=== PATIENT | male | born 1960 | race Caucasian/White ===

== ENCOUNTER → 2019-11-11 13:18 | Outpatient (BNVA) | payer MEDICARE, MEDICAID, SELFPAY | PROVIDERS: Family Provider Internal Medicine; PCP Internal Medicine; Visit Provider Specialist | DX: R29.90 Unspecified symptoms and signs involving the nervous system (principal); F31.10 Bipolar disorder, current episode manic without psychotic features, unspecified | CPT/HCPCS: 99213 ==

== ENCOUNTER → 2020-08-24 09:44 | Day surgery (SDC) | payer MEDICARE, MEDICAID, SELFPAY ==
[2020-08-24] MEDS: iron sucrose 500 MG in sodium chloride 0.9% 250 ML 68.8 MG IV (10:41)
[2020-08-24 11:06] VITALS: BP 124/71; PULSE 73; RESP 18; TEMP 37.1; O2SAT 97
== END ==
PROVIDERS: PCP Internal Medicine; Visit Provider Internal Medicine
DX: K90.9 Intestinal malabsorption, unspecified (principal)
CPT/HCPCS: 96365; 96366; J1756; J7050

== ENCOUNTER → 2020-08-30 07:59 | Day surgery (SDC) | payer MEDICARE, MEDICAID, SELFPAY ==
[2020-08-30 08:10] VITALS: BP 117/82; PULSE 72; RESP 18; TEMP 37.2; O2SAT 97; BMI 32.8
[2020-08-30] MEDS: iron sucrose 500 MG in sodium chloride 0.9% 250 ML 68.8 MG IV (08:30)
== END ==
PROVIDERS: PCP Internal Medicine; Visit Provider Internal Medicine
DX: K90.9 Intestinal malabsorption, unspecified (principal)
CPT/HCPCS: 96365; 96366; J1756; J7050

== ENCOUNTER → 2020-08-31 09:35 | Outpatient (BNVA) | payer MEDICARE, MEDICAID, SELFPAY | PROVIDERS: PCP Internal Medicine; Visit Provider Specialist | DX: F31.10 Bipolar disorder, current episode manic without psychotic features, unspecified (principal); K90.9 Intestinal malabsorption, unspecified | CPT/HCPCS: 99213 ==

== ENCOUNTER → 2021-02-28 10:51 | Outpatient (BNVA) | payer MEDICARE, MEDICAID, SELFPAY | PROVIDERS: PCP Internal Medicine; Visit Provider Specialist | DX: F31.10 Bipolar disorder, current episode manic without psychotic features, unspecified (principal) | CPT/HCPCS: 99213 ==

== ENCOUNTER → 2021-08-22 10:35 | Outpatient (BNVA) | payer MEDICARE, MEDICAID, SELFPAY | PROVIDERS: PCP Internal Medicine; Referring Provider Specialist; Visit Provider Specialist | DX: F31.10 Bipolar disorder, current episode manic without psychotic features, unspecified (principal) | CPT/HCPCS: 99213 ==

== ENCOUNTER → 2021-11-28 14:46 | Outpatient (BNVA) | payer MEDICARE, MEDICAID, SELFPAY | PROVIDERS: PCP Internal Medicine; Visit Provider Specialist | DX: F31.10 Bipolar disorder, current episode manic without psychotic features, unspecified (principal) | CPT/HCPCS: 99213 ==

== ENCOUNTER 2022-07-12 09:55 | Inpatient (IN) | payer MEDICARE, MEDICAID, SELFPAY ==
[2022-07-12] VITALS (35 sets, daily range): BP systolic 87–123; BP diastolic 60–83; PULSE 79–102; RESP 12–29; TEMP 36.4–36.8; O2SAT 87–96
--- NOTE | 2022-07-12 10:15 | XRR_ITS ---
PROCEDURE INFORMATION: Exam: XR Chest Exam date and time: 07/12/2022 10:46 AM Age: 62 years old Clinical indication: Shortness of breath TECHNIQUE: Imaging protocol: Radiologic exam of the chest. Views: 1 view. COMPARISON: CR XR chest 1V [id number] 11/01/2015 8:16 PM FINDINGS: Lungs: Lung volumes are decreased. Diffuse alveolar infiltrate involving majority of the right lung likely secondary to diffuse pneumonia. Pleural spaces: Unremarkable. No pleural effusion. No pneumothorax. Heart/Mediastinum: Heart size is enlarged but stable. Bones/joints: Unremarkable for age. XR/XR chest 1V portable [id number] IMPRESSION: Diffuse alveolar infiltrate right lung likely secondary to pneumonia.
--- NOTE | 2022-07-12 10:19 | ECG_ITS ---
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 Measurements Intervals [place] Rate: 84 P: 42 NC: 188 QRS: 39 QRSD: 96 T: 18 QT: 344 QTc: 407 Interpretive Statements SINUS RHYTHM Compared to ECG 11/01/2015 19:15:52 No significant changes Electronically Signed On 07-13-2022 7:57:03 MFT by Samreen Jones M.D. [id number]
--- NOTE | 2022-07-12 10:19 | ED_ITS ---
HPI - SOB/Dyspnea General: Chief Complaint: Shortness of Breath/Dyspnea Stated Complaint: Low 02, Low BP, shortness of Time Seen by Provider: 07/12/22 10:18 History of Present Illness: HPI Narrative: 62-year-old male from a intermediate with intellectual disability presents emergency room complaining of increasing shortness of breath and cough for the last day. He has some moderate chest pain from his coughing, no hemoptysis. Chest pain is reproducible palpation and deep breath and cough. Patient is hypoxic and requires 2 to 3 L by nasal cannula. No other members of the intermediate has been sick or recently diagnosed with COVID. Chest pain does not radiate and he has no history of coronary artery disease. MD elicited complaint: shortness of breath and cough Onset (ago): day(s) Timing: constant Severity: moderate Exacerbating factors: exertion and coughing Relieving factors: oxygen and rest Associated symptoms: Reports chest congestion, chest pain and cough; Deny no associated symptoms, abdominal pain, diaphoresis, dizziness, extremity p ain, fever(s), hemoptysis, lightheadedness, myalgias, nausea, orthopnea, palpitations, paresthesias, polydipsia, polyuria, rash, sense of impending doom, syncope, vomiting or other Treatment prior to arrival: none Review of Systems Const: Denies: fever(s) or diaphoresis Card: Reports: chest pain; Denies: palpitations, lightheadedness, syncope or orthopnea Resp: Reports: dyspnea, non-productive cough and chest congestion; Denies: hemoptysis GI: Denies: abdominal pain, nausea or vomiting Musc: Denies: extremity pain Neuro: Denies: dizziness Endo: Denies: polyuria or polydipsia PFSH ED PFSH: Medical History Bipolar disease, manic Negative colon, negative guaics. Dupuytren's contracture of left hand Iron deficiency anemia Tardive dyskinesia Surgical History History of carpal tunnel release History of cataract extraction History of colonoscopy Social History Smoking and tobacco status: never smoked Alcohol intake: never History of recent travel: No Physical Exam Const: GENERAL APPEARANCE: cooperative and comfortable ORIENTATION/CO NSCIOUSNESS: Yes awake HENMT: COMMON NORMALS: normocephalic, atraumatic and hearing grossly normal bilaterally HEAD & SCALP: normocephalic and atraumatic Resp: COMMON NORMALS: No use of accessory muscles AUSCULTATION: rhonchi and wheezes Cardio: COMMON NORMALS: regular rate, regular rhythm and No murmurs present (Cardio) RATE: regular rate RHYTHM: regular rhythm GI: COMMON NORMALS: Soft to palpation and No hepatosplenomegaly present AUSCULTATION: Yes normoactive bowel sounds PALPATION: Yes Soft to palpation, No Tenderness to palpation present (GI), No Guarding due to palpation present (GI) and Yes No hepatosplenomegaly present Extremity: COMMON NORMALS: normal to inspection, capillary refill normal, no clubbing, cyanosis or edema, no calf tenderness and no pedal edema Skin: COMMON NORMALS: no rashes or lesions noted GENERAL SKIN EXAM: no rashes or lesions noted Course Vital Signs: Vital signs: Vital Signs Temperature 98.3 F 07/14/22 15:44 Pulse Rate 85 07/14/22 15:44 Respiratory Rate 18 07/14/22 15:44 Blood Pressure 110/74 07/14/22 15:44 Pulse Oximetry 93 07/14/22 15:44 Oxygen Delivery Me thod 07/14/22 11:55 Oxygen Flow Rate 2 07/14/22 13:24 MDM - SOB/Dyspnea Medical Decision Making Right lower lobe pneumonia with elevated D-dimer PCR is pending discussed with hospitalist will admit is not having the oxygen requirement start oral antibi otics orders written. EKG reviewed no acute ST changes suspect this pain is musculoskeletal and pleuritic in nature not cardiovascular. Pending COVID may need CTA of chest. Medical Records I reviewed the patient's medical records. Lab Data I reviewed the patient's lab results. 07/12/22 10:25 07/12/22 10:25 Labs/Radiology: Radiology Impressions Chest X-Ray 07/12/22 10:15 IMPRESSION: Diffuse alveolar infiltrate right lung likely secondary to pneumonia. Chest CTA 07/12/22 14:00 IMPRESSION: 1. Some images degraded by respiratory artifact. Right-sided segmental and subsegmental pulmonary arteries not well evaluated. However no evidence of pulmonary embolus as visualized. 2. RIGHT hilar bronchovascular thickening with masslike lymphadenopathy measuring 2.3 x 2.4 cm suspicious for neoplasm. Mild narrowing of the proximal RIGHT bronchi. A few enlarged peribronchial and subcarinal lymph nodes. Recommend further evaluation with bronchoscopy. 3. Diffuse groundglass infiltrates throughout the RIGHT lung suspicious for postobstructive and/or aspiration pneumonia. LEFT lung is well aerated. 4. Esophageal hiatal hernia with partial intrathoracic stomach. 5. Diffuse dilatation of the thoracic esophagus with air-fluid levels. Recommend correlation with achalasia. Distention of the distal thoracic esophagus at the GE junction. Underlying obstructing esophageal mass not excl uded. This can be further evaluated with endoscopy. 6. Cardiomegaly. 7. A few low-attenuation lesions in the liver likely hepatic cysts but technically indeterminate on this study. Some of these were present in 2006. This can be followed up with contrast-enhanced CT. Notified Edward Polk MD at 07/12/2022 4:16 PM. Laboratory Results WBC 14.9 10^3/uL (4.0-10.0) H 07/12/22 10:25 RBC 5.05 10^6/uL (4.1-5.3) 07/12/22 10:25 Hgb 14.5 g/dL (11.7-16.6) 07/12/22 10:25 Hct 44.8 % (42.0-52.0) 07/12/22 10:25 MCV 88.7 fl (80-94) 07/12/22 10:25 MCH 28.7 pg (28.0-34.0) 07/12/22 10:25 MCHC 32.4 g/dL (30.0-36.0) 07/12/22 10:25 RDW 13.3 % (12.1-15.1) 07/12/22 10:25 Plt Count 213 10^3/cmm (130-400) 07/12/22 10:25 MPV 10.2 fL (7.4-10.4) 07/12/22 10:25 Neut % (Auto) 92.8 % 07/12/22 10:25 Lymph % (Auto) 2.5 % 07/12/22 10:25 [place] % (Auto) 4.1 % 07/12/22 10:25 Eos % (Auto) 0.0 % 07/12/22 10:25 Baso % (Auto) 0.2 % 07/12/22 10:25 Neut # (Auto) 13.85 10^3/uL (1.8-7.7) H 07/12/22 10:25 Lymph # (Auto) 0.4 10^3/uL (0.8-4.8) L 07/12/22 10:25 [place] # (Auto) 0.6 10^3/uL (0.2-0.9) 07/12/22 10:25 Eos # (Auto) 0.0 10^3/uL (0.0-0.8) 07/12/22 10:25 Baso # (Auto) 0.0 10^3/uL (0.0-0.1) 07/12/22 10:25 Nucleated RBC % (auto) 0 % 07/12/22 10:25 Nucleated RBCs # 0.0 /100WBC 07/12/22 10:25 D-Dimer 1.85 ug/mIFEU (0-0.59) H 07/12/22 10:25 Sodium 130 mmol/L (136-145) L 07/12/22 10:25 Potassium 4.6 mmol/L (3.5-5.1) 07/12/22 10:25 Chloride 96 mmol/L (98-107) L 07/12/22 10:25 Carbon Dioxide 23 mmol/L (22-29) 07/12/22 10:25 Anion Gap 15.6 (5-19) 07/12/22 10:25 BUN 19 mg/dL (8-23) 07/12/22 10:25 Creatinine 1.0 mg/dL (0.7-1.2) 07/12/22 10:25 GFR Calculation 75.2 mL/min (90-130) L 07/12/22 10:25 Glucose 113 mg/dL (65-115) 07/12/22 10:25 Calculated Osmolality 273 mOsm/kg (285-295) L 07/12/22 10:25 Calcium 9.1 mg/dL (8.5-10.5) 07/12/22 10:25 Total Bilirubin 0.6 mg/dL (0.15-1.2) 07/12/22 10:25 AST 17 U/L (0-40) 07/12/22 10:25 ALT 11 U/L (0-41) 07/12/22 10:25 Alkaline Phosphatase 86 U/L (40-130) 07/12/22 10:25 Troponin T Baseline 6 ng/L (0-15) 07/12/22 10:25 Troponin T 120 Minute 6.00 ng/L (0-15) 07/12/22 12:40 Delta Troponin T 0 ABS# (0-10) 07/12/22 12:40 NT-Pro-B Natriuret Pep 196 pg/mL (0-125) H 07/12/22 10:25 Total Protein 6.9 g/dL (6.6-8.7) 07/12/22 10:25 Albumin 3.9 g/dL (3.5-5.2) 07/12/22 10:25 Globulin 3.0 g/dL (1.3-4.6) 07/12/22 10:25 Coronavirus 229E (PCR) Not detected (NOT DETECT) 07/12/22 11:55 SARS-CoV-2 (PCR) Not detected (NOT DETECT) 07/12/22 11:55 Discharge Plan Discharge Patient Disposition: Admitted As Inpatient Admit Provider: Edward Polk Clinical Impression: Pneumonia, Acute hyponatremia, Elevated d-dimer Condition: Stable Coding Level of Care Code 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
[2022-07-12 10:40] LABS: Basophils % 0.2 %; Hematocrit 44.8 % (42.0-52.0); Hemoglobin 14.5 g/dL (11.7-16.6); Lymphocytes # 0.4 10^3/uL (0.8-4.8); Lymphocytes % 2.5 %; Mean Corpuscular HGB Conc 32.4 g/dL (30.0-36.0); Mean Corpuscular Hemoglobin 28.7 pg (28.0-34.0); Mean Corpuscular Volume 88.7 fl (80-94); Mean Platelet Volume 10.2 fL (7.4-10.4); Monocytes # 0.6 10^3/uL (0.2-0.9); Monocytes % 4.1 %; Neutrophils # 13.85 10^3/uL (1.8-7.7); Neutrophils % 92.8 %; Nucleated Red Blood Cells % 0 %; Platelet Count 213 10^3/cmm (130-400); Red Blood Count 5.05 10^6/uL (4.1-5.3); Red Cell Distribution Width 13.3 % (12.1-15.1); White Blood Count 14.9 10^3/uL (4.0-10.0)
[2022-07-12 11:04] LABS: Troponin(5th) Baseline 6 ng/L (0-15)
[2022-07-12 11:14] LABS: Alanine Aminotransferase 11 U/L (0-41); Albumin Level 3.9 g/dL (3.5-5.2); Alkaline Phosphatase 86 U/L (40-130); Anion Gap 15.6 (5-19); Aspartate Amino Transferase 17 U/L (0-40); Blood Urea Nitrogen 19 mg/dL (8-23); Calcium 9.1 mg/dL (8.5-10.5); Carbon Dioxide 23 mmol/L (22-29); Chloride 96 mmol/L (98-107); Glomerular Filtration Rate 75.2 mL/min (90-130); Glucose 113 mg/dL (65-115); NT Pro B Type Natriuretic Pept 196 pg/mL (0-125); Osmolality Calculated 273 mOsm/kg (285-295); Potassium 4.6 mmol/L (3.5-5.1); Sodium 130 mmol/L (136-145); Total Bilirubin 0.6 mg/dL (0.15-1.2); Total Protein 6.9 g/dL (6.6-8.7)
--- NOTE | 2022-07-12 11:39 | PC.PHAR ---
pt is from [facility]
[2022-07-12] MEDS: levofloxacin-dextrose 5 % 750 MG/150 ML PREMIX 100 MG IV (12:13)
[2022-07-12 12:24] LABS: D Dimer 1.85 ug/mIFEU (0-0.59)
--- NOTE | 2022-07-12 12:25 | P.HP_ITS ---
Providers/Chief Complaint Admitting Physician: Edward Polk MD Primary Care Provider: Dandre Oakes MD Chief Complaint: Low 02, Low BP, shortness of History of Present Illness Dalton Olivas is a 62 year old male with history of intellectual disability who presents from a [facility] complaining of shortness of breath for the past day. Caregiver from the [facility] is present at bedside. She states that the patient's symptoms began with a dry cough yesterday, which has progressed to obvious respiratory difficulty today. Patient does not require oxygen at home, as the patient states that his shortness of breath came on all of a sudden while he was sitting down. Exacerbating factors to his shortness of breath include physical exertion and frequent coughing. He also states that he is having some pleuritic chest pain from his repetitive coughing, but states that it is only reproduced from coughing and describes it as a general musculoskeletal tightness. He denies any radiation of this pain. He states he has never had the symptoms before, and has no history of cardiopulmonary disease. He also reports some mild, unrelated back pain that is worse when he lays in certain positions. Caregiver states that there have been no recent sick contacts in the [facility], however, there is no mandatory requirement for the COVID-vaccine and she states that she is unaware of everyone's vaccination status. Reportedly, the patient has received the COVID vaccination. Confirmed by the caregiver, the patient denies any fever, syncope, dizziness, lightheadedness, palpitations, peripheral edema, hemoptysis, N/V/D, or any other symptoms at this time. The patient is currently on 2 L with O2 sats 90 to 93%. In the emergency department the patient received a dose of Levaquin. Review of Systems Narrative: General: Denies fever, weakness, dehydration Skin: Denies cyanosis, rash, erythema Eyes: Denies color changes, visual changes HENT: Denies headache, ear pain, rhinorrhea Chest: Reports pleuritic chest pain from coughing. Denies trauma Cardiovascular: Denies palpitations, peripheral edema, syncope Respiratory: Reports dyspnea, dry cough GI: Denies abdominal pain, distention, N/V/D : Denies urinary changes Musculoskeletal: Reports back pain Neuro: Denies numbness, tingling, dizziness Medications/Allergies Home Medications Medication Instructions Recorded Confirmed Last Taken Type ibuprofen 800 mg tablet 800 mg PO Q6H PRN pain/fever 07/30/19 07/12/22 Unknown History ceramides 1,3,6-II (CeraVe topical See Rx Instructions .Route 11/20/21 07/12/22 Unknown Rx cream) .COMPLEX #453 grams carbamide peroxide 6.5 % ear drops See Rx Instructions .Route 12/19/21 07/12/22 Unknown Rx (Ear Wax Removal Drops) .COMPLEX #15 mL aluminum-mag hydroxide-simethicone 30 ml PO Q4H PRN upset stomach 07/12/22 07/12/22 Unknown History 200 mg-200 mg-20 mg/5 mL oral susp dextromethorphan-guaifenesin 10 10 ml PO Q4H PRN Cough 07/12/22 07/12/22 Unknown History mg-100 mg/5 mL oral syrup ferrous gluconate 324 mg (38 mg 324 mg PO DAILY@07/12/22 07/12/22 07/12/22 History iron) tablet fluticasone propionate 50 2 spray intranasal DAILY@07/12/22 07/12/22 07/12/22 History mcg/actuation nasal spray,suspension hydrocortisone 1 % topical cream 1 applic NE QID PRN Hemorrhoids 07/12/22 07/12/22 Unknown History (Proctocort) loratadine 10 mg tablet (Claritin) 10 mg PO DAILY@07/12/22 07/12/22 07/12/22 History neomycin-bacitracn Zn-polymyx 3.5 1 applic topical PRN 07/12/22 07/12/22 Unknown History mg-400 unit-5,000 unit/gram top oint (Triple Antibiotic) omeprazole 20 mg capsule,delayed 20 mg PO DAILY@07/12/22 07/12/22 07/12/22 History release oxcarbazepine 600 mg tablet 600 mg PO BID@07/12/22 07/12/22 07/12/22 History polyethylene glycol 3350 17 gram 17 g PO DAILY@07/12/22 07/12/22 07/11/22 History oral powder packet (Miralax) quetiapine 200 mg tablet 200 mg PO BID@07/12/22 07/12/22 07/12/22 History simethicone 80 mg chewable tablet 80 mg PO QID 07/12/22 07/12/22 07/12/22 07:00 History trazodone 150 mg tablet 150 mg PO BEDTIME@20 07/12/22 07/12/22 07/11/22 History venlafaxine 150 mg 150 mg PO DAILY@07/12/22 07/12/22 07/12/22 History capsule,extended release 24 hr venlafaxine 75 mg capsule,extended 75 mg PO DAILY@07/12/22 07/12/22 07/12/22 History release 24 hr (Effexor XR) Allergies Allergy/AdvReac Type Severity Reaction Status Date / Time No Known Allergies Allergy Verified 07/12/22 11:24 PFSH Acute PFSH: Medical History (Updated 07/12/22 @ 13:18 by Edward Polk MD) Bipolar disease, manic Negative colon, negative guaics. Dupuytren's contracture of left hand Iron deficiency anemia Tardive dyskinesia Surgical History History of carpal tunnel release History of cataract extraction History of colonoscopy Social History Smoking and tobacco status: never smoked Alcohol intake: never History of recent travel: No Other PFSH information: Supplemental PFSH Information: No family with patient to obtain family history. Vitals/I&O/Wt Last Vital Signs Temp 98.2 F 07/12/22 10:07 Pulse 102 H 07/12/22 10:07 Resp 18 07/12/22 10:07 BP 106/68 07/12/22 11:13 Pulse Ox 92 07/12/22 11:13 O2 Del Method 07/12/22 11:13 O2 Flow Rate 2 07/12/22 11:13 Weight last 48 hrs Weight 99.79 kg Physical Exam Narrative: Constitutional: Well-developed, well-nourished white male lying in ER bed appears in no acute distress, on 2 L of oxygen. Patient speaks tangen tially, likely his history of intellectual disability Skin: No obvious signs of rash, mottling, cyanosis, clubbing, or any other color changes Eyes: PERRLA. Full EOMs. No scleral icterus. No corneal injection. HENT: Head is atraumatic and normocephalic. Normal TMs. No obvious nasal drainage. Moist oral mucosa. No tonsillar exudate or significant erythema. Chest: Chest nontender to palpation. Cardiovascular: Slightly tachycardic. Normal rhythm. No rubs, murmur, or gallop. No JVD. 1+ pitting edema. Respiratory: Moderate wheezing in the right lung mcrae, worse in the bases. Patient coughs frequently on exam. Pleuritic chest pain is reproducible with deep breathing/coughing. Normal respiratory effort. No use of intercostal muscles. No Rales, rhonchi, or stridor. GI: No abdominal tenderness. Normal bowel sounds. No rigidity or guarding. : Deferred Musculoskeletal: No tenderness palpation of the extremities. No tenderness palpation of the paraspinal muscles. Neuro: Alert and oriented x3. Sensations intact bilaterally. Data 07/12/22 10:25 07/12/22 10:25 Other Labs: Dimer elevated at 1.85 Liver function test normal BNP 196 Albumin 3.9 Calcium 9.1 Chest x-ray demonstrates extensive right lung infiltrate. I reviewed this personally. Blood cultures were obtained EKG demonstrates sinus rhythm, normal axis, no acute changes. Micro: Microbiology 07/12/22 10:30 Blood Culture - Preliminary Blood SPECIMEN COLLECTED 07/12/22 10:25 Blood Culture - Preliminary Blood SPECIMEN COLLECTED A&P Assessment and plan (1) Pneumonia: Patient presents with what appears to be outpatient acquired pneumonia. Levaquin has been initiated in the emergency department. We will continue. Has associated elevated white blood cell count, and hypoxia Wean oxygen as tolerated Pulmonary toilet No history of aspiration was given by independent caregiver or patient. However we will still monitor for aspiration considering location of pneumonia on the right side. Sputum and blood cultures Await COVID PCR (2) Hyponatremia: Try to avoid any extra fluids BMP tomorrow (3) Elevated d-dimer: If COVID is not positive, consider CT chest to image right side more extensively secondary to large pneumonia and to rule out pulmonary embolism. Plan Bipolar disorder and developmental delay Full code currently Lovenox for DVT prophylaxis Attestations Medical Necessity Statement*: Will require greater than 2 midnight stay for evaluation and treatment of pneumonia considering severe pneumonia, abnormal vital signs with tachycardia, elevated white blood cell count, hypoxia requiring oxygen Coding Level of Care Code 42414 High MDM includes risk/complexity, reviewing test results, ordering lab/other test(s), speaking with independent historian (other than patient) and independently interpretating test(s) (not separately recorded) Diagnoses Pneumonia J18.9 Hyponatremia E87.1 Elevated d-dimer R79.89 Time Spent (min) 42
--- NOTE | 2022-07-12 13:46 | ECG_ITS ---
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 Measurements Intervals [place] Rate: 88 P: 49 [place]: 185 QRS: 33 QRSD: 93 T: 46 QT: 339 QTc: 412 Interpretive Statements SINUS RHYTHM NONSPECIFIC T-WAVE ABNORMALITY Compared to ECG 07/12/2022 10:38:35 T-wave abnormality now present Electronically Signed On 07-13-2022 8:13:28 KAIAWHINA by Samreen Jones M.D. [email or web address]/store/OM/[id number]
[2022-07-12 13:53] LABS: Adenovirus Not Detected (NOT DETECT); Chlamydia Pneumoniae Not Detected (NOT DETECT); Coronavirus 229E,HKU1,NL63,OC4 Not Detected (NOT DETECT); Human Metapneumovirus Not Detected (NOT DETECT); Human Rhinovirus/Enterovirus Not Detected (NOT DETECT); Influenza A Not Detected (NOT DETECT); Influenza A H1 Not Detected (NOT DETECT); Influenza A H1-2009 Not Detected (NOT DETECT); Influenza A H3 Not Detected (NOT DETECT); Influenza B Not Detected (NOT DETECT); Mycoplasma Pneumoniae Not Detected (NOT DETECT); Parainfluenza Virus Type 1 Not Detected (NOT DETECT); Parainfluenza Virus Type 2 Not Detected (NOT DETECT); Parainfluenza Virus Type 3 Not Detected (NOT DETECT); Parainfluenza Virus Type 4 Not Detected (NOT DETECT); Respiratory Syncytial Virus A Not Detected (NOT DETECT); Respiratory Syncytial Virus B Not Detected (NOT DETECT); SARS-COV-2 Not Detected (NOT DETECT)
--- NOTE | 2022-07-12 14:00 | CT_ITS ---
WS: [id number] CTA OF THE CHEST WITH PULMONARY EMBOLISM PROTOCOL TECHNIQUE: High-resolution contrast enhanced CTA of the chest with coronal and sagittal reformatted i mages with pulmonary embolism protocol. MIP images are also reviewed. CLINICAL INFORMATION: elevated dimer COMPARISON: None. DLP: 443.[address] scans at [facility] use at least one of these dose optimization techniques: automated e xposure control; mA and/or kV adjustment per patient size (includes targeted exams where dose is matc hed to clinical indication); or iterative reconstruction. FINDINGS: Proximal main pulmonary arteries are normal. Normal segmental and subsegmental pulmonary arteries. Di stal most pulmonary arteries not well visualized due to breathing artifact. No evidence of pulmonary embolus. Normal caliber thoracic aorta. Esophageal hiatal hernia with intrathoracic stomach and air-f luid level. Diffuse hazy ground glass infiltrates throughout the RIGHT lung. LEFT lung is better aera brandon without acute infiltrates. No significant pleural fluid. Air-fluid level level with distention of the entire thoracic esophagus. Recommend correlation with hi story of achalasia. Marked distention of the distal thoracic esophagus and GE junction. Recommend fur ther evaluation with EGD to exclude underlying mass. Bronchovascular thickening along the RIGHT hilum with RIGHT hilar masslike lymphadenopathy. RIGHT hil ar bronchovascular thickening. Mild narrowing of the RIGHT bronchus intermedius, RIGHT middle lobe an d lower lobe bronchus. RIGHT hilar mass/lymphadenopathy measures approximately 2.5 x 2.3 CM. Diffuse groundglass infiltrates RIGHT lung likely postobstructive versus aspiration Enlarged peribronchial and RIGHT hilar lymph nodes. Subcarinal lymphadenopathy. A few prominent AP wi ndow lymph nodes. Findings suspicious for neoplasm. Recommend bronchoscopy in further evaluation. Low-attenuation lesions in the LEFT hepatic lobe appear to have been present in 2007 likely hepatic c ysts. Adrenal glands are normal. Moderate thoracic kyphosis. Hypertrophic changes thoracic spine. Cardiomegaly. CT/CT angio chest PE protcl [id number] IMPRESSION: 1. Some images degraded by respiratory artifact. Right-sided segmental and sub segmental pulmonary arteries not well evaluated. However no evidence of pulmona ry embolus as visualized. 2. RIGHT hilar bronchovascular thickening with masslike lymphadenopathy measur ing 2.3 x 2.4 cm suspicious for neoplasm. Mild narrowing of the proximal RIGHT bronchi. A few enlarged peribronchial and subcarinal lymph nodes. Recommend fur ther evaluation with bronchoscopy. 3. Diffuse groundglass infiltrates throughout the RIGHT lung suspicious for po stobstructive and/or aspiration pneumonia. LEFT lung is well aerated. 4. Esophageal hiatal hernia with partial intrathoracic stomach. 5. Diffuse dilatation of the thoracic esophagus with air-fluid levels. Recomme nd correlation with achalasia. Distention of the distal thoracic esophagus at t he GE junction. Underlying obstructing esophageal mass not excluded. This can b e further evaluated with endoscopy. 6. Cardiomegaly. 7. A few low-attenuation lesions in the liver likely hepatic cysts but technic ally indeterminate on this study. Some of these were present in 2007. This can be followed up with contrast-enhanced CT. Notified Edward Polk MD at 07/12/2022 4:16 PM.
[2022-07-12 14:01] LABS: Troponin 5 2HR Delta 0 ABS# (0-10)
[2022-07-12] MEDS: enoxaparin 40 mg/0.4 mL Syringe SUBCUT (14:05)
[2022-07-12] MEDS: ipratropium-albuterol 3 mL Neb INHALATION ×2 (14:15→19:48)
[2022-07-12] MEDS: iohexol 350 mg/mL 500 mL Btl (per mL) IV (15:06)
--- NOTE | 2022-07-12 16:10 | ECG_ITS ---
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 Measurements Intervals [place] Rate: 90 P: 37 NV: 187 QRS: 18 QRSD: 93 T: 0 QT: 333 QTc: 408 Interpretive Statements SINUS RHYTHM Compared to ECG 07/12/2022 13:46:35 T-wave abnormality no longer present Electronically Signed On 07-13-2022 8:13:03 [employer]ESSIONAL [employer] by Samreen Jones M.D. [id number]
[2022-07-12 16:25] LABS: Add Urine Microscopic? YES; Bacteria Urine TRACE /hpf; Bilirubin Urine Neg (Negative); Blood Urine Neg (Negative); Glucose Urine UA Norm (Normal); Ketones Urine Negative (Negative); Leukocyte Esterase Urine Trace (Negative); Nitrate Urine Negative (Negative); Protein Urine Neg (Negative); Specific Gravity, Urine 1.005 (1.005-1.030); Squamous Epithelial Cell Urine 0-4 /hpf (0-5); Urine Appearance Clear (CLEAR); Urine Color Dark Yellow (Yellow); Urobilinogen Urine Neg (Negative); WBC Urine 0-4 /hpf (0-5); pH Urine 5 (5-7)
[2022-07-12 16:26] LABS: Add Urine Culture? No; Mucus Urine 2+ /hpf
[2022-07-12 17:10] LABS: Troponin 5 6HR Delta 0 ng/L (0-12)
[2022-07-12] MEDS: pantoprazole DR 40 mg Tablet PO (17:25)
[2022-07-12] MEDS: simethicone 80 mg Chew PO ×2 (17:25→20:05)
--- NOTE | 2022-07-12 17:43 | PC.NURSE ---
Patient arrived to ICU today. CT done earlier today see report. Patient currently on clear liquid diet.
[2022-07-12] MEDS: trazodone 150 mg Tablet PO (20:05)
[2022-07-12] MEDS: quetiapine 100 mg Tablet 200 MG PO (20:05)
[2022-07-12] MEDS: OXcarbazepine 300 mg Tablet 600 MG PO (20:05)
--- NOTE | 2022-07-12 22:38 | PC.NURSE ---
Report called to Marvin
--- NOTE | 2022-07-12 23:40 | PC.NURSE ---
Transferred to Med Surg room 254-1 via wheelchair.
[2022-07-13] VITALS (11 sets, daily range): BP systolic 104–134; BP diastolic 69–80; PULSE 72–99; RESP 17–21; TEMP 36.4–37.4; O2SAT 71–95
--- NOTE | 2022-07-13 00:14 | PC.NURSE ---
Patient transported via wheelchair from ICU to room 254-1 at 2345. PRAKASH Bean handed patient off to this nurse. Patient assisted to bed and oriented to room. Denies any needs at this time.
[2022-07-13] MEDS: ipratropium-albuterol 3 mL Neb INHALATION ×4 (02:29→19:41)
[2022-07-13 05:00] LABS: Basophils % 0.3 %; Eosinophils # 0.1 10^3/uL (0.0-0.8); Eosinophils % 0.5 %; Hematocrit 39.3 % (42.0-52.0); Hemoglobin 12.8 g/dL (11.7-16.6); Lymphocytes % 8.4 %; Mean Corpuscular HGB Conc 32.6 g/dL (30.0-36.0); Mean Corpuscular Hemoglobin 29.2 pg (28.0-34.0); Mean Corpuscular Volume 89.7 fl (80-94); Mean Platelet Volume 10.5 fL (7.4-10.4); Monocytes # 0.8 10^3/uL (0.2-0.9); Monocytes % 6.1 %; Neutrophils % 84.1 %; Nucleated Red Blood Cells % 0 %; Platelet Count 168 10^3/cmm (130-400); Red Blood Count 4.38 10^6/uL (4.1-5.3); Red Cell Distribution Width 13.9 % (12.1-15.1); White Blood Count 12.4 10^3/uL (4.0-10.0)
[2022-07-13 05:25] LABS: Alanine Aminotransferase 10 U/L (0-41); Albumin Level 3.6 g/dL (3.5-5.2); Alkaline Phosphatase 81 U/L (40-130); Anion Gap 15.3 (5-19); Aspartate Amino Transferase 13 U/L (0-40); Blood Urea Nitrogen 17 mg/dL (8-23); Calcium 8.9 mg/dL (8.5-10.5); Carbon Dioxide 23 mmol/L (22-29); Chloride 103 mmol/L (98-107); Globulin 2.2 g/dL (1.3-4.6); Glomerular Filtration Rate 113.5 mL/min (90-130); Glucose 105 mg/dL (65-115); Osmolality Calculated 286 mOsm/kg (285-295); Potassium 4.3 mmol/L (3.5-5.1); Sodium 137 mmol/L (136-145); Total Bilirubin 0.4 mg/dL (0.15-1.2); Total Protein 5.8 g/dL (6.6-8.7)
[2022-07-13] MEDS: OXcarbazepine 300 mg Tablet 600 MG PO ×2 (06:45→20:22)
[2022-07-13] MEDS: loratadine 10 mg Tablet PO (06:45)
--- NOTE | 2022-07-13 07:17 | P.PN_ITS ---
Subjective Subjective: Dalton was sleeping and breathing comfortably upon recheck this morning. On arousal, he states that he feels minimally better but is still short of breath. However, he does not report any apneic spells overnight that caused him to awake. He says that the pain in his chest with respirations has ul timately subsided, despite his lingering cough. He is currently on 2.5L of O2 and breathing comfortably. He states that he was having trouble with his nasal cannula last night and that it did not want to stay on. Patient was transferred from the ICU during overnight hours. He denies any new pain or symptoms at this time, and is questioning when he can go home. CTA reviewed and shows no signs of pulmomary embolism. Medications: Reviewed: Yes Vitals/I&O/Wt Last Vital Signs Temp 97.8 F 07/13/22 04:00 Pulse 72 07/13/22 04:00 Resp 17 07/13/22 04:00 BP 134/80 07/13/22 04:00 Pulse Ox 95 07/13/22 04:00 O2 Del Method 07/13/22 04:00 O2 Flow Rate 2.5 07/13/22 04:00 07/12/22 07/13/22 07/13/22 22:59 06:59 14:59 Intake Total 540 / 690 Output Total 650 / 650 Balance -110 / 40 Weight last 48 hrs Weight 99.79 kg Physical Exam Narrative: Constitutional: Well-developed, well-nourished white male sleeping on examination appears in no acute distress, on 2.5 L of oxygen. Converses normally on arousal. He is afebrile. Skin: No obvious signs of rash, mottling, cyanosis, clubbing, or any other color changes. Eyes: No scleral icterus or injection HENT: Head is atraumatic and normocephalic. Moist oral mucosa. No obvious nasal drainage. Ear exam deferred. Chest: Chest nontender to palpation. Cardiovascular: Regular rate and rhythm. No rubs, murmur, or gallop. No JVD. Trace edema. Respiratory: Moderate crackles in the right lung mcrae still present from yesterday but mildly improved. Patient continues to cough frequently on my examination. No longer complains of chest pain with deep respirations or coughing. Normal respiratory effort. No use of intercostal muscles. No rhonchi or stridor. GI: No abdominal tenderness. Normal bowel sounds. No rigidity or guarding. : Deferred Musculoskeletal: Normal capillary refill bilaterally. Neuro: Alert and oriented x3. Sensations intact bilaterally. Pulses symmetrical. Data 07/13/22 04:40 07/13/22 04:40 Micro: Microbiology 07/12/22 10:30 Blood Culture - Preliminary Blood SPECIMEN COLLECTED 07/12/22 10:25 Blood Culture - Preliminary Blood SPECIMEN COLLECTED Other data: I reviewed his CT chest findings, and personally looked at this as well for interpretation. Right-sided lymphadenopathy is noted. Hiatal hernia is noted. Esophagus was somewhat dilated. A&P Assessment and plan (1) Pneumonia: Patient presents with what appears to be outpatient acquired pneumonia. Levaquin has been initiated in the emergency department. Changed to Zosyn today for concern of possible aspiration. Doubt atypical pneumonia. Has associated elevated white blood cell count, and hypoxia. Oxygen requirement slightly higher than yesterday. Wean oxygen as tolerated Pulmonary toilet No history of aspiration was given by independent caregiver or patient. However we will still monitor for aspiration considering location of pneumonia on the right side. Speech therapy consultation has been ordered. Placed on clear liquids until their evaluation. Sputum and blood cultures pending COVID PCR was negative MRSA PCR pending Consideration of follow-up with pulmonary and 10 to [address] at that time to make sure lymphadenopathy and infiltrate are clearing. (2) Hyponatremia: Corrected. Recheck BMP tomorrow (3) Elevated d-dimer: No evidence of pulmonary embolism Plan Hiatal hernia. Placed on Protonix twice daily Bipolar disorder and developmental delay Full code currently Lovenox for DVT prophylaxis Attestations Medical Necessity Statement*: Needs continued hospitalization for IV antibiotics secondary to right-sided pneumonia Coding Level of Care Code Acute Code for Chg Fwd Diagnoses Pneumonia J18.9 Hyponatremia E87.1 Elevated d-dimer R79.89
[2022-07-13] MEDS: venlafaxine ER (24HR) 150 mg Capsule PO (08:38)
[2022-07-13] MEDS: simethicone 80 mg Chew PO ×4 (08:38→20:23)
[2022-07-13] MEDS: quetiapine 100 mg Tablet 200 MG PO ×2 (08:38→20:22)
[2022-07-13] MEDS: venlafaxine ER (24HR) 75 mg Capsule PO (08:38)
[2022-07-13] MEDS: piperacillin-tazobactam 3.375 GM in sodium chloride 0.9% (plus) 50 ML IV ×2 (08:39→17:58)
[2022-07-13] MEDS: pantoprazole DR 40 mg Tablet PO ×2 (08:39→17:59)
--- NOTE | 2022-07-13 11:15 | PC.CHAP ---
Pastoral Care Encounter/Spiritual Assessment Type of Contact [] Declined fibrous wallboard inspector visit [] Patient/Family/Request visit [] Outpatient visit [] Follow-up visit [] Physician referral [] Code/Alert [x] Routine visit [] Staff referral [] Actively dying [] Patient sleeping [] Family support [] [] Out of room [] Palliative care [] [x] Receiving care in room [] Pre-surgical visit [] Trauma [] Long length of stay [] ICU visit [] Other: Relational/Emotional Strength [] Patient feels connected with others/family/visitors/staff [] Distress [] Loneliness/isolation [] Abandonment Spirituality of Patient [] Person of Iris [] Attends Buddhism of their Iris [] Believes in Prayer [] Reads Bible or Rastafari materials [] There are Spiritual issues to be addressed Furnace Attendant Interventions [x] Prayer [] Active listening [] Non-anxious presence [] Spiritual/emotional support [] Crisis/trauma care [] Spiritual counseling [] Bereavement support [] Provided bereavement packet [] Provided Bible/devotional materials [] Provided toy/stuffed animal, coloring book to patient or family member [] Provided Communion [] Anointing/Lucan [] Salvation [] Completed spiritual assessment [] Other: Impact on Illness or Injury [] Angry [] Fearful [] Anxious [] Often cries [] Exhaustion [] Unable to work [] Unable to attend hindu [] Unable to walk/stand [] Unable to read [] Unable to drive [] Unable to eat/drink [] Unable to sleep [] Unable to be with family [] Patient intubated [] Other: Summary Time spent with patient
[2022-07-13] MEDS: enoxaparin 40 mg/0.4 mL Syringe SUBCUT (13:26)
--- NOTE | 2022-07-13 16:54 | PC.NURSE ---
Patient insisted on taking a shower and is not done when his Zosyn is due.
[2022-07-13] MEDS: trazodone 150 mg Tablet PO (20:22)
[2022-07-14] VITALS (10 sets, daily range): BP systolic 110–131; BP diastolic 74–85; PULSE 79–92; RESP 15–20; TEMP 36.5–36.8; O2SAT 86–94
[2022-07-14] MEDS: piperacillin-tazobactam 3.375 GM in sodium chloride 0.9% (plus) 50 ML IV ×2 (00:39→08:41)
[2022-07-14] MEDS: ipratropium-albuterol 3 mL Neb INHALATION ×2 (01:58→08:54)
[2022-07-14 05:33] LABS: Basophils % 0.5 %; Eosinophils # 0.2 10^3/uL (0.0-0.8); Eosinophils % 2.9 %; Hematocrit 38.9 % (42.0-52.0); Hemoglobin 12.6 g/dL (11.7-16.6); Lymphocytes # 1.4 10^3/uL (0.8-4.8); Lymphocytes % 18.7 %; Mean Corpuscular HGB Conc 32.4 g/dL (30.0-36.0); Mean Corpuscular Hemoglobin 29.6 pg (28.0-34.0); Mean Corpuscular Volume 91.3 fl (80-94); Mean Platelet Volume 10.5 fL (7.4-10.4); Monocytes # 0.6 10^3/uL (0.2-0.9); Monocytes % 8.5 %; Neutrophils # 5.17 10^3/uL (1.8-7.7); Nucleated Red Blood Cells % 0 %; Platelet Count 176 10^3/cmm (130-400); Red Blood Count 4.26 10^6/uL (4.1-5.3); Red Cell Distribution Width 14.3 % (12.1-15.1); White Blood Count 7.5 10^3/uL (4.0-10.0)
[2022-07-14 05:51] LABS: Blood Urea Nitrogen 15 mg/dL (8-23); Calcium 8.8 mg/dL (8.5-10.5); Carbon Dioxide 23 mmol/L (22-29); Chloride 102 mmol/L (98-107); Glomerular Filtration Rate 97.3 mL/min (90-130); Glucose 105 mg/dL (65-115); Osmolality Calculated 283 mOsm/kg (285-295); Sodium 136 mmol/L (136-145)
[2022-07-14] MEDS: OXcarbazepine 300 mg Tablet 600 MG PO (06:03)
[2022-07-14] MEDS: loratadine 10 mg Tablet PO (06:03)
[2022-07-14] MEDS: venlafaxine ER (24HR) 150 mg Capsule PO (08:40)
[2022-07-14] MEDS: simethicone 80 mg Chew PO ×2 (08:40→14:24)
[2022-07-14] MEDS: venlafaxine ER (24HR) 75 mg Capsule PO (08:40)
[2022-07-14] MEDS: pantoprazole DR 40 mg Tablet PO (08:41)
[2022-07-14] MEDS: quetiapine 100 mg Tablet 200 MG PO (08:41)
--- NOTE | 2022-07-14 12:21 | PM.DCS ---
Discharge Providers Date of Admission: 07/12/22 13:39 Date of Discharge: July 14, 2022 Attending Provider at Admission: Edward Polk MD Attending Provider at Discharge: Jasen Verduzco MD Primary Care Provider: Dandre Oakes MD Diagnoses at Discharge Discharge Diagnosis (1) Pneumonia: Status: Acute (2) Hyponatremia: Status: Acute (3) Elevated d-dimer: Status: Acute Reason for Visit Reason for Visit: Low 02, Low BP, shortness of breath Hospital Course Hospital Course Dalton Olivas is a 62 year old male with history of intellectual disability who presents from a residential complaining of shortness of breath for the past day.? Caregiver from the residential is present at bedside.? She states that the patient's symptoms began with a dry cough yesterday, which has progressed to obvious respiratory difficulty today.? Patient does not require oxygen at home, as the patient states that his shortness of breath came on all of a sudden while he was sitting down.? Exacerbating factors to his shortness of breath include physical exertion and frequent coughing.? He also states that he is having some pleuritic chest pain from his repetitive coughing, but states that it is only reproduced from coughing and describes it as a general musculoskeletal tightness.? He denies any radiation of this pain.? He states he has never had the symptoms before, and has no history of cardiopulmonary disease.? He also reports some mild, unrelated back pain that is worse when he lays in certain positions.? Caregiver states that there have been no recent sick contacts in the residential, however, there is no mandatory requirement for the COVID-vaccine and she states that she is unaware of everyone's vaccination status.? Reportedly, the patient has received the COVID vaccination.? Confirmed by the caregiver, the patient denies any fever, syncope, dizziness, lightheadedness, palpitations, peripheral edema, hemoptysis, N/V/D, or any other symptoms at this time.? The patient is currently on 2 L with O2 sats 90 to 93%. In the emergency department the patient received a dose of Levaquin. Patient was admitted to [facility] for pneumonia, highly suspicious for aspiration pneumonia received broad-spectrum antibiotic therapy, overall clinically improved, discharged on 5 remaining days of Augmentin Patient CT angiogram as below 1.? Some images degraded by respiratory artifact. Right-sided segmental and subsegmental pulmonary arteries not well evaluated. However no evidence of pulmonary embolus as visualized. 2.? RIGHT hilar bronchovascular thickening with masslike lymphadenopathy measuring 2.3 x 2.4 cm suspicious for neoplasm. Mild narrowing of the proximal RIGHT bronchi. A few enlarged peribronchial and subcarinal lymph nodes. Recommend further evaluation with bronchoscopy. 3.? Diffuse groundglass infiltrates throughout the RIGHT lung suspicious for postobstructive and/or aspiration pneumonia. LEFT lung is well aerated. 4.? Esophageal hiatal hernia with partial intrathoracic stomach. 5.? Diffuse dilatation of the thoracic esophagus with air-fluid levels. Recommend correlation with achalasia. Distention of the distal thoracic esophagus at the GE junction. Underlying obstructing esophageal mass not excluded. This can be further evaluated with endoscopy. 6.? Cardiomegaly. 7.? A few low-attenuation lesions in the liver likely hepatic cysts but technically indeterminate on this study. Some of these were present in 2006. This can be followed up with contrast-enhanced CT. ? -Given patient's masslike lymphadenopathy, I have referred him to pulmonary for further evaluation for consideration of bronchoscopy -Patient is diffuse ground glass infiltrates right lung, highly suspicious for postobstructive pneumonia aspiration pneumonia, discharged on aspiration instructions, aspiration precautions, diet level 5 minced and moist, with concerns for aspiration of clear liquids, advised to liquids using a straw -Given patient's esophageal findings, placed on aspiration precautions as above, referred patient to general surgery for consideration of EGD -Follow-up with primary care next week Physical Exam Const: COMMON NORMALS: no acute distress and patient oriented x3 Resp: COMMON NORMALS: normal respiratory effort, No retractions, No use of accessory muscles and clear to auscultation bilaterally AUSCULTATION: clear to auscultation bilaterally Cardio: COMMON NORMALS: regular rate, regular rhythm, S1 normal heart sound present and S2 normal heart sound present RATE: regular rate RHYTHM: regular rhythm HEART SOUNDS: S1 normal heart sound present and S2 normal heart sound present GI: COMMON NORMALS: Normal to inspection, nondistended, normoactive bowel sounds present and non-tender Extremity: COMMON NORMALS: no pedal edema Neuro: COMMON NORMALS: patient oriented x3 Psych: COMMON NORMALS: mental status grossly normal Discharge Data Studies Completed and Pending Completed Studies During Hospitalization Category Date Time Status CTA chest [CT angio chest PE protcl [id number]] Routine Cat Scan 07/12/22 14:00 Completed XR chest 1V portable [id number] Stat Exams 07/12/22 10:15 Completed Pending at discharge Category Date Time Status Blood Culture Stat Lab 07/12/22 10:30 Results Sputum Culture and Gram Stain Routine Lab 07/12/22 08:49 Results Radiology Impressions Chest X-Ray 07/12/22 10:15 IMPRESSION: Diffuse alveolar infiltrate right lung likely secondary to pneumonia. Chest CTA 07/12/22 14:00 IMPRESSION: 1. Some images degraded by respiratory artifact. Right-sided segmental and subsegmental pulmonary arteries not well evaluated. However no evidence of pulmonary embolus as visualized. 2. RIGHT hilar bronchovascular thickening with masslike lymphadenopathy measuring 2.3 x 2.4 cm suspicious for neoplasm. Mild narrowing of the proximal RIGHT bronchi. A few enlarged peribronchial and subcarinal lymph nodes. Recommend further evaluation with bronchoscopy. 3. Diffuse groundglass infiltrates throughout the RIGHT lung suspicious for postobstructive and/or aspiration pneumonia. LEFT lung is well aerated. 4. Esophageal hiatal hernia with partial intrathoracic stomach. 5. Diffuse dilatation of the thoracic esophagus with air-fluid levels. Recommend correlation with achalasia. Distention of the distal thoracic esophagus at the GE junction. Underlying obstructing esophageal mass not excluded. This can be further evaluated with endoscopy. 6. Cardiomegaly. 7. A few low-attenuation lesions in the liver likely hepatic cysts but technically indeterminate on this study. Some of these were present in 2006. This can be followed up with contrast-enhanced CT. Notified Edward Polk MD at 07/12/2022 4:16 PM. Laboratory Results WBC 7.5 10^3/uL (4.0-10.0) 07/14/22 04:30 RBC 4.26 10^6/uL (4.1-5.3) 07/14/22 04:30 Hgb 12.6 g/dL (11.7-16.6) 07/14/22 04:30 Hct 38.9 % (42.0-52.0) L 07/14/22 04:30 MCV 91.3 fl (80-94) 07/14/22 04:30 MCH 29.6 pg (28.0-34.0) 07/14/22 04:30 MCHC 32.4 g/dL (30.0-36.0) 07/14/22 04:30 RDW 14.3 % (12.1-15.1) 07/14/22 04:30 Plt Count 176 10^3/cmm (130-400) 07/14/22 04:30 MPV 10.5 fL (7.4-10.4) H 07/14/22 04:30 Neut % (Auto) 69.0 % 07/14/22 04:30 Lymph % (Auto) 18.7 % 07/14/22 04:30 [place] % (Auto) 8.5 % 07/14/22 04:30 Eos % (Auto) 2.9 % 07/14/22 04:30 Baso % (Auto) 0.5 % 07/14/22 04:30 Neut # (Auto) 5.17 10^3/uL (1.8-7.7) 07/14/22 04:30 Lymph # (Auto) 1.4 10^3/uL (0.8-4.8) 07/14/22 04:30 [place] # (Auto) 0.6 10^3/uL (0.2-0.9) 07/14/22 04:30 Eos # (Auto) 0.2 10^3/uL (0.0-0.8) 07/14/22 04:30 Baso # (Auto) 0.0 10^3/uL (0.0-0.1) 07/14/22 04:30 Nucleated RBC % (auto) 0 % 07/14/22 04:30 Nucleated RBCs # 0.0 /100WBC 07/14/22 04:30 D-Dimer 1.85 ug/mIFEU (0-0.59) H 07/12/22 10:25 Sodium 136 mmol/L (136-145) 07/14/22 04:30 Potassium 4.0 mmol/L (3.5-5.1) 07/14/22 04:30 Chloride 102 mmol/L (98-107) 07/14/22 04:30 Carbon Dioxide 23 mmol/L (22-29) 07/14/22 04:30 Anion Gap 15.0 (5-19) 07/14/22 04:30 BUN 15 mg/dL (8-23) 07/14/22 04:30 Creatinine 0.8 mg/dL (0.7-1.2) 07/14/22 04:30 GFR Calculation 97.3 mL/min (90-130) 07/14/22 04:30 Glucose 105 mg/dL (65-115) 07/14/22 04:30 Calculated Osmolality 283 mOsm/kg (285-295) L 07/14/22 04:30 Calcium 8.8 mg/dL (8.5-10.5) 07/14/22 04:30 Total Bilirubin 0.4 mg/dL (0.15-1.2) 07/13/22 04:40 AST 13 U/L (0-40) 07/13/22 04:40 ALT 10 U/L (0-41) 07/13/22 04:40 Alkaline Phosphatase 81 U/L (40-130) 07/13/22 04:40 Troponin T Baseline 6 ng/L (0-15) 07/12/22 10:25 Troponin T 120 Minute 6.00 ng/L (0-15) 07/12/22 12:40 Delta Troponin T 0 ABS# (0-10) 07/12/22 12:40 Troponin T Hi Sens 6Hr 6.00 ng/L (0-15) 07/12/22 16:35 Troponin T Hi Sens 6Hr Delta 0 ng/L (0-12) 07/12/22 16:35 NT-Pro-B Natriuret Pep 196 pg/mL (0-125) H 07/12/22 10:25 Total Protein 5.8 g/dL (6.6-8.7) L 07/13/22 04:40 Albumin 3.6 g/dL (3.5-5.2) 07/13/22 04:40 Globulin 2.2 g/dL (1.3-4.6) 07/13/22 04:40 Urine Color Dark yellow (Yellow) 07/12/22 15:11 Urine Appearance Clear (CLEAR) 07/12/22 15:11 Urine pH 5 (5-7) 07/12/22 15:11 Ur Specific [place] 1.005 (1.005-1.030) 07/12/22 15:11 Urine Protein Neg (Negative) 07/12/22 15:11 Urine Glucose (UA) Norm (Normal) 07/12/22 15:11 Urine Ketones Negative (Negative) 07/12/22 15:11 Urine Blood Neg (Negative) 07/12/22 15:11 Urine Nitrate Negative (Negative) 07/12/22 15:11 Urine Bilirubin Neg (Negative) 07/12/22 15:11 Urine Urobilinogen Neg mg/dL (Negative) 07/12/22 15:11 Ur Leukocyte Esterase Trace (Negative) H 07/12/22 15:11 Urine RBC None /hpf (0-2) 07/12/22 15:11 Urine WBC 0-4 /hpf (0-5) H 07/12/22 15:11 Ur Squamous Epith Cells 0-4 /hpf (0-5) H 07/12/22 15:11 Amorphous Sediment Not Reportable 07/12/22 15:11 Urine Bacteria Trace /hpf (NONE) 07/12/22 15:11 Urine Mucus 2+ /hpf 07/12/22 15:11 Coronavirus 229E (PCR) Not detected (NOT DETECT) 07/12/22 11:55 SARS-CoV-2 (PCR) Not detected (NOT DETECT) 07/12/22 11:55 Vitals Last Vital Signs Temp 98.3 F 07/14/22 11:55 Pulse 85 07/14/22 11:55 Resp 18 07/14/22 11:55 BP 110/74 07/14/22 11:55 Pulse Ox 93 07/14/22 11:55 O2 Del Method 07/14/22 11:55 O2 Flow Rate 2 07/14/22 09:01 Discharge Plan Discharge Patient Disposition: Home Condition: Stable Prescriptions: New amoxicillin-pot clavulanate 875-125 mg tablet 1 tab PO BID 7 Days Qty: 14 0RF albuterol sulfate 90 mcg/actuation HFA aerosol inhaler 1 inh inhalation Q6H PRN (Reason: shortness of breath or wheezing) Qty: 8.5 0RF Continued ibuprofen 800 mg tablet 800 mg PO Q6H PRN (Reason: pain/fever) CeraVe Cream See Rx Instructions .ROUTE .COMPLEX Qty: 453 5RF Dose Instruction: APPLY TO THE AFFECTED AREA(S) OF LEGS TWICE DAILY FOR SKIN MOISTURIZER Rx Instructions: APPLY TO THE AFFECTED AREA(S) OF LEGS TWICE DAILY FOR SKIN MOISTURIZER AT 07:00 & 19:00 Ear Wax Removal Drops 6.5 % drops See Rx Instructions .ROUTE .COMPLEX Qty: 15 5RF Dose Instruction: instill SIX drops in BOTH ears TWICE DAILY FOR FOUR DAYS each MONTH THEN IRRIGATE Rx Instructions: instill SIX drops in BOTH ears TWICE DAILY FOR FOUR DAYS each MONTH THEN IRRIGATE Triple Antibiotic 3.5mg-400 unit- 5,000 unit/gram Ointment 1 applic TOPICAL PRN Miralax 17 gram Powder In Packet 17 g PO DAILY@20 Robitussin-DM 10-100 mg/5 mL Syrup 10 ml PO Q4H PRN (Reason: Cough) hydrocortisone [Proctocort] 1 % Cream 1 applic MO QID PRN (Reason: Hemorrhoids) Mylanta 200-200-20 mg/5 mL Suspension 30 ml PO Q4H PRN (Reason: upset stomach) Effexor XR 75 mg capsule,extended release 24hr 75 mg PO DAILY@08 Rx Instructions: with 150mg to =225mg quetiapine 200 mg tablet 200 mg PO BID@08,20 venlafaxine 150 mg capsule,extended release 24hr 150 mg PO DAILY@08 Rx Instructions: with 75mg to =225mg trazodone 150 mg tablet 150 mg PO BEDTIME@20 omeprazole 20 mg capsule,delayed release(DR/EC) 20 mg PO DAILY@07 oxcarbazepine 600 mg tablet 600 mg PO BID@07,20 fluticasone propionate 50 mcg/actuation spray,suspension 2 spray INTRANASAL DAILY@08 Rx Instructions: administer into each nostril Claritin 10 mg tablet 10 mg PO DAILY@07 ferrous gluconate 324 mg (38 mg iron) tablet 324 mg PO DAILY@08 Changed simethicone 80 mg tablet,chewable 80 mg PO QID PRN (Reason: Abdominal Distention) 30 Days Qty: 30 0RF Rx Instructions: @07:00,12:00,16:00,20:00 Discharge Orders: Discharge Order (Routine); Ordered 07/14/22 Ordered By: Jasen Verduzco Referrals: Benson Upton DO [Physician] - 2 weeks (egd) DatarDavis MD [Physician] - 2 weeks Sergio Rivera MD [Physician] - 07/18/22 1:00 pm Discharge Diet: As Directed Discharge Activity: Resume usual activity Patient Instructions: Opioid Safety Activity Restrictions/Additional Instructions: - Please take antibiotics as prescribed -Please follow-up with pulmonary as prescribed -Please follow-up with general surgery for consideration of EGD -Follow-up with primary care -Aspiration precautions, keep at 30 degrees, minced and moist diet, use a straw with all liquids Discharge Attestations Time Spent in Discharge Care*: greater than 30 min Quality Metrics Clinical Quality Measures [ No reported AMI, CVA or VTE this stay] Coding Level of Care Code 96800 Diagnoses Pneumonia J18.9 Hyponatremia E87.1 Elevated d-dimer R79.89
== END 2022-07-14 15:45 | disposition home or self-care (01) | DRG 178 ==
LOC: ER 10:19 → ICU 13:43 → MEDSURG 23:41
PROVIDERS: Nurse Practitioner Family; Admitting Provider Internal Medicine; Emergency Provider Family Medicine; PCP Internal Medicine; Visit Provider Family Medicine
DX: J69.0 Pneumonitis due to inhalation of food and vomit (principal); E87.1 Hypo-osmolality and hyponatremia; F79 Unspecified intellectual disabilities; Z79.891 Long term (current) use of opiate analgesic; F31.9 Bipolar disorder, unspecified; M72.0 Palmar fascial fibromatosis [Dupuytren]; G24.01 Drug induced subacute dyskinesia; K44.9 Diaphragmatic hernia without obstruction or gangrene
CPT/HCPCS: 36415; 71045; 71275; 80048; 80053; 81001; 83880; 84484; 85025; 85378; 87040; 87070; 87205; 87635; 87641; 92523; 92610; 93005; 94640; 94760; 96372; 96374; 99285; J1650; J1956; J2543; Q9967

== ENCOUNTER → 2022-07-31 15:29 | Outpatient (BNVA) | payer MEDICARE, MEDICAID, SELFPAY | PROVIDERS: PCP Internal Medicine; Visit Provider Internal Medicine Pulmonary Disease | DX: J69.0 Pneumonitis due to inhalation of food and vomit (principal); Z91.89 Other specified personal risk factors, not elsewhere classified; K44.9 Diaphragmatic hernia without obstruction or gangrene; R59.0 Localized enlarged lymph nodes | CPT/HCPCS: 99204 ==

== ENCOUNTER → 2022-08-07 13:48 | Outpatient (BNVA) | payer MEDICARE, MEDICAID, SELFPAY | PROVIDERS: PCP Internal Medicine; Visit Provider Surgery | DX: K21.9 Gastro-esophageal reflux disease without esophagitis (principal); Z91.89 Other specified personal risk factors, not elsewhere classified; K44.9 Diaphragmatic hernia without obstruction or gangrene | CPT/HCPCS: 99203 ==

== ENCOUNTER 2022-08-15 08:12 | Day surgery (SDC) | payer MEDICARE, MEDICAID, SELFPAY ==
[2022-08-13 13:55] VITALS: BMI 33.7
[2022-08-15] MEDS: sodium chloride 0.9% 1,000 ML 30 ML IV (08:43)
[2022-08-15 08:46] VITALS: BP 119/85; PULSE 76; RESP 18; TEMP 36.2; O2SAT 96
--- NOTE | 2022-08-15 09:02 | ANES.PREANE2 ---
Pre-Anesthetic Assessment Height/Weight: Height 1.68 m Weight 94.801 kg Temp Pulse Resp BP Pulse Ox O2 Del Method 97.1 F L 76 18 119/85 96 08/15/22 08:46 08/15/22 08:46 08/15/22 08:46 08/15/22 08:46 08/15/22 08:46 08/15/22 08:46 Preop Diagnosis: aspiration Operation Date: 08/15/22 09:45 Proposed Procedures p 44589 egd w/balloon dial K21.9(Not Applicable) - Benson Upton, DO Was Beta Garo taken within 24 hours: N/A Was Clonidine taken within 24 hours: N/A Last intake: Intake Last Liquid Date 08/14/22 Last Liquid Time 18:00 Last Solid Date 08/14/22 Last Solid Time 18:00 Social No alcohol and No tobacco Exam alert, oriented x 3, clear to auscultation bilaterally and regular rate & rhythm Airway Submandibular: within normal limits Cervical ROM: within normal limits Mallampati: Class I Dentition: full Comments: Comments: dentures removed History/ROS No significant history except as noted and No significant complaints Pulmonary recent pneumonia d/t aspiration requiring home oxygen. caregiver reports no longer using. seeing pulmonology regarding pulmonary mass on CT CV/HEM None reported None reported Hepatic None reported GI Gastroesophageal Reflux Disease and Hiatal Hernia Metabolic None reported Musc/skel None reported Neuropsych Bipolar oriented. 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 caregiver present. consent obtained from guardian Anesthetic Plan ASA status: 2 Anesthesia: Anesthesia Evaluation and MAC Risk of > 500 ml blood loss (7ml/kg in children): Yes, adequate IV access and fluids planned Medications/Allergies Home Medications Medication Instructions Recorded Confirmed Last Taken Type ibuprofen 800 mg tablet 800 mg PO Q6H PRN pain/fever 07/30/19 08/15/22 08/15/22 History ceramides 1,3,6-II (CeraVe topical See Rx Instructions .Route 11/20/21 08/15/22 08/15/22 Rx cream) .COMPLEX #453 grams carbamide peroxide 6.5 % ear drops See Rx Instructions .Route 12/19/21 08/15/22 08/15/22 Rx (Ear Wax Removal Drops) .COMPLEX #15 mL aluminum-mag hydroxide-simethicone 30 ml PO Q4H PRN upset stomach 07/12/22 08/15/22 08/15/22 History 200 mg-200 mg-20 mg/5 mL oral susp dextromethorphan-guaifenesin 10 10 ml PO Q4H PRN Cough 07/12/22 08/15/22 08/15/22 History mg-100 mg/5 mL oral syrup ferrous gluconate 324 mg (38 mg 324 mg PO DAILY@07/12/22 08/15/22 08/15/22 History iron) tablet fluticasone propionate 50 2 spray intranasal DAILY@07/12/22 08/15/22 08/15/22 History mcg/actuation nasal spray,suspension hydrocortisone 1 % topical cream 1 applic ID QID PRN Hemorrhoids 07/12/22 08/15/22 08/15/22 History (Proctocort) loratadine 10 mg tablet (Claritin) 10 mg PO DAILY@07/12/22 08/15/22 08/15/22 History neomycin-bacitracn Zn-polymyx 3.5 1 applic topical PRN PRN affected 07/12/22 08/15/22 08/15/22 History mg-400 unit-5,000 unit/gram top area oint (Triple Antibiotic) omeprazole 20 mg capsule,delayed 20 mg PO DAILY@07/12/22 08/15/22 08/15/22 History release oxcarbazepine 600 mg tablet 600 mg PO BID@07/12/22 08/15/22 08/15/22 History polyethylene glycol 3350 17 gram 17 g PO DAILY@07/12/22 08/15/22 08/15/22 History oral powder packet (Miralax) quetiapine 200 mg tablet 200 mg PO BID@07/12/22 08/15/22 08/15/22 History trazodone 150 mg tablet 150 mg PO BEDTIME@07/12/22 08/15/22 08/15/22 History venlafaxine 150 mg 150 mg PO DAILY@07/12/22 08/15/22 08/15/22 History capsule,extended release 24 hr venlafaxine 75 mg capsule,extended 75 mg PO DAILY@07/12/22 08/15/22 08/15/22 History release 24 hr (Effexor XR) albuterol sulfate 90 mcg/actuation 1 inh inhalation Q6H PRN shortness 07/14/22 08/15/22 08/15/22 Rx aerosol inhaler of breath or wheezing #8.5 grams pantoprazole 40 mg tablet,delayed 40 mg PO BID 6 weeks #84 tabs 08/07/22 08/15/22 08/15/22 Rx release (Protonix) promethazine 25 mg tablet 25 mg PO QID PRN Nausea 08/13/22 08/15/22 08/15/22 History simethicone 80 mg chewable tablet 80 mg PO QID 08/13/22 08/15/22 08/15/22 History Allergies Allergy/AdvReac Type Severity Reaction Status Date / Time No Known Allergies Allergy Verified 08/15/22 08:45 Current Medications Generic Name Dose Route Start Last Admin Trade Name Freq PRN Reason Stop Dose Admin Sodium Chloride 1,000 mls @ 30 mls/hr 08/15/22 08:30 08/15/22 08:43 Sodium Chloride 0.9% IV 08/16/22 08:29 30 mls/hr .Q24H KATHY Administration PFSH Anesthesia Medical History Bipolar disease, manic Negative colon, negative guaics. Dupuytren's contracture of left hand Iron deficiency anemia Tardive dyskinesia Surgical History History of carpal tunnel release History of cataract extraction History of colonoscopy Social History Smoking and tobacco status: never smoked Alcohol intake: never Data Anesthesia Cardiac Studies: No Data to Display
--- NOTE | 2022-08-15 09:37 | W.PM.OPSUD ---
Surgery/Procedure H&P Update DATE OF PROCEDURE: August 15, 2022 DATE H&P PERFORMED: 08/07/22 H&P UPDATE INFORMATION: I have reviewed H&P completed within last 30 days, I have examined patient prior to procedure and No changes to prior documentation PREOP DIAGNOSIS: aspiration PLANNED PROCEDURE: Operation Date: 08/15/22 09:45 Proposed Procedures p 23044 egd w/balloon dial K21.9(Not Applicable) - Benson Upton DO
[2022-08-15 09:51] VITALS: BP 104/72; PULSE 70; RESP 14; TEMP 36.1; O2SAT 92
[2022-08-15 10:07] VITALS: BP 102/72; PULSE 61; RESP 16; O2SAT 95
--- NOTE | 2022-08-15 15:24 | ANE.PACU2 ---
Inpatient post-anesthesia follow up: Airway intact: Yes Vital signs: Temperature 97 F Pulse Rate 61 Respiratory Rate 16 Blood Pressure 102/72 Pulse Oximetry 95 Oxygen Delivery Me thod Room Air Oxygen Flow Rate Fraction of Inspir ed Oxygen Hydration adequate: Yes Nausea and vomiting: No Pain level: 2 Mental status: Baseline
== END 2022-08-15 10:30 | disposition home or self-care (01) ==
PROVIDERS: PCP Internal Medicine; Visit Provider Surgery
PROC: 0DJ08ZZ Inspection of Upper Intestinal Tract, Via Natural or Artificial Opening Endoscopic (ICD-10-PCS; CPT 43235; principal; 2022-08-15 09:45)
DX: K29.50 Unspecified chronic gastritis without bleeding (principal); K44.9 Diaphragmatic hernia without obstruction or gangrene; K21.9 Gastro-esophageal reflux disease without esophagitis
CPT/HCPCS: 43239; 45378; 88305; 88342; J2704; J7030

== ENCOUNTER 2022-08-19 19:50 | Inpatient (IN) | payer MEDICARE, MEDICAID, SELFPAY ==
[2022-08-19 20:38] VITALS: BP 105/66; PULSE 130; RESP 22; TEMP 36.8; O2SAT 92; BMI 34.8
--- NOTE | 2022-08-19 20:54 | XRR_ITS ---
PROCEDURE INFORMATION: Exam: XR Chest Exam date and time: 08/19/2022 9:07 PM Age: 62 years old Clinical indication: Fever; Patient HX: Hospitalized for pneumonia jul 2022 TECHNIQUE: Imaging protocol: Radiologic exam of the chest. Views: 1 view. COMPARISON: CR XR chest 1V portable [id number] 07/12/2022 10:46 AM FINDINGS: Lungs: There has been significant interval improvement in the patchy right lung airspace disease when compared to the prior study. Minimal ill-defined bibasilar opacities remain. Pleural spaces: Unremarkable. No pleural effusion. No pneumothorax. Heart/Mediastinum: Heart size not optimally evaluated with a single AP view of the chest. Bones/joints: Unremarkable. XR/XR chest 1V portable [id number] IMPRESSION: There has been significant interval improvement in the patchy right lung airspace disease when compared to the prior study. Minimal ill-defined bibasilar opacities remain which may represent residual pneumonia and or scar tissue.
--- NOTE | 2022-08-19 20:58 | ED_ITS ---
Documented by User: MARIA M Marquez 08/19/22 22:07 HPI - Fever General: Chief Complaint: ER Hold Stated Complaint: Fever\V Time Seen by Provider: 08/19/22 20:53 History of Present Illness: 62-year-old pleasant gentleman from an assisted living facility comes in today for fever starting this evening. Patient did have 1 episode of emesis after lunch today. Patient did come back from cheondoism this evening and was noted to have a temperature of 103. Patient reports occasional cough and some mild shortness of breath. Patient appears nontoxic. Patient appears in no pain. Patient was brought into the ER due to concerns of fever and illness. Patient had recently been in the hospital about 1 month ago for pneumonia. Patient had a recent procedure done last week for investigation of aspiration pneumonia through upper endoscopy. 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 Associated symptoms: Reports vomiting (Once); Deny chest pain, diarrhea, headache(s) or nausea Review of Systems General: Reports: 10 or more systems reviewed and unremarkable except in HPI and below Const: Reports: fever(s) ENMT: Denies: throat pain Card: Denies: chest pain Resp: Reports: dyspnea and non-productive cough GI: Reports: vomiting (Once); Denies: nausea, diarrhea or constipation : Denies: difficulty urinating Musc: Denies: neck pain Skin/Breast: Denies: rash Neuro: Denies: headache(s) or Slurred speech present [facility] ED PFSH: Medical History (Updated 08/19/22 @ 22:04 by MARIA M Marquez) Bipolar disease, manic Negative colon, negative guaics. Dupuytren's contracture of left hand Iron deficiency anemia Tardive dyskinesia Surgical History History of carpal tunnel release History of cataract extraction History of colonoscopy Social History Smoking and tobacco status: never smoked Alcohol intake: never Physical Exam Const: COMMON NORMALS: alert HENMT: COMMON NORMALS: normocephalic HEAD & SCALP: normocephalic Neck/C-Spine: COMMON NORMALS: full ROM Resp: COMMON NORMALS: normal respiratory effort AUSCULTATION: diminished lung sounds Cardio: COMMON NORMALS: regular rate and regular rhythm RATE: regular rate RHYTHM: regular rhythm GI: COMMON NORMALS: Soft to palpation and non-tender PALPATION: Yes Soft to palpation : COMMON NORMALS: Yes no CVA tenderness BLADDER/KIDNEY EXAM: Yes no CVA tenderness Back/Pelvis: COMMON NORMALS: no CVA tenderness Extremity: COMMON NORMALS: normal to inspection Neuro: SENSORIUM/ORIENTATION: Yes alert Skin: COMMON NORMALS: turgor normal GENERAL SKIN EXAM: turgor normal Course ED course: 2199, reviewed patient with Dr. Mcgraw, attending physician. Patient appears to have reoccurrence of pneumonia on his chest x-ray with a increase in his white blood cell count 12,000, sodium is 128, CRP 28, lactate 2.9. Patient was also symptomatic with a pulse rate in 130s, SaO2 90 to 92% on room air, and some mild tachypnea 22-24 rate per minute. He agrees with plan the patient needs admission to the hospital for treatment of pneumonia and recommended further hydration for another 1-1/2 L of IV fluids and vancomycin and Zosyn. Vital Signs: Vital signs: Vital Signs Temperature 98.2 F 08/19/22 20:38 Pulse Rate 82 08/19/22 23:37 Respiratory Rate 20 H 08/19/22 23:37 Blood Pressure 100/64 08/19/22 23:37 Pulse Oximetry 94 08/19/22 23:37 Oxygen Delivery Me thod 08/19/22 23:55 MDM - Fever Medical Decision Making Patient was brought in today by caregiver facility in which he resides. Patient was running at 103 fever and chilling at the facility. Patient does have a history of recent pneumonia in July. 1 episode of emesis occurred at the facility. Patient is alert and responds to questioning appropriately. Patient is a very poor historian. Abdomen soft nontender. Skin is warm and dry. Vital signs are notable for increased pulse of 130 and respirations of 22 and O2 sat of 90% on room air. Differential diagnosis includes sepsis, pneumonia, urinary tract infection, dehydration. Chest x-ray notes some pneumonia bilaterally. White blood cell count was elevated at 12,000, sodium was 128, lactic is 2.9, CRP is 28. Blood cultures were collected. Patient was started on vancomycin and Zosyn and hydrated with 3 L. Patient was in guarded condition due to risk of deterioration and sepsis. Dr. Mcgraw was consulted and agreed to admit patient to hospitalist therapy. Lab Data 08/19/22 20:57 08/19/22 20:57 Radiology Impressions Chest X-Ray 08/19/22 20:54 IMPRESSION: There has been significant interval improvement in the patchy right lung airspace disease when compared to the prior study. Minimal ill-defined bibasilar opacities remain which may represent residual pneumonia and or scar tissue. Laboratory Results WBC 12.3 10^3/uL (4.0-10.0) H 08/19/22 20:57 RBC 4.95 10^6/uL (4.1-5.3) 08/19/22 20:57 Hgb 14.3 g/dL (11.7-16.6) 08/19/22 20:57 Hct 42.6 % (42.0-52.0) 08/19/22 20:57 MCV 86.1 fl (80-94) 08/19/22 20:57 MCH 28.9 pg (28.0-34.0) 08/19/22 20:57 MCHC 33.6 g/dL (30.0-36.0) 08/19/22 20:57 RDW 13.2 % (12.1-15.1) 08/19/22 20:57 Plt Count 213 10^3/cmm (130-400) 08/19/22 20:57 MPV 9.4 fL (7.4-10.4) 08/19/22 20:57 Neut % (Auto) 90.0 % 08/19/22 20:57 Lymph % (Auto) 2.9 % 08/19/22 20:57 Clayton % (Auto) 6.2 % 08/19/22 20:57 Eos % (Auto) 0.5 % 08/19/22 20:57 Baso % (Auto) 0.2 % 08/19/22 20:57 Neut # (Auto) 11.10 10^3/uL (1.8-7.7) H 08/19/22 20:57 Lymph # (Auto) 0.4 10^3/uL (0.8-4.8) L 08/19/22 20:57 Clayton # (Auto) 0.8 10^3/uL (0.2-0.9) 08/19/22 20:57 Eos # (Auto) 0.1 10^3/uL (0.0-0.8) 08/19/22 20:57 Baso # (Auto) 0.0 10^3/uL (0.0-0.1) 08/19/22 20:57 Nucleated RBC % (auto) 0 % 08/19/22 20:57 Nucleated RBCs # 0.0 /100WBC 08/19/22 20:57 Sodium 128 mmol/L (136-145) L 08/19/22 20:57 Potassium 4.7 mmol/L (3.5-5.1) 08/19/22 20:57 Chloride 93 mmol/L (98-107) L 08/19/22 20:57 Carbon Dioxide 21 mmol/L (22-29) L 08/19/22 20:57 Anion Gap 18.7 (5-19) 08/19/22 20:57 BUN 13 mg/dL (8-23) 08/19/22 20:57 Creatinine 1.0 mg/dL (0.7-1.2) 08/19/22 20:57 GFR Calculation 75.2 mL/min (90-130) L 08/19/22 20:57 Glucose 120 mg/dL (65-115) H 08/19/22 20:57 Calculated Osmolality 267 mOsm/kg (285-295) L 08/19/22 20:57 Lactic Acid 2.9 mmol/L (0.5-2.2) H 08/19/22 20:57 Calcium 9.2 mg/dL (8.5-10.5) 08/19/22 20:57 Total Bilirubin 0.3 mg/dL (0.15-1.2) 08/19/22 20:57 AST 14 U/L (0-40) 08/19/22 20:57 ALT 12 U/L (0-41) 08/19/22 20:57 Alkaline Phosphatase 118 U/L (40-130) 08/19/22 20:57 C-Reactive Protein 28.1 mg/L (0.0-4.9) H 08/19/22 20:57 Total Protein 7.4 g/dL (6.6-8.7) 08/19/22 20:57 Albumin 4.2 g/dL (3.5-5.2) 08/19/22 20:57 Globulin 3.2 g/dL (1.3-4.6) 08/19/22 20:57 Influenza Type A Ag negative (Negative) 08/19/22 21:05 Influenza Type B Ag negative (Negative) 08/19/22 21:05 SARS-CoV-2 Ag (Rapid) negative (Negative) 08/19/22 21:05 Discharge Plan Discharge Patient Disposition: Admitted As Inpatient Admit Provider: Abran Luciano Clinical Impression: Pneumonia Condition: Stable Coding Level of Care Code ED Policy Writer Typist for Chg Fwd Documented by User: Christos Mcgraw DO 08/20/22 00:22 HPI - Fever General: Chief Complaint: ER Hold Stated Complaint: Fever\V Time Seen by Provider: 08/19/22 20:53 PFSH ED PFSH: Medical History (Updated 08/19/22 @ 22:04 by MARIA M Marquez) Bipolar disease, manic Negative colon, negative guaics. Dupuytren's contracture of left hand Iron deficiency anemia Tardive dyskinesia Surgical History History of carpal tunnel release History of cataract extraction History of colonoscopy Social History Smoking and tobacco status: never smoked Alcohol intake: never Course Vital Signs: Vital signs: Vital Signs Temperature 98.2 F 08/19/22 20:38 Pulse Rate 82 08/19/22 23:37 Respiratory Rate 20 H 08/19/22 23:37 Blood Pressure 100/64 08/19/22 23:37 Pulse Oximetry 94 08/19/22 23:37 Oxygen Delivery Me thod 08/19/22 23:55 MDM - Fever Medical Decision Making Patient was brought in today by caregiver facility in which he resides. Patient was running at 103 fever and chilling at the facility. Patient does have a history of recent pneumonia in July. 1 episode of emesis occurred at the facility. Patient is alert and responds to questioning appropriately. Patient is a very poor historian. Abdomen soft nontender. Skin is warm and dry. Vital signs are notable for increased pulse of 130 and respirations of 22 and O2 sat of 90% on room air. Differential diagnosis includes sepsis, pneumonia, urinary tract infection, dehydration. Chest x-ray notes some pneumonia bilaterally. White blood cell count was elevated at 12,000, sodium was 128, lactic is 2.9, CRP is 28. Blood cultures were collected. Patient was started on vancomycin and Zosyn and hydrated with 3 L. Patient was in guarded condition due to risk of deterioration and sepsis. Dr. Mcgraw was consulted and agreed to admit patient to hospitalist. This patient was originally seen by MARIA M Palumbo.? I agree with his history, evaluation, and treatment. Spoke with the hospitalist who has seen the patient in the emergency department. Lab Data 08/19/22 20:57 08/19/22 20:57 Radiology Impressions Chest X-Ray 08/19/22 20:54 IMPRESSION: There has been significant interval improvement in the patchy right lung airspace disease when compared to the prior study. Minimal ill-defined bibasilar opacities remain which may represent residual pneumonia and or scar tissue. Laboratory Results WBC 12.3 10^3/uL (4.0-10.0) H 08/19/22 20:57 RBC 4.95 10^6/uL (4.1-5.3) 08/19/22 20:57 Hgb 14.3 g/dL (11.7-16.6) 08/19/22 20:57 Hct 42.6 % (42.0-52.0) 08/19/22 20:57 MCV 86.1 fl (80-94) 08/19/22 20:57 MCH 28.9 pg (28.0-34.0) 08/19/22 20:57 MCHC 33.6 g/dL (30.0-36.0) 08/19/22 20:57 RDW 13.2 % (12.1-15.1) 08/19/22 20:57 Plt Count 213 10^3/cmm (130-400) 08/19/22 20:57 MPV 9.4 fL (7.4-10.4) 08/19/22 20:57 Neut % (Auto) 90.0 % 08/19/22 20:57 Lymph % (Auto) 2.9 % 08/19/22 20:57 Clayton % (Auto) 6.2 % 08/19/22 20:57 Eos % (Auto) 0.5 % 08/19/22 20:57 Baso % (Auto) 0.2 % 08/19/22 20:57 Neut # (Auto) 11.10 10^3/uL (1.8-7.7) H 08/19/22 20:57 Lymph # (Auto) 0.4 10^3/uL (0.8-4.8) L 08/19/22 20:57 Clayton # (Auto) 0.8 10^3/uL (0.2-0.9) 08/19/22 20:57 Eos # (Auto) 0.1 10^3/uL (0.0-0.8) 08/19/22 20:57 Baso # (Auto) 0.0 10^3/uL (0.0-0.1) 08/19/22 20:57 Nucleated RBC % (auto) 0 % 08/19/22 20:57 Nucleated RBCs # 0.0 /100WBC 08/19/22 20:57 Sodium 128 mmol/L (136-145) L 08/19/22 20:57 Potassium 4.7 mmol/L (3.5-5.1) 08/19/22 20:57 Chloride 93 mmol/L (98-107) L 08/19/22 20:57 Carbon Dioxide 21 mmol/L (22-29) L 08/19/22 20:57 Anion Gap 18.7 (5-19) 08/19/22 20:57 BUN 13 mg/dL (8-23) 08/19/22 20:57 Creatinine 1.0 mg/dL (0.7-1.2) 08/19/22 20:57 GFR Calculation 75.2 mL/min (90-130) L 08/19/22 20:57 Glucose 120 mg/dL (65-115) H 08/19/22 20:57 Calculated Osmolality 267 mOsm/kg (285-295) L 08/19/22 20:57 Lactic Acid 2.9 mmol/L (0.5-2.2) H 08/19/22 20:57 Calcium 9.2 mg/dL (8.5-10.5) 08/19/22 20:57 Total Bilirubin 0.3 mg/dL (0.15-1.2) 08/19/22 20:57 AST 14 U/L (0-40) 08/19/22 20:57 ALT 12 U/L (0-41) 08/19/22 20:57 Alkaline Phosphatase 118 U/L (40-130) 08/19/22 20:57 C-Reactive Protein 28.1 mg/L (0.0-4.9) H 08/19/22 20:57 Total Protein 7.4 g/dL (6.6-8.7) 08/19/22 20:57 Albumin 4.2 g/dL (3.5-5.2) 08/19/22 20:57 Globulin 3.2 g/dL (1.3-4.6) 08/19/22 20:57 Influenza Type A Ag negative (Negative) 08/19/22 21:05 Influenza Type B Ag negative (Negative) 08/19/22 21:05 SARS-CoV-2 Ag (Rapid) negative (Negative) 08/19/22 21:05 Discharge Plan Discharge Patient Disposition: Admitted As Inpatient Admit Provider: Abran Luciano Clinical Impression: Pneumonia Condition: Stable Coding Level of Care Code ED Policy Writer 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
[2022-08-19 21:04] LABS: Basophils % 0.2 %; Eosinophils # 0.1 10^3/uL (0.0-0.8); Eosinophils % 0.5 %; Hematocrit 42.6 % (42.0-52.0); Hemoglobin 14.3 g/dL (11.7-16.6); Lymphocytes # 0.4 10^3/uL (0.8-4.8); Lymphocytes % 2.9 %; Mean Corpuscular HGB Conc 33.6 g/dL (30.0-36.0); Mean Corpuscular Hemoglobin 28.9 pg (28.0-34.0); Mean Corpuscular Volume 86.1 fl (80-94); Mean Platelet Volume 9.4 fL (7.4-10.4); Monocytes # 0.8 10^3/uL (0.2-0.9); Monocytes % 6.2 %; Nucleated Red Blood Cells % 0 %; Platelet Count 213 10^3/cmm (130-400); Red Blood Count 4.95 10^6/uL (4.1-5.3); Red Cell Distribution Width 13.2 % (12.1-15.1); White Blood Count 12.3 10^3/uL (4.0-10.0)
[2022-08-19 21:06] VITALS: BP 108/74; PULSE 110; RESP 20; O2SAT 92
[2022-08-19 21:20] LABS: Alanine Aminotransferase 12 U/L (0-41); Albumin Level 4.2 g/dL (3.5-5.2); Alkaline Phosphatase 118 U/L (40-130); Anion Gap 18.7 (5-19); Aspartate Amino Transferase 14 U/L (0-40); Blood Urea Nitrogen 13 mg/dL (8-23); C Reactive Protein 28.1 mg/L (0.0-4.9); Calcium 9.2 mg/dL (8.5-10.5); Carbon Dioxide 21 mmol/L (22-29); Chloride 93 mmol/L (98-107); Globulin 3.2 g/dL (1.3-4.6); Glomerular Filtration Rate 75.2 mL/min (90-130); Glucose 120 mg/dL (65-115); Osmolality Calculated 267 mOsm/kg (285-295); Potassium 4.7 mmol/L (3.5-5.1); Sodium 128 mmol/L (136-145); Total Bilirubin 0.3 mg/dL (0.15-1.2); Total Protein 7.4 g/dL (6.6-8.7)
[2022-08-19 21:21] LABS: Lactic Sepsis W/Reflex 2.9 mmol/L (0.5-2.2)
[2022-08-19 21:23] LABS: Influenza A by IFA negative (Negative); Influenza B by IFA negative (Negative); SARS Covid-2 Antigen negative (Negative)
[2022-08-19 21:55] VITALS: BP 112/74; PULSE 95; O2SAT 92
[2022-08-19] MEDS: piperacillin-tazobactam 4.5 GM in sodium chloride 0.9% (plus) 50 ML IV (22:08)
[2022-08-19] MEDS: sodium chloride 0.9% 1,000 ML 999 ML IV (22:08)
[2022-08-19] MEDS: sodium chloride 0.9% 500 ML 999 ML IV (22:10)
[2022-08-19 22:31] VITALS: BP 119/69; PULSE 92; RESP 18; O2SAT 96
[2022-08-19] MEDS: vancomycin 1,250 MG/250 ML PIGGYBACK 250 MG IV (22:37)
[2022-08-19 22:49] LABS: Reflex Lactate Order REFLEX LACTIC ORDERD
[2022-08-19 23:37] VITALS: BP 100/64; PULSE 82; RESP 20; O2SAT 94
[2022-08-20] VITALS (9 sets, daily range): BP systolic 94–147; BP diastolic 60–89; PULSE 66–84; RESP 16–18; TEMP 36.3–36.6; O2SAT 94–98
[2022-08-20 00:22] LABS: Lactic Acid level (Lactate) 1.5 mmol/L (0.5-2.2)
--- NOTE | 2022-08-20 00:38 | PM.HP ---
Providers/Chief Complaint Admitting Physician: Abran Luciano Primary Care Provider: Dandre Oakes MD Chief Complaint: Fever\V History of Present Illness Pleasant 62-year-old gentleman with history of TBI, intellectual disability, recently hospitalized for management of pneumonia, IV suspicion for aspiration pneumonia, with history also of hiatal hernia with partial intrathoracic stomach, has undergone EGD assessment on 08/15. Additionally followed up with pulmonology due to during the same hospitalization incidental finding of right hilar lymphadenopathy. Today at the end of protestant started having chills, having productive cough, malaise. Reportedly had fever as high as 103 Fahrenheit. He had 1 episode of vomiting, but caregiver states it was after a bout of bad cough. History obtained from caregiver at bedside. In ER noted with leukocytosis 12.3, on presentation sinus tachycardia 130s. Respiratory rate 22. Lactic acid 2.9. Sodium 128. Rapid flu and rapid COVID antigen is negative. Chest x-ray with interval improvement in patchy right lung airspace disease compared to prior, minimal ill-defined bibasilar opacities remain possibly pneumonia and/or scar tissue. Blood cultures collected. He received fluid resuscitation in ER. Zosyn and vancomycin. Review of Systems Const: Reports: fever(s), chills, body aches and malaise ENMT: Denies: throat pain Card: Denies: chest pain, edema, pre-syncope or dyspnea on exertion Resp: Reports: dyspnea and productive cough; Denies: change in phlegm color or hemoptysis GI: Reports: nausea and vomiting; Denies: abdominal pain, diarrhea, constipation, hematochezia or melena : Denies: flank pain, difficulty urinating, urinary frequency or hematuria Musc: Denies: back pain, joint swelling or joint redness Skin/Breast: Denies: rash or new lesions Neuro: Denies: headache(s), numbness in extremities, weakness in extremities, dizziness, confusion or seizure-like activity Medications/Allergies Home Medications Medication Instructions Recorded Confirmed Last Taken Type ibuprofen 800 mg tablet 800 mg PO Q6H PRN pain/fever 07/30/19 08/15/22 08/15/22 History ceramides 1,3,6-II (CeraVe topical See Rx Instructions .Route 11/20/21 08/15/22 08/15/22 Rx cream) .COMPLEX #453 grams carbamide peroxide 6.5 % ear drops See Rx Instructions .Route 12/19/21 08/15/22 08/15/22 Rx (Ear Wax Removal Drops) .COMPLEX #15 mL aluminum-mag hydroxide-simethicone 30 ml PO Q4H PRN upset stomach 07/12/22 08/15/22 08/15/22 History 200 mg-200 mg-20 mg/5 mL oral susp dextromethorphan-guaifenesin 10 10 ml PO Q4H PRN Cough 07/12/22 08/15/22 08/15/22 History mg-100 mg/5 mL oral syrup ferrous gluconate 324 mg (38 mg 324 mg PO DAILY@07/12/22 08/15/22 08/15/22 History iron) tablet fluticasone propionate 50 2 spray intranasal DAILY@07/12/22 08/15/22 08/15/22 History mcg/actuation nasal spray,suspension hydrocortisone 1 % topical cream 1 applic [place] QID PRN Hemorrhoids 07/12/22 08/15/22 08/15/22 History (Proctocort) loratadine 10 mg tablet (Claritin) 10 mg PO DAILY@07/12/22 08/15/22 08/15/22 History neomycin-bacitracn Zn-polymyx 3.5 1 applic topical PRN PRN affected 07/12/22 08/15/22 08/15/22 History mg-400 unit-5,000 unit/gram top area oint (Triple Antibiotic) omeprazole 20 mg capsule,delayed 20 mg PO DAILY@07/12/22 08/15/22 08/15/22 History release oxcarbazepine 600 mg tablet 600 mg PO BID@07/12/22 08/15/22 08/15/22 History polyethylene glycol 3350 17 gram 17 g PO DAILY@07/12/22 08/15/22 08/15/22 History oral powder packet (Miralax) quetiapine 200 mg tablet 200 mg PO BID@07/12/22 08/15/22 08/15/22 History trazodone 150 mg tablet 150 mg PO BEDTIME@07/12/22 08/15/22 08/15/22 History venlafaxine 150 mg 150 mg PO DAILY@08 07/12/22 08/15/22 08/15/22 History capsule,extended release 24 hr venlafaxine 75 mg capsule,extended 75 mg PO DAILY@08 07/12/22 08/15/22 08/15/22 History release 24 hr (Effexor XR) albuterol sulfate 90 mcg/actuation 1 inh inhalation Q6H PRN shortness 07/14/22 08/15/22 08/15/22 Rx aerosol inhaler of breath or wheezing #8.5 grams pantoprazole 40 mg tablet,delayed 40 mg PO BID 6 weeks #84 tabs 08/07/22 08/15/22 08/15/22 Rx release (Protonix) promethazine 25 mg tablet 25 mg PO QID PRN Nausea 08/13/22 08/15/22 08/15/22 History simethicone 80 mg chewable tablet 80 mg PO QID 08/13/22 08/15/22 08/15/22 History Allergies Allergy/AdvReac Type Severity Reaction Status Date / Time No Known Allergies Allergy Verified 08/15/22 08:45 PFSH Acute PFSH: Medical History Aspiration pneumonia At risk for aspiration Bipolar disease, manic Negative colon, negative guaics. Dupuytren's contracture of left hand Hiatal hernia Intellectual disability Iron deficiency anemia Lymphadenopathy, hilar Tardive dyskinesia Surgical History History of carpal tunnel release History of cataract extraction History of colonoscopy Social History Smoking and tobacco status: never smoked Alcohol intake: never Vitals/I&O/Wt Last Vital Signs Temp 98.2 F 08/19/22 20:38 Pulse 82 08/19/22 23:37 Resp 20 H 08/19/22 23:37 BP 100/64 08/19/22 23:37 Pulse Ox 94 08/19/22 23:37 O2 Del Method 08/19/22 23:55 08/19/22 08/19/22 08/20/22 14:59 22:59 06:59 Intake Total 2049 1000 / 3050 Balance 2049 1000 / 3050 Weight last 48 hrs Weight 97.976 kg Physical Exam Narrative: Caregiver at bedside. Const: COMMON NORMALS: patient oriented x3 and alert GENERAL APPEARANCE: cooperative ORIENTATION/CONSCIOUSNESS: Yes awake HENMT: COMMON NORMALS: oropharynx normal Neck/C-Spine: COMMON NORMALS: no JVD Resp: AUSCULTATION: clear to auscultation bilaterally Cardio: COMMON NORMALS: no JVD, regular rhythm, S1 normal heart sound present, S2 normal heart sound present and No murmurs present (Cardio) RHYTHM: regular rhythm HEART SOUNDS: S1 normal heart sound present and S2 normal heart sound present GI: COMMON NORMALS: Normal to inspection, nondistended, normoactive bowel sounds present, Soft to palpation and non-tender PALPATION: Yes Soft to palpation Extremity: COMMON NORMALS: no joint enlargement and no pedal edema Neuro: COMMON NORMALS: patient oriented x3 and moves all extremities SENSORIUM/ORIENTATION: Yes alert Skin: COMMON NORMALS: no rashes or lesions noted GENERAL SKIN EXAM: no rashes or lesions noted Sepsis: Is patient septic: Yes Focused sepsis exam performed: Yes Data 08/19/22 20:57 08/19/22 20:57 Micro: Microbiology 08/19/22 21:29 Blood Culture - Preliminary Blood SPECIMEN COLLECTED 08/19/22 21:25 Blood Culture - Preliminary Blood SPECIMEN COLLECTED A&P Assessment and plan (1) Aspiration pneumonia: Suspected aspiration pneumonia, possibly after vomiting, also has hiatal hernia with partial intrathoracic stomach. 5 days ago had an EGD. Sepsis without endorgan damage, with leukocytosis 12.3, sinus tachycardia 130 on presentation. Fever 103 reported. Tachypneic 22. Source pulmonary. Will obtain UA. Continue Zosyn, vancomycin given recent hospitalization for possibility of hospital-acquired pneumonia. Collected on culture, MRSA PCR. Follow-up blood culture. ST evaluation, MBS to exclude component of dysphagia. Aspiration precautions. Aspiration pneumonia seems more secondary to reflux with hiatal hernia, possibly vomiting episode Lactic acid noted with improvement on reassessment down to 1.5. Discussed with ER physician. ER documentation reviewed. Discussed with caregiver at bedside. Please update state guardian in the morning as well. Long-term in case of recurrent aspiration pneumonia without dysphagia consider hernia repair. (2) Sepsis: As above (3) Hyponatremia: Status post fluid resuscitation. Follow-up chemistry requested. Plan Right hilar lymphadenopathy: Has follow-up scheduled with pulmonology with follow-up CT. Intellectual disability Bipolar disorder AMBROCIO Tardive dyskinesia Other problems Requested home medications to be listed, please reconcile once available. Attestations Medical Necessity Statement*: Admission ordered to assess for management of pneumonia, sepsis. Diagnoses Aspiration pneumonia J69.0 Sepsis A41.9 Hyponatremia E87.1
--- NOTE | 2022-08-20 00:53 | FL_ITS ---
WS: [id number] EXAMINATION: FL barium swallow modifd [id number] REASON FOR EXAM: Oropharyngeal dysphagia COMPARISON: None available. ORDER DATE: 08/20/2022 12:53 AM FLUOROSCOPY TIME: 1min [id number] # OF SPOT FILMS: 0 FINDINGS: Patient demonstrated weakness of C 11 muscle contraction with tongue base retraction and anterior to posterior propulsion of the bolus diminished. The functional oropharyngeal Amy pharyngeal seal an d this included the following thick nectar and thick liquids however there was penetration and trace aspiration on thin liquids and increased aspiration with a 10 mL bolus with significant aspiration wi th free drinking of thin barium. Patient tended to take a large amount of volume each swallow. There was mild weakness in the high laryngeal excursion and hypopharyngeal expansion and pharyngeal ene alba functional relaxation of the upper esophageal serial is noted. FL/FL barium swallow modifd [id number] IMPRESSION: Abnormal modified study as demonstrated above with generalized weakness of oral and pharyngeal phases of swallowing with increased risk of aspiration. When th e bolus sizes control the patient has diminished risk of aspiration. See bismark r recommendations according to the patient's speech therapy report.
[2022-08-20] MEDS: heparin 5,000 unit/mL INJ 1 mL 5000 UNIT SUBCUT ×2 (00:54→13:12)
--- NOTE | 2022-08-20 03:08 | PC.NURSE ---
patient voided approx 600 mL of urine.
[2022-08-20 04:09] LABS: Add Urine Culture? No; Add Urine Microscopic? YES; Bacteria Urine Y /hpf; Bilirubin Urine Neg (Negative); Blood Urine Neg (Negative); Glucose Urine UA Norm (Normal); Ketones Urine Negative (Negative); Leukocyte Esterase Urine 2+ (Negative); Nitrate Urine Negative (Negative); Protein Urine Neg (Negative); RBC Urine 0-4 /hpf (0-2); Squamous Epithelial Cell Urine 0-4 /hpf (0-5); Urine Appearance Clear (CLEAR); Urine Color Yellow (Yellow); Urobilinogen Urine Norm (Negative); WBC Urine 0-4 /hpf (0-5); pH Urine 5 (5-7)
[2022-08-20] MEDS: piperacillin-tazobactam 3.375 GM in sodium chloride 0.9% (plus) 50 ML IV ×3 (06:40→21:02)
--- NOTE | 2022-08-20 10:23 | PC.CHAP ---
Pastoral Care Encounter/Spiritual Assessment Type of Contact [] Declined tape recorder repairer visit [] Patient/Family/Request visit [] Outpatient visit [] Follow-up visit [] Physician referral [] Code/Alert [x] Routine visit [] Staff referral [] Actively dying [] Patient sleeping [] Family support [] [] Out of room [] Palliative care [] [] Receiving care in room [] Pre-surgical visit [] Trauma [] Long length of stay [] ICU visit [] Other: Relational/Emotional Strength [x] Patient feels connected with others/family/visitors/staff [] Distress [] Loneliness/isolation [] Abandonment Spirituality of Patient [x] Person of Iris [] Attends Denominational of their Iris [x] Believes in Prayer [] Reads Bible or Hinduism materials [] There are Spiritual issues to be addressed Salesperson [employer] Interventions [x] Prayer [x] Active listening [] Non-anxious presence [x] Spiritual/emotional support [] Crisis/trauma care [] Spiritual counseling [] Bereavement support [] Provided bereavement packet [] Provided Bible/devotional materials [] Provided toy/stuffed animal, coloring book to patient or family member [] Provided Communion [] Anointing/[place] [] Salvation [] Completed spiritual assessment [] Other: Impact on Illness or Injury [] Angry [] Fearful [] Anxious [] Often cries [] Exhaustion [] Unable to work [] Unable to attend latter day [] Unable to walk/stand [] Unable to read [] Unable to drive [] Unable to eat/drink [] Unable to sleep [] Unable to be with family [] Patient intubated [] Other: Summary Time spent with patient 5 min
[2022-08-20] MEDS: simethicone 80 mg Chew PO ×3 (13:12→20:58)
[2022-08-20 13:35] LABS: Thyroid Stimulating Hormone 0.86 uIU/mL (0.27-4.20)
[2022-08-20 13:43] LABS: Procalcitonin 0.15 ng/mL (0-0.5); Vitamin B12 563 pg/mL (232-1245)
[2022-08-20 13:54] LABS: Iron 25 ug/dL (59-158); Percent Saturation 9.1 % (20-50); Total Iron Binding Capacity 272 mcg/dl; Unsaturated Iron Binding 247 ug/dL (112-347)
--- NOTE | 2022-08-20 14:47 | P.PN_ITS ---
Subjective Subjective: Admitted overnight. H&P appreciated. Seen with caregiver at bedside. Patient has a state appointed guardian. Patient is awake and alert. Denies any nausea, vomiting, headache. As per the caregiver patient has been eating the meals as per the guidelines from last discharge. We discussed the patient continues to have recurrent episodes of aspiration pneumonia even after he is following the guidelines only options would be either hiatal hernia repair versus possible PEG tube placement. Vitals/I&O/Wt Last Vital Signs Temp 97.4 F L 08/20/22 12:00 Pulse 68 08/20/22 12:00 Resp 16 08/20/22 12:00 BP 130/80 08/20/22 12:00 Pulse Ox 96 08/20/22 12:00 O2 Del Method 08/20/22 12:00 08/19/22 08/20/22 08/20/22 22:59 06:59 14:59 Intake Total 2049 1250 / 3300 530 / 530 Balance 2049 1250 / 3300 530 / 530 Weight last 48 hrs Weight 97.976 kg Physical Exam Narrative: Caregiver at bedside. Const: COMMON NORMALS: patient oriented x3 and alert GENERAL APPEARANCE: cooperative ORIENTATION/CONSCIOUSNESS: Yes awake HENMT: COMMON NORMALS: oropharynx normal Neck/C-Spine: COMMON NORMALS: no JVD Resp: COMMON NORMALS: normal respiratory effort and clear to auscultation bilaterally AUSCULTATION: clear to auscultation bilaterally Cardio: COMMON NORMALS: no JVD, regular rhythm, S1 normal heart sound present, S2 normal heart sound present and No murmurs present (Cardio) RHYTHM: regular rhythm HEART SOUNDS: S1 normal heart sound present and S2 normal heart sound present GI: COMMON NORMALS: Normal to inspection, nondistended, normoactive bowel sounds present, Soft to palpation and non-tender PALPATION: Yes Soft to palpation Extremity: COMMON NORMALS: no joint enlargement and no pedal edema Neuro: COMMON NORMALS: patient oriented x3 and moves all extremities SENSORIUM/ORIENTATION: Yes alert Skin: COMMON NORMALS: no rashes or lesions noted GENERAL SKIN EXAM: no rashes or lesions noted Data 08/19/22 20:57 08/19/22 20:57 Micro: Microbiology 08/20/22 03:50 MRSA Culture - Final Nose 08/19/22 21:29 Blood Culture - Preliminary Blood SPECIMEN COLLECTED 08/19/22 21:25 Blood Culture - Preliminary Blood SPECIMEN COLLECTED A&P Assessment and plan (1) Aspiration pneumonia: History of aspiration pneumonia in past. Concern for significant hiatal hernia with partial intrathoracic stomach. Recent EGD. As per the documentation did not undergo any kind of balloon dilatation on that procedure. MRSA negative. Sputum culture not collected. Continue with Zosyn. Stop vancomycin. Awaiting modified barium swallow results. Speech therapy and advancing diet accordingly. Discussed in detail with patient's caregiver at bedside. If continues to have recurrent episodes most likely patient will need hiatal hernia repair surgery ve rsus PEG tube placement. We did discuss even after PEG tube placement patient will continue to have aspiration risks given considerable hiatal hernia. Oxygen supplementation keeping saturation over 90%. Aspiration precaution. (2) Sepsis: As above (3) Hyponatremia: Hypovolemic hyponatremia. Continue with normal saline at 75 cc/h. Plan Right hilar lymphadenopathy: Has follow-up scheduled with pulmonology with follow-up CT. Intellectual disability Bipolar disorder AMBROCIO Tardive dyskinesia Other problems Restart multiple home medications including Seroquel, trazodone, Effexor, Trileptal. Full code. Diet as per speech evaluation. Protonix for PUD prophylaxis. Heparin for DVT prophylaxis. Attestations Medical Necessity Statement*: Requires further hospitalization for management of sepsis in setting of recurrent aspiration pneumonia in a patient with baseline significant hiatal hernia and intrathoracic abdomen Diagnoses Aspiration pneumonia J69.0 Sepsis A41.9 Hyponatremia E87.1
[2022-08-20 15:30] LABS: Folate Level 8.2 ng/mL (4.5-32.2)
[2022-08-20] MEDS: pantoprazole DR 40 mg Tablet PO (17:01)
[2022-08-20] MEDS: sodium chloride 0.9% 1,000 ML 75 ML IV (17:01)
[2022-08-20] MEDS: OXcarbazepine 300 mg Tablet 600 MG PO (20:58)
[2022-08-20] MEDS: quetiapine 100 mg Tablet 200 MG PO (20:58)
[2022-08-20] MEDS: trazodone 150 mg Tablet PO (20:58)
[2022-08-21] VITALS: BP 137/89; PULSE 75; RESP 17; TEMP 36.5; O2SAT 95
[2022-08-21] MEDS: heparin 5,000 unit/mL INJ 1 mL 5000 UNIT SUBCUT (00:19)
[2022-08-21] MEDS: LORazepam 2 mg/mL INJ 1 mL 0.5 MG IVP (01:06)
[2022-08-21 04:00] VITALS: BP 123/80; PULSE 67; RESP 17; TEMP 36.6; O2SAT 96
[2022-08-21] MEDS: piperacillin-tazobactam 3.375 GM in sodium chloride 0.9% (plus) 50 ML IV (05:13)
[2022-08-21] MEDS: OXcarbazepine 300 mg Tablet 600 MG PO (06:24)
[2022-08-21 06:29] LABS: Basophils # 0.1 10^3/uL (0.0-0.1); Basophils % 0.9 %; Eosinophils # 0.4 10^3/uL (0.0-0.8); Eosinophils % 6.7 %; Hematocrit 41.1 % (42.0-52.0); Hemoglobin 13.7 g/dL (11.7-16.6); Lymphocytes # 1.5 10^3/uL (0.8-4.8); Mean Corpuscular HGB Conc 33.3 g/dL (30.0-36.0); Mean Corpuscular Hemoglobin 29.1 pg (28.0-34.0); Mean Corpuscular Volume 87.4 fl (80-94); Mean Platelet Volume 10.2 fL (7.4-10.4); Monocytes # 0.6 10^3/uL (0.2-0.9); Monocytes % 8.7 %; Neutrophils # 3.95 10^3/uL (1.8-7.7); Neutrophils % 60.5 %; Nucleated Red Blood Cells % 0 %; Platelet Count 208 10^3/cmm (130-400); Red Cell Distribution Width 13.6 % (12.1-15.1); White Blood Count 6.5 10^3/uL (4.0-10.0)
[2022-08-21 07:02] LABS: Alanine Aminotransferase 20 U/L (0-41); Albumin Level 3.5 g/dL (3.5-5.2); Alkaline Phosphatase 81 U/L (40-130); Anion Gap 13.1 (5-19); Aspartate Amino Transferase 25 U/L (0-40); Blood Urea Nitrogen 8 mg/dL (8-23); Calcium 8.9 mg/dL (8.5-10.5); Carbon Dioxide 24 mmol/L (22-29); Chloride 104 mmol/L (98-107); Chol HDL Ratio 3.52 mg/dL (1.0-5.00); Cholesterol 162 mg/dL (0-200); Globulin 3.3 g/dL (1.3-4.6); Glomerular Filtration Rate 97.3 mL/min (90-130); Glucose 88 mg/dL (65-115); HDL Cholesterol 46 mg/dL (60-100); LDL Cholesterol Calculated 105 mg/dL (50-129); Osmolality Calculated 282 mOsm/kg (285-295); Potassium 4.1 mmol/L (3.5-5.1); Sodium 137 mmol/L (136-145); Total Bilirubin 0.2 mg/dL (0.15-1.2); Total Protein 6.8 g/dL (6.6-8.7); Triglycerides 54 mg/dL (0-150); VLDL Cholestrol Calculation 11 mg/dL (0-30)
[2022-08-21 07:13] LABS: Estmated Average Glucose 97
[2022-08-21 08:00] VITALS: BP 124/70; PULSE 74; RESP 17; TEMP 36.6; O2SAT 96
[2022-08-21] MEDS: ferrous gluconate 324 mg Tablet PO (08:45)
[2022-08-21] MEDS: fluticasone nasal spray 16gm Btl 2 SPRAY INTRANASAL (08:45)
[2022-08-21] MEDS: quetiapine 100 mg Tablet 200 MG PO (08:46)
[2022-08-21] MEDS: venlafaxine ER (24HR) 75 mg Capsule PO (08:46)
[2022-08-21] MEDS: simethicone 80 mg Chew PO (08:46)
[2022-08-21] MEDS: pantoprazole DR 40 mg Tablet PO (08:46)
[2022-08-21] MEDS: venlafaxine ER (24HR) 150 mg Capsule PO (08:46)
--- NOTE | 2022-08-21 09:37 | P.DS_ITS ---
Discharge Providers Date of Admission: 08/19/22 23:48 Date of Discharge: August 21, 2022 Attending Provider at Admission: Abran Luciano Attending Provider at Discharge: Liban Tan MD Primary Care Provider: Dandre Oakes MD Diagnoses at Discharge Discharge Diagnosis (1) Aspiration pneumonia: Status: Acute (2) Sepsis: Status: Acute (3) Hyponatremia: Status: Acute Reason for Visit Reason for Visit: Fever\V Brief History: History as per HPI: Pleasant 62-year-old gentleman with history of TBI, intellectual disability who lives in a custodial, recently hospitalized for management of pneumonia, IV suspicion for aspiration pneumonia, with history also of hiatal hernia with partial intrathoracic stomach, has undergone EGD assessment on 08/15.? Additionally followed up with pulmonology due to during the same hospitalization incidental finding of right hilar lymphadenopathy. Today at the end of caodaism started having chills, having productive cough, malaise.? Reportedly had fever as high as 103 Fahrenheit.? He had 1 episode of vomiting, but caregiver states it was after a bout of bad cough.? History obtained from caregiver at bedside. In ER noted with leukocytosis 12.3, on presentation sinus tachycardia 130s.? Respiratory rate 22.? Lactic acid 2.9.? Sodium 128.? Rapid flu and rapid COVID antigen is negative.? Chest x-ray with interval improvement in patchy right lung airspace disease compared to prior, minimal ill-defined bibasilar opacities remain possibly pneumonia and/or scar tissue. Blood cultures collected.? He received fluid resuscitation in ER.? Zosyn and vancomycin. Hospital Course Hospital Course Patient was admitted to the hospital further evaluation and management of aspiration pneumonia he was started on broad-spectrum antibiotics. During hospitalization patient did not require any supplemental oxygen. His blood cultures remain negative. On admission he was found to be mildly hyponatremic for which he was started on IV fluids after which his sodium levels resolved. Patient had repeat modified barium swallow evaluation done which shows persistent aspiration but getting controlled with small bolus size. Patient's care were discussed in detail with patient's caregiver. We discussed that unfortunately patient is at high risk of aspiration given significant hiatal hernia and intrathoracic abdomen even with modified diet. Discussed options going forward would be either PEG tube placement versus possible hiatal hernia repair which is more extensive surgery and patient would need to be have clearance from the surgeon prior to the procedure. Both patient and caregiver verbalized understanding. He is been discharged hemodynamically stable condition oral antibiotics for next 5 days, aspiration precautions, further modifying diet as per swallow evaluation with advised to follow-up with a primary care provider for a referral as an outpatient for gastric surgeon in [place] for possible hiatal hernia repair Physical Exam Narrative: Caregiver at bedside. Const: COMMON NORMALS: patient oriented x3 and alert GENERAL APPEARANCE: cooperative ORIENTATION/CONSCIOUSNESS: Yes awake HENMT: COMMON NORMALS: oropharynx normal Neck/C-Spine: COMMON NORMALS: no JVD Resp: COMMON NORMALS: normal respiratory effort and clear to auscultation bilaterally AUSCULTATION: clear to auscultation bilaterally Cardio: COMMON NORMALS: no JVD, regular rhythm, S1 normal heart sound present, S2 normal heart sound present and No murmurs present (Cardio) RHYTHM: regular rhythm HEART SOUNDS: S1 normal heart sound present and S2 normal heart sound present GI: COMMON NORMALS: Normal to inspection, nondistended, normoactive bowel sounds present, Soft to palpation and non-tender PALPATION: Yes Soft to palpation Extremity: COMMON NORMALS: no joint enlargement and no pedal edema Neuro: COMMON NORMALS: patient oriented x3 and moves all extremities SENSORIUM/ORIENTATION: Yes alert Skin: COMMON NORMALS: no rashes or lesions noted GENERAL SKIN EXAM: no rashes or lesions noted Discharge Data Studies Completed and Pending Completed Studies During Hospitalization Category Date Time Status MBS [FL barium swallow modifd 24607] Routine Exams 08/20/22 00:53 Completed XR chest 1V portable [id number] Stat Exams 08/19/22 20:54 Completed Pending at discharge Category Date Time Status Blood Culture Stat Lab 08/19/22 21:29 Results Complete Blood Count w/Auto AM LABS Lab 08/22/22 04:00 Ordered Complete Blood Count w/Auto AM LABS Lab 08/23/22 04:00 Ordered Sputum Culture and Gram Stain Routine Lab 08/20/22 00:54 Uncollected Radiology Impressions Chest X-Ray 08/19/22 20:54 IMPRESSION: There has been significant interval improvement in the patchy right lung airspace disease when compared to the prior study. Minimal ill-defined bibasilar opacities remain which may represent residual pneumonia and or scar tissue. Modified Barium Swallow 08/20/22 00:53 IMPRESSION: Abnormal modified study as demonstrated above with generalized weakness of oral and pharyngeal phases of swallowing with increased risk of aspiration. When the bolus sizes control the patient has diminished risk of aspiration. See further recommendations according to the patient's speech therapy report. Laboratory Results WBC 6.5 10^3/uL (4.0-10.0) 08/21/22 06:03 RBC 4.70 10^6/uL (4.1-5.3) 08/21/22 06:03 Hgb 13.7 g/dL (11.7-16.6) 08/21/22 06:03 Hct 41.1 % (42.0-52.0) L 08/21/22 06:03 MCV 87.4 fl (80-94) 08/21/22 06:03 MCH 29.1 pg (28.0-34.0) 08/21/22 06:03 MCHC 33.3 g/dL (30.0-36.0) 08/21/22 06:03 RDW 13.6 % (12.1-15.1) 08/21/22 06:03 Plt Count 208 10^3/cmm (130-400) 08/21/22 06:03 MPV 10.2 fL (7.4-10.4) 08/21/22 06:03 Neut % (Auto) 60.5 % 08/21/22 06:03 Lymph % (Auto) 23.0 % 08/21/22 06:03 [place] % (Auto) 8.7 % 08/21/22 06:03 Eos % (Auto) 6.7 % 08/21/22 06:03 Baso % (Auto) 0.9 % 08/21/22 06:03 Neut # (Auto) 3.95 10^3/uL (1.8-7.7) 08/21/22 06:03 Lymph # (Auto) 1.5 10^3/uL (0.8-4.8) 08/21/22 06:03 [place] # (Auto) 0.6 10^3/uL (0.2-0.9) 08/21/22 06:03 Eos # (Auto) 0.4 10^3/uL (0.0-0.8) 08/21/22 06:03 Baso # (Auto) 0.1 10^3/uL (0.0-0.1) 08/21/22 06:03 Nucleated RBC % (auto) 0 % 08/21/22 06:03 Nucleated RBCs # 0.0 /100WBC 08/21/22 06:03 Sodium 137 mmol/L (136-145) 08/21/22 06:03 Potassium 4.1 mmol/L (3.5-5.1) 08/21/22 06:03 Chloride 104 mmol/L (98-107) 08/21/22 06:03 Carbon Dioxide 24 mmol/L (22-29) 08/21/22 06:03 Anion Gap 13.1 (5-19) 08/21/22 06:03 BUN 8 mg/dL (8-23) 08/21/22 06:03 Creatinine 0.8 mg/dL (0.7-1.2) 08/21/22 06:03 GFR Calculation 97.3 mL/min (90-130) 08/21/22 06:03 Glucose 88 mg/dL (65-115) 08/21/22 06:03 Estimat Average Glucose 97 08/21/22 06:03 Hemoglobin A1c 5.0 % (4.0-6.0) 08/21/22 06:03 Calculated Osmolality 282 mOsm/kg (285-295) L 08/21/22 06:03 Lactic Acid 2.9 mmol/L (0.5-2.2) H 08/19/22 20:57 Lactic Acid (Sepsis) 1.5 mmol/L (0.5-2.2) 08/19/22 23:50 Calcium 8.9 mg/dL (8.5-10.5) 08/21/22 06:03 Iron 25 ug/dL (59-158) L 08/20/22 12:41 TIBC 272 mcg/dl 08/20/22 12:41 % Saturation 9.1 % (20-50) L 08/20/22 12:41 Unsat Iron Binding 247 ug/dL (112-347) 08/20/22 12:41 Total Bilirubin 0.2 mg/dL (0.15-1.2) 08/21/22 06:03 AST 25 U/L (0-40) 08/21/22 06:03 ALT 20 U/L (0-41) 08/21/22 06:03 Alkaline Phosphatase 81 U/L (40-130) 08/21/22 06:03 C-Reactive Protein 28.1 mg/L (0.0-4.9) H 08/19/22 20:57 Total Protein 6.8 g/dL (6.6-8.7) 08/21/22 06:03 Albumin 3.5 g/dL (3.5-5.2) 08/21/22 06:03 Globulin 3.3 g/dL (1.3-4.6) 08/21/22 06:03 Triglycerides 54 mg/dL (0-150) 08/21/22 06:03 Cholesterol 162 mg/dL (0-200) 08/21/22 06:03 LDL Cholesterol, Calc 105 mg/dL (50-129) 08/21/22 06:03 Total VLDL Cholesterol 11 mg/dL (0-30) 08/21/22 06:03 HDL Cholesterol 46 mg/dL (60-100) L 08/21/22 06:03 Cholesterol/HDL Ratio 3.52 mg/dL (1.0-5.00) 08/21/22 06:03 Vitamin B12 563 pg/mL (232-1245) 08/20/22 12:41 Folate 8.2 ng/mL (4.5-32.2) 08/20/22 12:41 Procalcitonin 0.15 ng/mL (0-0.5) 08/20/22 12:41 TSH 0.86 uIU/mL (0.27-4.20) 08/20/22 12:41 Urine Color Yellow (Yellow) 08/20/22 03:05 Urine Appearance Clear (CLEAR) 08/20/22 03:05 Urine pH 5 (5-7) 08/20/22 03:05 Ur Specific [place] 1.010 (1.005-1.030) 08/20/22 03:05 Urine Protein Neg (Negative) 08/20/22 03:05 Urine Glucose (UA) Norm (Normal) 08/20/22 03:05 Urine Ketones Negative (Negative) 08/20/22 03:05 Urine Blood Neg (Negative) 08/20/22 03:05 Urine Nitrate Negative (Negative) 08/20/22 03:05 Urine Bilirubin Neg (Negative) 08/20/22 03:05 Urine Urobilinogen Norm mg/dL (Negative) 08/20/22 03:05 Ur Leukocyte Esterase 2+ (Negative) H 08/20/22 03:05 Urine RBC 0-4 /hpf (0-2) H 08/20/22 03:05 Urine WBC 0-4 /hpf (0-5) H 08/20/22 03:05 Ur Squamous Epith Cells 0-4 /hpf (0-5) H 08/20/22 03:05 Amorphous Sediment Not Reportable 08/20/22 03:05 Urine Bacteria Y /hpf (NONE) 08/20/22 03:05 Influenza Type A Ag negative (Negative) 08/19/22 21:05 Influenza Type B Ag negative (Negative) 08/19/22 21:05 SARS-CoV-2 Ag (Rapid) negative (Negative) 08/19/22 21:05 Vitals Last Vital Signs Temp 97.8 F 08/21/22 08:00 Pulse 74 08/21/22 08:00 Resp 17 08/21/22 08:00 BP 124/70 08/21/22 08:00 Pulse Ox 96 08/21/22 08:00 O2 Del Method 08/21/22 04:00 Discharge Plan Discharge Patient Disposition: Xfer Other Condition: Stable Prescriptions: New amoxicillin-pot clavulanate 875-125 mg tablet 1 tab PO BID Qty: 10 0RF levofloxacin 750 mg tablet 750 mg PO Q24H 5 Days Qty: 5 0RF Continued pantoprazole [Protonix] 40 mg tablet,delayed release (DR/EC) 40 mg PO BID 42 Days Qty: 84 1RF CeraVe Cream See Rx Instructions .ROUTE .COMPLEX Qty: 453 5RF Dose Instruction: APPLY TO THE AFFECTED AREA(S) OF LEGS TWICE DAILY FOR SKIN MOISTURIZER Rx Instructions: APPLY TO THE AFFECTED AREA(S) OF LEGS TWICE DAILY FOR SKIN MOISTURIZER AT 07:00 & 19:00 Ear Wax Removal Drops 6.5 % drops See Rx Instructions .ROUTE .COMPLEX Qty: 15 5RF Dose Instruction: instill SIX drops in BOTH ears TWICE DAILY FOR FOUR DAYS each MONTH THEN IRRIGATE Rx Instructions: instill SIX drops in BOTH ears TWICE DAILY FOR FOUR DAYS each MONTH THEN IRRIGATE Triple Antibiotic 3.5mg-400 unit- 5,000 unit/gram Ointment 1 applic TOPICAL PRN PRN (Reason: affected area) polyethylene glycol 3350 [Miralax] 17 gram Powder In Packet 17 g PO DAILY@20 dextromethorphan-guaifenesin 10-100 mg/5 mL Syrup 10 ml PO Q4H PRN (Reason: Cough) hydrocortisone [Proctocort] 1 % Cream 1 applic NH QID PRN (Reason: Hemorrhoids) alum-mag hydroxide-simeth 200-200-20 mg/5 mL Suspension 30 ml PO Q4H PRN (Reason: upset stomach) venlafaxine [Effexor XR] 75 mg capsule,extended release 24hr 75 mg PO DAILY@08 Rx Instructions: with 150mg to =225mg quetiapine 200 mg tablet 200 mg PO BID@08,20 venlafaxine 150 mg capsule,extended release 24hr 150 mg PO DAILY@08 Rx Instructions: with 75mg to =225mg trazodone 150 mg tablet 150 mg PO BEDTIME@20 omeprazole 20 mg capsule,delayed release(DR/EC) 20 mg PO DAILY@07 oxcarbazepine 600 mg tablet 600 mg PO BID@07,20 fluticasone propionate 50 mcg/actuation spray,suspension 2 spray INTRANASAL DAILY@08 Rx Instructions: administer into each nostril loratadine [Claritin] 10 mg tablet 10 mg PO DAILY@07 ferrous gluconate 324 mg (38 mg iron) tablet 324 mg PO DAILY@08 albuterol sulfate 90 mcg/actuation HFA aerosol inhaler 1 inh inhalation Q6H PRN (Reason: shortness of breath or wheezing) Qty: 8.5 0RF promethazine 25 mg Tablet 25 mg PO QID PRN (Reason: Nausea) simethicone 80 mg tablet,chewable 80 mg PO QID Rx Instructions: @07:00,12:00,16:00,20:00 albuterol sulfate 2.5 mg /3 mL (0.083 %) Solution For Nebulization 2.5 mg INHALATION Q6H PRN (Reason: Shortness Of Breath) Discontinued ibuprofen 800 mg tablet 800 mg PO Q6H PRN (Reason: pain/fever) Hold Instructions: Resume on 08/17/22. Discharge Orders: Discharge Order (Routine); Ordered 08/21/22 Ordered By: Liban Tan Referrals: Dandre Oakes MD [Primary Care Provider] - 7-10 days Discharge Diet: As Directed Discharge Activity: Resume usual activity and Increase activity as tolerated Patient Instructions: Opioid Safety Activity Restrictions/Additional Instructions: Please continue with aspiration precautions. Take antibiotics including Augmentin and levaquin for next 5 days. Please follow with a primary care provider within next 1 week for referral to a gastric surgeon in [place] for possible hiatal hernia repair Discharge Attestations Time Spent in Discharge Care*: greater than 30 min Specific Discharge Activities: educating patient, educating and/or supporting family/caregiver, discussing with pcp/other providers, discussing with manager of case management/social workers/dc planners, documenting/other paperwork and evaluating patient/reviewing data Status at Discharge: Cognitive status at discharge: mildly impaired cognition , Behavioral status at discharge: cooperative , Functional status at discharge: independent ambulation , Overall status at discharge: patient is back to baseline Quality Metrics Clinical Quality Measures [ No reported AMI, CVA or VTE this stay] Coding Level of Care Code 64432 Total time (in minutes) for Discharge: 45 Diagnoses Aspiration pneumonia J69.0 Sepsis A41.9 Hyponatremia E87.1
[2022-08-21 11:48] VITALS: BP 136/85; PULSE 83; RESP 17; TEMP 36.1; O2SAT 95
[2022-08-21 11:59] VITALS: PULSE 83; RESP 16; O2SAT 97
== END 2022-08-21 11:50 | disposition home or self-care (01) | DRG 178 ==
LOC: ER 22:32 → ER IP 08-20 00:22 → MEDSURG 08-20 02:41
PROVIDERS: Admitting Provider Internal Medicine; Emergency Provider Nurse Practitioner Family; PCP Internal Medicine; Visit Provider Student in an Organized Health Care Education/Training Program
DX: J69.0 Pneumonitis due to inhalation of food and vomit (principal); E87.1 Hypo-osmolality and hyponatremia; Z87.820 Personal history of traumatic brain injury; K44.9 Diaphragmatic hernia without obstruction or gangrene; Z79.891 Long term (current) use of opiate analgesic; Z79.51 Long term (current) use of inhaled steroids; F79 Unspecified intellectual disabilities; F31.9 Bipolar disorder, unspecified; G24.01 Drug induced subacute dyskinesia; R59.0 Localized enlarged lymph nodes; D50.9 Iron deficiency anemia, unspecified
CPT/HCPCS: 36415; 71045; 74230; 80053; 80061; 81001; 82607; 82746; 83036; 83540; 83550; 83605; 84145; 84443; 85025; 86140; 87040; 87426; 87641; 87804; 92611; 96365; 96372; 99285; J1644; J2060; J2543; J3370; J7030; J7040

== ENCOUNTER → 2022-08-31 16:06 | Outpatient (BNVA) | payer MEDICARE, MEDICAID, SELFPAY | PROVIDERS: PCP Internal Medicine; Visit Provider Surgery | DX: K29.70 Gastritis, unspecified, without bleeding (principal); B96.81 Helicobacter pylori [H. pylori] as the cause of diseases classified elsewhere | CPT/HCPCS: 99024; 99212 ==

== ENCOUNTER 2022-08-31 20:41 | Inpatient (IN) | payer MEDICARE, MEDICAID, SELFPAY ==
[2022-08-31 20:52] VITALS: BP 152/77; PULSE 104; RESP 26; TEMP 36.4; O2SAT 87; BMI 32.6
--- NOTE | 2022-08-31 20:56 | ED_ITS ---
HPI - SOB/Dyspnea General: Chief Complaint: Shortness of Breath/Dyspnea Stated Complaint: SOB, has pneumonia Time Seen by Provider: 08/31/22 20:56 History of Present Illness: HPI Narrative: Mr. Olivas is a 62-year-old gentleman with complex past medical history including recurrent aspiration pneumonia presenting to the emergency department for shortness of breath. He was discharged from the hospital on 08/21 and has been on antibiotics. Over the past few days he has developed increased dyspnea especially with exertion and hypoxemia. Patient does not have a baseline oxygen requirement and denies history other than aspiration pneumonia of underlying lung disease. Patient found to be hypoxemic on room air with tachycardia and placed on supplemental oxygen. He does have coarse breath sounds at endorses wheezing. Intensity symptoms is moderate. Course has worsened. No other specific changes in health, exacerbating, or alleviating factors identified. Onset (ago): week(s) Context: recent illness Timing: progressively worsening Severity: moderate Exacerbating factors: exertion Known history of: recurrent pneumonia Review of Systems General: Reports: 10 or more systems reviewed and unremarkable except in HPI and below PFSH ED PFSH: Medical History Aspiration pneumonia At risk for aspiration Bipolar disease, manic Negative colon, negative guaics. Dupuytren's contracture of left hand Hiatal hernia Intellectual disability Iron deficiency anemia Lymphadenopathy, hilar Tardive dyskinesia Surgical History History of carpal tunnel release History of cataract extraction History of colonoscopy Social History Smoking and tobacco status: never smoked Alcohol intake: never Physical Exam Const: COMMON NORMALS: alert GENERAL APPEARANCE: cooperative, well developed and ill appearing HENMT: COMMON NORMALS: normocephalic and atraumatic HEAD & SCALP: normocephalic and atraumatic THROAT: posterior oropharynx normal Eye: COMMON NORMALS: conjunctivae normal CONJUNCTIVA: Yes conjunctivae normal SCLERA: sclerae normal Neck/C-Spine: COMMON NORMALS: supple GENERAL: Yes trachea midline Resp: EFFORT & INSPECTION: Yes tachypneic AUSCULTATION: rhonchi and wheezes Cardio: COMMON NORMALS: regular rhythm RATE: tachycardic RHYTHM: regular rhythm GI: COMMON NORMALS: Soft to palpation PALPATION: Yes Soft to palpation and No Tenderness to palpation present (GI) PERCUSSION: normal to percussion Extremity: GENERAL: Yes normal exam except as noted and No edema Neuro: COMMON NORMALS: moves all extremities SENSORIUM/ORIENTATION: Yes alert and No Orientation impaired Psych: COMMON NORMALS: mental status grossly normal and Normal thought process present THOUGHT PROCESS: Normal thought process present Course Vital Signs: Vital signs: Vital Signs Temperature 97.3 F L 09/03/22 12:00 Pulse Rate 98 09/03/22 12:00 Respiratory Rate 18 09/03/22 12:00 Blood Pressure 121/77 09/03/22 12:00 Pulse Oximetry 88 L 09/03/22 13:58 Oxygen Delivery Me thod Nasal Cannula 09/03/22 12:00 Oxygen Flow Rate 2 09/03/22 13:58 Fraction of Inspir ed Oxygen 2 09/03/22 11:33 MDM - SOB/Dyspnea Medical Decision Making 62-year-old presenting with respiratory symptoms with recent hospitalization for pneumonia. He is requiring new oxygen and somewhat ill in appearance. EKG demonstrates sinus rhythm with left axis deviation and nonspecific ST segment abnormalities. First-degree AV block. No STEMI. Labs with unremarkable hematologic panel. Metabolic panel with mild hypercapnia and hypoxemia despite supplemental oxygen. Dehydration on metabolic panel. Viral panel pending. Chest x-ray negative for acute pathology. Given severity of illness and recent hospitalization patient requires CTA. CTA with no PE. Patient treated with albuterol, steroids. Most likely etiology of patient's symptoms is respiratory distress and wheezing with possible development of underlying lung disease with exacerbation secondary to recurrent pneumonia. The results of ED evaluation were discussed with the patient including plan for admission due to requirement for level of care not available if discharged to prevent significant worsening/deterioration. Patient agreeable with plan. Discussed with hospitalist service who was agreeable to admit patient. Medical Records I reviewed the patient's medical records. Lab Data I reviewed the patient's lab results. 09/03/22 03:49 09/03/22 03:49 Labs/Radiology: Radiology Impressions Chest X-Ray 08/31/22 21:01 IMPRESSION: No acute findings. Chest CTA 08/31/22 22:17 IMPRESSION: 1. Moderate intrathoracic hiatal hernia. 2. Borderline mediastinal adenopathy with mild right hilar adenopathy most consistent with reactive adenopathy. 3. No pulmonary embolus or aortic dissection. Laboratory Results WBC 7.1 10^3/uL (4.0-10.0) 08/31/22 21:15 RBC 5.04 10^6/uL (4.1-5.3) 08/31/22 21:15 Hgb 14.6 g/dL (11.7-16.6) 08/31/22 21:15 Hct 43.8 % (42.0-52.0) 08/31/22 21:15 MCV 86.9 fl (80-94) 08/31/22 21:15 MCH 29.0 pg (28.0-34.0) 08/31/22 21:15 MCHC 33.3 g/dL (30.0-36.0) 08/31/22 21:15 RDW 13.5 % (12.1-15.1) 08/31/22 21:15 Plt Count 215 10^3/cmm (130-400) 08/31/22 21:15 MPV 9.6 fL (7.4-10.4) 08/31/22 21:15 Neut % (Auto) 63.9 % 08/31/22 21:15 Lymph % (Auto) 18.4 % 08/31/22 21:15 [place] % (Auto) 8.0 % 08/31/22 21:15 Eos % (Auto) 8.3 % 08/31/22 21:15 Baso % (Auto) 1.3 % 08/31/22 21:15 Neut # (Auto) 4.56 10^3/uL (1.8-7.7) 08/31/22 21:15 Lymph # (Auto) 1.3 10^3/uL (0.8-4.8) 08/31/22 21:15 [place] # (Auto) 0.6 10^3/uL (0.2-0.9) 08/31/22 21:15 Eos # (Auto) 0.6 10^3/uL (0.0-0.8) 08/31/22 21:15 Baso # (Auto) 0.1 10^3/uL (0.0-0.1) 08/31/22 21:15 Nucleated RBC % (auto) 0 % 08/31/22 21:15 Nucleated RBCs # 0.0 /100WBC 08/31/22 21:15 Specimen Type Arterial 08/31/22 22:30 Sample Site Radial, right 08/31/22 22:30 ABG pH 7.38 (7.35-7.45) 08/31/22 22:30 ABG pCO2 47.4 mmHg (35-45) H 08/31/22 22:30 ABG pO2 77.8 mmHg (80.0-100.0) L 08/31/22 22:30 ABG HCO3 28.0 mmol/L (22-26) H 08/31/22 22:30 ABG Base Excess 2.1 mmol/L (-2.0-2.0) H 08/31/22 22:30 Alexey Test Pos 08/31/22 22:30 Hematocrit 45.9 % (42-52) 08/31/22 22:30 O2 Delivery Device Nc 08/31/22 22:30 O2 Liters/Min 3.0 % 08/31/22 22:30 Sweeper [employer] [place] 08/31/22 22:30 Sodium 130 mmol/L (136-145) L 08/31/22 21:15 Potassium 4.2 mmol/L (3.5-5.1) 08/31/22 21:15 Chloride 94 mmol/L (98-107) L 08/31/22 21:15 Carbon Dioxide 26 mmol/L (22-29) 08/31/22 21:15 Anion Gap 14.2 (5-19) 08/31/22 21:15 BUN 4 mg/dL (8-23) L 08/31/22 21:15 Creatinine 0.8 mg/dL (0.7-1.2) 08/31/22 21:15 GFR Calculation 97.3 mL/min (90-130) 08/31/22 21:15 Glucose 96 mg/dL (65-115) 08/31/22 21:15 Calculated Osmolality 267 mOsm/kg (285-295) L 08/31/22 21:15 Lactic Acid 0.9 mmol/L (0.5-2.2) 08/31/22 21:15 Calcium 9.1 mg/dL (8.5-10.5) 08/31/22 21:15 Total Bilirubin 0.2 mg/dL (0.15-1.2) 08/31/22 21:15 AST 17 U/L (0-40) 08/31/22 21:15 ALT 15 U/L (0-41) 08/31/22 21:15 Alkaline Phosphatase 122 U/L (40-130) 08/31/22 21:15 Troponin T Baseline 6 ng/L (0-15) 08/31/22 21:15 Troponin T 120 Minute 6.00 ng/L (0-15) 08/31/22 22:56 Delta Troponin T 0 ABS# (0-10) 08/31/22 22:56 Troponin T Hi Sens 6Hr 6.00 ng/L (0-15) 09/01/22 03:40 Troponin T Hi Sens 6Hr Delta 0 ng/L (0-12) 09/01/22 03:40 C-Reactive Protein 14.3 mg/L (0.0-4.9) H 08/31/22 21:15 NT-Pro-B Natriuret Pep 36 pg/mL (0-125) 08/31/22 21:15 Total Protein 7.0 g/dL (6.6-8.7) 08/31/22 21:15 Albumin 4.1 g/dL (3.5-5.2) 08/31/22 21:15 Globulin 2.9 g/dL (1.3-4.6) 08/31/22 21:15 Procalcitonin 0.04 ng/mL (0-0.5) 08/31/22 22:56 Nasal Influ A H1 2008 PCR Not detected (NOT DETECT) 08/31/22 22:07 Adenovirus (PCR) Not detected (NOT DETECT) 08/31/22 22:07 C. pneumoniae DNA (PCR) Not detected (NOT DETECT) 08/31/22 22:07 Coronavirus 229E (PCR) Not detected (NOT DETECT) 08/31/22 22:07 Human Metapneumovir PCR Not detected (NOT DETECT) 08/31/22 22:07 Influenza A (H1) PCR Not detected (NOT DETECT) 08/31/22 22:07 Influenza A (H3) PCR Not detected (NOT DETECT) 08/31/22 22:07 Influenza Type A (PCR) Not detected (NOT DETECT) 08/31/22 22:07 Influenza Type B (PCR) Not detected (NOT DETECT) 08/31/22 22:07 M. pneumoniae (PCR) Not detected (NOT DETECT) 08/31/22 22:07 Parainfluenza 1 (PCR) Not detected (NOT DETECT) 08/31/22 22:07 Parainfluenza 2 (PCR) Not detected (NOT DETECT) 08/31/22 22:07 Parainfluenza 3 (PCR) Not detected (NOT DETECT) 08/31/22 22:07 Parainfluenza 4 (PCR) Not detected (NOT DETECT) 08/31/22 22:07 RSV Type A (PCR) Not detected (NOT DETECT) 08/31/22 22:07 RSV Type B (PCR) Not detected (NOT DETECT) 08/31/22 22:07 Entero/Rhino (PCR) Not detected (NOT DETECT) 08/31/22 22:07 SARS-CoV-2 (PCR) Not detected (NOT DETECT) 08/31/22 22:07 Discharge Plan Discharge Patient Disposition: Placed in Observation Admit Provider: Perla Owen Clinical Impression: Wheezing, Respiratory distress Discharge Diet: As Directed Discharge Activity: Resume usual activity Coding Level of Care Code ED Astrobiologist for Sal Cornell
--- NOTE | 2022-08-31 21:01 | XRR_ITS ---
PROCEDURE INFORMATION: Exam: XR Chest Exam date and time: 08/31/2022 9:32 PM Age: 62 years old Clinical indication: Shortness of breath; Additional info: SOB TECHNIQUE: Imaging protocol: Radiologic exam of the chest. Views: 1 view. COMPARISON: CR (CHEST, ) 08/19/2022 9:07 PM FINDINGS: Lungs: Unremarkable. No consolidation. Pleural spaces: Unremarkable. No pleural effusion. No pneumothorax. Heart/Mediastinum: Unremarkable. No cardiomegaly. Bones/joints: Mild dextroscoliosis. Mild thoracic spondylosis. XR/XR chest 1V portable [id number] IMPRESSION: No acute findings.
--- NOTE | 2022-08-31 21:01 | ECG_ITS ---
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 Measurements Intervals [place] Rate: 87 P: 44 MO: 206 QRS: -39 QRSD: 124 T: 37 QT: 362 QTc: 438 Interpretive Statements SINUS RHYTHM LEFT AXIS DEVIATION [QRS AXIS < -30] MODERATE INTRAVENTRICULAR CONDUCTION DELAY [110+ ms QRS DURATION] Compared to ECG 07/12/2022 16:10:35 Left-axis deviation now present Intraventricular conduction delay now present Electronically Signed On 09-01-2022 7:12:32 CDT by Checo Hernandez M.D. [id number]
[2022-08-31] MEDS: ipratropium-albuterol 3 mL Neb INHALATION (21:19)
[2022-08-31 21:20] VITALS: PULSE 89; RESP 17; O2SAT 92
[2022-08-31 21:28] LABS: Basophils # 0.1 10^3/uL (0.0-0.1); Basophils % 1.3 %; Eosinophils # 0.6 10^3/uL (0.0-0.8); Eosinophils % 8.3 %; Hematocrit 43.8 % (42.0-52.0); Hemoglobin 14.6 g/dL (11.7-16.6); Lymphocytes # 1.3 10^3/uL (0.8-4.8); Lymphocytes % 18.4 %; Mean Corpuscular HGB Conc 33.3 g/dL (30.0-36.0); Mean Corpuscular Volume 86.9 fl (80-94); Mean Platelet Volume 9.6 fL (7.4-10.4); Monocytes # 0.6 10^3/uL (0.2-0.9); Neutrophils # 4.56 10^3/uL (1.8-7.7); Neutrophils % 63.9 %; Nucleated Red Blood Cells % 0 %; Platelet Count 215 10^3/cmm (130-400); Red Blood Count 5.04 10^6/uL (4.1-5.3); Red Cell Distribution Width 13.5 % (12.1-15.1); White Blood Count 7.1 10^3/uL (4.0-10.0)
[2022-08-31 21:29] VITALS: BP 126/86; PULSE 93; RESP 22; O2SAT 96
[2022-08-31 21:49] LABS: Troponin(5th) Baseline 6 ng/L (0-15)
[2022-08-31 21:50] LABS: Lactic Sepsis W/Reflex 0.9 mmol/L (0.5-2.2)
[2022-08-31 22:05] LABS: Alanine Aminotransferase 15 U/L (0-41); Albumin Level 4.1 g/dL (3.5-5.2); Alkaline Phosphatase 122 U/L (40-130); Anion Gap 14.2 (5-19); Aspartate Amino Transferase 17 U/L (0-40); Blood Urea Nitrogen 4 mg/dL (8-23); Calcium 9.1 mg/dL (8.5-10.5); Carbon Dioxide 26 mmol/L (22-29); Chloride 94 mmol/L (98-107); Globulin 2.9 g/dL (1.3-4.6); Glomerular Filtration Rate 97.3 mL/min (90-130); Glucose 96 mg/dL (65-115); NT Pro B Type Natriuretic Pept 36 pg/mL (0-125); Osmolality Calculated 267 mOsm/kg (285-295); Potassium 4.2 mmol/L (3.5-5.1); Sodium 130 mmol/L (136-145); Total Bilirubin 0.2 mg/dL (0.15-1.2)
--- NOTE | 2022-08-31 22:17 | CTR_ITS ---
PROCEDURE INFORMATION: Exam: CTA Chest With Contrast Exam date and time: 08/31/2022 10:59 PM Age: 62 years old Clinical indication: Cough and shortness of breath; Additional info: Cough, SOB, recent hospitalization TECHNIQUE: Imaging protocol: Computed tomographic angiography of the chest with contrast. 3D rendering (Not supervised by radiologist): MIP and/or 3D reconstructed images were created by the technologist. Radiation optimization: All CT scans at this facility use at least one of these dose optimization techniques: automated exposure control; mA and/or kV adjustment per patient size (includes targeted exams where dose is matched to clinical indication); or iterative reconstruction. Contrast material: OMNI 350; Contrast volume: 100 ml; Contrast route: INTRAVENOUS (IV); REPORTING DATA: Count of CT and Cardiac NM exams in prior 12 months: This patient has received [address] and 0 known cardiac nuclear medicine studies in the 12 months prior to the current study. COMPARISON: CT angio chest PE protcl [id number] 07/12/2022 2:52 PM RADIATION DOSE METRICS: Total DLP (mGy-cm): 448.43 FINDINGS: Pulmonary arteries: Normal. No pulmonary emboli. Aorta: Calcification of the thoracic aorta and/or great vessels consistent with atherosclerotic vessel disease. Lungs: Unremarkable. No consolidation. No masses. Pleural spaces: Unremarkable. No pneumothorax. No pleural effusion. Heart: Unremarkable. No cardiomegaly. No pericardial effusion. Lymph nodes: Borderline mediastinal adenopathy with mild right hilar adenopathy most consistent with reactive adenopathy. Diaphragm: Moderate intrathoracic hiatal hernia. Liver: Low density focal fatty infiltration within the liver, anterior to the falciform ligament. This is a common finding. Single hepatic cyst measuring > 1.0 cm. Bones/joints: One or more healed left rib fractures. Soft tissues: Unremarkable. CT/CT angio chest PE protcl [id number] IMPRESSION: 1. Moderate intrathoracic hiatal hernia. 2. Borderline mediastinal adenopathy with mild right hilar adenopathy most consistent with reactive adenopathy. 3. No pulmonary embolus or aortic dissection.
[2022-08-31 22:29] LABS: C Reactive Protein 14.3 mg/L (0.0-4.9)
[2022-08-31] MEDS: iohexol 350 mg/mL 500 mL Btl (per mL) IV (22:30)
[2022-08-31 22:33] VITALS: PULSE 88; RESP 22; O2SAT 93
[2022-08-31] MEDS: albuterol 2.5 mg/3 mL Neb INHALATION (22:33)
[2022-08-31 22:41] LABS: ABG PCO2 47.4 mmHg (35-45); ABG PH Result 7.38 (7.35-7.45); Arterial Blood Gas Hematocrit 45.9 % (42-52); Base Excess ABG 2.1 mmol/L (-2.0-2.0); Blood Gas Allen Test Pos; Blood Gas Sample Site Radial, right; Blood Gas Sample Type Arterial; Oxygen Device NC; PO2 ABG 77.8 mmHg (80.0-100.0)
--- NOTE | 2022-08-31 22:53 | P.HP_ITS ---
Providers/Chief Complaint Admitting Physician: Perla Owen MD Primary Care Provider: Dandre Oakes MD Chief Complaint: SOB, has pneumonia History of Present Illness Dalton Olivas is a 62 year old male with past medical history of TBI, intellectual disability, recurrent aspiration pneumonia, bilateral hilar lymphadenopathy who lives in a halfway presented to the hospital today for shortness of breath. He was discharged in the hospital on 08/21 and has been on antibiotics as an outpatient. Over the last few days he has had increasing shortness of breath especially with exertion and has been requiring oxygen. Normally he is not on any oxygen at baseline but on arrival to ER he was noted to be hypoxemic on room air with tachycardia and was placed on 3 L. His mental status is at baseline at this time. Chest x-ray did not show any acute findings. CTA chest was also done which did not reveal a PE. CTA shows moderate intrathoracic hiatal hernia, borderline mediastinal adenopathy with mild right hilar adenopathy most consistent with reactive adenopathy, no pulmona ry embolism or aortic dissection. He saw pulmonology about a month ago and was asked to follow-up in 2 months. Plan is to do EBUS with biopsy if adenopathy does not resolve by then. Vitals were stable on arrival to ER except the patient was hypoxemic. Labs reviewed WBC 7.1, hemoglobin 14.6, sodium 130, potassium 4.2, chloride 94, creatinine 0.8, lactic acid 0.9, BNP 36 baseline troponin 6. Patient was given DuoNeb x1 and Solu-Medrol 125x1. His breathing did improve with treatment. Still however requiring supplemental oxygen at this time. Medications/Allergies Home Medications Medication Instructions Recorded Confirmed Last Taken Type ibuprofen 800 mg tablet 800 mg PO Q6H PRN pain/fever 07/30/19 08/31/22 08/15/22 History ceramides 1,3,6-II (CeraVe topical See Rx Instructions .Route 11/20/21 08/31/22 08/15/22 Rx cream) .COMPLEX #453 grams carbamide peroxide 6.5 % ear drops See Rx Instructions .Route 12/19/21 08/31/22 08/15/22 Rx (Ear Wax Removal Drops) .COMPLEX #15 mL aluminum-mag hydroxide-simethicone 30 ml PO Q4H PRN upset stomach 02/02/2308/31/22 08/15/22 History 200 mg-200 mg-20 mg/5 mL oral susp dextromethorphan-guaifenesin 10 10 ml PO Q4H PRN Cough 07/12/22 08/31/22 0 08/15/22 History mg-100 mg/5 mL oral syrup ferrous gluconate 324 mg (38 mg 324 mg PO DAILY@07/12/22 08/31/22 08/15/22 History iron) tablet fluticasone propionate 50 2 spray intranasal DAILY@07/12/22 08/31/22 08/15/22 History mcg/actuation nasal spray,suspension hydrocortisone 1 % topical cream 1 applic KS QID PRN Hemorrhoids 07/12/22 08/31/22 08/15/22 History (Proctocort) loratadine 10 mg tablet (Claritin) 10 mg PO DAILY@07/12/22 08/31/22 08/15/22 History neomycin-bacitracn Zn-polymyx 3.5 1 applic topical PRN PRN affected 07/12/22 08/31/22 08/15/22 History mg-400 unit-5,000 unit/gram top area oint (Triple Antibiotic) omeprazole 20 mg capsule,delayed 20 mg PO DAILY@07/12/22 08/31/22 08/15/22 History release oxcarbazepine 600 mg tablet 600 mg PO BID@07/12/22 08/31/22 08/15/22 History polyethylene glycol 3350 17 gram 17 g PO DAILY@07/12/22 08/31/22 08/15/22 History oral powder packet (Miralax) quetiapine 200 mg tablet 200 mg PO BID@07/12/22 08/31/22 08/15/22 History trazodone 150 mg tablet 150 mg PO BEDTIME@07/12/22 08/31/22 08/15/22 History venlafaxine 150 mg 150 mg PO DAILY@07/12/22 08/31/22 08/15/22 History capsule,extended release 24 hr venlafaxine 75 mg capsule,extended 75 mg PO DAILY@07/12/22 08/31/22 08/15/22 History release 24 hr (Effexor XR) albuterol sulfate 90 mcg/actuation 1 inh inhalation Q6H PRN shortness 07/14/22 08/31/22 08/15/22 Rx aerosol inhaler of breath or wheezing #8.5 grams pantoprazole 40 mg tablet,delayed 40 mg PO BID 6 weeks #84 tabs 08/07/22 08/31/22 08/15/22 Rx release (Protonix) promethazine 25 mg tablet 25 mg PO QID PRN Nausea 08/13/22 08/31/22 08/15/22 History simethicone 80 mg chewable tablet 80 mg PO QID 08/13/22 08/31/22 08/15/22 History albuterol sulfate 2.5 mg/3 mL 2.5 mg inhalation Q6H PRN 08/20/22 08/31/22 Unknown History (0.083 %) solution for nebulization Shortness Of Breath amoxicillin 875 mg-potassium 1 tab PO BID #10 tabs 08/21/22 08/31/22 Unknown Rx clavulanate 125 mg tablet amoxicillin 500 mg tablet 1,000 mg PO BID 14 days #56 tabs 08/24/22 08/31/22 Unknown Rx clarithromycin 500 mg tablet 500 mg PO BID 14 days #28 tabs 08/24/22 08/31/22 Unknown Rx Allergies Allergy/AdvReac Type Severity Reaction Status Date / Time No Known Allergies Allergy Verified 08/31/22 16:07 PFSH Acute PFSH: Medical History Aspiration pneumonia At risk for aspiration Bipolar disease, manic Negative colon, negative guaics. Dupuytren's contracture of left hand Hiatal hernia Intellectual disability Iron deficiency anemia Lymphadenopathy, hilar Tardive dyskinesia Surgical History History of carpal tunnel release History of cataract extraction History of colonoscopy Social History Smoking and tobacco status: never smoked Alcohol intake: never Vitals/I&O/Wt Last Vital Signs Temp 97.6 F 08/31/22 20:52 Pulse 88 08/31/22 22:33 Resp 22 H 08/31/22 22:33 BP 126/86 08/31/22 21:29 Pulse Ox 93 08/31/22 22:33 O2 Del Method 08/31/22 22:33 O2 Flow Rate 3 08/31/22 22:33 Weight last 48 hrs Weight 97.522 kg Physical Exam Narrative: General: Alert, intellectually disabled patient seen laying in bed on 3 L. HEENT: Normocephalic, atraumatic, EOMI, breathing comfortably, no acute resp iratory distress._ Cardio: Regular rate rhythm, normal S1-S2 Respiratory: Coarse breath sounds bilaterally at bases GI: Abdomen soft, nontender, bowel sounds + Extremities: No lower extremity edema Data 08/31/22 21:15 08/31/22 21:15 Micro: Microbiology 08/31/22 21:15 Blood Culture - Preliminary Blood SPECIMEN COLLECTED 08/31/22 21:19 Blood Culture - Preliminary Blood SPECIMEN COLLECTED A&P Assessment and plan (1) Wheezing: (2) Helicobacter pylori gastritis: (3) Aspiration pneumonia: (4) Hiatal hernia: (5) GERD (gastroesophageal reflux disease): (6) Bipolar disease, manic: (7) Iron deficiency anemia: Plan #Acute hypoxia requiring supplemental oxygen, normally on room air at baseline #History of recurrent aspiration pneumonias #Reactive adenopathy on CT scan #Intellectually disabled #Recent hospital admission #GERD #Hiatal hernia #Diagnosed with H. pylori gastritis and started on triple therapy 08/31 #Iron deficiency anemia ? Continue iron ? Continue amoxicillin 1000 twice daily x14 days ? Continue clarithromycin 500 twice daily x14 days ? Continue Robitussin, Protonix 40 twice daily ? Continue venlafaxine to 25 daily, simethicone p.o. 4 times daily, MiraLAX daily, promethazine 25 4 times daily as needed, quetiapine 200 twice daily ? DuoNeb every 6 hours scheduled ? Continue oxygen supplementation at this time ? Solu-Medrol 60 IV twice daily ? Check procalcitonin, repeat chest x-ray in a.m. ? White count probably normal secondary to being on antibiotics as an outpatient ? Afebrile so far ? Patient is a high aspiration risk. -I believe patient's new oxygen requirement will be his new baseline for some time due to his recurrent aspiration events recently. Patient will require home O2 eval at discharge. Full code SCDs, heparin SQ twice daily Attestations Medical Necessity Statement*: Observation for possible aspiration pneumonia. Requiring supplemental oxygen. Diagnoses Wheezing R06.2 Helicobacter pylori gastritis K29.70; B96.81 Aspiration pneumonia J69.0 Hiatal hernia K44.9 GERD (gastroesophageal reflux disease) K21.9 Bipolar disease, manic F31.10 Iron deficiency anemia D50.9
[2022-08-31 23:26] LABS: Troponin 5 2HR Delta 0 ABS# (0-10)
[2022-09-01] VITALS (13 sets, daily range): BP systolic 107–141; BP diastolic 67–92; PULSE 81–114; RESP 16–22; TEMP 36.4–37.1; O2SAT 92–96; BMI 32.8
[2022-09-01 00:06] LABS: Adenovirus Not Detected (NOT DETECT); Chlamydia Pneumoniae Not Detected (NOT DETECT); Coronavirus 229E,HKU1,NL63,OC4 Not Detected (NOT DETECT); Human Metapneumovirus Not Detected (NOT DETECT); Human Rhinovirus/Enterovirus Not Detected (NOT DETECT); Influenza A Not Detected (NOT DETECT); Influenza A H1 Not Detected (NOT DETECT); Influenza A H1-2009 Not Detected (NOT DETECT); Influenza A H3 Not Detected (NOT DETECT); Influenza B Not Detected (NOT DETECT); Mycoplasma Pneumoniae Not Detected (NOT DETECT); Parainfluenza Virus Type 1 Not Detected (NOT DETECT); Parainfluenza Virus Type 2 Not Detected (NOT DETECT); Parainfluenza Virus Type 3 Not Detected (NOT DETECT); Parainfluenza Virus Type 4 Not Detected (NOT DETECT); Respiratory Syncytial Virus A Not Detected (NOT DETECT); Respiratory Syncytial Virus B Not Detected (NOT DETECT); SARS-COV-2 Not Detected (NOT DETECT)
[2022-09-01 01:05] LABS: Procalcitonin 0.04 ng/mL (0-0.5)
[2022-09-01] MEDS: heparin 5,000 unit/mL INJ 1 mL 5000 UNIT SUBCUT ×3 (01:28→23:51)
--- NOTE | 2022-09-01 03:20 | ECG_ITS ---
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 Measurements Intervals [place] Rate: 80 P: 59 NH: 160 QRS: 51 QRSD: 100 T: 31 QT: 366 QTc: 422 Interpretive Statements SINUS RHYTHM Compared to ECG 08/31/2022 21:18:28 Left-axis deviation no longer present Intraventricular conduction delay no longer present Electronically Signed On 09-01-2022 7:13:12 CDT by Checo Hernandez M.D. [id number]
[2022-09-01 04:30] LABS: Troponin 5 6HR Delta 0 ng/L (0-12)
[2022-09-01] MEDS: OXcarbazepine 300 mg Tablet 600 MG PO ×2 (06:01→20:20)
[2022-09-01] MEDS: venlafaxine ER (24HR) 75 mg Capsule PO (08:27)
[2022-09-01] MEDS: ferrous gluconate 324 mg Tablet PO (08:27)
[2022-09-01] MEDS: venlafaxine ER (24HR) 150 mg Capsule PO (08:27)
[2022-09-01] MEDS: pantoprazole DR 40 mg Tablet PO ×2 (08:28→17:08)
[2022-09-01] MEDS: quetiapine 100 mg Tablet 200 MG PO ×2 (08:28→17:08)
[2022-09-01] MEDS: ipratropium-albuterol 3 mL Neb INHALATION ×4 (08:29→19:57)
[2022-09-01] MEDS: amoxicillin 500 mg Capsule 1000 MG PO (08:39)
[2022-09-01] MEDS: clarithromycin 500 mg Tablet PO ×2 (08:40→17:08)
[2022-09-01] MEDS: sodium chloride 0.9% 1,000 ML 75 ML IV ×2 (10:14→23:51)
--- NOTE | 2022-09-01 14:54 | PM.PN ---
Subjective Subjective: Patient was seen this morning, he is alert and awake, caregivers at bedside, denies any chest pain, denies any shortness of breath, currently on 2 L Vitals/I&O/Wt Last Vital Signs Temp 97.8 F 09/01/22 08:00 Pulse 82 09/01/22 12:00 Resp 18 09/01/22 12:00 BP 141/85 09/01/22 08:00 Pulse Ox 96 09/01/22 12:00 O2 Del Method 09/01/22 12:00 O2 Flow Rate 3 09/01/22 12:00 08/31/22 09/01/22 09/01/22 22:59 06:59 14:59 Output Total 1300 / 1300 Balance -1300 / -1300 Weight last 48 hrs Weight 97.778 kg Weight 97.522 kg Physical Exam Const: COMMON NORMALS: no acute distress Resp: COMMON NORMALS: normal respiratory effort, No retractions, No use of accessory muscles and clear to auscultation bilaterally AUSCULTATION: clear to auscultation bilaterally Cardio: COMMON NORMALS: regular rate, regular rhythm, S1 normal heart sound present and S2 normal heart sound present RATE: regular rate RHYTHM: regular rhythm HEART SOUNDS: S1 normal heart sound present and S2 normal heart sound present GI: COMMON NORMALS: Normal to inspection, nondistended, normoactive bowel sounds present and non-tender Extremity: COMMON NORMALS: no pedal edema Psych: COMMON NORMALS: mental status grossly normal Data 08/31/22 21:15 08/31/22 21:15 Micro: Microbiology 09/01/22 08:47 Gram Stain - Final Sputum - Expectorated Sputum 08/31/22 21:15 Blood Culture - Preliminary Blood SPECIMEN COLLECTED 08/31/22 21:19 Blood Culture - Preliminary Blood SPECIMEN COLLECTED A&P Assessment and plan (1) Wheezing: (2) Helicobacter pylori gastritis: (3) Aspiration pneumonia: (4) Hiatal hernia: (5) GERD (gastroesophageal reflux disease): (6) Bipolar disease, manic: (7) Iron deficiency anemia: Plan #Acute hypoxia requiring supplemental oxygen, normally on room air at baseline #History of recurrent aspiration pneumonias #Reactive adenopathy on CT scan #Intellectually disabled #Recent hospital admission #GERD #Hiatal hernia #Diagnosed with H. pylori gastritis and started on triple therapy 3/31 #Iron deficiency anemia ? Continue iron ? Switch to Augmentin ? Continue clarithromycin 500 twice daily x14 days ? Continue Robitussin, Protonix 40 twice daily ? Continue venlafaxine to 25 daily, simethicone p.o. 4 times daily, MiraLAX daily, promethazine 25 4 times daily as needed, quetiapine 200 twice daily ? DuoNeb every 6 hours scheduled ? Continue oxygen supplementation at this time ? Solu-Medrol 60 IV twice daily ? White count probably normal secondary to being on antibiotics as an outpatient ? Afebrile so far ? Patient is a high aspiration risk. -I believe patient's new oxygen requirement will be his new baseline for some time due to his recurrent aspiration events recently. Patient will require home O2 eval at discharge. Full code SCDs, heparin SQ twice daily Attestations Medical Necessity Statement*: Patient requires hospitalization for aspiration pneumonia Coding Level of Care Code Acute Code for Chg Fwd Diagnoses Wheezing R06.2 Helicobacter pylori gastritis K29.70; B96.81 Aspiration pneumonia J69.0 Hiatal hernia K44.9 GERD (gastroesophageal reflux disease) K21.9 Bipolar disease, manic F31.10 Iron deficiency anemia D50.9
[2022-09-01] MEDS: amoxicillin-clav 875-125 mg Tablet 1 TAB PO (17:07)
[2022-09-01] MEDS: polyethylene glycol 3350 Pkt 17 gm PO (20:20)
[2022-09-01] MEDS: trazodone 150 mg Tablet PO (20:20)
[2022-09-02] VITALS (15 sets, daily range): BP systolic 101–143; BP diastolic 65–91; PULSE 73–122; RESP 15–18; TEMP 36.4–37.5; O2SAT 92–97
[2022-09-02 05:33] LABS: Hematocrit 41.4 % (42.0-52.0); Hemoglobin 13.4 g/dL (11.7-16.6); Lymphocytes # 0.4 10^3/uL (0.8-4.8); Lymphocytes % 4.8 %; Mean Corpuscular HGB Conc 32.4 g/dL (30.0-36.0); Mean Corpuscular Hemoglobin 28.8 pg (28.0-34.0); Mean Platelet Volume 10.1 fL (7.4-10.4); Monocytes # 0.1 10^3/uL (0.2-0.9); Monocytes % 1.5 %; Neutrophils % 93.3 %; Nucleated Red Blood Cells % 0 %; Platelet Count 213 10^3/cmm (130-400); Red Blood Count 4.65 10^6/uL (4.1-5.3); Red Cell Distribution Width 13.6 % (12.1-15.1); White Blood Count 9.1 10^3/uL (4.0-10.0)
[2022-09-02 06:06] LABS: Blood Urea Nitrogen 13 mg/dL (8-23); Calcium 9.1 mg/dL (8.5-10.5); Carbon Dioxide 25 mmol/L (22-29); Chloride 94 mmol/L (98-107); Glomerular Filtration Rate 113.5 mL/min (90-130); Glucose 142 mg/dL (65-115); Magnesium 2.2 mg/dL (1.7-2.3); Osmolality Calculated 263 mOsm/kg (285-295); Sodium 125 mmol/L (136-145)
[2022-09-02] MEDS: OXcarbazepine 300 mg Tablet 600 MG PO ×2 (06:35→20:46)
[2022-09-02] MEDS: ipratropium-albuterol 3 mL Neb INHALATION ×4 (07:57→19:36)
[2022-09-02] MEDS: pantoprazole DR 40 mg Tablet PO ×2 (08:44→17:49)
[2022-09-02] MEDS: quetiapine 100 mg Tablet 200 MG PO ×2 (08:44→17:49)
[2022-09-02] MEDS: venlafaxine ER (24HR) 150 mg Capsule PO (08:44)
[2022-09-02] MEDS: ferrous gluconate 324 mg Tablet PO (08:44)
[2022-09-02] MEDS: venlafaxine ER (24HR) 75 mg Capsule PO (08:44)
[2022-09-02] MEDS: amoxicillin-clav 875-125 mg Tablet 1 TAB PO ×2 (08:44→17:49)
[2022-09-02] MEDS: polyethylene glycol 3350 Pkt 17 gm PO (08:46)
[2022-09-02] MEDS: clarithromycin 500 mg Tablet PO ×2 (08:48→17:49)
[2022-09-02 09:57] LABS: Sodium 134 mmol/L (136-145)
--- NOTE | 2022-09-02 12:54 | PM.PN ---
Subjective Subjective: Patient was seen this morning, he continues to wheeze, no fevers, no chills Vitals/I&O/Wt Last Vital Signs Temp 97.7 F 09/02/22 11:54 Pulse 97 09/02/22 11:54 Resp 16 09/02/22 11:54 BP 101/68 09/02/22 11:54 Pulse Ox 94 09/02/22 11:54 O2 Del Method 09/02/22 11:33 O2 Flow Rate 2 09/02/22 11:33 09/01/22 09/02/22 09/02/22 22:59 06:59 14:59 Intake Total 360 / 600 1000 / 1600 2660 / 2660 Output Total 350 / 750 300 / 1050 250 / 250 Balance 10 / -150 700 / 550 2410 / 2410 Weight last 48 hrs Weight 97.778 kg Weight 97.522 kg Physical Exam Const: COMMON NORMALS: no acute distress and patient oriented x3 Resp: COMMON NORMALS: normal respiratory effort, No retractions, No use of accessory muscles and clear to auscultation bilaterally AUSCULTATION: clear to auscultation bilaterally Cardio: COMMON NORMALS: regular rate, regular rhythm, S1 normal heart sound present and S2 normal heart sound present RATE: regular rate RHYTHM: regular rhythm HEART SOUNDS: S1 normal heart sound present and S2 normal heart sound present GI: COMMON NORMALS: Normal to inspection, nondistended, normoactive bowel sounds present and non-tender Extremity: COMMON NORMALS: no pedal edema Neuro: COMMON NORMALS: patient oriented x3 Psych: COMMON NORMALS: mental status grossly normal Data 09/02/22 04:43 09/02/22 09:26 Micro: Microbiology 08/31/22 21:19 Blood Culture - Preliminary Blood NEGATIVE TO DATE 08/31/22 21:15 Blood Culture - Preliminary Blood NEGATIVE TO DATE 09/01/22 08:47 Gram Stain - Final Sputum - Expectorated Sputum A&P Assessment and plan (1) Wheezing: (2) Helicobacter pylori gastritis: (3) Aspiration pneumonia: (4) Hiatal hernia: (5) GERD (gastroesophageal reflux disease): (6) Bipolar disease, manic: (7) Iron deficiency anemia: Plan #Acute hypoxia requiring supplemental oxygen, normally on room air at baseline #History of recurrent aspiration pneumonias #Reactive adenopathy on CT scan #Intellectually disabled #Recent hospital admission #GERD #Hiatal hernia #Diagnosed with H. pylori gastritis and started on triple therapy 08/31 #Iron deficiency anemia ? Continue iron ? Continue Augmentin ? Continue clarithromycin 500 twice daily x14 days ? Continue Robitussin, Protonix 40 twice daily ? Continue venlafaxine to 25 daily, simethicone p.o. 4 times daily, MiraLAX daily, promethazine 25 4 times daily as needed, quetiapine 200 twice daily ? DuoNeb every 6 hours scheduled ? Continue oxygen supplementation at this time ? Solu-Medrol 60 IV twice daily ? White count probably normal secondary to being on antibiotics as an outpatient ? Afebrile so far ? Patient is a high aspiration risk. -I believe patient's new oxygen requirement will be his new baseline for some time due to his recurrent aspiration events recently. Patient will require home O2 eval at discharge. Full code SCDs, heparin SQ twice daily Attestations Medical Necessity Statement*: Patient requires hospital for recurrent aspiration Diagnoses Wheezing R06.2 Helicobacter pylori gastritis K29.70; B96.81 Aspiration pneumonia J69.0 Hiatal hernia K44.9 GERD (gastroesophageal reflux disease) K21.9 Bipolar disease, manic F31.10 Iron deficiency anemia D50.9
[2022-09-02] MEDS: heparin 5,000 unit/mL INJ 1 mL 5000 UNIT SUBCUT (13:09)
[2022-09-02] MEDS: trazodone 150 mg Tablet PO (20:46)
[2022-09-03] VITALS (7 sets, daily range): BP systolic 121–143; BP diastolic 65–87; PULSE 77–105; RESP 16–18; TEMP 36.3–36.8; O2SAT 88–95
[2022-09-03] MEDS: heparin 5,000 unit/mL INJ 1 mL 5000 UNIT SUBCUT (00:39)
[2022-09-03 04:12] LABS: Hematocrit 41.2 % (42.0-52.0); Hemoglobin 13.5 g/dL (11.7-16.6); Lymphocytes # 0.5 10^3/uL (0.8-4.8); Mean Corpuscular HGB Conc 32.8 g/dL (30.0-36.0); Mean Corpuscular Hemoglobin 29.6 pg (28.0-34.0); Mean Corpuscular Volume 90.4 fl (80-94); Mean Platelet Volume 9.7 fL (7.4-10.4); Monocytes # 0.3 10^3/uL (0.2-0.9); Monocytes % 2.9 %; Neutrophils # 10.45 10^3/uL (1.8-7.7); Neutrophils % 92.7 %; Nucleated Red Blood Cells % 0 %; Platelet Count 209 10^3/cmm (130-400); Red Blood Count 4.56 10^6/uL (4.1-5.3); Red Cell Distribution Width 14.4 % (12.1-15.1); White Blood Count 11.3 10^3/uL (4.0-10.0)
[2022-09-03 04:22] LABS: Anion Gap 13.9 (5-19); Blood Urea Nitrogen 18 mg/dL (8-23); Calcium 8.9 mg/dL (8.5-10.5); Carbon Dioxide 24 mmol/L (22-29); Chloride 99 mmol/L (98-107); Glomerular Filtration Rate 113.5 mL/min (90-130); Glucose 125 mg/dL (65-115); Osmolality Calculated 279 mOsm/kg (285-295); Potassium 3.9 mmol/L (3.5-5.1); Sodium 133 mmol/L (136-145)
[2022-09-03] MEDS: OXcarbazepine 300 mg Tablet 600 MG PO (06:27)
[2022-09-03] MEDS: ipratropium-albuterol 3 mL Neb INHALATION ×2 (07:23→11:30)
[2022-09-03] MEDS: ferrous gluconate 324 mg Tablet PO (08:43)
[2022-09-03] MEDS: amoxicillin-clav 875-125 mg Tablet 1 TAB PO (08:43)
[2022-09-03] MEDS: polyethylene glycol 3350 Pkt 17 gm PO (08:43)
[2022-09-03] MEDS: quetiapine 100 mg Tablet 200 MG PO (08:44)
[2022-09-03] MEDS: pantoprazole DR 40 mg Tablet PO (08:44)
[2022-09-03] MEDS: venlafaxine ER (24HR) 150 mg Capsule PO (08:44)
[2022-09-03] MEDS: clarithromycin 500 mg Tablet PO (08:44)
[2022-09-03] MEDS: venlafaxine ER (24HR) 75 mg Capsule PO (08:44)
--- NOTE | 2022-09-03 10:49 | PM.DCS ---
Discharge Providers Date of Admission: 09/01/22 15:48 Date of Discharge: September 03, 2022 Attending Provider at Admission: Perla Owen MD Attending Provider at Discharge: Jasen Verduzco MD Primary Care Provider: Dandre Oakes MD Diagnoses at Discharge Discharge Diagnosis (1) Wheezing: Status: Acute (2) Helicobacter pylori gastritis: Status: Acute (3) Aspiration pneumonia: Status: Acute (4) Hiatal hernia: Status: Acute (5) GERD (gastroesophageal reflux disease): Status: Acute (6) Bipolar disease, manic: Status: Acute Permanent problem details: Negative colon, negative guaics. (7) Iron deficiency anemia: Status: Acute Reason for Visit Reason for Visit: SOB, has pneumonia Hospital Course Hospital Course Dalton Olivas is a 62 year old male with past medical history of TBI, intellectual disability, recurrent aspiration pneumonia, bilateral hilar lymphadenopathy who lives in a longterm presented to the hospital today for shortness of breath.? He was discharged in the hospital on 08/21 and has been on antibiotics as an outpatient.? Over the last few days he has had increasing shortness of breath especially with exertion and has been requiring oxygen.? Normally he is not on any oxygen at baseline but on arrival to ER he was noted to be hypoxemic on room air with tachycardia and was placed on 3 L.? His mental status is at baseline at this time.? Chest x-ray did not show any acute findings.? CTA chest was also done which did not reveal a PE.? CTA shows moderate intrathoracic hiatal hernia, borderline mediastinal adenopathy with mild right hilar adenopathy most consistent with reactive adenopathy, no pulmonary embolism or aortic dissection.? He saw pulmonology about a month ago and was asked to follow-up in 2 months.? Plan is to do EBUS with biopsy if adenopathy does not resolve by then.? Vitals were stable on arrival to ER except the patient was hypoxemic.? Labs reviewed WBC 7.1, hemoglobin 14.6, sodium 130, potassium 4.2, chloride 94, creatinine 0.8, lactic acid 0.9, BNP 36 baseline troponin 6.? Patient was given DuoNeb x1 and Solu-Medrol 125x1.? His breathing did improve with treatment.? Still however requiring supplemental oxygen at this time. Patient was hospitalized for acute hypoxia secondary to recurrent aspiration pneumonia, with underlying hiatal hernia, received antibiotic therapy, steroid therapy, oxygen therapy, overall he clinically improved, discharged on Augmentin, albuterol, Advair with close follow-up with primary care provider as outpatient He did have reactive lymphadenopathy, likely from recurrent aspiration pneumonia I am going to have him follow-up with Dr. Vazquez as outpatient In terms of his hiatal hernia, potential association with recurrent aspiration pneumonias, I will refer him to general surgery in [place] for consultation Physical Exam Const: COMMON NORMALS: no acute distress ORIENTATION/CONSCIOUSNESS: Yes awake, Yes oriented to person and Yes oriented to place Resp: COMMON NORMALS: normal respiratory effort, No retractions, No use of accessory muscles and clear to auscultation bilaterally AUSCULTATION: clear to auscultation bilaterally Cardio: COMMON NORMALS: regular rate, regular rhythm, S1 normal heart sound present and S2 normal heart sound present RATE: regular rate RHYTHM: regular rhythm HEART SOUNDS: S1 normal heart sound present and S2 normal heart sound present GI: COMMON NORMALS: Normal to inspection, nondistended, normoactive bowel sounds present and non-tender Extremity: COMMON NORMALS: capillary refill normal and no pedal edema Neuro: SENSORIUM/ORIENTATION: Yes oriented to person and Yes oriented to place Psych: COMMON NORMALS: mental status grossly normal Discharge Data Studies Completed and Pending Completed Studies During Hospitalization Category Date Time Status CTA chest [CT angio chest PE protcl [id number]] Stat Cat Scan 08/31/22 22:17 Completed XR chest 1V portable [id number] Stat Exams 08/31/22 21:01 Completed Pending at discharge Category Date Time Status Basic Metabolic Panel AM LABS Lab 09/04/22 04:00 Ordered Basic Metabolic Panel AM LABS Lab 09/05/22 04:00 Ordered Blood Culture Stat Lab 08/31/22 21:15 Results Complete Blood Count w/Auto AM LABS Lab 09/04/22 04:00 Ordered Complete Blood Count w/Auto AM LABS Lab 09/05/22 04:00 Ordered Radiology Impressions Chest X-Ray 08/31/22 21:01 IMPRESSION: No acute findings. Chest CTA 08/31/22 22:17 IMPRESSION: 1. Moderate intrathoracic hiatal hernia. 2. Borderline mediastinal adenopathy with mild right hilar adenopathy most consistent with reactive adenopathy. 3. No pulmonary embolus or aortic dissection. Laboratory Results WBC 11.3 10^3/uL (4.0-10.0) H 09/03/22 03:49 RBC 4.56 10^6/uL (4.1-5.3) 09/03/22 03:49 Hgb 13.5 g/dL (11.7-16.6) 09/03/22 03:49 Hct 41.2 % (42.0-52.0) L 09/03/22 03:49 MCV 90.4 fl (80-94) 09/03/22 03:49 MCH 29.6 pg (28.0-34.0) 09/03/22 03:49 MCHC 32.8 g/dL (30.0-36.0) 09/03/22 03:49 RDW 14.4 % (12.1-15.1) 09/03/22 03:49 Plt Count 209 10^3/cmm (130-400) 09/03/22 03:49 MPV 9.7 fL (7.4-10.4) 09/03/22 03:49 Neut % (Auto) 92.7 % 09/03/22 03:49 Lymph % (Auto) 4.0 % 09/03/22 03:49 George % (Auto) 2.9 % 09/03/22 03:49 Eos % (Auto) 0.0 % 09/03/22 03:49 Baso % (Auto) 0.0 % 09/03/22 03:49 Neut # (Auto) 10.45 10^3/uL (1.8-7.7) H 09/03/22 03:49 Lymph # (Auto) 0.5 10^3/uL (0.8-4.8) L 09/03/22 03:49 George # (Auto) 0.3 10^3/uL (0.2-0.9) 09/03/22 03:49 Eos # (Auto) 0.0 10^3/uL (0.0-0.8) 09/03/22 03:49 Baso # (Auto) 0.0 10^3/uL (0.0-0.1) 09/03/22 03:49 Nucleated RBC % (auto) 0 % 09/03/22 03:49 Nucleated RBCs # 0.0 /100WBC 09/03/22 03:49 Specimen Type Arterial 08/31/22 22:30 Sample Site Radial, right 08/31/22 22:30 ABG pH 7.38 (7.35-7.45) 08/31/22 22:30 ABG pCO2 47.4 mmHg (35-45) H 08/31/22 22:30 ABG pO2 77.8 mmHg (80.0-100.0) L 08/31/22 22:30 ABG HCO3 28.0 mmol/L (22-26) H 08/31/22 22:30 ABG Base Excess 2.1 mmol/L (-2.0-2.0) H 08/31/22 22:30 Alexey Test Pos 08/31/22 22:30 Hematocrit 45.9 % (42-52) 08/31/22 22:30 O2 Delivery Device Nc 08/31/22 22:30 O2 Liters/Min 3.0 % 08/31/22 22:30 Freight Representative ID Kanllo 08/31/22 22:30 Sodium 133 mmol/L (136-145) L 09/03/22 03:49 Potassium 3.9 mmol/L (3.5-5.1) 09/03/22 03:49 Chloride 99 mmol/L (98-107) 09/03/22 03:49 Carbon Dioxide 24 mmol/L (22-29) 09/03/22 03:49 Anion Gap 13.9 (5-19) 09/03/22 03:49 BUN 18 mg/dL (8-23) 09/03/22 03:49 Creatinine 0.7 mg/dL (0.7-1.2) 09/03/22 03:49 GFR Calculation 113.5 mL/min (90-130) 09/03/22 03:49 Glucose 125 mg/dL (65-115) H 09/03/22 03:49 Calculated Osmolality 279 mOsm/kg (285-295) L 09/03/22 03:49 Lactic Acid 0.9 mmol/L (0.5-2.2) 08/31/22 21:15 Calcium 8.9 mg/dL (8.5-10.5) 09/03/22 03:49 Magnesium 2.2 mg/dL (1.7-2.3) 09/02/22 04:43 Total Bilirubin 0.2 mg/dL (0.15-1.2) 08/31/22 21:15 AST 17 U/L (0-40) 08/31/22 21:15 ALT 15 U/L (0-41) 08/31/22 21:15 Alkaline Phosphatase 122 U/L (40-130) 08/31/22 21:15 Troponin T Baseline 6 ng/L (0-15) 08/31/22 21:15 Troponin T 120 Minute 6.00 ng/L (0-15) 08/31/22 22:56 Delta Troponin T 0 ABS# (0-10) 08/31/22 22:56 Troponin T Hi Sens 6Hr 6.00 ng/L (0-15) 09/01/22 03:40 Troponin T Hi Sens 6Hr Delta 0 ng/L (0-12) 09/01/22 03:40 C-Reactive Protein 14.3 mg/L (0.0-4.9) H 08/31/22 21:15 NT-Pro-B Natriuret Pep 36 pg/mL (0-125) 08/31/22 21:15 Total Protein 7.0 g/dL (6.6-8.7) 08/31/22 21:15 Albumin 4.1 g/dL (3.5-5.2) 08/31/22 21:15 Globulin 2.9 g/dL (1.3-4.6) 08/31/22 21:15 Procalcitonin 0.04 ng/mL (0-0.5) 08/31/22 22:56 Nasal Influ A H1 2008 PCR Not detected (NOT DETECT) 08/31/22 22:07 Adenovirus (PCR) Not detected (NOT DETECT) 08/31/22 22:07 C. pneumoniae DNA (PCR) Not detected (NOT DETECT) 08/31/22 22:07 Coronavirus 229E (PCR) Not detected (NOT DETECT) 08/31/22 22:07 Human Metapneumovir PCR Not detected (NOT DETECT) 08/31/22 22:07 Influenza A (H1) PCR Not detected (NOT DETECT) 08/31/22 22:07 Influenza A (H3) PCR Not detected (NOT DETECT) 08/31/22 22:07 Influenza Type A (PCR) Not detected (NOT DETECT) 08/31/22 22:07 Influenza Type B (PCR) Not detected (NOT DETECT) 08/31/22 22:07 M. pneumoniae (PCR) Not detected (NOT DETECT) 08/31/22 22:07 Parainfluenza 1 (PCR) Not detected (NOT DETECT) 08/31/22 22:07 Parainfluenza 2 (PCR) Not detected (NOT DETECT) 08/31/22 22:07 Parainfluenza 3 (PCR) Not detected (NOT DETECT) 08/31/22 22:07 Parainfluenza 4 (PCR) Not detected (NOT DETECT) 08/31/22 22:07 RSV Type A (PCR) Not detected (NOT DETECT) 08/31/22 22:07 RSV Type B (PCR) Not detected (NOT DETECT) 08/31/22 22:07 Entero/Rhino (PCR) Not detected (NOT DETECT) 08/31/22 22:07 SARS-CoV-2 (PCR) Not detected (NOT DETECT) 08/31/22 22:07 Vitals Last Vital Signs Temp 98.0 F 09/03/22 08:00 Pulse 98 09/03/22 08:00 Resp 16 09/03/22 08:00 BP 143/87 09/03/22 08:00 Pulse Ox 92 09/03/22 08:00 O2 Del Method 09/03/22 08:00 O2 Flow Rate 3 09/02/22 20:00 FiO2 2 09/03/22 07:24 Discharge Plan Discharge Patient Disposition: Home Condition: Stable Prescriptions: New amoxicillin-pot clavulanate 875-125 mg Tablet 1 tab PO BID 7 Days Qty: 14 0RF fluticasone propion-salmeterol [Advair Diskus] 100-50 mcg/dose blister with device 1 inh inhalation BID Qty: 60 0RF Continued ibuprofen 800 mg tablet 800 mg PO Q6H PRN (Reason: pain/fever) Hold Instructions: Resume on 08/17/22. pantoprazole [Protonix] 40 mg tablet,delayed release (DR/EC) 40 mg PO BID 42 Days Qty: 84 1RF CeraVe Cream See Rx Instructions .ROUTE .COMPLEX Qty: 453 5RF Dose Instruction: APPLY TO THE AFFECTED AREA(S) OF LEGS TWICE DAILY FOR SKIN MOISTURIZER Rx Instructions: APPLY TO THE AFFECTED AREA(S) OF LEGS TWICE DAILY FOR SKIN MOISTURIZER AT 07:00 & 19:00 Ear Wax Removal Drops 6.5 % drops See Rx Instructions .ROUTE .COMPLEX Qty: 15 5RF Dose Instruction: instill SIX drops in BOTH ears TWICE DAILY FOR FOUR DAYS each MONTH THEN IRRIGATE Rx Instructions: instill SIX drops in BOTH ears TWICE DAILY FOR FOUR DAYS each MONTH THEN IRRIGATE polyethylene glycol 3350 [Miralax] 17 gram Powder In Packet 17 g PO DAILY@20 dextromethorphan-guaifenesin 10-100 mg/5 mL Syrup 10 ml PO Q4H PRN (Reason: Cough) hydrocortisone [Proctocort] 1 % Cream [address] QID PRN (Reason: Hemorrhoids) alum-mag hydroxide-simeth 200-200-20 mg/5 mL Suspension 30 ml PO Q4H PRN (Reason: upset stomach) venlafaxine [Effexor XR] 75 mg capsule,extended release 24hr 75 mg PO DAILY@08 Rx Instructions: with 150mg to =225mg quetiapine 200 mg tablet 200 mg PO BID@08,20 venlafaxine 150 mg capsule,extended release 24hr 150 mg PO DAILY@08 Rx Instructions: with 75mg to =225mg trazodone 150 mg tablet 150 mg PO BEDTIME@20 omeprazole 20 mg capsule,delayed release(DR/EC) 20 mg PO DAILY@07 oxcarbazepine 600 mg tablet 600 mg PO BID@07,20 fluticasone propionate 50 mcg/actuation spray,suspension 2 spray INTRANASAL DAILY@08 Rx Instructions: administer into each nostril loratadine [Claritin] 10 mg tablet 10 mg PO DAILY@07 ferrous gluconate 324 mg (38 mg iron) tablet 324 mg PO DAILY@08 albuterol sulfate 90 mcg/actuation HFA aerosol inhaler 1 inh inhalation Q6H PRN (Reason: shortness of breath or wheezing) Qty: 8.5 0RF simethicone 80 mg tablet,chewable 80 mg PO QID Rx Instructions: @07:00,12:00,16:00,20:00 albuterol sulfate 2.5 mg /3 mL (0.083 %) Solution For Nebulization 2.5 mg INHALATION Q6H PRN (Reason: Shortness Of Breath) clarithromycin 500 mg tablet 500 mg PO BID 8 Days Qty: 16 0RF Discontinued amoxicillin 500 mg tablet 1,000 mg PO BID 14 Days Qty: 56 0RF Discharge Orders: Discharge Order (Routine); Ordered 09/03/22 Ordered By: Jasen Verduzco Referrals: Dandre Oakes MD [Primary Care Provider] - Datar,Davis Pascual MD [Physician] - 1 month James Mcrae MD [Referring] - 1 month (hiatal hernia) Discharge Diet: As Directed Discharge Activity: Resume usual activity Patient Instructions: Opioid Safety Activity Restrictions/Additional Instructions: - Dysphagia level 4 diet, extremely thick and pur?ed, aspiration precautions -Continue antibiotics -Follow-up with primary care provider -Follow-up with pulmonary -Referral sent for consultation of hiatal hernia Discharge Attestations Time Spent in Discharge Care*: greater than 30 min Status at Discharge: Cognitive status at discharge: mildly impaired cognition, Behavioral status at discharge: cooperative, Quality Metrics Clinical Quality Measures [ No reported AMI, CVA or VTE this stay] Coding Level of Care Code 44830 Total time (in minutes) for Discharge: 40 Diagnoses Wheezing R06.2 Helicobacter pylori gastritis K29.70; B96.81 Aspiration pneumonia J69.0 Hiatal hernia K44.9 GERD (gastroesophageal reflux disease) K21.9 Bipolar disease, manic F31.10 Iron deficiency anemia D50.9
--- NOTE | 2022-10-26 15:54 | PC.NURSE ---
I received a call from patient's family member, Deborah, stating that Dr. James Mcrae's office at [facility] had not received referral information originally sent on 09/03/2022. She had contacted me on 10/15 stating that same. We re-faxed the information at that time and confirmed with their office that it was received prior to contacting the family member again to give her an update. She is stating now that she has called the [facility] clinic a couple of different times, receiving a different story each time. I called and spoke with the worldwide chief creative officer at [facility] and discussed this with her. She states that they might have received it, however they were behind on referrals and had only made it to referrals with a received date of mid. She asked that we wait another week or so and call back. I called back to patient's family member, Deborah, and informed her of the above information and informed her she could wait another week and check back, or patient could be referred to a different clinic from Dr. Oakes, his PCP. She states that she will call Dr. Oakes's office to request a change. I informed her I would call his office also to provide an update and background on this incident. She was appreciative and denied further concerns.
== END 2022-09-03 15:10 | disposition home or self-care (01) | DRG 179 ==
LOC: ER 23:44 → MEDSURG 23:56
PROVIDERS: Admitting Provider Internal Medicine; Emergency Provider Emergency Medicine; PCP Internal Medicine; Visit Provider Family Medicine
DX: J69.0 Pneumonitis due to inhalation of food and vomit (principal); Z87.820 Personal history of traumatic brain injury; F79 Unspecified intellectual disabilities; Z87.01 Personal history of pneumonia (recurrent); K44.9 Diaphragmatic hernia without obstruction or gangrene; R09.02 Hypoxemia; R59.0 Localized enlarged lymph nodes; Z79.891 Long term (current) use of opiate analgesic; Z79.51 Long term (current) use of inhaled steroids; F31.9 Bipolar disorder, unspecified; M72.0 Palmar fascial fibromatosis [Dupuytren]; D50.9 Iron deficiency anemia, unspecified; G24.01 Drug induced subacute dyskinesia; B96.81 Helicobacter pylori [H. pylori] as the cause of diseases classified elsewhere
CPT/HCPCS: 36415; 36600; 71045; 71275; 80048; 80053; 82803; 83605; 83735; 83880; 84145; 84295; 84484; 85025; 86140; 87040; 87070; 87205; 87486; 87581; 87633; 92507; 92523; 92526; 92610; 93005; 94640; 94664; 94760; 96372; 96374; 96375; 99285; G0378; J1644; J2930; J7030; J7613; Q9967

== ENCOUNTER → 2022-09-17 11:17 | Outpatient (BNVA) | payer MEDICARE, MEDICAID, SELFPAY | PROVIDERS: PCP Internal Medicine; Visit Provider Internal Medicine Pulmonary Disease | DX: K44.9 Diaphragmatic hernia without obstruction or gangrene (principal); Z91.89 Other specified personal risk factors, not elsewhere classified; R59.0 Localized enlarged lymph nodes; Z87.01 Personal history of pneumonia (recurrent); Z99.81 Dependence on supplemental oxygen | CPT/HCPCS: 99214 ==

== ENCOUNTER → 2022-09-28 07:52 | Outpatient (BNVA) | payer MEDICARE, MEDICAID, SELFPAY | PROVIDERS: PCP Internal Medicine; Visit Provider Specialist | DX: F31.10 Bipolar disorder, current episode manic without psychotic features, unspecified (principal); R47.1 Dysarthria and anarthria; K44.9 Diaphragmatic hernia without obstruction or gangrene | CPT/HCPCS: 99213 ==

== ENCOUNTER 2022-11-28 20:00 | Outpatient (CLI) | payer MEDICARE, MEDICAID, SELFPAY | END 2022-11-28 20:01 | disposition home or self-care (01) | LOC: SLEEP 11-29 04:46 | PROVIDERS: PCP Internal Medicine; Visit Provider Internal Medicine | DX: R06.83 Snoring (principal); R53.83 Other fatigue; G47.61 Periodic limb movement disorder | CPT/HCPCS: 95810 ==

== ENCOUNTER → 2023-02-05 13:26 | Outpatient (BNVA) | payer MEDICARE, MEDICAID, SELFPAY | PROVIDERS: PCP Internal Medicine; Visit Provider Nurse Practitioner Family | DX: B35.4 Tinea corporis (principal); D22.62 Melanocytic nevi of left upper limb, including shoulder; L81.4 Other melanin hyperpigmentation | CPT/HCPCS: 99214 ==

== ENCOUNTER → 2023-03-07 14:59 | Outpatient (BNVA) | payer MEDICARE, MEDICAID, SELFPAY | PROVIDERS: PCP Internal Medicine; Visit Provider Nurse Practitioner Family | DX: L08.9 Local infection of the skin and subcutaneous tissue, unspecified (principal); D22.62 Melanocytic nevi of left upper limb, including shoulder; L81.4 Other melanin hyperpigmentation | CPT/HCPCS: 11104; 99213 ==

== ENCOUNTER → 2023-03-18 12:29 | Outpatient (BNVA) | payer MEDICARE, MEDICAID, SELFPAY | PROVIDERS: PCP Internal Medicine; Visit Provider Internal Medicine Pulmonary Disease | DX: R06.09 Other forms of dyspnea (principal); Z91.89 Other specified personal risk factors, not elsewhere classified; K44.9 Diaphragmatic hernia without obstruction or gangrene; R59.0 Localized enlarged lymph nodes | CPT/HCPCS: 99214 ==

== ENCOUNTER → 2023-03-26 08:02 | Outpatient (BNVA) | payer MEDICARE, MEDICAID, SELFPAY | PROVIDERS: PCP Internal Medicine; Visit Provider Specialist | DX: F31.10 Bipolar disorder, current episode manic without psychotic features, unspecified (principal); G47.61 Periodic limb movement disorder | CPT/HCPCS: 99213 ==

== ENCOUNTER → 2023-04-24 09:31 | Outpatient (BNVA) | payer MEDICARE, MEDICAID, SELFPAY | PROVIDERS: PCP Internal Medicine; Visit Provider Nurse Practitioner Family | DX: L23.9 Allergic contact dermatitis, unspecified cause (principal); L85.3 Xerosis cutis; L91.8 Other hypertrophic disorders of the skin; D22.62 Melanocytic nevi of left upper limb, including shoulder | CPT/HCPCS: 99213 ==

== ENCOUNTER → 2023-05-30 09:14 | Outpatient (BNVA) | payer MEDICARE, MEDICAID, SELFPAY | PROVIDERS: PCP Internal Medicine; Visit Provider Nurse Practitioner Family | DX: L30.0 Nummular dermatitis (principal); D22.62 Melanocytic nevi of left upper limb, including shoulder; L81.4 Other melanin hyperpigmentation | CPT/HCPCS: 99214 ==

== ENCOUNTER → 2023-06-21 09:22 | Outpatient (BNVA) | payer MEDICARE, MEDICAID, SELFPAY | PROVIDERS: PCP Internal Medicine; Visit Provider Internal Medicine Pulmonary Disease | DX: Z91.89 Other specified personal risk factors, not elsewhere classified (principal); K44.9 Diaphragmatic hernia without obstruction or gangrene; R59.0 Localized enlarged lymph nodes; R06.09 Other forms of dyspnea | CPT/HCPCS: 99214 ==

== ENCOUNTER → 2023-09-04 14:11 | Outpatient (BNVA) | payer MEDICARE, MEDICAID, SELFPAY | PROVIDERS: PCP Internal Medicine; Visit Provider Specialist | DX: F31.12 Bipolar disorder, current episode manic without psychotic features, moderate (principal) | CPT/HCPCS: 99213 ==

== ENCOUNTER 2023-09-13 09:28 | Outpatient (CLI) | payer MEDICARE, MEDICAID, SELFPAY ==
--- NOTE | 2023-09-13 10:00 | FL_ITS ---
WS: [id number] Modified barium swallow, 09/13/2023 Clinical Data: Z91.89 - Other specified personal risk factors, not elsew... Comparison: None. Fluoroscopy time: 2min [id number] # of spot films: 0 Findings: The patient demonstrated premature spillage with liquids. Spillage was noted as far as the piriform s inuses uneven penetrated to the vocal cords. There is significant residue but it did clear with swall owing. There was definite aspiration with liquids but not solid food. No cough reflex occurred. The b arium tablet was propelled normally from the oral cavity through the hypopharynx into the esophagus a nd finally the stomach. Impression: 1. Premature spillage with liquids which occurred as distal as the vocal cords. 2. Aspiration with liquids but not solid food which did not provoke coughing.
== END 2023-09-13 09:29 | disposition home or self-care (01) ==
LOC: RAD 09:28
PROVIDERS: PCP Internal Medicine; Visit Provider Specialist
DX: Z91.89 Other specified personal risk factors, not elsewhere classified (principal); J69.0 Pneumonitis due to inhalation of food and vomit
CPT/HCPCS: 74230; 92611

== ENCOUNTER 2023-10-02 12:43 | Outpatient (RCR) | payer MEDICARE, MEDICAID, SELFPAY | END 2023-11-01 23:59 | disposition home or self-care (01) | LOC: SST 12:43 | PROVIDERS: Visit Provider Specialist | DX: J69.0 Pneumonitis due to inhalation of food and vomit (principal) | CPT/HCPCS: 92526; 92610 ==

== ENCOUNTER 2023-10-29 16:35 | Outpatient (CLI) | payer MEDICARE, MEDICAID, SELFPAY ==
--- NOTE | 2023-10-29 16:39 | XR_ITS ---
WS: [id number] Exam: XR chest 2V* [id number] Date/Time of Exam: 10/29/2023 4:42 PM Reason For Exam: J69.0 - Pneumonitis due to inhalation of food and vomit Comparison 08/31/2022. Lungs are fully inflated and clear. Normal cardiomediastinal silhouette. Possible hiatal hernia. No p leural effusions. Bony structures are intact. XR/XR chest 2V* [id number] IMPRESSION: 1. No acute cardiopulmonary finding. 2. There may be a hiatal hernia.
== END 2023-10-29 16:36 | disposition home or self-care (01) ==
LOC: RAD 16:36
PROVIDERS: Visit Provider Specialist
DX: J69.0 Pneumonitis due to inhalation of food and vomit (principal)
CPT/HCPCS: 71046

== ENCOUNTER → 2023-11-01 14:39 | Outpatient (BNVA) | payer MEDICARE, MEDICAID, SELFPAY | PROVIDERS: Visit Provider Nurse Practitioner | DX: R09.81 Nasal congestion (principal); J06.9 Acute upper respiratory infection, unspecified | CPT/HCPCS: 87400 ==

== ENCOUNTER 2023-11-02 06:00 | Outpatient (RCR) | payer MEDICARE, MEDICAID, SELFPAY | END 2023-12-01 23:59 | disposition home or self-care (01) | LOC: SST 06:00 | PROVIDERS: Visit Provider Specialist | DX: J69.0 Pneumonitis due to inhalation of food and vomit (principal) | CPT/HCPCS: 92526 ==

== ENCOUNTER 2023-11-25 09:12 | Outpatient (CLI) | payer MEDICARE, MEDICAID, SELFPAY ==
--- NOTE | 2023-11-25 10:00 | FL_ITS ---
WS: [id number] Exam: FL barium swallow modifd [id number] Date/Time of Exam: 11/25/2023 9:46 AM Reason For Exam: J69.0 - Pneumonitis due to inhalation of food and vomit Fluoroscopy time: 3min [id number] minutes # of spot films: Modified barium swallow was performed in conjunction with the speech therapy service. The patient experienced mild penetration into the laryngeal inlet when using chin tuck ingesting thin liquid barium. The patient tolerated the remaining consistencies of barium mixture foodstuffs withou t aspiration or penetration. The patient swallowed a barium tablet without difficulty. FL/FL barium swallow modifd [id number] IMPRESSION: 1. Mild penetration observed when the patient swallowed thin liquid barium and the chin tuck position. 2. No aspiration was identified. There were no other significant findings. A separate report with recommendations will follow from the speech therapy serv ice.
== END 2023-11-25 09:13 | disposition home or self-care (01) ==
PROVIDERS: PCP Internal Medicine; Visit Provider Specialist
DX: J69.0 Pneumonitis due to inhalation of food and vomit (principal)
CPT/HCPCS: 74230; 92611

== ENCOUNTER 2023-12-02 06:00 | Outpatient (RCR) | payer MEDICARE, MEDICAID, SELFPAY | END 2024-01-01 23:59 | disposition home or self-care (01) | LOC: SST 06:00 | PROVIDERS: PCP Internal Medicine; Visit Provider Specialist | DX: J69.0 Pneumonitis due to inhalation of food and vomit (principal) | CPT/HCPCS: 92526 ==

== ENCOUNTER → 2024-01-07 08:59 | Outpatient (BNVA) | payer MEDICARE, MEDICAID, SELFPAY | PROVIDERS: PCP Internal Medicine; Visit Provider Internal Medicine Critical Care Medicine | DX: K21.9 Gastro-esophageal reflux disease without esophagitis (principal); R06.09 Other forms of dyspnea; R13.12 Dysphagia, oropharyngeal phase; R05.3 Chronic cough; K44.9 Diaphragmatic hernia without obstruction or gangrene; Z91.89 Other specified personal risk factors, not elsewhere classified; E66.09 Other obesity due to excess calories; Z68.33 Body mass index [BMI] 33.0-33.9, adult; F79 Unspecified intellectual disabilities | CPT/HCPCS: 99214; 99215 ==

== ENCOUNTER 2024-01-31 15:38 | Emergency (ER) | payer MEDICARE, MEDICAID, SELFPAY ==
[2024-01-31 15:43] VITALS: BP 127/84; PULSE 84; RESP 16; TEMP 36.9; O2SAT 95; BMI 32.6
[2024-01-31 16:33] LABS: Basophils # 0.1 10^3/uL (0.0-0.1); Basophils % 1.2 %; Eosinophils # 0.3 10^3/uL (0.0-0.8); Eosinophils % 5.4 %; Hematocrit 44.8 % (37-53); Lymphocytes # 1.4 10^3/uL (0.8-4.8); Lymphocytes % 29.7 %; Mean Corpuscular HGB Conc 33.3 g/dL (30-55); Mean Corpuscular Hemoglobin 29.7 pg (27-33); Mean Corpuscular Volume 89.2 fl (82-101); Mean Platelet Volume 10.1 fL (7.4-10.4); Monocytes # 0.6 10^3/uL (0.2-0.9); Monocytes % 13.2 %; Neutrophils # 2.44 10^3/uL (1.8-7.7); Neutrophils % 50.3 %; Nucleated Red Blood Cells % 0 %; Platelet Count 170 10^3/cmm (157-399); Red Blood Count 5.02 10^6/uL (3.85-5.65); Red Cell Distribution Width 13.1 % (12.1-15.1); White Blood Count 4.85 10^3/uL (3.29-11.43)
[2024-01-31 16:51] LABS: INR 0.93 (0.8-1.2)
[2024-01-31 16:56] LABS: Alanine Aminotransferase 17 U/L (0-41); Albumin Level 4.1 g/dL (3.5-5.2); Alkaline Phosphatase 89 U/L (40-130); Anion Gap 16.3 (5-19); Aspartate Amino Transferase 18 U/L (0-40); Blood Urea Nitrogen 19 mg/dL (8-23); Calcium 9.2 mg/dL (8.5-10.5); Carbon Dioxide 23 mmol/L (22-29); Chloride 95 mmol/L (98-107); Creatinine Clr Calc Pharmacy 104.2302; Glucose 107 mg/dL (65-115); Lipase 49 U/L (13-60); Osmolality Calculated 273 mOsm/kg (285-295); Potassium 4.3 mmol/L (3.5-5.1); Sodium 130 mmol/L (136-145); Total Bilirubin 0.2 mg/dL (0.15-1.2); Total Protein 7.1 g/dL (6.6-8.7)
[2024-01-31 16:59] LABS: Ammonia 46 umol/L (16-60)
--- NOTE | 2024-01-31 18:28 | W.ED.GENADLT ---
Documented by User: Go Melara DO 02/01/24 08:13 HPI - General Adult General: Chief complaint: General Medical Stated complaint: yellow / lethargic Time Seen by Provider: 01/31/24 18:13 History of Present Illness: 63-year-old male presents to the emergency room with complaint of cough and generally not feeling well. He has been fatigued. Is also complaining of the sore throat. No vomiting no diarrhea. Caregiver at the outpatient clinical exam felt he was jaundiced. Associated symptoms: Deny chest pain, dyspnea or rash Related Data Home Medications Medication Instructions Recorded Confirmed ibuprofen 800 mg tablet 800 mg PO Q6H PRN pain/fever 07/30/19 01/07/24 aluminum-mag hydroxide-simethicone 30 ml PO Q4H PRN upset stomach 07/12/22 01/07/24 200 mg-200 mg-20 mg/5 mL oral susp dextromethorphan-guaifenesin 10 10 ml PO Q4H PRN Cough 07/12/22 01/07/24 mg-100 mg/5 mL oral syrup ferrous gluconate 324 mg (38 mg 324 mg PO DAILY@07/12/22 01/07/24 iron) tablet fluticasone propionate 50 2 spray intranasal DAILY@07/12/22 01/07/24 mcg/actuation nasal spray,suspension hydrocortisone 1 % topical cream 1 applic [place] QID PRN Hemorrhoids 07/12/22 01/07/24 (Proctocort) loratadine 10 mg tablet (Claritin) 10 mg PO DAILY@07/12/22 01/07/24 omeprazole 20 mg capsule,delayed 20 mg PO DAILY@07/12/22 01/07/24 release oxcarbazepine 600 mg tablet 600 mg PO BID@07/12/22 01/07/24 polyethylene glycol 3350 17 gram 17 g PO DAILY@07/12/22 01/07/24 oral powder packet (Miralax) trazodone 150 mg tablet 150 mg PO BEDTIME@07/12/22 01/07/24 simethicone 80 mg chewable tablet 80 mg PO QID 08/13/22 01/07/24 Previous Rx's Medication Instructions Recorded ceramides 1,3,6-II (CeraVe topical See Rx Instructions .Route 11/20/21 cream) .COMPLEX #453 grams carbamide peroxide 6.5 % ear drops See Rx Instructions .Route 12/19/21 (Ear Wax Removal Drops) .COMPLEX #15 mL pantoprazole 40 mg tablet,delayed 40 mg PO BID 6 weeks #84 tabs 08/07/22 release (Protonix) fluticasone 100 mcg-salmeterol 50 1 inh inhalation BID #60 ea 09/03/22 mcg/dose blistr powdr for inhalation (Advair Diskus) venlafaxine 75 mg capsule,extended See Rx Instructions .Route 11/09/22 release 24 hr .COMPLEX #30 caps albuterol sulfate 90 mcg/actuation 1 inh inhalation Q6H PRN shortness 03/18/23 aerosol inhaler of breath or wheezing #8.5 grams ropinirole 0.5 mg tablet 0.5 mg PO DAILY #90 tabs 04/22/23 nystatin 100,000 unit/mL oral 1 ml PO QID 7 days #28 mL 08/12/23 suspension multivitamin with minerals 10 ml PO DAILY #237 mL 08/28/23 venlafaxine 75 mg capsule,extended 150 mg (2 x 75 mg) PO DAILY@08 #60 09/17/23 release 24 hr (Effexor XR) caps guaifenesin 200 mg/5 mL oral liquid 200 mg (5 mL) PO Q4H PRN cough 11/01/23 #118 mL quetiapine 200 mg tablet See Rx Instructions .Route 11/19/23 .COMPLEX #60 tabs albuterol sulfate 2.5 mg/3 mL 2.5 mg (3 mL) inhalation Q6H PRN 01/31/24 (0.083 %) solution for nebulization Shortness Of Breath #90 mL levofloxacin 750 mg tablet 750 mg PO DAILY 7 days #7 tabs 01/31/24 Allergies Allergy/AdvReac Type Severity Reaction Status Date / Time No Known Allergies Allergy Verified 01/31/24 15:53 Review of Systems Const: Denies: fever(s) or chills Card: Denies: chest pain Resp: Denies: dyspnea GI: Denies: abdominal pain : Denies: dysuria, urinary frequency or urinary urgency Musc: Denies: neck pain or back pain Skin/Breast: Denies: rash PFSH ED PFSH: Medical History (Updated 01/31/24 @ 21:05 by Christos Mcgraw, DO) Intellectual disability Lymphadenopathy, hilar Hiatal hernia At risk for aspiration Aspiration pneumonia Bipolar disease, manic Negative colon, negative guaics. Tardive dyskinesia Dupuytren's contracture of left hand Iron deficiency anemia Surgical History History of carpal tunnel release History of cataract extraction History of colonoscopy Social History Smoking and tobacco/nicotine status: never used tobacco/nicotine Alcohol intake: never Substance/Drug Use: never Physical Exam Neuro: MICHELLE COMA SCALE: document GCS findings [place] coma scale total score: 15 Course Vital Signs: Vital signs: Vital Signs Temperature 98.4 F 01/31/24 15:43 Pulse Rate 72 01/31/24 21:20 Respiratory Rate 18 01/31/24 21:20 Blood Pressure 151/97 01/31/24 21:20 Pulse Oximetry 95 01/31/24 21:20 Oxygen Delivery Me thod Room Air 01/31/24 19:00 MDM - General Adult Medical Decision Making Care signed out to Dr. Mcgraw at change of shift. See final notes for diagnosis and disposition. 63-year-old male checked out at shift change. He is developmentally delayed. He is afebrile here. Blood pressures are good. His saturations are 95% on room air. Low normal white count. Hemoglobin of 15. BMP is not remarkable. Chest x-ray shows minimal interstitial prominence suggesting infiltrate or pneumonitis in the mid right lung. Urinalysis is negative. COVID is negative. He is covered with antibiotics, inhaler. He will be allowed discharge. To return for any worsening symptoms. Lab Data 01/31/24 16:27 01/31/24 16:27 Radiology Impressions Chest X-Ray 01/31/24 18:35 IMPRESSION: Minimal interstitial prominence suggests minimal interstitial infiltrate or pneumonitis mid right lung, as appearing new in relation to prior exam. No consolidation or effusion. Laboratory Results WBC 4.85 10^3/uL (3.29-11.43) 01/31/24 16:27 RBC 5.02 10^6/uL (3.85-5.65) 01/31/24 16:27 Hgb 14.90 g/dL (11.27-16.99) 01/31/24 16: Hct 44.8 % (37-53) 01/31/24 16: MCV 89.2 fl (82-101) 01/31/24 16: MCH 29.7 pg (27-33) 01/31/24 16: MCHC 33.3 g/dL (30-55) 01/31/24 16: RDW 13.1 % (12.1-15.1) 01/31/24 16: Plt Count 170 10^3/cmm (157-399) 01/31/24 16: MPV 10.1 fL (7.4-10.4) 01/31/24 16: Neut % (Auto) 50.3 % 01/31/24 16: Lymph % (Auto) 29.7 % 01/31/24 16: [place] % (Auto) 13.2 % 01/31/24 16: Eos % (Auto) 5.4 % 01/31/24 16: Baso % (Auto) 1.2 % 01/31/24 16: Neut # (Auto) 2.44 10^3/uL (1.8-7.7) 01/31/24 16: Lymph # (Auto) 1.4 10^3/uL (0.8-4.8) 01/31/24 16: [place] # (Auto) 0.6 10^3/uL (0.2-0.9) 01/31/24 16: Eos # (Auto) 0.3 10^3/uL (0.0-0.8) 01/31/24 16: Baso # (Auto) 0.1 10^3/uL (0.0-0.1) 01/31/24: Nucleated RBC % (auto) 0 % 01/31/24 16: Nucleated RBCs # 0.0 /100WBC 01/31/24 16: PT 12.80 SECONDS (12.1-14.9) 01/31/24 16: INR 0.93 (0.8-1.2) 01/31/24 16: Sodium 130 mmol/L (136-145) L 01/31/24 16: Potassium 4.3 mmol/L (3.5-5.1) 01/31/24 16:27 Chloride 95 mmol/L (98-107) L 01/31/24 16:27 Carbon Dioxide 23 mmol/L (22-29) 01/31/24 16:27 Anion Gap 16.3 (5-19) 01/31/24 16:27 BUN 19 mg/dL (8-23) 01/31/24 16:27 Creatinine 0.8 mg/dL (0.7-1.2) 01/31/24 16:27 GFR Calculation 97.0 mL/min (90-130) 01/31/24 16:27 Glucose 107 mg/dL (65-115) 01/31/24 16:27 Calculated Osmolality 273 mOsm/kg (285-295) L 01/31/24 16:27 Calcium 9.2 mg/dL (8.5-10.5) 01/31/24 16:27 Total Bilirubin 0.2 mg/dL (0.15-1.2) 01/31/24 16:27 AST 18 U/L (0-40) 01/31/24 16:27 ALT 17 U/L (0-41) 01/31/24 16:27 Alkaline Phosphatase 89 U/L (40-130) 01/31/24 16:27 Ammonia 46 umol/L (16-60) 01/31/24 16:27 Total Protein 7.1 g/dL (6.6-8.7) 01/31/24 16:27 Albumin 4.1 g/dL (3.5-5.2) 01/31/24 16:27 Globulin 3.0 g/dL (1.3-4.6) 01/31/24 16:27 Lipase 49 U/L (13-60) 01/31/24 16:27 Urine Color Yellow (Yellow) 01/31/24 20:10 Urine Appearance Clear (CLEAR) 01/31/24 20:10 Urine pH 6.5 (5-7) 01/31/24 20:10 Ur Specific [place] 1.012 (1.005-1.030) 01/31/24 20:10 Urine Protein Negative (Negative) 01/31/24 20:10 Urine Glucose (UA) Negative (Normal) 01/31/24 20:10 Urine Ketones Negative (Negative) 01/31/24 20:10 Urine Blood Negative (Negative) 01/31/24 20:10 Urine Nitrate Negative (Negative) 01/31/24 20:10 Urine Bilirubin Negative (Negative) 01/31/24 20:10 Urine Urobilinogen 1.0 mg/dL (Negative) 01/31/24 20:10 Ur Leukocyte Esterase Trace (Negative) A 01/31/24 20:10 Urine RBC 0-2 /hpf (0-2) 01/31/24 20:10 Urine WBC 0-5 /hpf (0-5) 01/31/24 20:10 Ur Squamous Epith Cells 0-5 /hpf (0-5) 01/31/24 20:10 Amorphous Sediment Not Reportable 01/31/24 20:10 Urine Bacteria None seen /hpf (NONE) 01/31/24 20:10 Hyaline Casts 0-4 /lpf H 01/31/24 20:10 Coronavirus 229E (PCR) Not detected (NOT DETECT) 01/31/24 20:09 SARS-CoV-2 (PCR) Not detected (NOT DETECT) 01/31/24 20:09 Discharge Plan Discharge Patient Disposition: Home Clinical Impression: Pneumonia Condition: Stable Prescriptions: New levofloxacin 750 mg tablet 750 mg PO DAILY 7 Days Qty: 7 0RF Continued albuterol sulfate 2.5 mg /3 mL (0.083 %) Solution For Nebulization 2.5 mg INHALATION Q6H PRN (Reason: Shortness Of Breath) Qty: 90 0RF No Action ibuprofen 800 mg tablet 800 mg PO Q6H PRN (Reason: pain/fever) Hold Instructions: Resume on 08/17/22. nystatin 100,000 unit/mL suspension 1 ml PO QID 7 Days Qty: 28 0RF Rx Instructions: swish and spit pantoprazole [Protonix] 40 mg tablet,delayed release (DR/EC) 40 mg PO BID 42 Days Qty: 84 1RF albuterol sulfate 90 mcg/actuation HFA aerosol inhaler 1 inh inhalation Q6H PRN (Reason: shortness of breath or wheezing) Qty: 8.5 3RF guaifenesin 200 mg/5 mL liquid 200 mg PO Q4H PRN (Reason: cough) Qty: 118 0RF CeraVe Cream See Rx Instructions .ROUTE .COMPLEX Qty: 453 5RF Dose Instruction: APPLY TO THE AFFECTED AREA(S) OF LEGS TWICE DAILY FOR SKIN MOISTURIZER Rx Instructions: APPLY TO THE AFFECTED AREA(S) OF LEGS TWICE DAILY FOR SKIN MOISTURIZER AT 07:00 & 19:00 Ear Wax Removal Drops 6.5 % drops See Rx Instructions .ROUTE .COMPLEX Qty: 15 5RF Dose Instruction: instill SIX drops in BOTH ears TWICE DAILY FOR FOUR DAYS each MONTH THEN IRRIGATE Rx Instructions: instill SIX drops in BOTH ears TWICE DAILY FOR FOUR DAYS each MONTH THEN IRRIGATE venlafaxine 75 mg capsule,extended release 24hr See Rx Instructions .ROUTE .COMPLEX Qty: 30 4RF Dose Instruction: TAKE ONE CAPSULE BY MOUTH daily with 150mg [id number] Rx Instructions: TAKE ONE CAPSULE BY MOUTH daily with 150mg nd=357vo ropinirole 0.5 mg tablet 0.5 mg PO DAILY Qty: 90 5RF Rx Instructions: Take at bedtime multivitamin with minerals Liquid 10 ml PO DAILY Qty: 237 8RF venlafaxine [Effexor XR] 75 mg capsule,extended release 24hr 150 mg PO DAILY@08 Qty: 60 5RF quetiapine 200 mg tablet See Rx Instructions .ROUTE .COMPLEX Qty: 60 3RF Dose Instruction: TAKE ONE TABLET BY MOUTH TWICE DAILY Rx Instructions: TAKE ONE TABLET BY MOUTH TWICE DAILY polyethylene glycol 3350 [Miralax] 17 gram Powder In Packet 17 g PO DAILY@20 dextromethorphan-guaifenesin 10-100 mg/5 mL Syrup 10 ml PO Q4H PRN (Reason: Cough) hydrocortisone [Proctocort] 1 % Cream 1 applic VA QID PRN (Reason: Hemorrhoids) alum-mag hydroxide-simeth 200-200-20 mg/5 mL Suspension 30 ml PO Q4H PRN (Reason: upset stomach) trazodone 150 mg tablet 150 mg PO BEDTIME@20 omeprazole 20 mg capsule,delayed release(DR/EC) 20 mg PO DAILY@07 oxcarbazepine 600 mg tablet 600 mg PO BID@07,20 fluticasone propionate 50 mcg/actuation spray,suspension 2 spray INTRANASAL DAILY@08 Rx Instructions: administer into each nostril loratadine [Claritin] 10 mg tablet 10 mg PO DAILY@07 ferrous gluconate 324 mg (38 mg iron) tablet 324 mg PO DAILY@08 simethicone 80 mg tablet,chewable 80 mg PO QID Rx Instructions: @07:00,12:00,16:00,20:00 Advair Diskus 100-50 mcg/dose blister with device 1 inh inhalation BID Qty: 60 0RF Discharge Orders: Discharge ED (Routine); Ordered 01/31/24 Ordered By: Christos Mcgraw Referrals: Dandre Oakes MD [Primary Care Provider] - 1-3 days Patient Instructions: Pneumonia (ED), Opioid Safety, Pain Management Activity Restrictions/Additional Instructions: Use the nebulizer machine every 4 hours while awake for the first 24 hours, then as needed. Antibiotics as directed. Call back for your COVID-19 results. If they are positive, your doctor can call in antivirals for you. Return for worsening symptoms despite treatment. Stay hydrated. Coding Level of Care Code ED [employer] Fwd Documented by User: Christos Mcgraw, 02/01/24 00:43 HPI - General Adult General: Chief complaint: General Medical Stated complaint: yellow / lethargic Time Seen by Provider: 01/31/24 18:13 Related Data Home Medications Medication Instructions Recorded Confirmed ibuprofen 800 mg tablet 800 mg PO Q6H PRN pain/fever 07/30/19 01/07/24 aluminum-mag hydroxide-simethicone 30 ml PO Q4H PRN upset stomach 07/12/22 01/07/24 200 mg-200 mg-20 mg/5 mL oral susp dextromethorphan-guaifenesin 10 10 ml PO Q4H PRN Cough 07/12/22 01/07/24 mg-100 mg/5 mL oral syrup ferrous gluconate 324 mg (38 mg 324 mg PO DAILY@07/12/22 01/07/24 iron) tablet fluticasone propionate 50 2 spray intranasal DAILY@07/12/22 01/07/24 mcg/actuation nasal spray,suspension hydrocortisone 1 % topical cream 1 applic VA QID PRN Hemorrhoids 07/12/22 01/07/24 (Proctocort) loratadine 10 mg tablet (Claritin) 10 mg PO DAILY@07/12/22 01/07/24 omeprazole 20 mg capsule,delayed 20 mg PO DAILY@07/12/22 01/07/24 release oxcarbazepine 600 mg tablet 600 mg PO BID@07,07/12/22 01/07/24 polyethylene glycol 3350 17 gram 17 g PO DAILY@07/12/22 01/07/24 oral powder packet (Miralax) trazodone 150 mg tablet 150 mg PO BEDTIME@07/12/22 01/07/24 simethicone 80 mg chewable tablet 80 mg PO QID 08/13/22 01/07/24 Previous Rx's Medication Instructions Recorded ceramides 1,3,6-II (CeraVe topical See Rx Instructions .Route 11/20/21 cream) .COMPLEX #453 grams carbamide peroxide 6.5 % ear drops See Rx Instructions .Route 12/19/21 (Ear Wax Removal Drops) .COMPLEX #15 mL pantoprazole 40 mg tablet,delayed 40 mg PO BID 6 weeks #84 tabs 08/07/22 release (Protonix) fluticasone 100 mcg-salmeterol 50 1 inh inhalation BID #60 ea 09/03/22 mcg/dose blistr powdr for inhalation (Advair Diskus) venlafaxine 75 mg capsule,extended See Rx Instructions .Route 11/09/22 release 24 hr .COMPLEX #30 caps albuterol sulfate 90 mcg/actuation 1 inh inhalation Q6H PRN shortness 03/18/23 aerosol inhaler of breath or wheezing #8.5 grams ropinirole 0.5 mg tablet 0.5 mg PO DAILY #90 tabs 04/22/23 nystatin 100,000 unit/mL oral 1 ml PO QID 7 days #28 mL 08/12/23 suspension multivitamin with minerals 10 ml PO DAILY #237 mL 08/28/23 venlafaxine 75 mg capsule,extended 150 mg (2 x 75 mg) PO DAILY@08 #60 09/17/23 release 24 hr (Effexor XR) caps guaifenesin 200 mg/5 mL oral liquid 200 mg (5 mL) PO Q4H PRN cough 11/01/23 #118 mL quetiapine 200 mg tablet See Rx Instructions .Route 11/19/23 .COMPLEX #60 tabs albuterol sulfate 2.5 mg/3 mL 2.5 mg (3 mL) inhalation Q6H PRN 01/31/24 (0.083 %) solution for nebulization Shortness Of Breath #90 mL levofloxacin 750 mg tablet 750 mg PO DAILY 7 days #7 tabs 01/31/24 Allergies Allergy/AdvReac Type Severity Reaction Status Date / Time No Known Allergies Allergy Verified 01/31/24 15:53 PFSH ED PFSH: Medical History (Updated 01/31/24 @ 21:05 by Christos Mcgraw DO) Intellectual disability Lymphadenopathy, hilar Hiatal hernia At risk for aspiration Aspiration pneumonia Bipolar disease, manic Negative colon, negative guaics. Tardive dyskinesia Dupuytren's contracture of left hand Iron deficiency anemia Surgical History History of carpal tunnel release History of cataract extraction History of colonoscopy Social History Smoking and tobacco/nicotine status: never used tobacco/nicotine Alcohol intake: never Substance/Drug Use: never Physical Exam Const: COMMON NORMALS: no acute distress GENERAL APPEARANCE: cooperative; not ill appearing and not frail appearing HENMT: COMMON NORMALS: normocephalic, atraumatic and Normal external nose present HEAD & SCALP: normocephalic and atraumatic FACE & SINUS: normal facial exam and face symmetric NOSE: Normal external nose present Eye: COMMON NORMALS: Equal, round and reactive pupils present and EOMs intact bilaterally PUPIL: Yes Equal, round and reactive pupils present Neck/C-Spine: GENERAL: Yes trachea midline Chest: CHEST: Yes Symmetrical chest wall rise Resp: COMMON NORMALS: normal respiratory effort, No retractions, No use of accessory muscles and clear to auscultation bilaterally AUSCULTATION: clear to auscultation bilaterally Cardio: COMMON NORMALS: regular rate and regular rhythm RATE: regular rate RHYTHM: regular rhythm GI: COMMON NORMALS: Normal to inspection, nondistended, normoactive bowel sounds present Extremity: COMMON NORMALS: no pedal edema Neuro: MICHELLE COMA SCALE: document GCS findings [place] coma scale eye opening: Spontaneous Michelle coma scale verbal response: Orientated [place] coma scale motor response: Obey commands [place] coma scale total score: 15 SENSORY EXAM: Yes extremities (intact) Psych: COMMON NORMALS: speech normal SPEECH: Yes normal speech Skin: COMMON NORMALS: no rashes or lesions noted GENERAL SKIN EXAM: no rashes or lesions noted Course Vital Signs: Vital signs: Vital Signs Temperature 98.4 F 01/31/24 15:43 Pulse Rate 72 01/31/24 21:20 Respiratory Rate 18 01/31/24 21:20 Blood Pressure 151/97 01/31/24 21:20 Pulse Oximetry 95 01/31/24 21:20 Oxygen Delivery Me thod Room Air 01/31/24 19:00 MDM - General Adult Medical Decision Making 63-year-old male checked out at shift change. He is developmentally delayed. He is afebrile here. Blood pressures are good. His saturations are 95% on room air. Low normal white count. Hemoglobin of 15. BMP is not remarkable. Chest x-ray shows minimal interstitial prominence suggesting infiltrate or pneumonitis in the mid right lung. Urinalysis is negative. COVID is negative. He is covered with antibiotics, inhaler. He will be allowed discharge. To return for any worsening symptoms. Lab Data 01/31/24 16:27 01/31/24 16:27 Radiology Impressions Chest X-Ray 01/31/24 18:35 IMPRESSION: Minimal interstitial prominence suggests minimal interstitial infiltrate or pneumonitis mid right lung, as appearing new in relation to prior exam. No consolidation or effusion. Laboratory Results WBC 4.85 10^3/uL (3.29-11.43) 01/31/24 16:27 RBC 5.02 10^6/uL (3.85-5.65) 01/31/24 16:27 Hgb 14.90 g/dL (11.27-16.99) 01/31/24 16:27 Hct 44.8 % (37-53) 01/31/24 16:27 MCV 89.2 fl (82-101) 01/31/24 16:27 MCH 29.7 pg (27-33) 01/31/24 16:27 MCHC 33.3 g/dL (30-55) 01/31/24 16:27 RDW 13.1 % (12.1-15.1) 01/31/24 16:27 Plt Count 170 10^3/cmm (157-399) 01/31/24 16: MPV 10.1 fL (7.4-10.4) 01/31/24 16:27 Neut % (Auto) 50.3 % 01/31/24 16:27 Lymph % (Auto) 29.7 % 01/31/24 16:27 [place] % (Auto) 13.2 % 01/31/24 16:27 Eos % (Auto) 5.4 % 01/31/24 16:27 Baso % (Auto) 1.2 % 01/31/24 16:27 Neut # (Auto) 2.44 10^3/uL (1.8-7.7) 01/31/24 16: Lymph # (Auto) 1.4 10^3/uL (0.8-4.8) 01/31/24 16:27 [place] # (Auto) 0.6 10^3/uL (0.2-0.9) 01/31/24 16: Eos # (Auto) 0.3 10^3/uL (0.0-0.8) 01/31/24 16: Baso # (Auto) 0.1 10^3/uL (0.0-0.1) 01/31/24 16: Nucleated RBC % (auto) 0 % 01/31/24: Nucleated RBCs # 0.0 /100WBC 01/31/24 16:27 PT 12.80 SECONDS (12.1-14.9) 01/31/24 16: INR 0.93 (0.8-1.2) 01/31/24 16:27 Sodium 130 mmol/L (136-145) L 01/31/24 16:27 Potassium 4.3 mmol/L (3.5-5.1) 01/31/24 16:27 Chloride 95 mmol/L (98-107) L 01/31/24 16:27 Carbon Dioxide 23 mmol/L (22-29) 01/31/24 16:27 Anion Gap 16.3 (5-19) 01/31/24 16:27 BUN 19 mg/dL (8-23) 01/31/24 16:27 Creatinine 0.8 mg/dL (0.7-1.2) 01/31/24 16:27 GFR Calculation 97.0 mL/min (90-130) 01/31/24 16:27 Glucose 107 mg/dL (65-115) 01/31/24 16:27 Calculated Osmolality 273 mOsm/kg (285-295) L 01/31/24 16:27 Calcium 9.2 mg/dL (8.5-10.5) 01/31/24 16:27 Total Bilirubin 0.2 mg/dL (0.15-1.2) 01/31/24 16:27 AST 18 U/L (0-40) 01/31/24 16:27 ALT 17 U/L (0-41) 01/31/24 16:27 Alkaline Phosphatase 89 U/L (40-130) 01/31/24 16:27 Ammonia 46 umol/L (16-60) 01/31/24 16:27 Total Protein 7.1 g/dL (6.6-8.7) 01/31/24 16:27 Albumin 4.1 g/dL (3.5-5.2) 01/31/24 16:27 Globulin 3.0 g/dL (1.3-4.6) 01/31/24 16:27 Lipase 49 U/L (13-60) 01/31/24 16:27 Urine Color Yellow (Yellow) 01/31/24 20:10 Urine Appearance Clear (CLEAR) 01/31/24 20:10 Urine pH 6.5 (5-7) 01/31/24 20:10 Ur Specific [place] 1.012 (1.005-1.030) 01/31/24 20:10 Urine Protein Negative (Negative) 01/31/24 20:10 Urine Glucose (UA) Negative (Normal) 01/31/24 20:10 Urine Ketones Negative (Negative) 01/31/24 20:10 Urine Blood Negative (Negative) 01/31/24 20:10 Urine Nitrate Negative (Negative) 01/31/24 20:10 Urine Bilirubin Negative (Negative) 01/31/24 20:10 Urine Urobilinogen 1.0 mg/dL (Negative) 01/31/24 20:10 Ur Leukocyte Esterase Trace (Negative) A 01/31/24 20:10 Urine RBC 0-2 /hpf (0-2) 01/31/24 20:10 Urine WBC 0-5 /hpf (0-5) 01/31/24 20:10 Ur Squamous Epith Cells 0-5 /hpf (0-5) 01/31/24 20:10 Amorphous Sediment Not Reportable 01/31/24 20:10 Urine Bacteria None seen /hpf (NONE) 01/31/24 20:10 Hyaline Casts 0-4 /lpf H 01/31/24 20:10 Coronavirus 229E (PCR) Not detected (NOT DETECT) 01/31/24 20:09 SARS-CoV-2 (PCR) Not detected (NOT DETECT) 01/31/24 20:09 All radiology interpretation(s) finalized by discharge Discharge Plan Discharge Patient Disposition: Home Clinical Impression: Pneumonia Condition: Stable Prescriptions: New levofloxacin 750 mg tablet 750 mg PO DAILY 7 Days Qty: 7 0RF Continued albuterol sulfate 2.5 mg /3 mL (0.083 %) Solution For Nebulization 2.5 mg INHALATION Q6H PRN (Reason: Shortness Of Breath) Qty: 90 0RF No Action ibuprofen 800 mg tablet 800 mg PO Q6H PRN (Reason: pain/fever) Hold Instructions: Resume on 08/17/22. nystatin 100,000 unit/mL suspension 1 ml PO QID 7 Days Qty: 28 0RF Rx Instructions: swish and spit pantoprazole [Protonix] 40 mg tablet,delayed release (DR/EC) 40 mg PO BID 42 Days Qty: 84 1RF albuterol sulfate 90 mcg/actuation HFA aerosol inhaler 1 inh inhalation Q6H PRN (Reason: shortness of breath or wheezing) Qty: 8.5 3RF guaifenesin 200 mg/5 mL liquid 200 mg PO Q4H PRN (Reason: cough) Qty: 118 0RF CeraVe Cream See Rx Instructions .ROUTE .COMPLEX Qty: 453 5RF Dose Instruction: APPLY TO THE AFFECTED AREA(S) OF LEGS TWICE DAILY FOR SKIN MOISTURIZER Rx Instructions: APPLY TO THE AFFECTED AREA(S) OF LEGS TWICE DAILY FOR SKIN MOISTURIZER AT 07:00 & 19:00 Ear Wax Removal Drops 6.5 % drops See Rx Instructions .ROUTE .COMPLEX Qty: 15 5RF Dose Instruction: instill SIX drops in BOTH ears TWICE DAILY FOR FOUR DAYS each MONTH THEN IRRIGATE Rx Instructions: instill SIX drops in BOTH ears TWICE DAILY FOR FOUR DAYS each MONTH THEN IRRIGATE venlafaxine 75 mg capsule,extended release 24hr See Rx Instructions .ROUTE .COMPLEX Qty: 30 4RF Dose Instruction: TAKE ONE CAPSULE BY MOUTH daily with 150mg [id number] Rx Instructions: TAKE ONE CAPSULE BY MOUTH daily with 150mg [id number] ropinirole 0.5 mg tablet 0.5 mg PO DAILY Qty: 90 5RF Rx Instructions: Take at bedtime multivitamin with minerals Liquid 10 ml PO DAILY Qty: 237 8RF venlafaxine [Effexor XR] 75 mg capsule,extended release 24hr 150 mg PO DAILY@08 Qty: 60 5RF quetiapine 200 mg tablet See Rx Instructions .ROUTE .COMPLEX Qty: 60 3RF Dose Instruction: TAKE ONE TABLET BY MOUTH TWICE DAILY Rx Instructions: TAKE ONE TABLET BY MOUTH TWICE DAILY polyethylene glycol 3350 [Miralax] 17 gram Powder In Packet 17 g PO DAILY@20 dextromethorphan-guaifenesin 10-100 mg/5 mL Syrup 10 ml PO Q4H PRN (Reason: Cough) hydrocortisone [Proctocort] 1 % Cream 1 applic VA QID PRN (Reason: Hemorrhoids) alum-mag hydroxide-simeth 200-200-20 mg/5 mL Suspension 30 ml PO Q4H PRN (Reason: upset stomach) trazodone 150 mg tablet 150 mg PO BEDTIME@20 omeprazole 20 mg capsule,delayed release(DR/EC) 20 mg PO DAILY@07 oxcarbazepine 600 mg tablet 600 mg PO BID@07,20 fluticasone propionate 50 mcg/actuation spray,suspension 2 spray INTRANASAL DAILY@08 Rx Instructions: administer into each nostril loratadine [Claritin] 10 mg tablet 10 mg PO DAILY@07 ferrous gluconate 324 mg (38 mg iron) tablet 324 mg PO DAILY@08 simethicone 80 mg tablet,chewable 80 mg PO QID Rx Instructions: @07:00,12:00,16:00,20:00 Advair Diskus 100-50 mcg/dose blister with device 1 inh inhalation BID Qty: 60 0RF Discharge Orders: Discharge ED (Routine); Ordered 01/31/24 Ordered By: Christos Mcgraw Referrals: Dandre Oakes MD [Primary Care Provider] - 1-3 days Patient Instructions: Pneumonia (ED), Opioid Safety, Pain Management Activity Restrictions/Additional Instructions: Use the nebulizer machine every 4 hours while awake for the first 24 hours, then as needed. Antibiotics as directed. Call back for your COVID-19 results. If they are positive, your doctor can call in antivirals for you. Return for worsening symptoms despite treatment. Stay hydrated. Coding Level of Care Code ED [employer] Internship for [employer]
--- NOTE | 2024-01-31 18:35 | XRR_ITS ---
PROCEDURE INFORMATION: Exam: XR Chest Exam date and time: 01/31/2024 6:40 PM Age: 63 years old Clinical indication: Dyspnea and fever; Additional info: Dyspnea/cough TECHNIQUE: Imaging protocol: Radiologic exam of the chest. Views: 1 view. COMPARISON: CR XR chest 2V* [id number] 10/29/2023 4:47 PM FINDINGS: Lungs: Asymmetric minimal interstitial prominence about the lateral mid right lung that demonstrates an interval change from prior exam. No consolidation. Pleural spaces: No pleural effusion or pneumothorax. Heart/Mediastinum: Upper limits of normal cardiac size with AP portable upright exam. Suggestion of hiatal hernia midline lower chest. Bones/joints: Visualized osseous structures show no acute abnormality. XR/XR chest 1V portable [id number] IMPRESSION: Minimal interstitial prominence suggests minimal interstitial infiltrate or pneumonitis mid right lung, as appearing new in relation to prior exam. No consolidation or effusion.
[2024-01-31 19:00] VITALS: BP 147/108; PULSE 87; RESP 16; O2SAT 92
[2024-01-31 20:17] LABS: Charge for UA Resulting for Rev
[2024-01-31 20:20] LABS: Bilirubin Urine Negative (Negative); Blood Urine Negative (Negative); Glucose Urine UA Negative (Normal); Ketones Urine Negative (Negative); Leukocyte Esterase Urine Trace (Negative); Nitrate Urine Negative (Negative); Protein Urine Negative (Negative); Specific Gravity, Urine 1.012 (1.005-1.030); Urine Appearance Clear (CLEAR); Urine Color Yellow (Yellow); pH Urine 6.5 (5-7)
[2024-01-31 20:22] LABS: Bacteria Urine None Seen /hpf; Hyaline Casts Urine 0-4 /lpf; RBC Urine 0-2 /hpf (0-2); Squamous Epithelial Cell Urine 0-5 /hpf (0-5); WBC Urine 0-5 /hpf (0-5)
[2024-01-31] MEDS: levoFLOXacin 750 mg Tablet PO (21:11)
[2024-01-31 21:19] VITALS: BP 151/97; PULSE 72; RESP 18; O2SAT 95
[2024-01-31 21:20] VITALS: BP 151/97; PULSE 72; RESP 18; O2SAT 95
[2024-01-31 22:00] LABS: Adenovirus Not Detected (NOT DETECT); Chlamydia Pneumoniae Not Detected (NOT DETECT); Coronavirus 229E,HKU1,NL63,OC4 Not Detected (NOT DETECT); Human Metapneumovirus Not Detected (NOT DETECT); Human Rhinovirus/Enterovirus Not Detected (NOT DETECT); Influenza A Not Detected (NOT DETECT); Influenza A H1 Not Detected (NOT DETECT); Influenza A H1-2009 Not Detected (NOT DETECT); Influenza A H3 Not Detected (NOT DETECT); Influenza B Not Detected (NOT DETECT); Mycoplasma Pneumoniae Not Detected (NOT DETECT); Parainfluenza Virus Type 1 Not Detected (NOT DETECT); Parainfluenza Virus Type 2 Not Detected (NOT DETECT); Parainfluenza Virus Type 3 Not Detected (NOT DETECT); Parainfluenza Virus Type 4 Not Detected (NOT DETECT); Respiratory Syncytial Virus A Not Detected (NOT DETECT); Respiratory Syncytial Virus B Not Detected (NOT DETECT); SARS-COV-2 Not Detected (NOT DETECT)
== END 2024-01-31 21:22 | disposition home or self-care (01) ==
PROVIDERS: Emergency Medicine; Family Medicine; Emergency Provider Emergency Medicine; PCP Internal Medicine
DX: J18.9 Pneumonia, unspecified organism (principal); Z11.52 Encounter for screening for COVID-19
CPT/HCPCS: 36415; 71045; 80053; 81003; 81015; 82140; 83690; 85025; 85610; 87635; 99284

== ENCOUNTER 2024-02-07 19:02 | Emergency (ER) | payer MEDICARE, MEDICAID, SELFPAY ==
[2024-02-07 19:07] VITALS: BP 158/101; PULSE 71; RESP 16; TEMP 36.6; O2SAT 97; BMI 31.9
--- NOTE | 2024-02-07 20:25 | XRR_ITS ---
PROCEDURE INFORMATION: Exam: XR Complete Acute Abdomen Series Including Chest Exam date and time: 02/07/2024 8:38 PM Age: 63 years old Clinical indication: Abdominal pain; Patient HX: C/O periumbilical pain TECHNIQUE: Imaging protocol: Radiologic exam. Complete acute abdomen series, including 2 or more views of the abdomen and a single view chest. COMPARISON: CR (CHEST, ) 01/31/2024 6:40 PM FINDINGS: Lungs: See Heart/Mediastinum finding. Pleural spaces: Normal. No pleural effusions. No pneumothorax. Heart/Mediastinum: Fusiform retrocardiac density may reflect hiatal hernia as seen on prior CT. No small bowel dilation. Gastrointestinal tract: Moderate to large volume fecal debris noted throughout the colon with desiccated appearing feces in the rectum. Intraperitoneal space: No free air. No abnormal calcifications over the kidneys or expected course of either ureter. Vasculature: Tortuous aorta without dilation. Bones/joints: Normal. No acute fracture. Soft tissues: Normal. XR/XR acute abdomen series [id number] IMPRESSION: 1. Large volume fecal debris throughout the colon suggests constipation which could be symptomatic. Appendicitis is not excluded. 2. No findings bowel perforation or calculus disease. 3. Hiatal hernia.
[2024-02-07 21:00] LABS: Basophils % 0.4 %; Eosinophils # 0.1 10^3/uL (0.0-0.8); Eosinophils % 1.3 %; Lymphocytes # 0.7 10^3/uL (0.8-4.8); Lymphocytes % 7.7 %; Mean Corpuscular HGB Conc 33.3 g/dL (30-55); Mean Corpuscular Volume 90.3 fl (82-101); Mean Platelet Volume 9.7 fL (7.4-10.4); Monocytes # 0.8 10^3/uL (0.2-0.9); Monocytes % 8.8 %; Neutrophils # 7.57 10^3/uL (1.8-7.7); Neutrophils % 81.4 %; Nucleated Red Blood Cells % 0 %; Platelet Count 174 10^3/cmm (157-399); Red Blood Count 4.43 10^6/uL (3.85-5.65); Red Cell Distribution Width 13.3 % (12.1-15.1); White Blood Count 9.31 10^3/uL (3.29-11.43)
--- NOTE | 2024-02-07 21:02 | ED_ITS ---
HPI - Abdominal Pain 2 General: Chief Complaint: Abdominal Pain Stated Complaint: ABD Pain Time Seen by Provider: 02/07/24 20:23 History of Present Illness: 63-year-old man with history of intellec tual disability, aspiration pneumonias, tar dive dyskinesia and a hiatal hernia who presents emergency room with abdominal pain. It seems to have resolved at this point. He had some epigastric abdominal pain. No nausea. No vomiting. He says the pain is improved now. He is laughing and talking to the nurses. Related Data Home Medications Medication Instructions Recorded Confirmed ibuprofen 800 mg tablet 800 mg PO Q6H PRN pain/fever 07/30/19 02/07/24 aluminum-mag hydroxide-simethicone 30 ml PO Q4H PRN upset stomach 07/12/22 02/07/24 200 mg-200 mg-20 mg/5 mL oral susp dextromethorphan-guaifenesin 10 10 ml PO Q4H PRN Cough 07/12/22 02/07/24 mg-100 mg/5 mL oral syrup ferrous gluconate 324 mg (38 mg 324 mg PO DAILY@07/12/22 02/07/24 iron) tablet fluticasone propionate 50 2 spray intranasal DAILY@07/12/22 02/07/24 mcg/actuation nasal spray,suspension hydrocortisone 1 % topical cream 1 applic [place] QID PRN Hemorrhoids 07/12/22 02/07/24 (Proctocort) loratadine 10 mg tablet (Claritin) 10 mg PO DAILY@07/12/22 02/07/24 omeprazole 20 mg capsule,delayed 20 mg PO DAILY@07/12/22 02/07/24 release oxcarbazepine 600 mg tablet 600 mg PO BID@07/12/22 02/07/24 polyethylene glycol 3350 17 gram 17 g PO DAILY@07/12/22 02/07/24 oral powder packet (Miralax) trazodone 150 mg tablet 150 mg PO BEDTIME@07/12/22 02/07/24 simethicone 80 mg chewable tablet 80 mg PO QID 08/13/22 02/07/24 Previous Rx's Medication Instructions Recorded ceramides 1,3,6-II (CeraVe topical See Rx Instructions .Route 11/20/21 cream) .COMPLEX #453 grams carbamide peroxide 6.5 % ear drops See Rx Instructions .Route 12/19/21 (Ear Wax Removal Drops) .COMPLEX #15 mL pantoprazole 40 mg tablet,delayed 40 mg PO BID 6 weeks #84 tabs 08/07/22 release (Protonix) fluticasone 100 mcg-salmeterol 50 1 inh inhalation BID #60 ea 09/03/22 mcg/dose blistr powdr for inhalation (Advair Diskus) venlafaxine 75 mg capsule,extended See Rx Instructions .Route 11/09/22 release 24 hr .COMPLEX #30 caps albuterol sulfate 90 mcg/actuation 1 inh inhalation Q6H PRN shortness 03/18/23 aerosol inhaler of breath or wheezing #8.5 grams ropinirole 0.5 mg tablet 0.5 mg PO DAILY #90 tabs 04/22/23 nystatin 100,000 unit/mL oral 1 ml PO QID 7 days #28 mL 08/12/23 suspension multivitamin with minerals 10 ml PO DAILY #237 mL 08/28/23 venlafaxine 75 mg capsule,extended 150 mg (2 x 75 mg) PO DAILY@08 #60 09/17/23 release 24 hr (Effexor XR) caps guaifenesin 200 mg/5 mL oral liquid 200 mg (5 mL) PO Q4H PRN cough 11/01/23 #118 mL quetiapine 200 mg tablet See Rx Instructions .Route 11/19/23 .COMPLEX #60 tabs albuterol sulfate 2.5 mg/3 mL 2.5 mg (3 mL) inhalation Q6H PRN 01/31/24 (0.083 %) solution for nebulization Shortness Of Breath #90 mL polyethylene glycol 3350 17 17 g PO DAILY #510 grams 02/07/24 gram/dose oral powder (Miralax) sucralfate 1 gram tablet (Carafate) 1 g PO TID 4 weeks #84 tabs 02/07/24 Allergies Allergy/AdvReac Type Severity Reaction Status Date / Time No Known Allergies Allergy Verified 02/07/24 18:27 Review of Systems 2 Narrative: Constitutional symptoms: Negative except as documented in HPI. Skin symptoms: Negative except as documented in HPI. Eye symptoms: Negative except as documented in HPI. ENMT symptoms: Negative except as documented in HPI. Respiratory symptoms: Negative except as documented in HPI. Cardiovascular symptoms: Negative except as documented in HPI. Gastrointestinal symptoms: Negative except as documented in HPI. Genitourinary symptoms: Negative except as documented in HPI. Musculoskeletal symptoms: Negative except as documented in HPI. Neurologic symptoms: Negative except as documented in HPI. Psychiatric symptoms: Negative except as documented in HPI. Endocrine symptoms: Negative except as documented in HPI. PFSH ED 2 PFSH: Medical History Intellectual disability Lymphadenopathy, hilar Hiatal hernia At risk for aspiration Aspiration pneumonia Bipolar disease, manic Negative colon, negative guaics. Tardive dyskinesia Dupuytren's contracture of left hand Iron deficiency anemia Surgical History History of carpal tunnel release History of cataract extraction History of colonoscopy Social History Smoking and tobacco/nicotine status: unknown if used tobacco/nicotine Alcohol intake: never Substance/Drug Use: never Physical Exam 2 Narrative: EXAM NARRATIVE: General: Alert, no acute distress. Skin: Warm, dry. Head: Normocephalic, atraumatic. Neck: Supple, trachea midline. Eye: Extraocular movements are intact. Ears, nose, mouth and throat: mucosa moist. Cardiovascular: Regular, Normal peripheral perfusion. Respiratory: Lungs are clear to auscultation, respirations are non-labored, breath sounds are equal, Symmetrical chest wall expansion. Gastrointestinal: Soft, Nontender, Non distended Musculoskeletal: Normal ROM, no deformity. Neurological: Alert and oriented, No focal neurological deficit observed. Psychiatric: Cooperative, appropriate mood & affect. Course 2 Vital Signs: Vital signs: Vital Signs Temperature 97.9 F 02/07/24 19:07 Pulse Rate 71 02/07/24 19:07 Respiratory Rate 16 02/07/24 19:07 Blood Pressure 158/101 02/07/24 19:07 Pulse Oximetry 97 02/07/24 19:07 Oxygen Delivery Me thod Room Air 02/07/24 19:07 MDM - Abdominal Pain Medical Decision Making Medical decision making: Differential diagnosis including but not limited to and based on the above HPI, review of systems and physical exam: Patient no longer with any abdominal pain. Basic lab work and x-ray were ordered. Rule out obstructions etc. He was diagnosed recently constipation and seems this may be similar type case. Orders placed to evaluate differential diagnosis based on the above differential, HPI and physical exam Acute abdominal series: chest x-ray: No acute process. No obvious infiltrates. No pneumothorax. No cardiomegaly. This was reviewed and interpreted by myself the emergency room physician Abdomen x-ray: Patient appears very constipated. Nonspecific bowel gas pattern. No evidence of free air or obstruction. This was reviewed and interpreted by myself the emergency room physician. Lab Review: Laboratory results were reviewed and interpreted by myself the emergency room physician. No leukocytosis. No anemia. Platelets are 174. No renal failure. Stable hyponatremia. I reviewed the patient's medical record. Reexamination: Patient remained stable. No increased work of breathing. No altered mental status. No focal motor deficits. Assessment and plan: Constipation ?GoLytely then MiraLAX - Discharged home - Discussed findings and plan with patient. Answered any questions. - All laboratory values were reviewed and interpreted personally by myself, the ER physician - All imaging was reviewed and interpreted personally by myself, the ER physician. - Evaluation and treatment of this problem were appropriate in the emergency setting Lab Data 02/07/24 20:41 02/07/24 20:41 Labs/Radiology: Radiology Impressions Chest/Abdomen X-ray 02/07/24 20:25 IMPRESSION: 1. Large volume fecal debris throughout the colon suggests constipation which could be symptomatic. Appendicitis is not excluded. 2. No findings bowel perforation or calculus disease. 3. Hiatal hernia. Laboratory Results WBC 9.31 10^3/uL (3.29-11.43) 02/07/24 20:41 RBC 4.43 10^6/uL (3.85-5.65) 02/07/24 20:41 Hgb 13.30 g/dL (11.27-16.99) 02/07/24 20:41 Hct 40.0 % (37-53) 02/07/24 20:41 MCV 90.3 fl (82-101) 02/07/24 20:41 MCH 30.0 pg (27-33) 02/07/24 20:41 MCHC 33.3 g/dL (30-55) 02/07/24 20:41 RDW 13.3 % (12.1-15.1) 02/07/24 20:41 Plt Count 174 10^3/cmm (157-399) 02/07/24 20:41 MPV 9.7 fL (7.4-10.4) 02/07/24 20:41 Neut % (Auto) 81.4 % 02/07/24 20:41 Lymph % (Auto) 7.7 % 02/07/24 20:41 Bladen % (Auto) 8.8 % 02/07/24 20:41 Eos % (Auto) 1.3 % 02/07/24 20:41 Baso % (Auto) 0.4 % 02/07/24 20:41 Neut # (Auto) 7.57 10^3/uL (1.8-7.7) 02/07/24 20:41 Lymph # (Auto) 0.7 10^3/uL (0.8-4.8) L 02/07/24 20:41 Bladen # (Auto) 0.8 10^3/uL (0.2-0.9) 02/07/24 20:41 Eos # (Auto) 0.1 10^3/uL (0.0-0.8) 02/07/24 20:41 Baso # (Auto) 0.0 10^3/uL (0.0-0.1) 02/07/24 20:41 Nucleated RBC % (auto) 0 % 02/07/24 20:41 Nucleated RBCs # 0.0 /100WBC 02/07/24 20:41 Sodium 131 mmol/L (136-145) L 02/07/24 20:41 Potassium 4.4 mmol/L (3.5-5.1) 02/07/24 20:41 Chloride 96 mmol/L (98-107) L 02/07/24 20:41 Carbon Dioxide 23 mmol/L (22-29) 02/07/24 20:41 Anion Gap 16.4 (5-19) 02/07/24 20:41 BUN 15 mg/dL (8-23) 02/07/24 20:41 Creatinine 0.6 mg/dL (0.7-1.2) L 02/07/24 20:41 GFR Calculation 135.2 mL/min (90-130) H 02/07/24 20:41 Glucose 134 mg/dL (65-115) H 02/07/24 20:41 Calculated Osmolality 275 mOsm/kg (285-295) L 02/07/24 20:41 Calcium 8.6 mg/dL (8.5-10.5) 02/07/24 20:41 Total Bilirubin 0.2 mg/dL (0.15-1.2) 02/07/24 20:41 AST 17 U/L (0-40) 02/07/24 20:41 ALT 19 U/L (0-41) 02/07/24 20:41 Alkaline Phosphatase 83 U/L (40-130) 02/07/24 20:41 Total Protein 7.0 g/dL (6.6-8.7) 02/07/24 20:41 Albumin 3.8 g/dL (3.5-5.2) 02/07/24 20:41 Globulin 3.2 g/dL (1.3-4.6) 02/07/24 20:41 All radiology interpretation(s) finalized by discharge Discharge Plan Discharge Patient Disposition: Home Clinical Impression: Constipation Condition: Stable Prescriptions: New Carafate 1 gram tablet 1 g PO TID 28 Days Qty: 84 0RF Rx Instructions: with meals Miralax 17 gram/dose powder 17 g PO DAILY Qty: 510 0RF Rx Instructions: Take 1-2 scoops daily for the next 3 months to keep stools soft No Action ibuprofen 800 mg tablet 800 mg PO Q6H PRN (Reason: pain/fever) Hold Instructions: Resume on 08/17/22. nystatin 100,000 unit/mL suspension 1 ml PO QID 7 Days Qty: 28 0RF Rx Instructions: swish and spit pantoprazole [Protonix] 40 mg tablet,delayed release (DR/EC) 40 mg PO BID 42 Days Qty: 84 1RF albuterol sulfate 90 mcg/actuation HFA aerosol inhaler 1 inh inhalation Q6H PRN (Reason: shortness of breath or wheezing) Qty: 8.5 3RF guaifenesin 200 mg/5 mL liquid 200 mg PO Q4H PRN (Reason: cough) Qty: 118 0RF CeraVe Cream See Rx Instructions .ROUTE .COMPLEX Qty: 453 5RF Dose Instruction: APPLY TO THE AFFECTED AREA(S) OF LEGS TWICE DAILY FOR SKIN MOISTURIZER Rx Instructions: APPLY TO THE AFFECTED AREA(S) OF LEGS TWICE DAILY FOR SKIN MOISTURIZER AT 07:00 & 19:00 Ear Wax Removal Drops 6.5 % drops See Rx Instructions .ROUTE .COMPLEX Qty: 15 5RF Dose Instruction: instill SIX drops in BOTH ears TWICE DAILY FOR FOUR DAYS each MONTH THEN IRRIGATE Rx Instructions: instill SIX drops in BOTH ears TWICE DAILY FOR FOUR DAYS each MONTH THEN IRRIGATE venlafaxine 75 mg capsule,extended release 24hr See Rx Instructions .ROUTE .COMPLEX Qty: 30 4RF Dose Instruction: TAKE ONE CAPSULE BY MOUTH daily with 150mg [id number] Rx Instructions: TAKE ONE CAPSULE BY MOUTH daily with 150mg [id number] ropinirole 0.5 mg tablet 0.5 mg PO DAILY Qty: 90 5RF Rx Instructions: Take at bedtime multivitamin with minerals Liquid 10 ml PO DAILY Qty: 237 8RF venlafaxine [Effexor XR] 75 mg capsule,extended release 24hr 150 mg PO DAILY@08 Qty: 60 5RF quetiapine 200 mg tablet See Rx Instructions .ROUTE .COMPLEX Qty: 60 3RF Dose Instruction: TAKE ONE TABLET BY MOUTH TWICE DAILY Rx Instructions: TAKE ONE TABLET BY MOUTH TWICE DAILY polyethylene glycol 3350 [Miralax] 17 gram Powder In Packet 17 g PO DAILY@20 dextromethorphan-guaifenesin 10-100 mg/5 mL Syrup 10 ml PO Q4H PRN (Reason: Cough) hydrocortisone [Proctocort] 1 % Cream 1 applic [place] QID PRN (Reason: Hemorrhoids) alum-mag hydroxide-simeth 200-200-20 mg/5 mL Suspension 30 ml PO Q4H PRN (Reason: upset stomach) trazodone 150 mg tablet 150 mg PO BEDTIME@20 omeprazole 20 mg capsule,delayed release(DR/EC) 20 mg PO DAILY@07 oxcarbazepine 600 mg tablet 600 mg PO BID@07,20 fluticasone propionate 50 mcg/actuation spray,suspension 2 spray INTRANASAL DAILY@08 Rx Instructions: administer into each nostril loratadine [Claritin] 10 mg tablet 10 mg PO DAILY@07 ferrous gluconate 324 mg (38 mg iron) tablet 324 mg PO DAILY@08 simethicone 80 mg tablet,chewable 80 mg PO QID Rx Instructions: @07:00,12:00,16:00,20:00 albuterol sulfate 2.5 mg /3 mL (0.083 %) Solution For Nebulization 2.5 mg INHALATION Q6H PRN (Reason: Shortness Of Breath) Qty: 90 0RF Advair Diskus 100-50 mcg/dose blister with device 1 inh inhalation BID Qty: 60 0RF Discharge Orders: Discharge ED (Routine); Ordered 02/07/24 Ordered By: Adele Andujar Referrals: Dandre Oakes MD [Primary Care Provider] - Discharge Diet: Advance as tolerated Discharge Activity: Resume usual activity Patient Instructions: Constipation (ED) Activity Restrictions/Additional Instructions: Take 1 cup / 500 mL of the GoLytely every 3-4 hours while awake until it is finished or until bowel movements are clear. Thank you for choosing [facility] for your healthcare needs today. Please realize this is an emergency room and that we are providing you with a medical screening exam and this may not be complete and all inclusive of all the testing and or work up that you may need to determine your ailment or severity of your illness. You have been screened and evaluated and felt safe for discharge. Health conditions do change or evolve sometimes and as such it is important that you follow up with your Primary Doctor to be re checked, 3-5 days is a general good time frame for follow up. You are always welcome to return to the ED for re assessment if your symptoms are worsening or you have new concerns Coding Level of Care Code ED Move Coordinator for Sal Cornell
[2024-02-07 21:24] LABS: Alanine Aminotransferase 19 U/L (0-41); Albumin Level 3.8 g/dL (3.5-5.2); Alkaline Phosphatase 83 U/L (40-130); Aspartate Amino Transferase 17 U/L (0-40); Blood Urea Nitrogen 15 mg/dL (8-23); Calcium 8.6 mg/dL (8.5-10.5); Carbon Dioxide 23 mmol/L (22-29); Chloride 96 mmol/L (98-107); Globulin 3.2 g/dL (1.3-4.6); Glomerular Filtration Rate 135.2 mL/min (90-130); Glucose 134 mg/dL (65-115); Osmolality Calculated 275 mOsm/kg (285-295); Sodium 131 mmol/L (136-145); Total Bilirubin 0.2 mg/dL (0.15-1.2)
[2024-02-07 21:31] LABS: Anion Gap 16.4 (5-19); Potassium 4.4 mmol/L (3.5-5.1)
[2024-02-07 21:40] VITALS: BP 154/81; PULSE 68; RESP 16; O2SAT 95
[2024-02-07] MEDS: peg /e-lyte soln 4,000 mL Btl 4000 ML PO (22:09)
[2024-02-07 22:10] VITALS: BP 158/98; PULSE 60; RESP 16; O2SAT 97
[2024-02-07 22:34] VITALS: BP 119/78; PULSE 70; RESP 16; O2SAT 98
== END 2024-02-07 22:35 | disposition home or self-care (01) ==
PROVIDERS: Emergency Provider Emergency Medicine; PCP Internal Medicine
DX: K59.00 Constipation, unspecified (principal)
CPT/HCPCS: 74022; 80053; 85025; 99284

== ENCOUNTER → 2024-03-06 10:14 | Outpatient (BNVA) | payer MEDICARE, MEDICAID, SELFPAY | PROVIDERS: PCP Internal Medicine; Visit Provider Specialist | DX: F31.12 Bipolar disorder, current episode manic without psychotic features, moderate (principal) | CPT/HCPCS: 99214 ==

== ENCOUNTER → 2024-04-24 10:00 | Outpatient (BNVA) | payer MEDICARE, MEDICAID, SELFPAY | PROVIDERS: PCP Internal Medicine; Visit Provider Nurse Practitioner Family | DX: L30.0 Nummular dermatitis (principal); D22.62 Melanocytic nevi of left upper limb, including shoulder; L81.4 Other melanin hyperpigmentation; L57.0 Actinic keratosis | CPT/HCPCS: 99214 ==

== ENCOUNTER → 2024-05-25 11:29 | Outpatient (BNVA) | payer MEDICARE, MEDICAID, SELFPAY | PROVIDERS: PCP Internal Medicine; Visit Provider Specialist | DX: F79 Unspecified intellectual disabilities (principal); G31.83 Neurocognitive disorder with Lewy bodies; F02.80 Dementia in other diseases classified elsewhere, unspecified severity, without behavioral disturbance, psychotic disturbance, mood disturbance, and anxiety; F31.12 Bipolar disorder, current episode manic without psychotic features, moderate; R26.9 Unspecified abnormalities of gait and mobility | CPT/HCPCS: 36415; 80183; 82607; 99214 ==

== ENCOUNTER → 2024-06-25 09:22 | Outpatient (BNVA) | payer MEDICARE, MEDICAID, SELFPAY | PROVIDERS: PCP Internal Medicine; Visit Provider Nurse Practitioner Family | DX: L30.0 Nummular dermatitis (principal); D22.62 Melanocytic nevi of left upper limb, including shoulder; L25.9 Unspecified contact dermatitis, unspecified cause; L81.4 Other melanin hyperpigmentation; L21.8 Other seborrheic dermatitis | CPT/HCPCS: 99214 ==

== ENCOUNTER 2024-07-21 04:10 | Inpatient (IN) | payer MEDICARE, MEDICAID, SELFPAY ==
[2024-07-21] VITALS (123 sets, daily range): BP systolic 71–176; BP diastolic 38–140; PULSE 39–147; RESP 13–66; TEMP 36.3–36.9; O2SAT 83–99; BMI 33.4; BMI 34.2
--- NOTE | 2024-07-21 04:14 | XRR_ITS ---
PROCEDURE INFORMATION: Exam: XR Chest Exam date and time: 07/21/2024 4:24 AM Age: 64 years old Clinical indication: Shortness of breath; Additional info: Shortness of breath dyspnea TECHNIQUE: Imaging protocol: Radiologic exam of the chest. Views: 1 view. COMPARISON: CR (CHEST, ) 01/31/2024 6:40 PM FINDINGS: Lungs: There are bilateral airspace infiltrates. Given asymmetry, findings would have to be suspicious for pneumonia. A very asymmetric pulmonary edema pattern is possible but would be atypical. Pleural spaces: Unremarkable. No pleural effusion. No pneumothorax. Heart/Mediastinum: The heart is borderline enlarged. There is calcified plaque involving the aorta. Bones/joints: Unremarkable. XR/XR chest 1V portable [id number] IMPRESSION: 1. Borderline cardiomegaly. 2. Bilateral infiltrates worse on the right.
--- NOTE | 2024-07-21 04:17 | ECG_ITS ---
[employer] Test Date: 2024-07-21 Pat Name: Dalton Olivas Department: Room: Gender: Male Weighbridge Operator: : 1960 Requested By: Corby Muñoz Order Number: [id number] Germaine MD: Checo Hernandez M.D. Measurements Intervals [place] Rate: 145 P: 45 MN: 158 QRS: 75 QRSD: 88 T: 62 QT: 336 QTc: 522 Interpretive Statements SINUS TACHYCARDIA, POSSIBLE ATRIAL FLUTTER NONSPECIFIC ST & T-WAVE ABNORMALITY Compared to ECG 09/01/2022 03:20:22 T-wave abnormality now present Sinus rhythm no longer present Electronically Signed On 07-23-2024 17:55:51 INTENSIVE CARE SPECIALIST by Checo Hernandez M.D. [email or web address]
--- NOTE | 2024-07-21 04:21 | W.ED.SOB ---
Documented by User: Corby Muñoz DO 07/21/24 05:16 HPI - SOB/Dyspnea General: Chief Complaint: Shortness of Breath/Dyspnea Stated Complaint: SOB Time Seen by Provider: 07/21/24 04:11 History of Present Illness: HPI Narrative: Patient presents by EMS with complaints of shortness of breath that began tonight. EMS said that they saw the patient's O2 sat in the 70s on room air. They did a DuoNeb and albuterol treatment en route. Patient does have albuterol treatments at home. Patient denied any fever or chills. Upon arrival patient's heart rate was 147 bpm, with respirations of 22, patient does have some intellectual disability, family and Versed patient just finished a azithromycin for recent bronchitis. He also said patient has to have pur?ed diet and honey thick liquids because he is a high risk for aspiration and subsequent aspiration pneumonia Related Data Home Medications ?Medication ?Instructions ?Recorded ?Confirmed ibuprofen 800 mg tablet 800 mg PO Q6H PRN pain/fever 07/30/19 07/21/24 dextromethorphan-guaifenesin 10 10 ml PO Q4H PRN Cough 07/12/22 07/21/24 mg-100 mg/5 mL oral syrup fluticasone propionate 50 2 spray intranasal DAILY@08 07/12/22 07/21/24 mcg/actuation nasal spray,suspension hydrocortisone 1 % topical cream 1 applic TN QID PRN Hemorrhoids 07/12/22 07/21/24 (Proctocort) loratadine 10 mg tablet (Claritin) 10 mg PO DAILY@07 07/12/22 07/21/24 omeprazole 20 mg capsule,delayed 20 mg PO BID 07/12/22 07/21/24 release trazodone 150 mg tablet 150 mg PO BEDTIME@20 07/12/22 07/21/24 simethicone 80 mg chewable tablet 80 mg PO QID 08/13/22 07/21/24 aluminum-mag hydroxide-simethicone 30 ml PO QID PRN upset stomach 07/21/24 07/21/24 200 mg-200 mg-20 mg/5 mL oral susp azithromycin 250 mg tablet 250 mg PO DAILY 07/21/24 07/21/24 docusate sodium 100 mg capsule 100 mg PO DAILY PRN Constipation 07/21/24 07/21/24 ferrous gluconate 324 mg (37.5 mg 324 mg PO DAILY 07/21/24 07/21/24 iron) tablet hydrocortisone 2.5 % topical cream 1 applic topical TID PRN 07/21/24 07/21/24 irritation on buttocks and groin ketoconazole 2 % shampoo See Rx Instructions .Route .COMPLEX 07/21/24 07/21/24 magnesium hydroxide 400 mg/5 mL 5 ml PO QID PRN Constipation 07/21/24 07/21/24 oral suspension (Milk of Magnesia) mndauxog-vhxf-nkocy acid 400 1 tab PO DAILY 07/21/24 07/21/24 mcg-lycopene 600 mcg-ginkgo 120 mg tablet oxcarbazepine 300 mg tablet 300 mg PO BID 07/21/24 07/21/24 polyethylene glycol 3350 17 17 g PO DAILY PRN constipation 07/21/24 07/21/24 gram/dose oral powder (Miralax) prednisone 20 mg tablet 20 mg PO DAILY 07/21/24 07/21/24 quetiapine 200 mg tablet 200 mg PO BID 07/21/24 07/21/24 ropinirole 0.5 mg tablet 0.5 mg PO BEDTIME 07/21/24 07/21/24 sucralfate 1 gram tablet 1 g PO TID 07/21/24 07/21/24 triamcinolone acetonide 0.1 % 1 applic topical PRN PRN scaled 07/21/24 07/21/24 topical ointment patches Previous Rx's ?Medication ?Instructions ?Recorded ceramides 1,3,6-II (CeraVe topical See Rx Instructions .Route 11/20/21 cream) .COMPLEX #453 grams carbamide peroxide 6.5 % ear drops See Rx Instructions .Route 12/19/21 (Ear Wax Removal Drops) .COMPLEX #15 mL fluticasone 100 mcg-salmeterol 50 1 inh inhalation BID #60 ea 09/03/22 mcg/dose blistr powdr for inhalation (Advair Diskus) venlafaxine 75 mg capsule,extended See Rx Instructions .Route 11/09/22 release 24 hr .COMPLEX #30 caps albuterol sulfate 90 mcg/actuation 1 inh inhalation Q6H PRN shortness 03/18/23 aerosol inhaler of breath or wheezing #8.5 grams albuterol sulfate 2.5 mg/3 mL 2.5 mg (3 mL) inhalation Q6H PRN 01/31/24 (0.083 %) solution for nebulization Shortness Of Breath #90 mL venlafaxine 150 mg See Rx Instructions .Route 02/25/24 capsule,extended release 24 hr .COMPLEX #30 caps galantamine 4 mg tablet 4 mg PO BID #60 tabs 05/25/24 Allergies Allergy/AdvReac Type Severity Reaction Status Date / Time No Known Allergies Allergy Verified 07/21/24 04:21 Review of Systems General: Reports: 10 or more systems reviewed and unremarkable except in HPI and below PFSH ED PFSH: Medical History Intellectual disability Lymphadenopathy, hilar Hiatal hernia At risk for aspiration Aspiration pneumonia Bipolar disease, manic Negative colon, negative guaics. Tardive dyskinesia Dupuytren's contracture of left hand Iron deficiency anemia Surgical History History of carpal tunnel release History of cataract extraction History of colonoscopy Social History Smoking and tobacco/nicotine status: never used tobacco/nicotine Alcohol intake: never Substance/Drug Use: never Physical Exam Const: COMMON NORMALS: no acute distress, average body habitus, no limitations, healthy appearing, alert and well nourished HENMT: COMMON NORMALS: normocephalic, atraumatic, hearing grossly normal bilaterally, external ears normal, Normal external nose present, moist oral mucous membranes and oropharynx normal HEAD & SCALP: normocephalic and atraumatic NOSE: Normal external nose present EXTERNAL EAR: Yes external ears normal Eye: COMMON NORMALS: Equal, round and reactive pupils present, EOMs intact bilaterally, conjunctivae normal and no scleral icterus CONJUNCTIVA: Yes conjunctivae normal PUPIL: Yes Equal, round and reactive pupils present Neck/C-Spine: COMMON NORMALS: full ROM, no lymphadenopathy, supple, no meningeal signs, no JVD and Thyroid normal THYROID: Thyroid normal Chest: COMMONS NORMALS: normal inspection of the chest and normal palpation of entire chest wall Resp: COMMON NORMALS: normal respiratory effort, No retractions and No use of accessory muscles; negative for clear to auscultation bilaterally (Diffuse wheezing) AUSCULTATION: not clear to auscultation bilaterally (Diffuse wheezing) Cardio: COMMON NORMALS: no JVD, S1 normal heart sound present, S2 normal heart sound present, No gallops present (Cardio), No murmurs present (Cardio) and No rub (Cardio); negative for regular rate (Mildly tachycardic) RATE: abnormal rate (Mildly tachycardic) HEART SOUNDS: S1 normal heart sound present and S2 normal heart sound present GI: COMMON NORMALS: Normal to inspection, nondistended, normoactive bowel sounds present, Soft to palpation, non-tender, No hepatosplenomegaly present and no masses PALPATION: Yes Soft to palpation and Yes No hepatosplenomegaly present Neuro: SENSORIUM/ORIENTATION: Yes alert MENINGEAL SIGNS: Yes no meningeal signs Course Vital Signs: Vital signs: Vital Signs Temperature 98.4 F 07/21/24 10:30 Pulse Rate 88 07/21/24 17:36 Respiratory Rate 20 H 07/21/24 17:36 Blood Pressure 95/38 07/21/24 16:00 Pulse Oximetry 97 07/21/24 17:36 Oxygen Delivery Me thod Heated High Flow 07/21/24 15:31 Oxygen Flow Rate 40 07/21/24 17:36 Fraction of Inspir ed Oxygen 70 07/21/24 17:36 MDM - SOB/Dyspnea Medical Records I reviewed the patient's medical records. Lab Data I reviewed the patient's lab results. 07/21/24 04:29 07/21/24 04:29 Labs/Radiology: Radiology Impressions Chest X-Ray 07/21/24 04:14 IMPRESSION: 1. Borderline cardiomegaly. 2. Bilateral infiltrates worse on the right. Chest CTA 07/21/24 05:10 IMPRESSION: 1. Bilateral airspace disease worse on the right. Findings most compatible with pneumonia. 2. Large paraesophageal/hiatal hernia. 3. Air-fluid level within mildly distended esophagus suggesting poor peristalsis or reflux. 4. Multiple small as well as slightly enlarged mediastinal and hilar lymph nodes likely reactive. Laboratory Results WBC 2.77 10^3/uL (3.29-11.43) L 07/21/24 04:29 RBC 4.96 10^6/uL (3.85-5.65) 07/21/24 04:29 Hgb 14.90 g/dL (11.27-16.99) 07/21/24 04:29 Hct 44.7 % (37-53) 07/21/24 04:29 MCV 90.1 fl (82-101) 07/21/24 04:29 MCH 30.0 pg (27-33) 07/21/24 04: MCHC 33.3 g/dL (30-55) 07/21/24 04:29 RDW 12.3 % (12.1-15.1) 07/21/24 04:29 Plt Count 169 10^3/cmm (157-399) 07/21/24 04: MPV 10.1 fL (7.4-10.4) 07/21/24 04:29 Neut % (Auto) 65.6 % 07/21/24 04:29 Lymph % (Auto) 31.8 % 07/21/24 04:29 [place] % (Auto) 1.8 % 07/21/24 04:29 Eos % (Auto) 0.4 % 07/21/24 04:29 Baso % (Auto) 0.4 % 07/21/24 04:29 Neut # (Auto) 1.82 10^3/uL (1.8-7.7) 07/21/24 04: Lymph # (Auto) 0.9 10^3/uL (0.8-4.8) 07/21/24 04:29 [place] # (Auto) 0.1 10^3/uL (0.2-0.9) L 07/21/24 04:29 Eos # (Auto) 0.0 10^3/uL (0.0-0.8) 07/21/24 04:29 Baso # (Auto) 0.0 10^3/uL (0.0-0.1) 07/21/24 04: Nucleated RBC % (auto) 0 % 07/21/24 04: Nucleated RBCs # 0.0 /100WBC 07/21/24 04:29 D-Dimer 1.04 ug/mLFEU (0-0.59) H 07/21/24 04:29 Specimen Type Arterial 07/21/24 04:43 Sample Site Brachial, right 07/21/24 04:43 ABG pH 7.49 (7.35-7.45) H 07/21/24 04:43 ABG pCO2 29.6 mmHg (35-45) L 07/21/24 04:43 ABG pO2 43.9 mmHg (80.0-100.0) L 07/21/24 04:43 ABG HCO3 22.3 mmol/L (22-26) 07/21/24 04:43 ABG O2 Saturation 84.7 07/21/24 04:43 ABG Base Excess 0.0 mmol/L (-2.0-2.0) 07/21/24 04:43 Alexey Test N/a 07/21/24 04:43 A-a O2 Gradient 9.1 mmHg (5-10) 07/21/24 04:43 Hematocrit 46.7 % (42-52) 07/21/24 04:43 Hgb O2 Saturation 83.1 % (95-100) L 07/21/24 04:43 Carboxyhemoglobin 1.1 %THgb (0.4-20.1) 07/21/24 04:43 Methemoglobin 0.9 % (0.4-1.5) 07/21/24 04:43 Total Hemoglobin 15.2 g/dL (14-18) 07/21/24 04:43 Sodium 142.0 mmol/L (131-143) 07/21/24 04:43 Potassium 3.2 mmol/L (3.5-5.0) L 07/21/24 04:43 Glucose 107.0 mg/dL (70-115) 07/21/24 04:43 Ionized Calcium 1.2 mmol/L (1.1-1.4) 07/21/24 04:43 O2 Delivery Device Nc 07/21/24 04:43 O2 Liters/Min 3.0 % 07/21/24 04:43 Food Aide ID Busja 07/21/24 04:43 Sodium 141 mmol/L (136-145) 07/21/24 04:29 Potassium 3.7 mmol/L (3.5-5.1) 07/21/24 04:29 Chloride 104 mmol/L (98-107) 07/21/24 04:29 Carbon Dioxide 19 mmol/L (22-29) L 07/21/24 04:29 Anion Gap 21.7 (5-19) H 07/21/24 04:29 BUN 24 mg/dL (8-23) H 07/21/24 04:29 Creatinine 1.2 mg/dL (0.7-1.2) 07/21/24 04:29 GFR Calculation 60.6 mL/min (90-130) L 07/21/24 04:29 Glucose 116 mg/dL (65-115) H 07/21/24 04:29 Calculated Osmolality 297 mOsm/kg (285-295) H 07/21/24 04:29 Lactic Acid 4.4 mmol/L (0.5-2.2) H* 07/21/24 04:29 Lactic Acid (Sepsis) 3.3 mmol/L (0.5-2.2) H 07/21/24 07:03 Calcium 8.8 mg/dL (8.5-10.5) 07/21/24 04:29 Magnesium 1.5 mg/dL (1.7-2.3) L 07/21/24 04:29 Total Bilirubin 0.4 mg/dL (0.15-1.2) 07/21/24 04:29 AST 15 U/L (0-40) 07/21/24 04:29 ALT 16 U/L (0-41) 07/21/24 04:29 Alkaline Phosphatase 86 U/L (40-130) 07/21/24 04:29 Troponin T Baseline < 6 ng/L (0-15) 07/21/24 04:29 Troponin T 120 Minute 12.25 ng/L (0-15) 07/21/24 07:03 Delta Troponin T 6.28899 ABS# (0-10) 07/21/24 07:03 NT-Pro-B Natriuret Pep 67 pg/mL (0-125) 07/21/24 04:29 Total Protein 6.5 g/dL (6.6-8.7) L 07/21/24 04:29 Albumin 3.8 g/dL (3.5-5.2) 07/21/24 04:29 Globulin 2.7 g/dL (1.3-4.6) 07/21/24 04:29 Procalcitonin 0.21 ng/mL (0-0.5) 07/21/24 04:29 Influenza A (PCR) Negative (Negative) 07/21/24 04:29 Influenza Type B (PCR) Negative (Negative) 07/21/24 04:29 RSV (PCR) Negative (Negative) 07/21/24 04:29 SARS-CoV-2 (PCR) Negative (Negative) 07/21/24 04:29 All radiology interpretation(s) finalized by discharge Discharge Plan Discharge Patient Disposition: Admitted As Inpatient Admit Provider: Abran Luciano Clinical Impression: Aspiration pneumonia, Elevated d-dimer, Sepsis, Lewy body dementia Condition: Stable Coding Level of Care Code ED Forensic Structural Engineer for Chg Fwd Documented by User: Go Melara DO 07/21/24 17:48 HPI - SOB/Dyspnea General: Chief Complaint: Shortness of Breath/Dyspnea Stated Complaint: SOB Time Seen by Provider: 07/21/24 04:11 Related Data Home Medications ?Medication ?Instructions ?Recorded ?Confirmed ibuprofen 800 mg tablet 800 mg PO Q6H PRN pain/fever 07/30/19 07/21/24 dextromethorphan-guaifenesin 10 10 ml PO Q4H PRN Cough 07/12/22 07/21/24 mg-100 mg/5 mL oral syrup fluticasone propionate 50 2 spray intranasal DAILY@07/12/22 07/21/24 mcg/actuation nasal spray,suspension hydrocortisone 1 % topical cream 1 applic TN QID PRN Hemorrhoids 07/12/22 07/21/24 (Proctocort) loratadine 10 mg tablet (Claritin) 10 mg PO DAILY@07/12/22 07/21/24 omeprazole 20 mg capsule,delayed 20 mg PO BID 07/12/22 07/21/24 release trazodone 150 mg tablet 150 mg PO BEDTIME@07/12/22 07/21/24 simethicone 80 mg chewable tablet 80 mg PO QID 08/13/22 07/21/24 aluminum-mag hydroxide-simethicone 30 ml PO QID PRN upset stomach 07/21/24 07/21/24 200 mg-200 mg-20 mg/5 mL oral susp azithromycin 250 mg tablet 250 mg PO DAILY 07/21/24 07/21/24 docusate sodium 100 mg capsule 100 mg PO DAILY PRN Constipation 07/21/24 07/21/24 ferrous gluconate 324 mg (37.5 mg 324 mg PO DAILY 07/21/24 07/21/24 iron) tablet hydrocortisone 2.5 % topical cream 1 applic topical TID PRN 07/21/24 07/21/24 irritation on buttocks and groin ketoconazole 2 % shampoo See Rx Instructions .Route .COMPLEX 07/21/24 07/21/24 magnesium hydroxide 400 mg/5 mL 5 ml PO QID PRN Constipation 07/21/24 07/21/24 oral suspension (Milk of Magnesia) yplskpxh-cbpf-zcrea acid 400 1 tab PO DAILY 07/21/24 07/21/24 mcg-lycopene 600 mcg-ginkgo 120 mg tablet oxcarbazepine 300 mg tablet 300 mg PO BID 07/21/24 07/21/24 polyethylene glycol 3350 17 17 g PO DAILY PRN constipation 07/21/24 07/21/24 gram/dose oral powder (Miralax) prednisone 20 mg tablet 20 mg PO DAILY 07/21/24 07/21/24 quetiapine 200 mg tablet 200 mg PO BID 07/21/24 07/21/24 ropinirole 0.5 mg tablet 0.5 mg PO BEDTIME 07/21/24 07/21/24 sucralfate 1 gram tablet 1 g PO TID 07/21/24 07/21/24 triamcinolone acetonide 0.1 % 1 applic topical PRN PRN scaled 07/21/24 07/21/24 topical ointment patches Previous Rx's ?Medication ?Instructions ?Recorded ceramides 1,3,6-II (CeraVe topical See Rx Instructions .Route 11/20/21 cream) .COMPLEX #453 grams carbamide peroxide 6.5 % ear drops See Rx Instructions .Route 12/19/21 (Ear Wax Removal Drops) .COMPLEX #15 mL fluticasone 100 mcg-salmeterol 50 1 inh inhalation BID #60 ea 09/03/22 mcg/dose blistr powdr for inhalation (Advair Diskus) venlafaxine 75 mg capsule,extended See Rx Instructions .Route 11/09/22 release 24 hr .COMPLEX #30 caps albuterol sulfate 90 mcg/actuation 1 inh inhalation Q6H PRN shortness 03/18/23 aerosol inhaler of breath or wheezing #8.5 grams albuterol sulfate 2.5 mg/3 mL 2.5 mg (3 mL) inhalation Q6H PRN 01/31/24 (0.083 %) solution for nebulization Shortness Of Breath #90 mL venlafaxine 150 mg See Rx Instructions .Route 02/25/24 capsule,extended release 24 hr .COMPLEX #30 caps galantamine 4 mg tablet 4 mg PO BID #60 tabs 05/25/24 Allergies Allergy/AdvReac Type Severity Reaction Status Date / Time No Known Allergies Allergy Verified 07/21/24 04:21 [facility] ED PFSH: Medical History Intellectual disability Lymphadenopathy, hilar Hiatal hernia At risk for aspiration Aspiration pneumonia Bipolar disease, manic Negative colon, negative guaics. Tardive dyskinesia Dupuytren's contracture of left hand Iron deficiency anemia Surgical History History of carpal tunnel release History of cataract extraction History of colonoscopy Social History Smoking and tobacco/nicotine status: never used tobacco/nicotine Alcohol intake: never Substance/Drug Use: never Course Vital Signs: Vital signs: Vital Signs Temperature 98.4 F 07/21/24 10:30 Pulse Rate 88 07/21/24 17:36 Respiratory Rate 20 H 07/21/24 17:36 Blood Pressure 95/38 07/21/24 16:00 Pulse Oximetry 97 07/21/24 17:36 Oxygen Delivery Me thod Heated High Flow 07/21/24 15:31 Oxygen Flow Rate 40 07/21/24 17:36 Fraction of Inspir ed Oxygen 70 07/21/24 17:36 MDM - SOB/Dyspnea Medical Decision Making Care assumed at change of shift from Dr. Muñoz. Sepsis secondary to pneumonia antibiotics initiated discussed with hospitalist orders written labs and imaging reviewed as found in the chart Lab Data 07/21/24 04:29 07/21/24 04:29 Labs/Radiology: Radiology Impressions Chest X-Ray 07/21/24 04:14 IMPRESSION: 1. Borderline cardiomegaly. 2. Bilateral infiltrates worse on the right. Chest CTA 07/21/24 05:10 IMPRESSION: 1. Bilateral airspace disease worse on the right. Findings most compatible with pneumonia. 2. Large paraesophageal/hiatal hernia. 3. Air-fluid level within mildly distended esophagus suggesting poor peristalsis or reflux. 4. Multiple small as well as slightly enlarged mediastinal and hilar lymph nodes likely reactive. Laboratory Results WBC 2.77 10^3/uL (3.29-11.43) L 07/21/24 04:29 RBC 4.96 10^6/uL (3.85-5.65) 07/21/24 04:29 Hgb 14.90 g/dL (11.27-16.99) 07/21/24 04:29 Hct 44.7 % (37-53) 07/21/24 04:29 MCV 90.1 fl (82-101) 07/21/24 04:29 MCH 30.0 pg (27-33) 07/21/24 04:29 MCHC 33.3 g/dL (30-55) 07/21/24 04:29 RDW 12.3 % (12.1-15.1) 07/21/24 04:29 Plt Count 169 10^3/cmm (157-399) 07/21/24 04:29 MPV 10.1 fL (7.4-10.4) 07/21/24 04:29 Neut % (Auto) 65.6 % 07/21/24 04:29 Lymph % (Auto) 31.8 % 07/21/24 04:29 [place] % (Auto) 1.8 % 07/21/24 04:29 Eos % (Auto) 0.4 % 07/21/24 04:29 Baso % (Auto) 0.4 % 07/21/24 04:29 Neut # (Auto) 1.82 10^3/uL (1.8-7.7) 07/21/24 04:29 Lymph # (Auto) 0.9 10^3/uL (0.8-4.8) 07/21/24 04:29 [place] # (Auto) 0.1 10^3/uL (0.2-0.9) L 07/21/24 04:29 Eos # (Auto) 0.0 10^3/uL (0.0-0.8) 07/21/24 04:29 Baso # (Auto) 0.0 10^3/uL (0.0-0.1) 07/21/24 04: Nucleated RBC % (auto) 0 % 07/21/24 04: Nucleated RBCs # 0.0 /100WBC 07/21/24 04:29 D-Dimer 1.04 ug/mLFEU (0-0.59) H 07/21/24 04:29 Specimen Type Arterial 07/21/24 04:43 Sample Site Brachial, right 07/21/24 04:43 ABG pH 7.49 (7.35-7.45) H 07/21/24 04:43 ABG pCO2 29.6 mmHg (35-45) L 07/21/24 04:43 ABG pO2 43.9 mmHg (80.0-100.0) L 07/21/24 04:43 ABG HCO3 22.3 mmol/L (22-26) 07/21/24 04:43 ABG O2 Saturation 84.7 07/21/24 04:43 ABG Base Excess 0.0 mmol/L (-2.0-2.0) 07/21/24 04:43 Alexey Test N/a 07/21/24 04:43 A-a O2 Gradient 9.1 mmHg (5-10) 07/21/24 04:43 Hematocrit 46.7 % (42-52) 07/21/24 04:43 Hgb O2 Saturation 83.1 % (95-100) L 07/21/24 04:43 Carboxyhemoglobin 1.1 %THgb (0.4-20.1) 07/21/24 04:43 Methemoglobin 0.9 % (0.4-1.5) 07/21/24 04:43 Total Hemoglobin 15.2 g/dL (14-18) 07/21/24 04:43 Sodium 142.0 mmol/L (131-143) 07/21/24 04:43 Potassium 3.2 mmol/L (3.5-5.0) L 07/21/24 04:43 Glucose 107.0 mg/dL (70-115) 07/21/24 04:43 Ionized Calcium 1.2 mmol/L (1.1-1.4) 07/21/24 04:43 O2 Delivery Device Nc 07/21/24 04:43 O2 Liters/Min 3.0 % 07/21/24 04:43 Food Aide ID Floryja 07/21/24 04:43 Sodium 141 mmol/L (136-145) 07/21/24 04:29 Potassium 3.7 mmol/L (3.5-5.1) 07/21/24 04:29 Chloride 104 mmol/L (98-107) 07/21/24 04:29 Carbon Dioxide 19 mmol/L (22-29) L 07/21/24 04:29 Anion Gap 21.7 (5-19) H 07/21/24 04:29 BUN 24 mg/dL (8-23) H 07/21/24 04:29 Creatinine 1.2 mg/dL (0.7-1.2) 07/21/24 04:29 GFR Calculation 60.6 mL/min (90-130) L 07/21/24 04:29 Glucose 116 mg/dL (65-115) H 07/21/24 04:29 Calculated Osmolality 297 mOsm/kg (285-295) H 07/21/24 04:29 Lactic Acid 4.4 mmol/L (0.5-2.2) H* 07/21/24 04:29 Lactic Acid (Sepsis) 3.3 mmol/L (0.5-2.2) H 07/21/24 07:03 Calcium 8.8 mg/dL (8.5-10.5) 07/21/24 04:29 Magnesium 1.5 mg/dL (1.7-2.3) L 07/21/24 04:29 Total Bilirubin 0.4 mg/dL (0.15-1.2) 07/21/24 04:29 AST 15 U/L (0-40) 07/21/24 04:29 ALT 16 U/L (0-41) 07/21/24 04:29 Alkaline Phosphatase 86 U/L (40-130) 07/21/24 04:29 Troponin T Baseline < 6 ng/L (0-15) 07/21/24 04:29 Troponin T 120 Minute 12.25 ng/L (0-15) 07/21/24 07:03 Delta Troponin T 6.57049 ABS# (0-10) 07/21/24 07:03 NT-Pro-B Natriuret Pep 67 pg/mL (0-125) 07/21/24 04:29 Total Protein 6.5 g/dL (6.6-8.7) L 07/21/24 04:29 Albumin 3.8 g/dL (3.5-5.2) 07/21/24 04:29 Globulin 2.7 g/dL (1.3-4.6) 07/21/24 04:29 Procalcitonin 0.21 ng/mL (0-0.5) 07/21/24 04:29 Influenza A (PCR) Negative (Negative) 07/21/24 04:29 Influenza Type B (PCR) Negative (Negative) 07/21/24 04:29 RSV (PCR) Negative (Negative) 07/21/24 04:29 SARS-CoV-2 (PCR) Negative (Negative) 07/21/24 04:29 Discharge Plan Discharge Patient Disposition: Admitted As Inpatient Admit Provider: Abran Luciano Clinical Impression: Aspiration pneumonia, Elevated d-dimer, Sepsis, Lewy body dementia Condition: Stable Coding Level of Care Code ED Forensic Structural Engineer for Sal [place]
[2024-07-21] MEDS: albuterol 2.5 mg/3 mL Neb INHALATION (04:33)
[2024-07-21 04:37] LABS: Basophils % 0.4 %; Eosinophils % 0.4 %; Hematocrit 44.7 % (37-53); Lymphocytes # 0.9 10^3/uL (0.8-4.8); Lymphocytes % 31.8 %; Mean Corpuscular HGB Conc 33.3 g/dL (30-55); Mean Corpuscular Volume 90.1 fl (82-101); Mean Platelet Volume 10.1 fL (7.4-10.4); Monocytes # 0.1 10^3/uL (0.2-0.9); Monocytes % 1.8 %; Neutrophils # 1.82 10^3/uL (1.8-7.7); Neutrophils % 65.6 %; Nucleated Red Blood Cells % 0 %; Platelet Count 169 10^3/cmm (157-399); Red Blood Count 4.96 10^6/uL (3.85-5.65); Red Cell Distribution Width 12.3 % (12.1-15.1); White Blood Count 2.77 10^3/uL (3.29-11.43)
[2024-07-21] MEDS: LORazepam 2 mg/mL INJ 1 mL 0.5 MG IVP (04:40)
[2024-07-21] MEDS: methylPREDNISolone sod succ 125 mg/2 mL INJ IVP (04:41)
[2024-07-21] MEDS: dilTIAZem 5 mg/mL SDV 5 mL 20 MG IVP (04:50)
[2024-07-21 04:55] LABS: ABG PCO2 29.6 mmHg (35-45); ABG PH Result 7.49 (7.35-7.45); Alveolar-Arterial Oxygen Gradi 9.1 mmHg (5-10); Arterial Blood Gas Hematocrit 46.7 % (42-52); Blood Gas Operator Identificat BUSJA; Blood Gas Sample Site Brachial, right; Blood Gas Sample Type Arterial; Carboxyhemoglobin 1.1 %THgb (0.4-20.1); HCO3 ABG 22.3 mmol/L (22-26); HGB O2 Sat 83.1 % (95-100); Ionized Calcium Level - ABG 1.2 mmol/L (1.1-1.4); Methemoglobin 0.9 % (0.4-1.5); Oxygen Device NC; Oxygen Saturation ABG 84.7; PO2 ABG 43.9 mmHg (80.0-100.0); Potassium Level - ABG 3.2 mmol/L (3.5-5.0); Total Hemoglobin 15.2 g/dL (14-18)
[2024-07-21 04:56] LABS: Troponin(5th) Baseline < 6 ng/L (0-15)
[2024-07-21 04:58] LABS: Alanine Aminotransferase 16 U/L (0-41); Albumin Level 3.8 g/dL (3.5-5.2); Alkaline Phosphatase 86 U/L (40-130); Anion Gap 21.7 (5-19); Aspartate Amino Transferase 15 U/L (0-40); Blood Urea Nitrogen 24 mg/dL (8-23); Calcium 8.8 mg/dL (8.5-10.5); Carbon Dioxide 19 mmol/L (22-29); Chloride 104 mmol/L (98-107); Creatinine Clr Calc Pharmacy 69.3373; Globulin 2.7 g/dL (1.3-4.6); Glomerular Filtration Rate 60.6 mL/min (90-130); Glucose 116 mg/dL (65-115); Magnesium 1.5 mg/dL (1.7-2.3); Osmolality Calculated 297 mOsm/kg (285-295); Potassium 3.7 mmol/L (3.5-5.1); Sodium 141 mmol/L (136-145); Total Bilirubin 0.4 mg/dL (0.15-1.2); Total Protein 6.5 g/dL (6.6-8.7)
[2024-07-21 05:05] LABS: Procalcitonin 0.21 ng/mL (0-0.5)
[2024-07-21 05:09] LABS: D Dimer 1.04 ug/mLFEU (0-0.59)
--- NOTE | 2024-07-21 05:10 | CTR_ITS ---
PROCEDURE INFORMATION: Exam: CTA Chest With Contrast Exam date and time: 07/21/2024 6:13 AM Age: 64 years old Clinical indication: Abnormal findings; Abnormal diagnostic tests; Elevated d-dimer; Shortness of breath and tachypnea; Additional info: Tachycardia, tachypnea, elevated d-dimer respiratory failure TECHNIQUE: Imaging protocol: Computed tomographic angiography of the chest with contrast. Exam focused on the arteries. 3D rendering (Not supervised by radiologist): MIP and/or 3D reconstructed images were created by the technologist. Radiation optimization: All CT scans at this facility use at least one of these dose optimization techniques: automated exposure control; mA and/or kV adjustment per patient size (includes targeted exams where dose is matched to clinical indication); or iterative reconstruction. Contrast material: OMNI 350; Contrast volume: 100 ml; Contrast route: INTRAVENOUS (IV); COMPARISON: CT angio chest PE protcl [id number] 08/31/2022 10:59 PM RADIATION DOSE METRICS: Total DLP (mGy-cm): 471.49 FINDINGS: Pulmonary arteries: Normal. No pulmonary emboli. Aorta: The thoracic aorta is normal in caliber without aneurysm or dissection. No calcified plaque is noted involving the coronary vessels. Lungs: There is airspace disease involving the right upper, right lower and to a lesser degree the left lower lobes most compatible with pneumonia. There is bronchial wall thickening involving bronchi bilaterally. No discrete lung nodules or masses are appreciated. Pleural spaces: Unremarkable. No pneumothorax. No pleural effusion. Heart: The heart is slightly enlarged. There is no evidence of a significant pericardial effusion. Esophagus: There are air-fluid levels involving mildly dilated esophagus suggesting poor peristalsis or reflux. Lymph nodes: There are multiple small and borderline enlarged mediastinal and hilar lymph nodes. Stomach: There is a large hiatal/paraesophageal hernia. Bones/joints: Unremarkable. No acute fracture. Soft tissues: Unremarkable. CT/CT angio chest PE protcl [id number] IMPRESSION: 1. Bilateral airspace disease worse on the right. Findings most compatible with pneumonia. 2. Large paraesophageal/hiatal hernia. 3. Air-fluid level within mildly distended esophagus suggesting poor peristalsis or reflux. 4. Multiple small as well as slightly enlarged mediastinal and hilar lymph nodes likely reactive.
[2024-07-21 05:13] LABS: Influenza A NEGATIVE (Negative); Influenza B NEGATIVE (Negative); Lactic Sepsis W/Reflex 4.4 mmol/L (0.5-2.2); Respiratory Syncytial Virus Ce NEGATIVE (Negative); SARS-CoV-2 PCR NEGATIVE (Negative)
[2024-07-21 05:27] LABS: NT Pro B Type Natriuretic Pept 67 pg/mL (0-125)
[2024-07-21] MEDS: magnesium sulfate premix 1 GM/100 ML PIGGYBACK IV (05:40)
[2024-07-21] MEDS: piperacillin-tazobactam 3.375 GM in sodium chloride 0.9% (plus) 50 ML IV ×3 (05:44→20:53)
--- NOTE | 2024-07-21 06:17 | ECG_ITS ---
[facility] Date: 2024-07-21 Pat Name: Dalton Olivas Department: Room: Gender: Male Router Operator: : [id number] Requested By: Corby Muñoz Order Number: [id number] Reading MD: BIANKA AGUILAR Measurements Intervals [place] Rate: 92 P: 65 MA: 178 QRS: 77 QRSD: 94 T: 39 QT: 326 QTc: 405 Interpretive Statements SINUS RHYTHM NONSPECIFIC T-WAVE ABNORMALITY Compared to ECG 07/21/2024 04:13:55 No significant changes Electronically Signed On 07-28-2024 23:56:58 JAVA PROGRAMMER ANALYST by BIANKA AGUILAR [email or web address]
[2024-07-21 06:21] LABS: Reflex Lactate Order REFLEX LACTIC ORDERD
[2024-07-21] MEDS: iohexol 350 mg/mL 500 mL Btl (per mL) IV (06:24)
[2024-07-21 07:32] LABS: Lactic Acid level (Lactate) 3.3 mmol/L (0.5-2.2)
[2024-07-21 07:34] LABS: Troponin 5 2HR 12.25 ng/L (0-15); Troponin 5 2HR Delta 6.25001 ABS# (0-10)
[2024-07-21] MEDS: VANCOMYCIN ADD-Vantage 1,000 MG in 0.9% NaCl ADD-Vantage 250 ML 250 MG IV (08:17)
--- NOTE | 2024-07-21 08:17 | PC.NURSE ---
GAVE 993 ML OF SEPSIS BOLUS TO EQUAL 2993 ML FROM PRIOR BOLUS GIVEN
--- NOTE | 2024-07-21 10:17 | ECG_ITS ---
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
--- NOTE | 2024-07-21 10:53 | PM.HP ---
Providers/Chief Complaint Admitting Physician: Abran uLciano Primary Care Provider: Dandre Oakes MD Chief Complaint: SOB History of Present Illness Pleasant 64-year-old gentleman with intellectual disability, history of aspiration pneumonia, tardive dyskinesia, AMBROCIO, never smoker, came into the hospital for evaluation after shortness of breath, with oxygen saturation found to be in the 70s on presentation, pO2 with new hypoxemia 43.9 on ABG, not normally on oxygen. Tachycardic on presentation heart rates 140s. With possible atrial flutter on EKG. Received a dose of Cardizem. Tachypneic 22. Recently finished azithromycin for bronchitis. Started on oxygen support in ER. Noted with leukopenia, 2.77, neutrophils within normal range, ANC 1820, chest imaging with bilateral infiltrates worse on the right, D-dimer abnormal 1.04, chest CTA bilateral airspace disease worse on the right, most quite low with pneumonia. Large paraesophageal hiatal hernia. Air-fluid levels within distal esophagus suggestive of poor peristalsis or reflux. Multiple small as well as slightly enlarged mediastinal and hilar lymph nodes, likely reactive. Review of Systems Const: Denies: fever(s), chills, body aches or malaise ENMT: Denies: throat pain Card: Denies: chest pain, edema, pre-syncope or dyspnea on exertion Resp: Reports: dyspnea and productive cough; Denies: hemoptysis GI: Denies: abdominal pain, nausea, vomiting, diarrhea, constipation, hematochezia or melena : Denies: flank pain, difficulty urinating, urinary frequency or hematuria Musc: Denies: back pain, joint swelling or joint redness Skin/Breast: Denies: rash or new lesions Neuro: Denies: headache(s) or dizziness Medications/Allergies Home Medications ?Medication ?Instructions ?Recorded ?Confirmed ?Last Taken ?Type ibuprofen 800 mg tablet 800 mg PO Q6H PRN pain/fever 07/30/19 07/21/24 08/15/22 History ceramides 1,3,6-II (CeraVe topical See Rx Instructions .Route 11/20/21 07/21/24 08/15/22 Rx cream) .COMPLEX #453 grams carbamide peroxide 6.5 % ear drops See Rx Instructions .Route 12/19/21 07/21/24 08/15/22 Rx (Ear Wax Removal Drops) .COMPLEX #15 mL dextromethorphan-guaifenesin 10 10 ml PO Q4H PRN Cough 07/12/22 07/21/24 07/20/24 History mg-100 mg/5 mL oral syrup fluticasone propionate 50 2 spray intranasal DAILY@08 07/12/22 07/21/24 07/20/24 History mcg/actuation nasal spray,suspension hydrocortisone 1 % topical cream [address] QID PRN Hemorrhoids 07/12/22 07/21/24 08/15/22 History (Proctocort) loratadine 10 mg tablet (Claritin) 10 mg PO DAILY@07 07/12/22 07/21/24 07/20/24 History omeprazole 20 mg capsule,delayed 20 mg PO BID 07/12/22 07/21/24 07/20/24 History release trazodone 150 mg tablet 150 mg PO BEDTIME@20 07/12/22 07/21/24 07/20/24 20:00 History simethicone 80 mg chewable tablet 80 mg PO QID 08/13/22 07/21/24 07/20/24 History fluticasone 100 mcg-salmeterol 50 1 inh inhalation BID #60 ea 09/03/22 07/21/24 07/20/24 Rx mcg/dose blistr powdr for inhalation (Advair Diskus) venlafaxine 75 mg capsule,extended See Rx Instructions .Route 11/09/22 07/21/24 07/20/24 Rx release 24 hr .COMPLEX #30 caps albuterol sulfate 90 mcg/actuation 1 inh inhalation Q6H PRN shortness 03/18/23 07/21/24 Unknown Rx aerosol inhaler of breath or wheezing #8.5 grams albuterol sulfate 2.5 mg/3 mL 2.5 mg (3 mL) inhalation Q6H PRN 01/31/24 07/21/24 07/20/24 Rx (0.083 %) solution for nebulization Shortness Of Breath #90 mL venlafaxine 150 mg See Rx Instructions .Route 02/25/24 07/21/24 07/20/24 Rx capsule,extended release 24 hr .COMPLEX #30 caps galantamine 4 mg tablet 4 mg PO BID #60 tabs 05/25/24 07/21/2407/20/25 Rx aluminum-mag hydroxide-simethicone 30 ml PO QID PRN upset stomach 07/21/24 07/21/24 Unknown History 200 mg-200 mg-20 mg/5 mL oral susp azithromycin 250 mg tablet 250 mg PO DAILY 07/21/24 07/21/24 Unknown History docusate sodium 100 mg capsule 100 mg PO DAILY PRN Constipation 07/21/24 07/21/24 07/20/24 History ferrous gluconate 324 mg (37.5 mg 324 mg PO DAILY 07/21/24 07/21/24 Unknown History iron) tablet hydrocortisone 2.5 % topical cream 1 applic topical TID PRN 07/21/24 07/21/24 Unknown History irritation on buttocks and groin ketoconazole 2 % shampoo See Rx Instructions .Route .COMPLEX 07/21/24 07/21/24 Unknown History magnesium hydroxide 400 mg/5 mL 5 ml PO QID PRN Constipation 07/21/24 07/21/24 Unknown History oral suspension (Milk of Magnesia) cvnjjqep-prrr-slqmk acid 400 1 tab PO DAILY 07/21/24 07/21/24 07/20/24 History mcg-lycopene 600 mcg-ginkgo 120 mg tablet oxcarbazepine 300 mg tablet 300 mg PO BID 07/21/24 07/21/24 07/20/24 History polyethylene glycol 3350 17 17 g PO DAILY PRN constipation 07/21/24 07/21/24 Unknown History gram/dose oral powder (Miralax) prednisone 20 mg tablet 20 mg PO DAILY 07/21/24 07/21/24 07/20/24 History quetiapine 200 mg tablet 200 mg PO BID 07/21/24 07/21/24 07/20/24 History ropinirole 0.5 mg tablet 0.5 mg PO BEDTIME 07/21/24 07/21/24 07/20/24 20:00 History sucralfate 1 gram tablet 1 g PO TID 07/21/24 07/21/24 07/20/24 History triamcinolone acetonide 0.1 % 1 applic topical PRN PRN scaled 07/21/24 07/21/24 Unknown History topical ointment patches Allergies Allergy/AdvReac Type Severity Reaction Status Date / Time No Known Allergies Allergy Verified 07/21/24 04:21 PFSH Acute PFSH: Medical History Intellectual disability Lymphadenopathy, hilar Hiatal hernia At risk for aspiration Aspiration pneumonia Bipolar disease, manic Negative colon, negative guaics. Tardive dyskinesia Dupuytren's contracture of left hand Iron deficiency anemia Surgical History History of carpal tunnel release History of cataract extraction History of colonoscopy Social History Smoking and tobacco/nicotine status: never used tobacco/nicotine Alcohol intake: never Substance/Drug Use: never Vitals/I&O/Wt Last Vital Signs Temp 97.4 F L 07/21/24 04:12 Pulse 93 07/21/24 10:15 Resp 18 07/21/24 09:46 BP 71/40 07/21/24 10:00 Pulse Ox 94 07/21/24 10:15 O2 Del Method Heated High Flow 07/21/24 07:10 O2 Flow Rate 40 07/21/24 09:46 FiO2 80 07/21/24 09:46 07/20/24 07/21/24 07/21/24 22:59 06:59 14:59 Intake Total 150 / 150 2051 Balance 150 / 150 2051 Weight last 48 hrs Weight 99.79 kg Physical Exam Const: COMMON NORMALS: patient oriented x3 and alert GENERAL APPEARANCE: cooperative ORIENTATION/CONSCIOUSNESS: Yes awake HENMT: COMMON NORMALS: oropharynx normal OTHER: Edentulous Neck/C-Spine: COMMON NORMALS: no JVD Resp: COMMON NORMALS: normal respiratory effort and clear to auscultation bilaterally AUSCULTATION: rhonchi Cardio: COMMON NORMALS: no JVD, regular rhythm, S1 normal heart sound present, S2 normal heart sound present and No murmurs present (Cardio) RHYTHM: regular rhythm HEART SOUNDS: S1 normal heart sound present and S2 normal heart sound present GI: COMMON NORMALS: Normal to inspection, nondistended, normoactive bowel sounds present, Soft to palpation and non-tender PALPATION: Yes Soft to palpation Extremity: COMMON NORMALS: no joint enlargement and no pedal edema Neuro: COMMON NORMALS: patient oriented x3 and moves all extremities SENSORIUM/ORIENTATION: Yes alert Skin: COMMON NORMALS: no rashes or lesions noted GENERAL SKIN EXAM: no rashes or lesions noted Sepsis: Is patient septic: Yes Data 07/21/24 04:29 07/21/24 04:29 Micro: Microbiology 07/21/24 05:35 Blood Culture - Preliminary Blood SPECIMEN COLLECTED 07/21/24 05:17 Blood Culture - Preliminary Blood SPECIMEN COLLECTED A&P Assessment and plan (1) Acute respiratory failure: Acute respiratory failure with hypoxia, tachypnea, new oxygen requirement, requiring heated high flow, 40 L/min, 80% FiO2, not normally oxygen. Denies history of sleep apnea. Bilateral pneumonia noted on imaging, worse on the right side. Possible aspiration pneumonia. Blood cultures collected, collect sputum culture if able to provide. Started on Zosyn, continue. Continue vancomycin. Monitor for risk of kidney injury with antibiotic combination. Possible sepsis with leukopenia, 2.77, tachycardia 93, tachypnea 18-25. With lactic acidosis, 4.4. Pulmonary source with bilateral pneumonia. Follow-up cultures. With severe pneumonia will additionally provide corticosteroid treatment. Monitor for risk of hyperglycemia, hypertension, gastritis, encephalopathy. Reviewed vitals, CBC, D-dimer, ABG, CMP, troponin, NT proBNP, influenza, COVID, RSV PCR, chest x-ray, CTA, ER provider note, discussed with ER provider. Initial admission to intensive care unit given severe pneumonia, high oxygen requirement, suspected sepsis. Blood pressure decreased 71/40, possible septic shock, Levophed to maintain MAP 65 mmHg. (2) Multifocal pneumonia: Severe pneumonia, bilateral, with new respiratory failure, worse on the right, possible aspiration pneumonia with prior risk of aspiration pneumonia, will get speech therapy assessment. For now clear liquid diet. He is edentulous. Additional assessment management as above, blood cultures collected, sputum culture collected if possible. Zosyn, Comycin, breathing treatments. With severe pneumonia for now treat with steroid as well. (3) Tachycardia: Possible atrial flutter on presentation, received a dose of Cardizem, heart rates so far maintaining in the 90s. Blood pressure soft. Monitor on telemetry for any recurrence. Check TSH. Echocardiogram. (4) Edentulous: Clear liquid diet for now. Speech therapy assessment. He does not have dentures. PDMP PDMP Reviewed: Not Reviewed Attestations Medical Necessity Statement*: Admission over 2 midnights anticipated for assessment management of severe bilateral pneumonia, respiratory failure, suspected sepsis, possible septic shock. Coding Level of Care Code Critical Care >/= 30 minutes Critical care time (in minutes): 40 The high probability of a clinically significant, sudden or life threatening deterioration, as referenced in this documentation, required my full and direct attention, intervention and personal management. The critical care time shown is in addition to time spent performing any reported separately billable procedures and includes the following: [x] Data and vital sign review and interpretation [x] Patient assessment, examination and intervention [x] Medication orders and management [x] Patient/Family updates as able [x] Care Coordination and Documentation. Diagnoses Acute respiratory failure J96.00 Multifocal pneumonia J18.9 Tachycardia R00.0 Edentulous K08.109
--- NOTE | 2024-07-21 11:15 | USCV_ITS ---
Dalton Olivas Age: 64 Gender: M : 1960 Exam Date: 07/21/2024 12:45 Ordering Phys: Abran Luciano MD Technologist: Exam [place] [facility] [place]: cp sob BP: 114 / 80 HR: 80 Rhythm: Sinus Technical Quality: Adequate MEASUREMENTS (Male / Female) Normal Values 2D ECHO LV Diastolic Diameter PLAX 4.6 cm 4.2 - 5.9 / 3.9 - 5.3 cm IVS Diastolic Thickness 1.0 cm 0.6 - 1.0 / 0.6 - 0.9 cm IVS Systolic Thickness 1.5 cm LVPW Diastolic Thickness 1.3 cm 0.6 - 1.0 / 0.6 - 0.9 cm LVPW Systolic Thickness 1.4 cm LVOT Diameter 2.0 cm LV Ejection Fraction 2D Teich 70.6 % LV Ejection Fraction MOD 4C 56.2 % LV Ejection Fraction MOD 2C 55.2 % LV Ejection Fraction 2C AL 56.0 % LA Diameter 3.5 cm RA Systolic Volume 4C AL 32.4 ml RA Systolic Volume 4C MOD 32.1 ml LA Sys Volume AL 46.7 cm cubed LA Sys Volume Index AL 23.5 cm cubed/m squared Aorta at Sinotubular Diameter 3.1 cm M-MODE LA Ao Ratio MM 1.1 AV Cusp Separation MM 2.6 cm DOPPLER AV Peak Velocity 143.0 cm/s LVOT Peak Velocity 95.0 cm/s AV Area Cont Eq vti 3.0 cm squared AV Area Cont Eq pk 2.2 cm squared MV Peak Velocity 88.0 cm/s MV Area PHT 3.1 cm squared Mitral E to A Ratio 0.8 TV Peak Velocity 123.0 cm/s TR Peak Velocity 148.0 cm/s TR Peak Gradient 8.8 mmHg TV Peak E Velocity 96.0 cm/s PV Peak Velocity 107.0 cm/s FINDINGS Left Ventricle Left ventricle is normal in size. LV systolic function is normal with EF of 55-60%. No regional wall motion abnormalities. Grade 1 diastolic dysfunction Right Ventricle Normal in size and function Right Atrium Normal in size Left Atrium Normal in size Mitral Valve Structurally normal mitral valve. Mild mitral regurgitation. Aortic Valve Structurally normal aortic valve. No significant stenosis. Tricuspid Valve Mild tricuspid regurgitation. Pulmonary artery systolic pressure is normal Pulmonic Valve Not well visualized Pericardium Normal Aorta Noral in size IVC Appears to be normal CONCLUSIONS LV systolic function is normal with EF of 55-60%. Grade 1 diastolic dysfucntion Mild mitral regurgitation Mild tricuspid regurgitation No comparison studies are available. Checo Hernandez MD (Electronically Signed) Final Date: 21 July 2024 20:51 S
[2024-07-21 11:20] LABS: Troponin 5 6HR 9.58 ng/L (0-15); Troponin 5 6HR Delta 3.58001 ng/L (0-12)
[2024-07-21] MEDS: pantoprazole 40 mg SDV IVP (11:34)
[2024-07-21] MEDS: enoxaparin 40 mg/0.4 mL Syringe SUBCUT (11:34)
[2024-07-21] MEDS: methylPREDNISolone sod succ 40 mg/mL INJ IVP ×2 (11:34→17:28)
[2024-07-21] MEDS: OXcarbazepine 300 mg Tablet PO (17:32)
[2024-07-21] MEDS: quetiapine 100 mg Tablet 200 MG PO (17:32)
[2024-07-21] MEDS: ipratropium-albuterol 3 mL Neb INHALATION (20:08)
[2024-07-21] MEDS: trazodone 100 mg Tablet 150 MG PO (20:52)
[2024-07-21] MEDS: ropinirole 0.25 mg Tablet 0.5 MG PO (20:52)
[2024-07-22] VITALS (30 sets, daily range): BP systolic 97–140; BP diastolic 67–94; PULSE 60–99; RESP 15–28; TEMP 36.6–37.1; O2SAT 90–96
[2024-07-22] MEDS: methylPREDNISolone sod succ 40 mg/mL INJ IVP ×5 (00:02→23:36)
[2024-07-22 04:21] LABS: Hematocrit 38.6 % (37-53); Mean Corpuscular HGB Conc 33.2 g/dL (30-55); Mean Corpuscular Hemoglobin 30.8 pg (27-33); Mean Corpuscular Volume 92.8 fl (82-101); Mean Platelet Volume 11.4 fL (7.4-10.4); Platelet Count 138 10^3/cmm (157-399); Red Blood Count 4.16 10^6/uL (3.85-5.65); Red Cell Distribution Width 12.7 % (12.1-15.1); White Blood Count 13.93 10^3/uL (3.29-11.43)
[2024-07-22] MEDS: piperacillin-tazobactam 3.375 GM in sodium chloride 0.9% (plus) 50 ML IV ×3 (04:28→20:56)
[2024-07-22 04:38] LABS: Anion Gap 18.1 (5-19); Blood Urea Nitrogen 15 mg/dL (8-23); Calcium 8.6 mg/dL (8.5-10.5); Carbon Dioxide 21 mmol/L (22-29); Chloride 106 mmol/L (98-107); Creatinine Clr Calc Pharmacy 105.2444; Glomerular Filtration Rate 96.7 mL/min (90-130); Glucose 143 mg/dL (65-115); Magnesium 2.1 mg/dL (1.7-2.3); Osmolality Calculated 295 mOsm/kg (285-295); Potassium 4.1 mmol/L (3.5-5.1); Sodium 141 mmol/L (136-145)
[2024-07-22 04:56] LABS: Slide Review Slide Review Perform
[2024-07-22 04:57] LABS: Absolute Segmented Neutrophil 8.8 10/cmm (1.6-7.1); Eosinophils 0 %; Lymphocytes 5 %; Monocytes Absolute 0.4 10^3/cmm (0.1-0.6); Segmented Neutrophils 63 %; Total Cells Counted 100 (0-100)
[2024-07-22 05:00] LABS: Absolute Neutrophil 12.8 10^3/cmm (1.4-6.5); Platelet Estimate Decreased (Normal)
[2024-07-22] MEDS: ipratropium-albuterol 3 mL Neb INHALATION ×2 (08:55→14:27)
[2024-07-22] MEDS: quetiapine 100 mg Tablet 200 MG PO ×2 (09:38→17:09)
[2024-07-22] MEDS: OXcarbazepine 300 mg Tablet PO ×2 (09:38→17:09)
[2024-07-22] MEDS: venlafaxine ER (24HR) 150 mg Capsule PO (09:38)
[2024-07-22] MEDS: venlafaxine ER (24HR) 75 mg Capsule PO (09:38)
[2024-07-22] MEDS: fluticasone nasal spray 16gm Btl 2 SPRAY INTRANASAL (09:40)
[2024-07-22] MEDS: enoxaparin 40 mg/0.4 mL Syringe SUBCUT (11:05)
[2024-07-22] MEDS: pantoprazole 40 mg SDV IVP (11:05)
--- NOTE | 2024-07-22 17:13 | PC.NURSE ---
Notified Jose Carlos of patient being transferred to room 260.
--- NOTE | 2024-07-22 17:22 | PC.NURSE ---
Report called to
--- NOTE | 2024-07-22 17:46 | P.PN_ITS ---
Subjective 2 Subjective: He is feeling slightly better, still coughing. Still requiring heated high flow oxygen. Reinforced with him dysphagia, aspiration precautions. Vitals/I&O/Wt Last Vital Signs Temp 98.7 F 07/22/24 15:35 Pulse 88 07/22/24 17:25 Resp 20 H 07/22/24 17:25 BP 103/75 07/22/24 16:00 Pulse Ox 92 07/22/24 17:25 O2 Del Method Heated High Flow 07/22/24 16:00 O2 Flow Rate 40 07/22/24 17:25 FiO2 60 07/22/24 17:25 07/22/24 07/22/24 07/22/24 06:59 14:59 22:59 Intake Total 300 / 6205.7 950 / 950 50 / 1000 Output Total 650 / 1500 1575 / 1575 800 / 2375 Balance -350 / 4705.7 -625 / -625 -750 / -1375 Weight last 48 hrs Weight 101.514 kg Weight 102.2 kg Weight 99.79 kg Physical Exam 2 Const: COMMON NORMALS: patient oriented x3 and alert GENERAL APPEARANCE: c ooperative ORIENTATION/CONSCIOUSNESS: Yes awake HENMT: COMMON NORMALS: oropharynx normal OTHER: Edentulous Neck/C-Spine: COMMON NORMALS: no JVD Resp: AUSCULTATION: rhonchi (With) Cardio: COMMON NORMALS: no JVD, regular rhythm, S1 normal heart sound present, S2 normal heart sound present and No murmurs present (Cardio) RHYTHM: regular rhythm HEART SOUNDS: S1 normal heart sound present and S2 normal heart sound present GI: COMMON NORMALS: Normal to inspection, nondistended, normoactive bowel sounds present, Soft to palpation and non-tender PALPATION: Yes Soft to palpation Extremity: COMMON NORMALS: no joint enlargement and no pedal edema Neuro: COMMON NORMALS: patient oriented x3 and moves all extremities S ENSORIUM/ORIENTATION: Yes alert Skin: COMMON NORMALS: no rashes or lesions noted GENERAL SKIN EXAM: no rashes or lesions noted Data 07/22/24 03:18 07/22/24 03:18 Micro: Microbiology 07/21/24 05:35 Blood Culture - Preliminary Blood NEGATIVE TO DATE 07/21/24 05:17 Blood Culture - Preliminary Blood NEGATIVE TO DATE A&P Assessment and plan (1) Acute respiratory failure: Continued hypoxic respiratory failure, continues to require heated high flow oxygen, although with improvement, down to 60% FiO2, 40 L. Continue treatment of pneumonia, possible aspiration pneumonia. Continue Zosyn. Reviewed vitals, CBC, chemistry, request sputum culture. Continue to wean down oxygen support as tolerating. Discussed with respiratory phase. Can continue care on medical surgical floor, transfer out of ICU. Acute respiratory failure with hypoxia, tachypnea, new oxygen requirement, requiring heated high flow, 40 L/min, 80% FiO2, not normally oxygen. Denies history of sleep apnea. Bilateral pneumonia noted on imaging, worse on the right side. Possible aspiration pneumonia. Blood cultures collected, collect sputum culture if able to provide. Started on Zosyn, continue. Continue vancomycin. Monitor for risk of kidney injury with antibiotic combination. Possible sepsis with leukopenia, 2.77, tachycardia 93, tachypnea 18-25. With lactic acidosis, 4.4. Pulmonary source with bilateral pneumonia. Follow-up cultures. With severe pneumonia will additionally provide corticosteroid treatment. Monitor for risk of hyperglycemia, hypertension, gastritis, encephalopathy. Reviewed vitals, CBC, D-dimer, ABG, CMP, troponin, NT proBNP, influenza, COVID, RSV PCR, chest x-ray, CTA, ER provider note, discussed with ER provider. Initial admission to intensive care unit given severe pneumonia, high oxygen requirement, suspected sepsis. Blood pressure decreased 71/40, possible septic shock, Levophed to maintain MAP 65 mmHg. (2) Multifocal pneumonia: Gradual improvement, for now continue steroids for severe pneumonia. Monitor for risk of hyperglycemia, potential, encephalopathy, gastritis. Continue Zosyn. Continue dysphagia diet, aspiration precautions. Severe pneumonia, bilateral, with new respiratory failure, worse on the right, possible aspiration pneumonia with prior risk of aspiration pneumonia, will get speech therapy assessment. For now clear liquid diet. He is edentulous. Additional assessment management as above, blood cultures collected, sputum culture collected if possible. Zosyn, Comycin, breathing treatments. With severe pneumonia for now treat with steroid as well. (3) Tachycardia: So far improved. Reviewed image/potassium, magnesium. Possible atrial flutter on presentation, received a dose of Cardizem, heart rates so far maintaining in the 90s. Blood pressure soft. Monitor on telemetry for any recurrence. Check TSH. Echocardiogram. (4) Edentulous: Dysphagia diet. Reinforced aspiration precautions. Appreciate speech therapy assessment, discussed with speech therapist. He does not have dentures. PDMP PDMP Reviewed: Not Reviewed Attestations 2 Medical Necessity Statement*: Continue admission for assessment management of acute hypoxic respite failure, multifocal pneumonia, aspiration pneumonia. Diagnoses Acute respiratory failure J96.00 Multifocal pneumonia J18.9 Tachycardia R00.0 Edentulous K08.109
--- NOTE | 2024-07-22 17:48 | PC.NURSE ---
Transferred to room 260 via bed, tolerated well.
[2024-07-22] MEDS: trazodone 100 mg Tablet 150 MG PO (20:56)
[2024-07-22] MEDS: ropinirole 0.25 mg Tablet 0.5 MG PO (20:56)
[2024-07-23] VITALS (13 sets, daily range): BP systolic 113–158; BP diastolic 75–88; PULSE 58–95; RESP 16–20; TEMP 36.1–37; O2SAT 90–95; BMI 34.2
[2024-07-23] MEDS: piperacillin-tazobactam 3.375 GM in sodium chloride 0.9% (plus) 50 ML IV ×3 (04:54→23:05)
[2024-07-23] MEDS: methylPREDNISolone sod succ 40 mg/mL INJ IVP ×4 (04:54→23:06)
[2024-07-23 06:09] LABS: Basophils % 0.1 %; Hematocrit 40.3 % (37-53); Lymphocytes # 0.6 10^3/uL (0.8-4.8); Lymphocytes % 4.8 %; Mean Corpuscular HGB Conc 32.5 g/dL (30-55); Mean Corpuscular Hemoglobin 29.8 pg (27-33); Mean Corpuscular Volume 91.6 fl (82-101); Mean Platelet Volume 11.3 fL (7.4-10.4); Monocytes # 0.4 10^3/uL (0.2-0.9); Monocytes % 3.4 %; Neutrophils # 11.81 10^3/uL (1.8-7.7); Neutrophils % 90.9 %; Nucleated Red Blood Cells % 0 %; Platelet Count 166 10^3/cmm (157-399); Red Cell Distribution Width 12.7 % (12.1-15.1); White Blood Count 12.99 10^3/uL (3.29-11.43)
[2024-07-23 06:29] LABS: Anion Gap 15.8 (5-19); Blood Urea Nitrogen 14 mg/dL (8-23); Calcium 8.9 mg/dL (8.5-10.5); Carbon Dioxide 22 mmol/L (22-29); Chloride 105 mmol/L (98-107); Creatinine Clr Calc Pharmacy 104.8919; Glomerular Filtration Rate 112.8 mL/min (90-130); Glucose 137 mg/dL (65-115); Magnesium 2.1 mg/dL (1.7-2.3); Osmolality Calculated 291 mOsm/kg (285-295); Potassium 3.8 mmol/L (3.5-5.1); Sodium 139 mmol/L (136-145)
[2024-07-23 06:39] LABS: Thyroid Stimulating Hormone 0.19 uIU/mL (0.27-4.20)
[2024-07-23 08:58] LABS: Free T4 Free Thyroxine 0.86 ng/dL (0.82-1.77); T3 Free 1.3 PG/ML (2.0-4.4)
[2024-07-23] MEDS: venlafaxine ER (24HR) 75 mg Capsule PO (09:00)
[2024-07-23] MEDS: fluticasone nasal spray 16gm Btl 2 SPRAY INTRANASAL (09:00)
[2024-07-23] MEDS: venlafaxine ER (24HR) 150 mg Capsule PO (09:00)
[2024-07-23] MEDS: quetiapine 100 mg Tablet 200 MG PO ×2 (09:00→17:17)
[2024-07-23] MEDS: OXcarbazepine 300 mg Tablet PO ×2 (09:00→17:18)
[2024-07-23] MEDS: enoxaparin 40 mg/0.4 mL Syringe SUBCUT (11:49)
[2024-07-23] MEDS: pantoprazole 40 mg SDV IVP (11:49)
--- NOTE | 2024-07-23 18:49 | P.PN_ITS ---
Subjective 2 Subjective: He feels he is gradually improving. Still with cough. Still on heated high flow oxygen this morning. Vitals/I&O/Wt Last Vital Signs Temp 98.2 F 07/23/24 16:00 Pulse 74 07/23/24 16:00 Resp 20 H 07/23/24 16:00 BP 146/84 07/23/24 16:00 Pulse Ox 92 07/23/24 16:00 O2 Del Method Nasal Cannula 07/23/24 16:00 O2 Flow Rate 3 07/23/24 15:00 FiO2 32 07/23/24 15:00 07/23/24 07/23/24 07/23/24 06:59 14:59 22:59 Intake Total 290 / 1410 410 / 410 1080 / 1490 Output Total 900 / 3275 600 / 600 Balance -610 / -1865 410 / 410 480 / 890 Weight last 48 hrs Weight 101.514 kg Physical Exam 2 Const: COMMON NORMALS: patient oriented x3 and alert GENERAL APPEARANCE: c ooperative ORIENTATION/CONSCIOUSNESS: Yes awake HENMT: COMMON NORMALS: oropharynx normal OTHER: Edentulous Neck/C-Spine: COMMON NORMALS: no JVD Resp: COMMON NORMALS: normal respiratory effort and clear to auscultation bilaterally AUSCULTATION: clear to auscultation bilaterally and rhonchi (With) Cardio: COMMON NORMALS: no JVD, regular rhythm, S1 normal heart sound present, S2 normal heart sound present and No murmurs present (Cardio) RHYTHM: regular rhythm HEART SOUNDS: S1 normal heart sound present and S2 normal heart sound present GI: COMMON NORMALS: Normal to inspection, nondistended, normoactive bowel sounds present, Soft to palpation and non-tender PALPATION: Yes Soft to palpation Extremity: COMMON NORMALS: no joint enlargement and no pedal edema Neuro: COMMON NORMALS: patient oriented x3 and moves all extremities S ENSORIUM/ORIENTATION: Yes alert Skin: COMMON NORMALS: no rashes or lesions noted GENERAL SKIN EXAM: no rashes or lesions noted Data 07/23/24 05:34 07/23/24 05:34 A&P Assessment and plan (1) Acute respiratory failure: Gradually improving, reviewed history of high flow oxygen, FiO2 requirement has been coming down. Still requiring oxygen support. Subjectively improving slowly. Discussed with respiratory, nursing, piano case maker. Continue treatment of pneumonia, possible aspiration pneumonia. Continue Zosyn. Monitor for risk of cytopenia, Delatorre-Ramesh syndrome, C. difficile. Reviewed CBC, repeat counts. He denies any diarrhea. Reviewed vitals, CBC, chemistry, request sputum culture. Continue to wean down oxygen support as tolerating. Acute respiratory failure with hypoxia, tachypnea, new oxygen requirement, requiring heated high flow, 40 L/min, 80% FiO2, not normally oxygen. Denies history of sleep apnea. Bilateral pneumonia noted on imaging, worse on the right side. Possible aspiration pneumonia. Blood cultures collected, collect sputum culture if able to provide. (2) Multifocal pneumonia: Gradual improvement, for now continue steroids for severe pneumonia. Monitor for risk of hyperglycemia, potential, encephalopathy, gastritis. Continue Zosyn. Continue dysphagia diet, aspiration precautions. Severe pneumonia, bilateral, with new respiratory failure, worse on the right, possible aspiration pneumonia with prior risk of aspiration pneumonia, will get speech therapy assessment. For now clear liquid diet. He is edentulous. Additional assessment management as above, blood cultures collected, sputum culture collected if possible. Zosyn, Comycin, breathing treatments. With severe pneumonia for now treat with steroid as well. (3) Tachycardia: Resolved. Reviewed image/potassium, magnesium. Possible atrial flutter on presentation, received a dose of Cardizem, heart rates so far maintaining in the 90s. Blood pressure soft. Monitor on telemetry for any recurrence. Reviewed TSH. Echocardiogram. (4) Edentulous: Dysphagia diet. Reinforced aspiration precautions. He does not have dentures. Plan Abnormal TSH: Noted TSH 0.19. Requested free T3, free T4. Noted low free T3, 1.3, borderline low free T4. Possible sick euthyroid syndrome. Would follow-up thyroid studies again in office in 2-3 weeks. PDMP PDMP Reviewed: Not Reviewed Attestations 2 Medical Necessity Statement*: Continue admission for assessment management of acute hypoxic respite failure, multifocal pneumonia, aspiration pneumonia. and High MDM includes amount and/or complexity of data reviewed/ordered [ resulted lab(s)/test(s), ordered lab(s)/test(s) and other healthcare professional discussion] and described risk of complication, morbidity or mortality of management as documented Diagnoses Acute respiratory failure J96.00 Multifocal pneumonia J18.9 Tachycardia R00.0 Edentulous K08.109
[2024-07-23] MEDS: ropinirole 0.25 mg Tablet 0.5 MG PO (20:58)
[2024-07-23] MEDS: trazodone 100 mg Tablet 150 MG PO (20:58)
[2024-07-24] VITALS (9 sets, daily range): BP systolic 117–166; BP diastolic 42–102; PULSE 17–82; RESP 15–65; TEMP 36.3–36.6; O2SAT 88–95
[2024-07-24 05:25] LABS: Basophils % 0.1 %; Hematocrit 41.1 % (37-53); Lymphocytes # 0.8 10^3/uL (0.8-4.8); Lymphocytes % 6.9 %; Mean Corpuscular HGB Conc 33.3 g/dL (30-55); Mean Corpuscular Hemoglobin 30.6 pg (27-33); Mean Corpuscular Volume 91.7 fl (82-101); Mean Platelet Volume 10.9 fL (7.4-10.4); Monocytes # 0.4 10^3/uL (0.2-0.9); Monocytes % 3.1 %; Neutrophils # 10.14 10^3/uL (1.8-7.7); Neutrophils % 88.6 %; Nucleated Red Blood Cells % 0 %; Platelet Count 178 10^3/cmm (157-399); Red Blood Count 4.48 10^6/uL (3.85-5.65); Red Cell Distribution Width 12.6 % (12.1-15.1); White Blood Count 11.45 10^3/uL (3.29-11.43)
[2024-07-24 05:46] LABS: Anion Gap 14.8 (5-19); Blood Urea Nitrogen 17 mg/dL (8-23); Carbon Dioxide 23 mmol/L (22-29); Chloride 104 mmol/L (98-107); Creatinine Clr Calc Pharmacy 104.8919; Glomerular Filtration Rate 112.8 mL/min (90-130); Glucose 123 mg/dL (65-115); Osmolality Calculated 289 mOsm/kg (285-295); Potassium 3.8 mmol/L (3.5-5.1); Sodium 138 mmol/L (136-145)
[2024-07-24] MEDS: methylPREDNISolone sod succ 40 mg/mL INJ IVP ×2 (06:01→13:06)
[2024-07-24] MEDS: piperacillin-tazobactam 3.375 GM in sodium chloride 0.9% (plus) 50 ML IV (06:01)
[2024-07-24] MEDS: fluticasone nasal spray 16gm Btl 2 SPRAY INTRANASAL (09:03)
[2024-07-24] MEDS: OXcarbazepine 300 mg Tablet PO (09:03)
[2024-07-24] MEDS: venlafaxine ER (24HR) 75 mg Capsule PO (09:03)
[2024-07-24] MEDS: venlafaxine ER (24HR) 150 mg Capsule PO (09:03)
[2024-07-24] MEDS: quetiapine 100 mg Tablet 200 MG PO (09:03)
--- NOTE | 2024-07-24 10:07 | PC.SOCIAL ---
IMM Update pg 2 of IMM Updated and reviewed w/ patients guardian. Copy provided. Copy dated, initialed and placed in chart.
--- NOTE | 2024-07-24 11:56 | P.DS_ITS ---
Discharge Providers Date of Admission: 07/21/24 08:45 Date of Discharge: July 24, 2024 Attending Provider at Admission: Abran Luciano Attending Provider at Discharge: Abran Luciano Primary Care Provider: Dandre Oakes MD Diagnoses at Discharge Discharge Diagnosis (1) Acute respiratory failure: Status: Acute (2) Multifocal pneumonia: Status: Acute (3) Tachycardia: Status: Acute (4) Edentulous: Status: Acute Reason for Visit Reason for Visit: SOB Brief History: Pleasant 64-year-old gentleman with intellectual disability, history of aspiration pneumonia, tardive dyskinesia, AMBROCIO, never smoker, came into the hospital for evaluation after shortness of breath, with oxygen saturation found to be in the 70s on presentation, pO2 with new hypoxemia 43.9 on ABG, not normally on oxygen. Tachycardic on presentation heart rates 140s. With possible atrial flutter on EKG. Received a dose of Cardizem. Tachypneic 22. R ecently finished azithromycin for bronchitis. Started on oxygen support in ER. Noted with leukopenia, 2.77, neutrophils within normal range, ANC 1820, chest imaging with bilateral infiltrates worse on the right, D-dimer abnormal 1.04, chest CTA bilateral airspace disease worse on the right, most quite low with pneumonia. Large paraesophageal hiatal hernia. Air-fluid levels within distal esophagus suggestive of poor peristalsis or reflux. Multiple small as well as slightly enlarged mediastinal and hilar lymph nodes, likely reactive. Hospital Course Hospital Course He was admitted and treated for acute respiratory failure, with oxygen support with heated high flow, treated for pneumonia with multifocal pneumonia, possible aspiration pneumonia, with known dysphagia, prior episodes of aspiration, as well as large paraesophageal hiatal hernia, also likely poor peristalsis with air-fluid level in the esophagus, was assessed by speech therapy, reinforced aspiration precautions, dysphagia interventions including reinforced chin tuck which he was found not maintaining. Hypotension presentation, briefly treated with Levophed, resolved, with resolved tachypnea, improved oxygenation, weaned of heated high flow, with initial requirement as high as 80% FiO2, weaned down to 3 L nasal cannula oxygen. Subjectively with good improvement with reduction in productive cough. Continued awareness of dysphagia precautions. He felt significantly better, ready to return home. Oxygen is requested for him to roberto pport his recovery. Incidentally also noted decreased TSH as well as low normal free T4 and mildly low free T3. Please follow-up thyroid function after possible sick euthyroid syndrome. Physical Exam Narrative: He is awake and alert, pleasant, conversant, in good spirits, feeling much better, happy about returning home. Sitting up in the chair, eating lunch. Nasal cannula on. Const: COMMON NORMALS: patient oriented x3 and alert GENERAL APPEARANCE: cooperative ORIENTATION/CONSCIOUSNESS: Yes awake HENMT: COMMON NORMALS: oropharynx normal Neck/C-Spine: COMMON NORMALS: no JVD Resp: COMMON NORMALS: normal respiratory effort and clear to auscultation bilaterally AUSCULTATION: clear to auscultation bilaterally Cardio: COMMON NORMALS: no JVD, regular rhythm, S1 normal heart sound present, S2 normal heart sound present and No murmurs present (Cardio) RHYTHM: regular rhythm HEART SOUNDS: S1 normal heart sound present and S2 normal heart sound present GI: COMMON NORMALS: Normal to inspection, nondistended, normoactive bowel s ounds present, Soft to palpation and non-tender PALPATION: Yes Soft to palpation Extremity: COMMON NORMALS: no joint enlargement and no pedal edema Neuro: COMMON NORMALS: patient oriented x3 and moves all extremities SENSORIUM/ORIENTATION: Yes alert Skin: COMMON NORMALS: no rashes or lesions noted GENERAL SKIN EXAM: no rashes or lesions noted Discharge Data Studies Completed and Pending Completed Studies During Hospitalization Category Date Time Status CT angio chest PE protcl [id number] Stat Cat Scan 07/21/24 05:10 Completed XR chest 1V portable [id number] Stat Exams 07/21/24 04:14 Completed CV. echo complete* [id number] Routine Ultrasound 07/21/24 11:15 Completed Pending at discharge Category Date Time Status Blood Culture Stat Lab 07/21/24 05:35 Results Sputum Culture and Gram Stain Routine Lab 07/22/24 17:52 Uncollected Radiology Impressions Chest X-Ray 07/21/24 04:14 IMPRESSION: 1. Borderline cardiomegaly. 2. Bilateral infiltrates worse on the right. Chest CTA 07/21/24 05:10 IMPRESSION: 1. Bilateral airspace disease worse on the right. Findings most compatible with pneumonia. 2. Large paraesophageal/hiatal hernia. 3. Air-fluid level within mildly distended esophagus suggesting poor peristalsis or reflux. 4. Multiple small as well as slightly enlarged mediastinal and hilar lymph nodes likely reactive. Laboratory Results WBC 11.45 10^3/uL (3.29-11.43) H 07/24/24 05:09 RBC 4.48 10^6/uL (3.85-5.65) 07/24/24 05:09 Hgb 13.70 g/dL (11.27-16.99) 07/24/24 05:09 Hct 41.1 % (37-53) 07/24/24 05:09 MCV 91.7 fl (82-101) 07/24/24 05:09 MCH 30.6 pg (27-33) 07/24/24 05:09 MCHC 33.3 g/dL (30-55) 07/24/24 05:09 RDW 12.6 % (12.1-15.1) 07/24/24 05:09 Plt Count 178 10^3/cmm (157-399) 07/24/24 05:09 MPV 10.9 fL (7.4-10.4) H 07/24/24 05:09 Neut % (Auto) 88.6 % 07/24/24 05:09 Lymph % (Auto) 6.9 % 07/24/24 05:09 Cloud % (Auto) 3.1 % 07/24/24 05:09 Eos % (Auto) 0.0 % 07/24/24 05:09 Baso % (Auto) 0.1 % 07/24/24 05:09 Neut # (Auto) 10.14 10^3/uL (1.8-7.7) H 07/24/24 05:09 Lymph # (Auto) 0.8 10^3/uL (0.8-4.8) 07/24/24 05:09 Cloud # (Auto) 0.4 10^3/uL (0.2-0.9) 07/24/24 05:09 Eos # (Auto) 0.0 10^3/uL (0.0-0.8) 07/24/24 05:09 Baso # (Auto) 0.0 10^3/uL (0.0-0.1) 07/24/24 05:09 Nucleated RBC % (auto) 0 % 07/24/24 05:09 Total Counted 100 (0-100) 07/22/24 03:18 Atypical Lymphs % Not Reportable 07/22/24 03:18 Absolute Neutrophils 12.8 10^3/cmm (1.4-6.5) H 07/22/24 03:18 Segmented Neutrophils 63 % 07/22/24 03:18 Band Neutrophils 29.0 % 07/22/24 03:18 Lymphocytes (Manual) 5 % 07/22/24 03:18 Monocytes (Manual) 3.0 % 07/22/24 03:18 Absolute Monocytes 0.4 10^3/cmm (0.1-0.6) 07/22/24 03:18 Eosinophils (Manual) 0 % 07/22/24 03:18 Absolute Eosinophils 0.0 10^3/cmm (0.0-0.7) 07/22/24 03:18 Basophils (Manual) 0.0 % 07/22/24 03:18 Absolute Basophils 0.0 10^3/cmm (0.0-0.2) 07/22/24 03:18 Nucleated RBCs # 0.0 /100WBC 07/24/24 05:09 Platelet Estimate Decreased (Normal) 07/22/24 03:18 D-Dimer 1.04 ug/mLFEU (0-0.59) H 07/21/24 04:29 Specimen Type Arterial 07/21/24 04:43 Sample Site Brachial, right 07/21/24 04:43 ABG pH 7.49 (7.35-7.45) H 07/21/24 04:43 ABG pCO2 29.6 mmHg (35-45) L 07/21/24 04:43 ABG pO2 43.9 mmHg (80.0-100.0) L 07/21/24 04:43 ABG HCO3 22.3 mmol/L (22-26) 07/21/24 04:43 ABG O2 Saturation 84.7 07/21/24 04:43 ABG Base Excess 0.0 mmol/L (-2.0-2.0) 07/21/24 04:43 Alexey Test N/a 07/21/24 04:43 A-a O2 Gradient 9.1 mmHg (5-10) 07/21/24 04:43 Hematocrit 46.7 % (42-52) 07/21/24 04:43 Hgb O2 Saturation 83.1 % (95-100) L 07/21/24 04:43 Carboxyhemoglobin 1.1 %THgb (0.4-20.1) 07/21/24 04:43 Methemoglobin 0.9 % (0.4-1.5) 07/21/24 04:43 Total Hemoglobin 15.2 g/dL (14-18) 07/21/24 04:43 Sodium 142.0 mmol/L (131-143) 07/21/24 04:43 Potassium 3.2 mmol/L (3.5-5.0) L 07/21/24 04:43 Glucose 107.0 mg/dL (70-115) 07/21/24 04:43 Ionized Calcium 1.2 mmol/L (1.1-1.4) 07/21/24 04:43 O2 Delivery Device Nc 07/21/24 04:43 O2 Liters/Min 3.0 % 07/21/24 04:43 [employer] Manager ID Busja 07/21/24 04:43 Sodium 138 mmol/L (136-145) 07/24/24 05:09 Potassium 3.8 mmol/L (3.5-5.1) 07/24/24 05:09 Chloride 104 mmol/L (98-107) 07/24/24 05:09 Carbon Dioxide 23 mmol/L (22-29) 07/24/24 05:09 Anion Gap 14.8 (5-19) 07/24/24 05:09 BUN 17 mg/dL (8-23) 07/24/24 05:09 Creatinine 0.7 mg/dL (0.7-1.2) 07/24/24 05:09 GFR Calculation 112.8 mL/min (90-130) 07/24/24 05:09 Glucose 123 mg/dL (65-115) H 07/24/24 05:09 Calculated Osmolality 289 mOsm/kg (285-295) 07/24/24 05:09 Lactic Acid 4.4 mmol/L (0.5-2.2) H* 07/21/24 04:29 Lactic Acid (Sepsis) 3.3 mmol/L (0.5-2.2) H 07/21/24 07:03 Calcium 9.0 mg/dL (8.5-10.5) 07/24/24 05:09 Magnesium 2.0 mg/dL (1.7-2.3) 07/24/24 05:09 Total Bilirubin 0.4 mg/dL (0.15-1.2) 07/21/24 04:29 AST 15 U/L (0-40) 07/21/24 04:29 ALT 16 U/L (0-41) 07/21/24 04:29 Alkaline Phosphatase 86 U/L (40-130) 07/21/24 04:29 Troponin T Baseline < 6 ng/L (0-15) 07/21/24 04:29 Troponin T 120 Minute 12.25 ng/L (0-15) 07/21/24 07:03 Delta Troponin T 6.93279 ABS# (0-10) 07/21/24 07:03 Troponin T Hi Sens 6Hr 9.58 ng/L (0-15) 07/21/24 10:40 Troponin T Hi Sens 6Hr Delta 3.59842 ng/L (0-12) 07/21/24 10:40 NT-Pro-B Natriuret Pep 67 pg/mL (0-125) 07/21/24 04:29 Total Protein 6.5 g/dL (6.6-8.7) L 07/21/24 04:29 Albumin 3.8 g/dL (3.5-5.2) 07/21/24 04:29 Globulin 2.7 g/dL (1.3-4.6) 07/21/24 04:29 Procalcitonin 0.21 ng/mL (0-0.5) 07/21/24 04:29 TSH 0.19 uIU/mL (0.27-4.20) L 07/23/24 05:34 Free T4 0.86 ng/dL (0.82-1.77) 07/23/24 05:34 Free T3 1.3 PG/ML (2.0-4.4) L 07/23/24 05:34 Influenza A (PCR) Negative (Negative) 07/21/24 04:29 Influenza Type B (PCR) Negative (Negative) 07/21/24 04:29 RSV (PCR) Negative (Negative) 07/21/24 04:29 SARS-CoV-2 (PCR) Negative (Negative) 07/21/24 04:29 Vitals Last Vital Signs Temp 97.7 F 07/24/24 11:10 Pulse 65 07/24/24 11:10 Resp 17 07/24/24 11:10 BP 152/98 07/24/24 11:10 Pulse Ox 91 07/24/24 11:10 O2 Del Method Nasal Cannula 07/24/24 11:10 O2 Flow Rate 3 07/24/24 11:10 FiO2 32 07/23/24 15:00 Discharge Plan Discharge Patient Disposition: Home Condition: Stable Prescriptions: New amoxicillin-pot clavulanate 875-125 mg tablet 1 tab PO BID Qty: 10 0RF prednisone 20 mg tablet 20 mg PO DAILY 3 Days Qty: 3 0RF Continued ibuprofen 800 mg tablet 800 mg PO Q6H PRN (Reason: pain/fever) albuterol sulfate 90 mcg/actuation HFA aerosol inhaler 1 inh inhalation Q6H PRN (Reason: shortness of breath or wheezing) Qty: 8.5 3RF galantamine 4 mg tablet 4 mg PO BID Qty: 60 3RF Rx Instructions: administer with AM and PM meals CeraVe Cream See Rx Instructions .ROUTE .COMPLEX Qty: 453 5RF Dose Instruction: APPLY TO THE AFFECTED AREA(S) OF LEGS TWICE DAILY FOR SKIN MOISTURIZER Rx Instructions: APPLY TO THE AFFECTED AREA(S) OF LEGS TWICE DAILY FOR SKIN MOISTURIZER AT 07:00 & 19:00 Ear Wax Removal Drops 6.5 % drops See Rx Instructions .ROUTE .COMPLEX Qty: 15 5RF Dose Instruction: instill SIX drops in BOTH ears TWICE DAILY FOR FOUR DAYS each MONTH THEN IRRIGATE Rx Instructions: instill SIX drops in BOTH ears TWICE DAILY FOR FOUR DAYS each MONTH THEN IRRIGATE venlafaxine 75 mg capsule,extended release 24hr See Rx Instructions .ROUTE .COMPLEX Qty: 30 4RF Dose Instruction: TAKE ONE CAPSULE BY MOUTH daily with 150mg pg=587sd Rx Instructions: TAKE ONE CAPSULE BY MOUTH daily with 150mg hh=206pf venlafaxine 150 mg capsule,extended release 24hr See Rx Instructions .ROUTE .COMPLEX Qty: 30 5RF Dose Instruction: TAKE ONE CAPSULE BY MOUTH EVERY DAY FOR BIPOLAR Rx Instructions: TAKE ONE CAPSULE BY MOUTH EVERY DAY FOR BIPOLAR Take with the 75mg dextromethorphan-guaifenesin 10-100 mg/5 mL Syrup 10 ml PO Q4H PRN (Reason: Cough) hydrocortisone [Proctocort] 1 % Cream 1 applic TX QID PRN (Reason: Hemorrhoids) trazodone 150 mg tablet 150 mg PO BEDTIME@20 omeprazole 20 mg capsule,delayed release(DR/EC) 20 mg PO BID fluticasone propionate 50 mcg/actuation spray,suspension 2 spray INTRANASAL DAILY@08 Rx Instructions: administer into each nostril loratadine [Claritin] 10 mg tablet 10 mg PO DAILY@07 simethicone 80 mg tablet,chewable 80 mg PO QID Rx Instructions: @07:00,12:00,16:00,20:00 albuterol sulfate 2.5 mg /3 mL (0.083 %) Solution For Nebulization 2.5 mg INHALATION Q6H PRN (Reason: Shortness Of Breath) Qty: 90 0RF fluticasone propion-salmeterol [Advair Diskus] 100-50 mcg/dose blister with device 1 inh inhalation BID Qty: 60 0RF wr-jdgo-yxqzj-lycopene-ginkgo 400-600-120 mcg-mcg-mg Tablet 1 tab PO DAILY ketoconazole 2 % shampoo See Rx Instructions .ROUTE .COMPLEX Rx Instructions: Lather onto Scalp and brennan three times weekly as needed ,allow to sit for 5 minutes before rinsing . sucralfate 1 gram tablet 1 g PO TID oxcarbazepine 300 mg tablet 300 mg PO BID magnesium hydroxide [Milk of Magnesia] 400 mg/5 mL Suspension 5 ml PO QID PRN (Reason: Constipation) Rx Instructions: Take 5ml by mouth four times daily as needed on fourth day if no bowel movement in 3 days.Must wait 4 hours betweeen doeses Not to exceed 5days. triamcinolone acetonide 0.1 % ointment 1 applic TOPICAL PRN PRN (Reason: scaled patches ) Rx Instructions: Apply to red scaled patches on legs 2times a day until cleared. Do not use more thab 2 weeeks of month . Avoid groin or on face/skin folds hydrocortisone 2.5 % cream 1 applic TOPICAL TID PRN (Reason: irritation on buttocks and groin) Rx Instructions: use no more that 2 weeks a month alum-mag hydroxide-simeth 200-200-20 mg/5 mL Suspension 30 ml PO QID PRN (Reason: upset stomach) Rx Instructions: administer between meals and at bedtime azithromycin 250 mg tablet 250 mg PO DAILY prednisone 20 mg tablet 20 mg PO DAILY quetiapine 200 mg tablet 200 mg PO BID Rx Instructions: TAKE ONE TABLET BY MOUTH TWICE DAILY for bipolar disorder. ropinirole 0.5 mg tablet 0.5 mg PO BEDTIME Rx Instructions: Take at bedtime polyethylene glycol 3350 [Miralax] 17 gram/dose powder 17 g PO DAILY PRN (Reason: constipation ) Rx Instructions: Dissolve 1 scoop every day as needed for no bowel movement in 48 hours docusate sodium 100 mg Capsule 100 mg PO DAILY PRN (Reason: Constipation) ferrous gluconate 324 mg (37.5 mg iron) Tablet 324 mg PO DAILY Discharge Orders: Discharge Order (Routine); Ordered 07/24/24 Ordered By: Abran Luciano Other Ambulatory Orders: DME: Oxygen (Order) Location: None Selected Ordered By: Abran Luciano Referrals: Dandre Oakes MD [Primary Care Provider] - 4-7 days (We have notified your physician's clinic of the need for a follow-up appointment to be scheduled. If you have not heard from them within the next 2 business days, please call them directly. ) Discharge Diet: As Directed Discharge Activity: Increase activity as tolerated and Oxygen as instructed Patient Instructions: Prednisone (By mouth), Amoxicillin (By mouth), Community Acquired Pneumonia (DC), Opioid Safety Activity Restrictions/Additional Instructions: Continue dysphagia diet, extremely thick/pur?ed with moderately thick liquids. Continue strict aspiration precautions, eating only when awake and alert, sitting forward, tucking the chin as per speech therapy instructions. Complete antibiotic course for pneumonia. Continue oxygen support, wean down as tolerating. Target oxygen saturation 92%. Follow-up with primary doctor for reassessment. Seek medical attention case of any worsening or new concerning symptoms. Discharge Attestations Time Spent in Discharge Care*: greater than 30 min Status at Discharge: Cognitive status at discharge: mildly impaired cognition , Behavioral status at discharge: cooperative , Quality Metrics Clinical Quality Measures [ No reported AMI, CVA or VTE this stay] Coding Level of Care Code 36316 Total time (in minutes) for Discharge: 40 Diagnoses Acute respiratory failure J96.00 Multifocal pneumonia J18.9 Tachycardia R00.0 Edentulous K08.109
[2024-07-24] MEDS: amlodipine 5 mg Tablet PO (13:06)
[2024-07-24] MEDS: enoxaparin 40 mg/0.4 mL Syringe SUBCUT (13:06)
[2024-07-24] MEDS: pantoprazole 40 mg SDV IVP (13:07)
== END 2024-07-24 15:45 | disposition home or self-care (01) | DRG 177 ==
LOC: ER 07:22 → ER IP 08:46 → ICU 15:07 → MEDSURG 07-22 18:21
PROVIDERS: Emergency Medicine; Admitting Provider Internal Medicine; Emergency Provider Family Medicine; PCP Internal Medicine; Visit Provider Internal Medicine
DX: J69.0 Pneumonitis due to inhalation of food and vomit (principal); J96.01 Acute respiratory failure with hypoxia; R00.0 Tachycardia, unspecified; F79 Unspecified intellectual disabilities; Z87.01 Personal history of pneumonia (recurrent); G24.01 Drug induced subacute dyskinesia; D50.9 Iron deficiency anemia, unspecified; K44.9 Diaphragmatic hernia without obstruction or gangrene; R13.10 Dysphagia, unspecified; I95.9 Hypotension, unspecified; E07.81 Sick-euthyroid syndrome; Z79.891 Long term (current) use of opiate analgesic; M72.0 Palmar fascial fibromatosis [Dupuytren]; F31.9 Bipolar disorder, unspecified; K08.109 Complete loss of teeth, unspecified cause, unspecified class
CPT/HCPCS: 36415; 71045; 71275; 80048; 80051; 80053; 82330; 82805; 83605; 83735; 83880; 84145; 84439; 84443; 84481; 84484; 85007; 85025; 85378; 87040; 87637; 92523; 92526; 92610; 93005; 93306; 94640; 94664; 94760; 96365; 96366; 96367; 96372; 96375; 99291; J1650; J2060; J2470; J2543; J2919; J3370; J3475; J3490; J7030; J7050; J7613

== ENCOUNTER → 2024-08-25 13:33 | Outpatient (BNVA) | payer MEDICARE, MEDICAID, SELFPAY | PROVIDERS: PCP Internal Medicine; Visit Provider Nurse Practitioner Family | DX: L30.0 Nummular dermatitis (principal); L25.9 Unspecified contact dermatitis, unspecified cause; L21.8 Other seborrheic dermatitis; D22.62 Melanocytic nevi of left upper limb, including shoulder; Q82.5 Congenital non-neoplastic nevus | CPT/HCPCS: 99214 ==

== ENCOUNTER → 2024-10-15 15:28 | Outpatient (BNVA) | payer MEDICARE, MEDICAID, SELFPAY | PROVIDERS: PCP Family Medicine; Visit Provider Nurse Practitioner Family | DX: L21.8 Other seborrheic dermatitis (principal); L30.8 Other specified dermatitis | CPT/HCPCS: 99214 ==

== ENCOUNTER 2024-11-12 23:11 | Emergency (ER) | payer MEDICARE, MEDICAID, SELFPAY ==
[2024-11-12 23:14] VITALS: BP 106/68; PULSE 85; RESP 18; TEMP 36.7; O2SAT 95
--- NOTE | 2024-11-12 23:17 | XRR_ITS ---
PROCEDURE INFORMATION: Exam: XR Chest Exam date and time: 11/12/2024 11:20 PM Age: 64 years old Clinical indication: Pain; Chest pressure; Additional info: Chest pain TECHNIQUE: Imaging protocol: Radiologic exam of the chest. Views: 1 view. COMPARISON: CR XR chest 2V* [id number] 10/28/2024 12:29 PM FINDINGS: Lungs: Emphysematous changes. Pleural spaces: Unremarkable. No pleural effusion. No pneumothorax. Heart/Mediastinum: Cardiomegaly. Bones/joints: Unremarkable. XR/XR chest 1V portable [id number] IMPRESSION: 1. Cardiomegaly. 2. Emphysematous changes.
--- NOTE | 2024-11-12 23:24 | ECG_ITS ---
[facility] [place] [facility] Date: 2024-11-12 Pat Name: Dalton Olivas Department: Room: Gender: Male Source [employer] Protection Specialist: : [id number] Requested By: Tyrone Gutierrez Order Number: [id number] Germaine MD: Checo Hernandez M.D. Measurements Intervals [place] Rate: 83 P: 26 FL: 174 QRS: 17 QRSD: 93 T: 22 QT: 336 QTc: 397 Interpretive Statements SINUS RHYTHM WITH SINUS ARRHYTHMIA LOW QRS VOLTAGE IN PRECORDIAL LEADS [QRS DEFLECTION < 1.0 mV IN CHEST LEADS] NONSPECIFIC T-WAVE ABNORMALITY Compared to ECG 07/21/2024 10:33:27 Low QRS voltage now present T-wave abnormality now present Electronically Signed On 11-13-2024 14:51:14 CDT by Checo Hernandez M.D. [email or web address]
[2024-11-12 23:33] VITALS: BP 117/70; PULSE 95; O2SAT 97
[2024-11-12 23:59] LABS: Basophils # 0.1 10^3/uL (0.0-0.1); Basophils % 0.9 %; Eosinophils # 0.2 10^3/uL (0.0-0.8); Eosinophils % 3.2 %; Lymphocytes # 1.7 10^3/uL (0.8-4.8); Lymphocytes % 30.3 %; Mean Corpuscular HGB Conc 32.6 g/dL (30-55); Mean Corpuscular Hemoglobin 30.2 pg (27-33); Mean Corpuscular Volume 92.5 fl (82-101); Mean Platelet Volume 10.6 fL (7.4-10.4); Monocytes # 0.6 10^3/uL (0.2-0.9); Monocytes % 11.2 %; Neutrophils # 3.01 10^3/uL (1.8-7.7); Neutrophils % 54.2 %; Nucleated Red Blood Cells % 0 %; Platelet Count 214 10^3/cmm (157-399); Red Blood Count 4.11 10^6/uL (3.85-5.65); White Blood Count 5.55 10^3/uL (3.29-11.43)
--- NOTE | 2024-11-12 23:59 | ED_ITS ---
HPI - URI/Sore Throat 2 General: Chief Complaint: Shortness of Breath/Dyspnea Stated Complaint: Cp Low O2 coughing fit Time Seen by Provider: 11/12/24 23:17 Source: patient and other (care staff) Mode of arrival: ambulatory Limitations: no limitations History of Present Illness: Patient is a nice 64-year-old male here with his caregiver from the [employer] here with concerns over his portable oxygen concentrator as well as a coughing fit that he had on the ride home from [place]. Staff stated that he was hypoxic due to his oxygen concentrator shutting off. Patient was complaining of suprapubic chest pain due to coughing. Patient chronically wears 3 L of oxygen. At time of my initial examination, he is satting normally on 3 L. Remainder of vitals are stable. He clinically appears in no acute distress. He has not been running fevers. No recent illness. MD elicited complaint: fever Onset (ago): hour(s) Severity: mild Relieving factors: other (oxygen) Associated symptoms: Reports no associated symptoms and chest pain (reports rib pain from coughing); Deny fever(s) Treatments prior to arrival: none Related Data Home Medications ?Medication ?Instructions ?Recorded ?Confirmed ibuprofen 800 mg tablet 800 mg PO Q6H PRN pain/fever 07/30/19 10/27/24 dextromethorphan-guaifenesin 10 10 ml PO Q4H PRN Cough 07/12/22 10/27/24 mg-100 mg/5 mL oral syrup fluticasone propionate 50 2 spray intranasal DAILY@08 07/12/22 10/27/24 mcg/actuation nasal spray,suspension hydrocortisone 1 % topical cream 1 applic MT QID PRN H emorrhoids 07/12/22 10/27/24 (Proctocort) loratadine 10 mg tablet (Claritin) 10 mg PO DAILY@07 0 07/12/22 10/27/24 omeprazole 20 mg capsule,delayed 20 mg PO BID 07/12/22 10/27/24 release trazodone 150 mg tablet 150 mg PO BEDTIME@20 3 10/27/24 simethicone 80 mg chewable tablet 80 mg PO QID 3 10/27/24 aluminum-mag hydroxide-simethicone 30 ml PO QID PRN up set stomach 07/21/24 10/27/24 200 mg-200 mg-20 mg/5 mL oral susp docusate sodium 100 mg capsule 100 mg PO DAILY PRN Con stipation 07/21/24 10/27/24 ferrous gluconate 324 mg (37.5 mg 324 mg PO DAILY 07/0410/27/24 iron) tablet hydrocortisone 2.5 % topical cream 1 applic topical TI D PRN 07/21/24 10/27/24 irritation on buttocks and groin ketoconazole 2 % shampoo See Rx Instructions .Route . COMPLEX 07/21/24 10/27/24 magnesium hydroxide 400 mg/5 mL 5 ml PO QID PRN Consti pation 07/21/24 10/27/24 oral suspension (Milk of Magnesia) oflnnhhn-upvb-tumhy acid 400 1 tab PO DAILY 07/21/24 0 10/27/24 mcg-lycopene 600 mcg-ginkgo 120 mg tablet oxcarbazepine 300 mg tablet 300 mg PO BID 07/21/24 polyethylene glycol 3350 17 17 g PO DAILY PRN constipa tion 07/21/24 10/27/24 gram/dose oral powder (Miralax) prednisone 20 mg tablet 20 mg PO DAILY 07/21/2410/02 ropinirole 0.5 mg tablet 0.5 mg PO BEDTIME 07/21/24 0 10/27/24 sucralfate 1 gram tablet 1 g PO TID 07/21/24 10/27/24 triamcinolone acetonide 0.1 % 1 applic topical PRN PRN scaled 07/21/24 10/27/24 topical ointment patches Previous Rx's ?Medication ?Instructions ?Recorded ceramides 1,3,6-II (CeraVe topical See Rx Instructions .Route 11/20/21 cream) .COMPLEX #453 grams carbamide peroxide 6.5 % ear drops See Rx Instructions .Route 12/19/21 (Ear Wax Removal Drops) .COMPLEX #15 mL fluticasone 100 mcg-salmeterol 50 1 inh inhalation BID #60 ea 09/03/22 mcg/dose blistr powdr for inhalation (Advair Diskus) venlafaxine 75 mg capsule,extended See Rx Instructions .Route 06/09/23 release 24 hr .COMPLEX #30 caps albuterol sulfate 90 mcg/actuation 1 inh inhalation Q6 H PRN shortness 03/18/23 aerosol inhaler of breath or wheezing #8.5 g daly albuterol sulfate 2.5 mg/3 mL 2.5 mg (3 mL) inhalation Q6H PRN 01/31/24 (0.083 %) solution for nebulization Shortness Of Breat h #90 mL venlafaxine 150 mg See Rx Instructions .Route 0 02/25/24 capsule,extended release 24 hr .COMPLEX #30 caps galantamine 4 mg tablet See Rx Instructions .Route 0 08/14/24 .COMPLEX #60 tabs acetaminophen 650 mg 650 mg PO Q8H PRN pain #30 t abs 10/27/24 tablet,extended release (Tylenol 8 Hour) quetiapine 200 mg tablet See Rx Instructions .Route 0 11/03/24 .COMPLEX #60 tabs Allergies Allergy/AdvReac Type Severity Reaction Status Date / Time No Known Allergies Allergy Verified 11/12/24 23:24 Review of Systems 2 Const: Denies: fever(s) Card: Reports: chest pain (reports rib pain from coughing); Denies: palpitations, irregular heart rhythm, edema, swelling of feet/ankles, lightheadedness, syncope or pre-syncope Resp: Reports: dyspnea (at baseline currently) and non-productive cough (subsided now); Denies: wheezing, change in phlegm color or chest congestion Musc: Denies: extremity swelling PFSH ED 2 PFSH: Medical History Intellectual disability Lymphadenopathy, hilar Hiatal hernia At risk for aspiration Aspiration pneumonia Bipolar disease, manic Negative colon, negative guaics. Tardive dyskinesia Dupuytren's contracture of left hand Iron deficiency anemia Surgical History History of carpal tunnel release History of cataract extraction History of colonoscopy Social History Smoking and tobacco/nicotine status: unknown if used tobacco/nicotine Alcohol intake: never Substance/Drug Use: never Physical Exam 2 Const: COMMON NORMALS: no acute distress, average body habitus, no limitations, healthy appearing, alert and well nourished GENERAL APPEARANCE: cooperative OTHER: I know patient personally very well-at mental baseline Resp: COMMON NORMALS: normal respiratory effort and clear to auscultation bilaterally AUSCULTATION: clear to auscultation bilaterally Cardio: COMMON NORMALS: regular rate and regular rhythm RATE: regular rate RHYTHM: regular rhythm Extremity: COMMON NORMALS: no clubbing, cyanosis or edema, no calf tenderness and no pedal edema GENERAL: Yes normal exam except as noted Neuro: SENSORIUM/ORIENTATION: Yes alert Course 2 Vital Signs: Vital signs: Vital Signs Temperature 98.1 F 11/12/24 23:14 Pulse Rate 95 11/12/24 23:33 Respiratory Rate 18 11/12/24 23:14 Blood Pressure 117/70 11/12/24 23:33 Pulse Oximetry 97 11/12/24 23:33 Oxygen Delivery Me thod Nasal Cannula 11/12/24 23:33 Oxygen Flow Rate 3 11/12/24 23:33 MDM - URI/Sore Throat Medical Decision Making Patient showed me his oxygen concentrator and it did have several rounds of auto shutting off with warning beeps. Cannula tubing was noted te be kinked-not sure if this was a pressure sensor. Bottom portion of concentrator was removed and replaced. Cannula unkinked. Concentrator is now seemingly working well. It ran for over a half hour here with no issues. He has additional tubing at home as well as a plug in wall unit. Care staff stated [employer] is bringing home concentrator soon. They can contact them tomorrow to do a service check on current unit. Staff will monitor patient closely throughout the evening with oxygen checks and to make sure concentrator continues to function. Return precautions discussed. Medical Records I reviewed the patient's medical records. Lab Data I reviewed the patient's lab results. 11/12/24 23:45 11/12/24 23:45 Radiology Impressions Chest X-Ray 11/12/24 23:17 IMPRESSION: 1. Cardiomegaly. 2. Emphysematous changes. Laboratory Results WBC 5.55 10^3/uL (3.29-11.43) 11/12/24 23:45 RBC 4.11 10^6/uL (3.85-5.65) 11/12/24 23:45 Hgb 12.40 g/dL (11.27-16.99) 11/12/24 23:45 Hct 38.0 % (37-53) 11/12/24 23:45 MCV 92.5 fl (82-101) 11/12/24 23:45 MCH 30.2 pg (27-33) 11/12/24 23:45 MCHC 32.6 g/dL (30-55) 11/12/24 23:45 RDW 13.0 % (12.1-15.1) 11/12/24 23:45 Plt Count 214 10^3/cmm (157-399) 11/12/24 23:45 MPV 10.6 fL (7.4-10.4) H 11/12/24 23:45 Neut % (Auto) 54.2 % 11/12/24 23:45 Lymph % (Auto) 30.3 % 11/12/24 23:45 Reynolds % (Auto) 11.2 % 11/12/24 23:45 Eos % (Auto) 3.2 % 11/12/24 23:45 Baso % (Auto) 0.9 % 11/12/24 23:45 Neut # (Auto) 3.01 10^3/uL (1.8-7.7) 11/12/24 23:45 Lymph # (Auto) 1.7 10^3/uL (0.8-4.8) 11/12/24 23:45 Reynolds # (Auto) 0.6 10^3/uL (0.2-0.9) 11/12/24 23:45 Eos # (Auto) 0.2 10^3/uL (0.0-0.8) 11/12/24 23:45 Baso # (Auto) 0.1 10^3/uL (0.0-0.1) 11/12/24 23:45 Nucleated RBC % (auto) 0 % 11/12/24 23:45 Nucleated RBCs # 0.0 /100WBC 11/12/24 23:45 Sodium 137 mmol/L (136-145) 11/12/24 23:45 Potassium 3.9 mmol/L (3.5-5.1) 11/12/24 23:45 Chloride 102 mmol/L (98-107) 11/12/24 23:45 Carbon Dioxide 24 mmol/L (22-29) 11/12/24 23:45 Anion Gap 14.9 (5-19) 11/12/24 23:45 BUN 13 mg/dL (8-23) 11/12/24 23:45 Creatinine 0.8 mg/dL (0.7-1.2) 11/12/24 23:45 GFR Calculation 96.7 mL/min (90-130) 11/12/24 23:45 Glucose 124 mg/dL (65-115) H 11/12/24 23:45 Calculated Osmolality 286 mOsm/kg (285-295) 11/12/24 23:45 Calcium 9.2 mg/dL (8.5-10.5) 11/12/24 23:45 Total Bilirubin 0.2 mg/dL (0.15-1.2) 11/12/24 23:45 AST 11 U/L (0-40) 11/12/24 23:45 ALT 12 U/L (0-41) 11/12/24 23:45 Alkaline Phosphatase 66 U/L (40-130) 11/12/24 23:45 Total Protein 6.9 g/dL (6.6-8.7) 11/12/24 23:45 Albumin 3.6 g/dL (3.5-5.2) 11/12/24 23:45 Globulin 3.3 g/dL (1.3-4.6) 11/12/24 23:45 Procalcitonin 0.07 ng/mL (0-0.5) 11/12/24 23:45 XR interpretation done by ED provider, pending radiology final review Discharge Plan Discharge Patient Disposition: Home Clinical Impression: On home oxygen therapy Condition: Stable Prescriptions: No Action ibuprofen 800 mg tablet 800 mg PO Q6H PRN (Reason: pain/fever) acetaminophen [Tylenol 8 Hour] 650 mg tablet extended release 650 mg PO Q8H PRN (Reason: pain) Qty: 30 0RF albuterol sulfate 90 mcg/actuation HFA aerosol inhaler 1 inh inhalation Q6H PRN (Reason: shortness of breath or wheezing) Qty: 8.5 3RF CeraVe Cream See Rx Instructions .ROUTE .COMPLEX Qty: 453 5RF Dose Instruction: APPLY TO THE AFFECTED AREA(S) OF LEGS TWICE DAILY FOR SKIN MOISTURIZER Rx Instructions: APPLY TO THE AFFECTED AREA(S) OF LEGS TWICE DAILY FOR SKIN MOISTURIZER AT 07:00 & 19:00 Ear Wax Removal Drops 6.5 % drops See Rx Instructions .ROUTE .COMPLEX Qty: 15 5RF Dose Instruction: instill SIX drops in BOTH ears TWICE DAILY FOR FOUR DAYS each MONTH THEN IRRIGATE Rx Instructions: instill SIX drops in BOTH ears TWICE DAILY FOR FOUR DAYS each MONTH THEN IRRIGATE venlafaxine 75 mg capsule,extended release 24hr See Rx Instructions .ROUTE .COMPLEX Qty: 30 4RF Dose Instruction: TAKE ONE CAPSULE BY MOUTH daily with 150mg ow=778ft Rx Instructions: TAKE ONE CAPSULE BY MOUTH daily with 150mg lc=113jb venlafaxine 150 mg capsule,extended release 24hr See Rx Instructions .ROUTE .COMPLEX Qty: 30 5RF Dose Instruction: TAKE ONE CAPSULE BY MOUTH EVERY DAY FOR BIPOLAR Rx Instructions: TAKE ONE CAPSULE BY MOUTH EVERY DAY FOR BIPOLAR Take with the 75mg galantamine 4 mg tablet See Rx Instructions .ROUTE .COMPLEX Qty: 60 3RF Dose Instruction: TAKE ONE TABLET BY MOUTH TWICE DAILY with am and pm meals; FOR MEMORY AND BALANCE Rx Instructions: TAKE ONE TABLET BY MOUTH TWICE DAILY with am and pm meals; FOR MEMORY AND BALANCE quetiapine 200 mg tablet See Rx Instructions .ROUTE .COMPLEX Qty: 60 3RF Dose Instruction: TAKE ONE TABLET BY MOUTH TWICE DAILY FOR bipolar Rx Instructions: TAKE ONE TABLET BY MOUTH TWICE DAILY FOR bipolar dextromethorphan-guaifenesin 10-100 mg/5 mL Syrup 10 ml PO Q4H PRN (Reason: Cough) hydrocortisone [Proctocort] 1 % Cream 1 applic MT QID PRN (Reason: Hemorrhoids) trazodone 150 mg tablet 150 mg PO BEDTIME@20 omeprazole 20 mg capsule,delayed release(DR/EC) 20 mg PO BID fluticasone propionate 50 mcg/actuation spray,suspension 2 spray INTRANASAL DAILY@08 Rx Instructions: administer into each nostril loratadine [Claritin] 10 mg tablet 10 mg PO DAILY@07 simethicone 80 mg tablet,chewable 80 mg PO QID Rx Instructions: @07:00,12:00,16:00,20:00 albuterol sulfate 2.5 mg /3 mL (0.083 %) Solution For Nebulization 2.5 mg INHALATION Q6H PRN (Reason: Shortness Of Breath) Qty: 90 0RF fluticasone propion-salmeterol [Advair Diskus] 100-50 mcg/dose blister with device 1 inh inhalation BID Qty: 60 0RF gc-zrqc-lfvsm-lycopene-ginkgo 400-600-120 mcg-mcg-mg Tablet 1 tab PO DAILY ketoconazole 2 % shampoo See Rx Instructions .ROUTE .COMPLEX Rx Instructions: Lather onto Scalp and brennan three times weekly as needed ,allow to sit for 5 minutes before rinsing . sucralfate 1 gram tablet 1 g PO TID oxcarbazepine 300 mg tablet 300 mg PO BID magnesium hydroxide [Milk of Magnesia] 400 mg/5 mL Suspension 5 ml PO QID PRN (Reason: Constipation) Rx Instructions: Take 5ml by mouth four times daily as needed on fourth day if no bowel movement in 3 days.Must wait 4 hours betweeen doeses Not to exceed 5days. triamcinolone acetonide 0.1 % ointment 1 applic TOPICAL PRN PRN (Reason: scaled patches ) Rx Instructions: Apply to red scaled patches on legs 2times a day until cleared. Do not use more thab 2 weeeks of month . Avoid groin or on face/skin folds hydrocortisone 2.5 % cream 1 applic TOPICAL TID PRN (Reason: irritation on buttocks and groin) Rx Instructions: use no more that 2 weeks a month alum-mag hydroxide-simeth 200-200-20 mg/5 mL Suspension 30 ml PO QID PRN (Reason: upset stomach) Rx Instructions: administer between meals and at bedtime prednisone 20 mg tablet 20 mg PO DAILY ropinirole 0.5 mg tablet 0.5 mg PO BEDTIME Rx Instructions: Take at bedtime polyethylene glycol 3350 [Miralax] 17 gram/dose powder 17 g PO DAILY PRN (Reason: constipation ) Rx Instructions: Dissolve 1 scoop every day as needed for no bowel movement in 48 hours docusate sodium 100 mg Capsule 100 mg PO DAILY PRN (Reason: Constipation) ferrous gluconate 324 mg (37.5 mg iron) Tablet 324 mg PO DAILY Discharge Orders: Discharge ED (Routine); Ordered 11/13/24 Ordered By: Emma Arnold Referrals: [facility], [Primary Care Provider] Activity Restrictions/Additional Instructions: As we discussed, patient's blood work was unremarkable. Vital signs are stable. He is satting normally on his normal 3 L of oxygen. His chest x-ray was unremarkable. Portable oxygen concentrator seems to be functioning well here. Staff was instructed to monitor patient closely throughout the night with frequent oxygen checks and to make sure his concentrator continues to function as normal. Recommend you contact his home medical equipment company tomorrow for service check. May bring patient back to the emergency department for any further concerns you may have. Print Language: Icelandic Coding Level of Care Code ED Ground Crew Chief for Sal Cornell
--- NOTE | 2024-11-12 23:59 | PC.NURSE ---
VERBAL ORDER FROM LYNN AGRAWAL TO CANCEL RESP SWAP 0000
[2024-11-13 00:13] LABS: Alanine Aminotransferase 12 U/L (0-41); Albumin Level 3.6 g/dL (3.5-5.2); Alkaline Phosphatase 66 U/L (40-130); Anion Gap 14.9 (5-19); Aspartate Amino Transferase 11 U/L (0-40); Blood Urea Nitrogen 13 mg/dL (8-23); Calcium 9.2 mg/dL (8.5-10.5); Carbon Dioxide 24 mmol/L (22-29); Chloride 102 mmol/L (98-107); Creatinine Clr Calc Pharmacy 97.0135; Globulin 3.3 g/dL (1.3-4.6); Glomerular Filtration Rate 96.7 mL/min (90-130); Glucose 124 mg/dL (65-115); Osmolality Calculated 286 mOsm/kg (285-295); Potassium 3.9 mmol/L (3.5-5.1); Sodium 137 mmol/L (136-145); Total Bilirubin 0.2 mg/dL (0.15-1.2); Total Protein 6.9 g/dL (6.6-8.7)
[2024-11-13 00:19] LABS: Procalcitonin 0.07 ng/mL (0-0.5)
[2024-11-13 00:30] VITALS: BP 109/77; PULSE 75; O2SAT 93
[2024-11-13 00:34] VITALS: BP 109/77; PULSE 79; O2SAT 95
== END 2024-11-13 00:38 | disposition home or self-care (01) ==
PROVIDERS: Emergency Provider Physician Assistant
DX: Z99.81 Dependence on supplemental oxygen (principal); R07.89 Other chest pain
CPT/HCPCS: 36415; 71045; 80053; 84145; 85025; 93005; 99285

== ENCOUNTER 2024-11-17 14:58 | Outpatient (CLI) | payer MEDICARE, MEDICAID, SELFPAY ==
--- NOTE | 2024-11-17 15:02 | CTR_ITS ---
PROCEDURE INFORMATION: Exam: CT Chest Without Contrast; Diagnostic Exam date and time: 11/17/2024 3:10 PM Age: 64 years old Clinical indication: Condition or disease; Lung condition and disease; Other: Pulmonary fibrosis TECHNIQUE: Imaging protocol: Diagnostic computed tomography of the chest without contrast. Radiation optimization: All CT scans at this facility use at least one of these dose optimization techniques: automated exposure control; mA and/or kV adjustment per patient size (includes targeted exams where dose is matched to clinical indication); or iterative reconstruction. COMPARISON: CT angio chest PE protcl [id number] 07/21/2024 6:13 AM RADIATION DOSE METRICS: Total DLP (mGy-cm): 457.26 FINDINGS: Lungs: See Pleural spaces finding. Pleural spaces: A small left pleural effusion is noted. Both lungs demonstrate diffuse chronic interstitial coarsening. There is interstitial nodularity throughout much of the right upper lobe and left lower lobe. I see no dense consolidation however. Heart: Mild cardiomegaly is noted. Coronary arteries: There is no evidence of coronary artery calcifications. Lymph nodes: Unremarkable. No enlarged lymph nodes. Vasculature: Unremarkable. No aortic aneurysm. Diaphragm: A hiatal hernia is noted in the lower mediastinum. Bones/joints: Unremarkable. No acute fracture. Soft tissues: Unremarkable. CT/CT chest wo con [id number] IMPRESSION: 1. Chronic interstitial nodularity involving both lungs has not changed significantly over the past 4 months. This may represent chronic infectious process 2. Small left pleural effusion of uncertain etiology 3. Mild cardiomegaly 4. Hiatal hernia
== END 2024-11-17 14:59 | disposition home or self-care (01) ==
PROVIDERS: PCP Family Medicine; Visit Provider Family Medicine
DX: J84.10 Pulmonary fibrosis, unspecified (principal); R91.8 Other nonspecific abnormal finding of lung field; J90 Pleural effusion, not elsewhere classified; I51.7 Cardiomegaly; K44.9 Diaphragmatic hernia without obstruction or gangrene
CPT/HCPCS: 71250

== ENCOUNTER → 2024-11-24 11:56 | Outpatient (BNVA) | payer MEDICARE, MEDICAID, SELFPAY | PROVIDERS: PCP Internal Medicine; Visit Provider Specialist | DX: F79 Unspecified intellectual disabilities (principal); F02.80 Dementia in other diseases classified elsewhere, unspecified severity, without behavioral disturbance, psychotic disturbance, mood disturbance, and anxiety; F31.12 Bipolar disorder, current episode manic without psychotic features, moderate; R26.9 Unspecified abnormalities of gait and mobility | CPT/HCPCS: 99214 ==

== ENCOUNTER 2024-12-08 09:50 | Inpatient (IN) | payer MEDICARE, MEDICAID, SELFPAY ==
--- OUTSIDE RECORDS SUMMARY | 2024-02-10 03:20 | XMS_ITS ---
Author Organization [facility] Address [address] [place] [address] Care Team Providers Care Jig Boring Machine Operator For Metal Name Role Phone Scott Oakes Primary Care Provider REASON FOR VISIT F/U FROM PNEUMONIA Encounters Encounter Location Date Provider Diagnosis [facility] [address] [place] [phone] 02/10/2024 Scott Oakes Plan Of Treatment No Information Progress Notes * Norma MACDONALDhDOB:[birth year] (64 yo M)Acc No.[id number]:02/10/2024 Progress Notes Patient: Dalton MORRISON Provider: Myrtle Oakes MD :1960 A ge:63 Y S ex:Male Date:02/10/2024 Address:[address] [place], [place] [phone] Subjective: * Chief Complaints: * 1 . F/U FROM PNEUMONIA. * Medical History: Objective: * Vitals: Assessment: Plan: * Treatment: Forms: * Billing Information: * Visit Code: * Procedure Codes: Care Plan Details* * Electronic signature of Tariq Oakes MD on 12/08/2024 at 10:07 AM CDT Sign off status: Pending * Provider: Myrtle Oakes MD Date: 02/10/2024 Generated for Rafi obrien/Hannah/eTransmitting on: 12/08/2024 10:07 AM CDT
--- OUTSIDE RECORDS SUMMARY | 2024-02-11 04:20 | XMS_ITS ---
Author Organization [facility] Address [address] [place] [address] Care Team Providers Care Business Process Analyst Name Role Phone Scott Oakes Primary Care Provider REASON FOR VISIT F/U FROM PNEUMONIA Encounters Encounter Location Date Provider Diagnosis [facility] [address] [place] [phone] 02/11/2024 Scott Oakes Plan Of Treatment No Information Progress Notes * Norma MACDONALDhDOB:[birth year] (64 yo M)Acc No.[id number]:02/11/2024 Progress Notes Patient: Dalton MORRISON Provider: Myrtle Oakes MD :1960 A ge:63 Y S ex:Male Date:02/11/2024 Address:[address] [place], [place] [phone] Subjective: * Chief Complaints: * 1 . F/U FROM PNEUMONIA. * Medical History: Objective: * Vitals: Assessment: Plan: * Treatment: Forms: * Billing Information: * Visit Code: * Procedure Codes: Care Plan Details* * Electronic signature of Tariq Oakes MD on 12/08/2024 at 10:07 AM CDT Sign off status: Pending * Provider: Myrtle Oakes MD Date: 02/11/2024 Generated for Rafi obrien/Faaceg/eTransmitting on: 12/08/2024 10:07 AM CDT
--- OUTSIDE RECORDS SUMMARY | 2024-07-06 05:20 | XMS_ITS ---
Author Organization [facility] Address [address] [place] [address] Care Team Providers Care Telephonic Rn Name Role Phone Scott Oakes Primary Care Provider [phone] REASON FOR VISIT 6 MONTH F/U Encounters Encounter Location Date Provider Diagnosis [facility] [address] [place] [phone] 07/06/2024 Scott Oakes Plan Of Treatment No Information Progress Notes * Norma MACDONALDhDOB:[birth year] (64 yo M)Acc No.[id number]:07/06/2024 Progress Notes Patient: Dalton MORRISON Provider: Myrtle Oakes MD :1960 A ge:64 Y S ex:Male Date:07/06/2024 Address:[address] [place], [place] [id number] Subjective: * Chief Complaints: * 1 . 6 MONTH F/U. * Medical History: Objective: * Vitals: Assessment: Plan: * Treatment: Forms: * Billing Information: * Visit Code: * Procedure Codes: Care Plan Details* * Electronic signature of Tariq Oakes MD on 12/08/2024 at 10:06 AM CDT Sign off status: Pending * Provider: Myrtle Oakes MD Date: 07/06/2024 Generated for Rafi obrien/Faaceg/eTransmitting on: 12/08/2024 10:06 AM CDT
[2024-12-08] VITALS (16 sets, daily range): BP systolic 72–133; BP diastolic 42–85; PULSE 74–110; RESP 16–24; TEMP 36.4–36.9; O2SAT 92–97; BMI 33.5
--- OUTSIDE RECORDS SUMMARY | 2024-12-08 10:07 | XMS_ITS | Clinical Summary ---
Author Organization [facility] Address [address] [place] [address] Phone Care Team Providers Care Advertising Coordinator Name Role Phone Unavailable Primary Care Provider Unavailabl e Allergies No known active allergies Medications OXcarbazepine (TRILEPTAL) 600 mg tablet 7 Active QUEtiapine (SEROquel) 200 mg tablet 7 Active traZODone (DESYREL) 150 mg tablet 7 Active omeprazole (PriLOSEC) 20 mg Capsule, Delayed Release(E.C.) 7 Active LORazepam (ATIVAN) 1 mg tablet 7 Active fluticasone (FLONASE) 50 mcg/spray [place], Suspension 7 Active venlafaxine (EFFEXOR XR) 150 mg Extended Release 24 hour capsule 7 Active loratadine (CLARITIN) 10 mg tablet Take 10 mg by mouth daily. Active simethicone 80 mg Tablet, Chewable Take 80 mg by mouth every 6 hours as needed for Gas. Active CALCIUM POLYCARBOPHIL (FIBER-LAX ORAL) Take by mouth. Active Ceramides 1,3,6-11 (CERAVE) Lotion Apply to affected area. Active neomycin-bacitraci n-polymyxin (Antibiotic, Vkoej-Rltst-Dchvi, ) 3.5mg-400 unit- 5,000 unit/gram Ointment Apply to affected area 2 times daily. Active nystatin (MYCOSTATIN) 100,000 unit/gram Cream Apply to affected area 2 times daily. Active HYDROCORTISONE ACETATE (PROCTOCORT RECTAL) Insert by rectum. Active dextromethorphan-g uaiFENesin (ROBITUSSIN DM) 10-100 mg/5 mL solution Take 10 mL by mouth every 4 hours as needed for Cough. Active aspirin (KATHY) 325 mg tablet Take 325 mg by mouth daily. Active CALCIUM CARB/MAGNESIUM HYDROX (MYLANTA ORAL) Take by mouth. Active Active Problems Problem Noted Date Diagnosed Date Trigger middle finger of left hand 07/23/2016 Immunizations Immunization Administration Dates Next Due (TDVAX)(7 YRS UP) TETANUS AN D DIPHTHERIA TOXOIDS, ADSORBED (2 LF OF TETANUS TOXOID AND 2 LF OF DIPHTHERIA TOXOID), 0.5ML (PF), IM 05/16/2004 Hepatitis B Vaccine 06/20/2004,05/16/2004 Social History Tobacco Use Types Packs/Day Years Used Date Smoking Tobacco: Never Smokeless Tobacco: Never Alcohol Use Standard Drinks/Week Comments No 0 (1 standard drink = 0.6 oz pur e alcohol) Sex and Gender Information Value Date Recorded Sex Assigned at Not on file 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 Gender Identity Not on file Sexual Orientation Not on file Last Filed Vital Signs Vital Sign Reading Time Taken Comments Blood Pressure 110/65 08/05/2017 3:23 PM ITALIAN TUTOR Pulse 88 08/05/2017 3:23 PM ITALIAN TUTOR Temperature - - Respiratory Rate - - Oxygen Saturation - - Inhaled Oxygen Concentration - - Weight 91.2 kg (201 lb) 08/05/2017 3:23 PM ITALIAN TUTOR Height 172.7 cm (5' 8 ) 08/05/2017 3:23 PM ITALIAN TUTOR Body Mass Index 30.56 08/05/2017 3:23 PM ITALIAN TUTOR Plan of Treatment Health Maintenance Due Date Last Done Comments COLORECTAL SCREENING 2003 Colorectal Cancer Screening 2003 FIT-DNA Q 3 years 2003 FIT/FOBT Q 1 year 2003 Flex Sig/CT Colonography Q 5 years 2003 DTAP/TDAP/TD VACCINES (1 - Tdap) 05/17/2004 05/16/20 04 PNEUMOCOCCAL VACCINE 50+ YEARS (1 of 1 - PCV) 02/17/20 08 ZOSTER VACCINE (1 of 2) 02/17/2008 INFLUENZA VACCINE (#1) 2025 RSV VACCINE (60+ or ) (1 - 1-dose 75+ series) 2033 Insurance MEDICARE PART A [place] B [place]ICA[id number]
--- OUTSIDE RECORDS SUMMARY | 2024-12-08 10:07 | XMS_ITS | Encounter Summary ---
Author Organization [facility] Address [address] [place] [address] Care Team Providers Care Training Consultant Name Role Phone Unavailable Primary Care Provider Unavailabl e Encounter Details Date Type Department Care Team (Latest Contact Info) Description 09/27/2004 Outpatient Historical [facility] Medicine [place] [address] [place] [address] Dereck Brewster PA NO ADDRESS ON FILE HEAD INJURY UNSPECIFIED (Primary Dx); MENTAL RETARDATION NOS; CONDUCT DISTURBANCE NOS; URINARY FREQUENCY Social History Tobacco Use Types Packs/Day Years Used Date Smoking Tobacco: Never Assessed Sex and Gender Information Value Date Recorded Sex Assigned at Not on file 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
--- OUTSIDE RECORDS SUMMARY | 2024-12-08 10:07 | XMS_ITS | Encounter Summary ---
Author Organization [facility] Address [address] [place] [address] Care Team Providers Care Senior Lead Developer Name Role Phone Unavailable Primary Care Provider Unavailabl e Encounter Details Date Type Department Care Team (Latest Contact Info) Description 06/16/2003 Outpatient Historical [facility] Family Medicine [place] [address] [address] [place] [id number] Cass Peralta MD NO ADDRESS ON FILE VOMITING ALONE (Primary Dx); MENTAL RETARDATION NOS Social History Tobacco Use Types Packs/Day Years Used Date Smoking Tobacco: Never Assessed Sex and Gender Information Value Date Recorded Sex Assigned at Not on file 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
--- OUTSIDE RECORDS SUMMARY | 2024-12-08 10:07 | XMS_ITS | Encounter Summary ---
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 Gender Identity Not on file Sexual Orientation Not on file documented as of this encounter Plan of Treatment Not on file documented as of this encounter Procedures Procedure Name Priority Date/Time Associated Diagnosis Comments PSA MEDICARE SCREEN Routine 09/28/2004 9 :29 AM CDT VITAMIN B12 AND FOLATE Routine 09/28/2004 9:29 AM CDT RPR Routine 09/28/2004 9:29 AM CDT documented in this encounter Results * RPR (09/28/2004 9:29 AM CDT) RPR Non-Reactiv e Non-Reacti ve INTERFACE SYSTEM 09/28/2004 9:29 AM CDT us Dereck BAILEY CHEMISTRY ORDERABLES Final Re sult INTERFACE SYSTEM Refer to clinic/hospital department * PSA MEDICARE SCREEN (09/28/2004 9:29 AM CDT) PSA 0.6 0.0 - 4.0 ng/mL INTERFACE SYSTEM Comment: As of 04 at 12:00 p.m. [facility] has changed the methodology for PSA, but the reference range of 0-4 ng/ml has remained the same. 09/28/2004 9:29 AM CDT Dereck BAILEY CHEMISTRY ORDERABLES COM Kennedi l Result Performing Organization Address [facility] de Phone Number INTERFACE SYSTEM Refer to clinic/hospital department * VITAMIN B12 AND FOLATE (09/28/2004 9:29 AM CDT) VITAMIN B12 844 200 - 925 ng/dL INTERFACE SYSTEM FOLATE, SERUM >20.00 2.76 - 20.00 ng/dL INTERFACE SYSTEM 09/28/2004 9:29 AM CDT Dereck BAILEY CHEMISTRY ORDERABLES Final Re sult Performing Organization Address [facility] Phone Number INTERFACE SYSTEM Refer to clinic/hospital department documented in this encounter Visit Diagnoses Not on filedocumented in this encounter
--- OUTSIDE RECORDS SUMMARY | 2024-12-08 10:07 | XMS_ITS | Patient Health Record ---
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 Phone Scott Oakes Primary Care Provider Allergies No Known Allergies Reason For Referral No Information Medications Medication SIG (Take, Route, Frequency, Duration) Notes Start Date End Date Status Albuterol Sulfate (2.5 MG/3ML) 0.083% 3 mL as needed Inhalation every 6 hrs for 30 days Active Fluticasone Propionate 50 MCG/ACT USE TWO SPRAYS IN EACH NOSTRIL EVERY DAY for 30 Active Sierra-Tussin 100 MG/5ML TAKE 200 MG (10 M L) BY MOUTH EVERY 4 HOURS NEEDED FOR cough for 4 Active GNP Earwax Removal Drops 6.5 % instill SIX drops PER ear TWICE DAILY FOR 4 DAYS TWO TIMES PER MONTH *IRRIGATE NEEDED* for 30 Active Omeprazole 20 mg TAKE ONE CAPSULE BY MOUTH TWICE DAILY FOR reflux for 30 Active traZODone HCl 150 mg TAKE ONE TABLET BY MOUTH EVERY DAY for 30 Active Venlafaxine HCl ER 150 mg TAKE ONE CAPSU LE BY MOUTH EVERY DAY FOR BIPOLAR for 30 Active OXcarbazepine 600 mg TAKE ONE TABLET BY MOUTH TWICE DAILY FOR bipolar disorder for 30 Active Effexor XR 75 MG 1 capsule with food Orally Once a day Unknown Ferrous Gluconate 324 (38 Fe) MG TAKE ONE TABLET BY MOUTH EVERY DAY for 90 Active Sucralfate 1 GM TAKE ONE TABLET BY M OUTH THREE TIMES DAILY FOR 4 WEEKS. take with meals. for 28 Active Venlafaxine HCl ER 75 mg TAKE ONE CAPSUL E BY MOUTH EVERY DAY FOR BIPOLAR. TAKE WITH 150mg =225mg for 30 Active Albuterol Sulfate HFA 108 (90 Base) MCG/ACT 1 puff as needed Inhalation every 4 hrs for 30 days Unknown Thick-It - USE DIRECTED TO thicken liquids for 30 Active Promethazine-DM 6.25-15 MG/5ML 5 mL as needed Orally every 6 hrs Unknown Ibuprofen 800 mg TAKE ONE TABLET BY M OUTH EVERY 6 HOURS NEEDED FOR pain/fever greater THAN 100 for 15 Active SEROquel 200 MG 1 tablet at bedtime Orally twice daily Unknown Advair Diskus 100-50 MCG/ACT USE 1 INHALATION TWICE DAILY FOR CONGESTION for 30 Active Effexor XR 150 MG 1 capsule with food Orally Once a day Unknown Loratadine 10 mg TAKE ONE TABLET BY M OUTH EVERY DAY for 90 Active Ear Drops 6.5 % instill SIX drops in BOTH ears TWICE DAILY FOR FOUR DAYS each MONTH THEN IRRIGATE for 30 Active GNP Gas Relief 80 mg CHEW ONE TABLET BY MOUTH FOUR TIMES DAILY for 25 Active Social History Tobacco Use: Social History Observation Description Date Details (start date - stop date) Never Smoker NA - NA xTobacco Use/Smoking Question Answer Notes Are you a nonsmoker Alcohol Screen (Audit-C) Question Answer Notes Did you have a drink containing alcohol in the p ast year? No Points 0 Interpretation Negative Problems Problem Type SNOMED Code ICD Code Onset Dates Problem Status W/U Status Risk Notes Problem 26902944 Impacted cerumen of left ear (H61.22) Active confirmed Problem 351230935 Development delay (R62.50) Active confirmed Problem 61585829 Loud snoring (R06.83) Active confirmed Problem 47327280 Recurrent major depressive disorder, in full remission (F33.42) Active confirmed Problem 409811638 Aspiration into airway, subsequent encounter (T17.908D) Active confirmed Problem 941031781 Community acquired pneumonia of right lower lobe of lung (J18.9) Active confirmed Problem Loss of all teeth (disorder) (490621485) Edentulism (K08.109) Active confirmed Vital Signs Heart Rate 77 /min 01/09/2024 Temperature 97 degrees Fahrenheit 01/09/2024 Height-cm 198.12 cm 01/09/2024 Oximetry 93 % 01/09/2024 Blood pressure diastolic 72 mm Hg 01/09/2024 Weight-kg 98.25 kg 01/09/2024 Height 78 in 01/09/2024 Blood pressure systolic 120 mm Hg 01/09/2024 Weight 216.6 lbs 01/09/2024 BMI 25.03 kg/m2 01/09/2024 Encounters Encounter Location Date Provider Diagnosis [facility] Internal Medicine [address] [address] 01/09/2024 Scott Oakes Development delay R62.50 ; Recurrent major depressive disorder, in full remission F33.42 ; Community acquired pneumonia of right lower lobe of lung J18.9 ; Aspiration into airway, subsequent encounter T17.908D and Edentulism K08.109 [facility] Internal Medicine [address] [address] 01/06/2024 Scott Oakes [facility] Internal Medicine [address] [address] 01/10/2024 [facility] [address] [address] 03/25/2024 Scott Oakes Assessments Encounter Date Diagnosis (ICD Code) Assessment Notes Treatment Notes Treatment Clinical Notes Section Notes 01/09/2024 Development delay (ICD-10 - R62.50) 01/09/2024 Recurrent major depressive disorder, in full remission (ICD-10 - F33.42) 01/09/2024 Community acquired pneumonia of right lower lobe of lung (ICD-10 - J18.9) 01/09/2024 Aspiration into airway, subsequent encounter (ICD-10 - T17.908D) 01/09/2024 Edentulism (ICD-10 - K08.109) 01/09/2024 Other continue on current treatment plan. no changes. Plan Of Treatment No Information Insurance Providers Payer Name Payer Address Payer Phone Subscriber Number Group Number Insured Name Patient Relationship to Insured Coverage Start Date Coverage End Date [place] Medicare [place] [address] [place] [address] [phone] [id number] Dalton Olivas Self - patient is the insured [place] Medicaid [address] [place] [address] [id number] Dalton Olivas Self - patient is the insured Medications Administered Medication Instructions Date of Administration Dosage Notes Rocephin 11/21/2023 1 g Medical (General) History Medical History History ICD Code GERD (gastroesophageal reflux disease) K 21.9 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
--- OUTSIDE RECORDS SUMMARY | 2024-12-08 10:07 | XMS_ITS | Clinical Summary ---
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 8 Active OXcarbazepine (TRILEPTAL) 600 mg tablet 7 Active dextromethorphan-g uaiFENesin (ROBITUSSIN DM) 10-100 mg/5 mL solution Take 10 mL by mouth every 4 hours as needed for Cough. 8 Active simethicone 80 mg Tablet, Chewable Take 80 mg by mouth every 6 hours as needed for Gas. 8 Active calcium carb/magnesium hydrox (MYLANTA ORAL) Take by mouth. 8 Active omeprazole (PriLOSEC) 20 mg Capsule, Delayed Release(E.C.) 7 Active calcium polycarbophil (FIBER-LAX ORAL) Take by mouth. 8 Active fluticasone propionate (FLONASE) 50 mcg/spray [place], Suspension nasal inhaler 7 Active QUEtiapine (SEROquel) 200 mg tablet 7 Active traZODone (DESYREL) 150 mg tablet 7 Active loratadine (CLARITIN) 10 mg tablet Take 10 mg by mouth daily. 8 Active venlafaxine (EFFEXOR XR) 150 mg Extended Release 24 hour capsule 7 Active LORazepam (ATIVAN) 1 mg tablet 7 Active aspirin (KATHY) 325 mg tablet Take 325 mg by mouth daily. 8 Active neomycin-bacitraci n-polymyxin (NEOSPORIN) 3.5mg-400 unit- 5,000 unit/gram Ointment Apply to affected area 2 times daily. 8 Active hydrocortisone acetate (PROCTOCORT RECTAL) Insert by rectum. 8 Active nystatin (MYCOSTATIN) 100,000 unit/gram Cream Apply to affected area 2 times daily. 8 Active venlafaxine (EFFEXOR) 75 mg tablet Take 75 mg by mouth 3 times daily. 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 Gender Identity Not on file Sexual Orientation Not on file Last Filed Vital Signs Vital Sign Reading Time Taken Comments Blood Pressure 122/70 11/21/2022 9:24 AM CDT Pulse 82 11/21/2022 9:24 AM CDT Temperature 36.9 C (98.4 F) 11/21/2022 9:24 AM CDT Respiratory Rate - - Oxygen Saturation 97% 11/21/2022 9:24 AM CDT Inhaled Oxygen Concentration - - Weight 88.6 kg (195 lb 6.4 oz) 11/21/2022 9:24 A M CDT Height 172.7 cm (5' 8 ) 11/21/2022 9:24 AM CDT Body Mass Index 29.71 11/21/2022 9:24 AM CDT Plan of Treatment Health Maintenance Due Date [...] (1 - 1-dose 75+ series) 2033 Insurance MEDICAID [place] PART [place] AND B
--- NOTE | 2024-12-08 10:21 | XR_ITS ---
WS: [id number] Exam: XR chest 1V portable [id number] Date/Time of Exam: 12/08/2024 10:21 AM Reason For Exam: dyspnea/cough Comparison 11/12/2024. Diffuse interstitial and airspace infiltrates are noted throughout the RIGHT lung as well as the mid and lower LEFT lung. Findings suggest pneumonia. Heart size is top limits normal. The mediastinum is normal in contour. No pleural effusion or pneumothorax. Bony structures are unremarkable. XR/XR chest 1V portable [id number] IMPRESSION: 1. Interstitial and airspace infiltrate noted throughout the RIGHT lung as well as the mid and lower LEFT lung. Findings consistent with bilateral pneumonia.
--- NOTE | 2024-12-08 10:22 | ECG_ITS ---
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 Measurements Intervals [place] Rate: 106 P: 50 WA: 164 QRS: 28 QRSD: 94 T: 32 QT: 315 QTc: 420 Interpretive Statements SINUS TACHYCARDIA NONSPECIFIC T-WAVE ABNORMALITY ABNORMAL RHYTHM ECG INTERPRETATION BASED ON A DEFAULT AGE OF 40 YEARS Compared to ECG 11/12/2024 23:15:06 Sinus rhythm no longer present Sinus arrhythmia no longer present T-wave abnormality still present Electronically Signed On 12-08-2024 17:16:36 CDT by Daniel Galan M.D. [id number]
--- NOTE | 2024-12-08 10:29 | ED_ITS ---
HPI - General Adult 2 General: Chief complaint: General Medical Stated complaint: SOB, on 3LPM, fever, cough Time Seen by Provider: 12/08/24 10:01 History of Present Illness: 64-year-old male presents emergency room began having a fever and cough yesterday progressively worse usually on 3 L by nasal cannula cough minimally productive is also noted to be mildly hypotensive on arrival. Not requiring 4 L by nasal cannula. Denies any chest or abdominal pain. Patient has bipolar disease has some mild dementia and cognitive dysfunction so he is little difficult to get much history from caregiver assisting him provides most of his history. There is no report of diarrhea no report of dysuria urgency or frequency. No hemoptysis. Associated symptoms: Reports dyspnea; Deny chest pain or rash Related Data Home Medications ?Medication ?Instructions ?Recorded ?Confirmed dextromethorphan-guaifenesin 10 10 ml PO Q4H PRN Cough 07/12/22 12/08/24 mg-100 mg/5 mL oral syrup fluticasone propionate 50 2 spray intranasal DAILY@08 07/12/22 12/08/24 mcg/actuation nasal spray,suspension hydrocortisone 1 % topical cream 1 applic AR QID PRN H emorrhoids 07/12/22 12/08/24 (Proctocort) loratadine 10 mg tablet (Claritin) 10 mg PO DAILY@07 0 07/12/22 12/08/24 trazodone 150 mg tablet 150 mg PO BEDTIME@20 3 12/08/24 simethicone 80 mg chewable tablet 80 mg PO QID 3 12/08/24 aluminum-mag hydroxide-simethicone 30 ml PO QID PRN up set stomach 07/21/24 12/08/24 200 mg-200 mg-20 mg/5 mL oral susp docusate sodium 100 mg capsule 100 mg PO DAILY PRN Con stipation 07/21/24 12/08/24 ferrous gluconate 324 mg (37.5 mg 324 mg PO DAILY 07/0412/08/24 iron) tablet hydrocortisone 2.5 % topical cream 1 applic topical TI D PRN 07/21/24 12/08/24 irritation on buttocks and groin ketoconazole 2 % shampoo See Rx Instructions .Route . COMPLEX 07/21/24 12/08/24 magnesium hydroxide 400 mg/5 mL 5 ml PO QID PRN Consti pation 07/21/24 12/08/24 oral suspension (Milk of Magnesia) kyzrheur-zfnp-lwatw acid 400 1 tab PO DAILY 07/21/24 0 12/08/24 mcg-lycopene 600 mcg-ginkgo 120 mg tablet (One Daily Men's 50 Plus Memory Support) polyethylene glycol 3350 17 17 g PO DAILY PRN constipa tion 07/21/24 12/08/24 gram/dose oral powder (Miralax) ropinirole 0.5 mg tablet 0.5 mg PO BEDTIME 07/21/24 0 12/08/24 sucralfate 1 gram tablet 1 g PO TID 07/21/24 12/08/24 pantoprazole 40 mg tablet,delayed 40 mg PO QAM 5 12/08/24 release Previous Rx's ?Medication ?Instructions ?Recorded ceramides 1,3,6-II (CeraVe topical See Rx Instructions .Route 11/20/21 cream) .COMPLEX #453 grams carbamide peroxide 6.5 % ear drops See Rx Instructions .Route 12/19/21 (Ear Wax Removal Drops) .COMPLEX #15 mL fluticasone 100 mcg-salmeterol 50 1 inh inhalation BID #60 ea 09/03/22 mcg/dose blistr powdr for inhalation (Advair Diskus) albuterol sulfate 90 mcg/actuation 1 inh inhalation Q6 H PRN shortness 03/18/23 aerosol inhaler of breath or wheezing #8.5 g daly albuterol sulfate 2.5 mg/3 mL 2.5 mg (3 mL) inhalation Q6H PRN 01/31/24 (0.083 %) solution for nebulization Shortness Of Breat h #90 mL quetiapine 200 mg tablet See Rx Instructions .Route 0 11/03/24 .COMPLEX #60 tabs galantamine 4 mg tablet 4 mg PO BID 90 days #180 tab s 11/24/24 oxcarbazepine 300 mg tablet 300 mg PO BID 90 days #180 tabs 11/24/24 venlafaxine 150 mg See Rx Instructions .Route 0 11/25/24 capsule,extended release 24 hr .COMPLEX #30 caps venlafaxine 75 mg capsule,extended See Rx Instructions .Route 11/25/24 release 24 hr .COMPLEX #30 caps Allergies Allergy/AdvReac Type Severity Reaction Status Date / Time No Known Allergies Allergy Verified 12/08/24 10:15 Review of Systems 2 Const: Denies: fever(s) or chills Card: Denies: chest pain Resp: Reports: dyspnea, productive cough, wheezing and chest congestion GI: Denies: abdominal pain : Denies: dysuria, urinary frequency or urinary urgency Musc: Denies: neck pain or back pain Skin/Breast: Denies: rash PFSH ED 2 PFSH: Medical History Intellectual disability Lymphadenopathy, hilar Hiatal hernia At risk for aspiration Aspiration pneumonia Bipolar disease, manic Negative colon, negative guaics. Tardive dyskinesia Dupuytren's contracture of left hand Iron deficiency anemia Surgical History History of carpal tunnel release History of cataract extraction History of colonoscopy Social History Smoking and tobacco/nicotine status: never used tobacco/nicotine Alcohol intake: never Substance/Drug Use: never Physical Exam 2 Const: GENERAL APPEARANCE: cooperative ORIENTATION/CONSCIOUSNESS: Yes awake HENMT: COMMON NORMALS: normocephalic, atraumatic and hearing grossly normal bilaterally HEAD & SCALP: normocephalic and atraumatic Resp: COMMON NORMALS: normal respiratory effort, No retractions and No use of accessory muscles AUSCULTATION: rales and wheezes Cardio: COMMON NORMALS: regular rhythm and No murmurs present (Cardio) R ATE: tachycardic RHYTHM: regular rhythm GI: COMMON NORMALS: Soft to palpation and No hepatosplenomegaly present A USCULTATION: Yes normoactive bowel sounds PALPATION: Yes Soft to palpation, No Tenderness to palpation present (GI), No Guarding due to palpation present (GI) and Yes No hepatosplenomegaly present Extremity: COMMON NORMALS: normal to inspection, capillary refill normal, no clubbing, cyanosis or edema, no calf tenderness and no pedal edema Skin: COMMON NORMALS: no rashes or lesions noted GENERAL SKIN EXAM: no rashes or lesions noted Course 2 Vital Signs: Vital signs: Vital Signs Temperature 98.4 F 12/08/24 10:05 Pulse Rate 110 H 12/08/24 10:05 Blood Pressure 72/42 12/08/24 10:05 Pulse Oximetry 95 12/08/24 10:05 Oxygen Delivery Me thod Nasal Cannula 12/08/24 10:05 Oxygen Flow Rate 3 12/08/24 10:05 MDM - General Adult Medical Decision Making Bilateral blindness with mild hypotension. Responsive to fluids. He is needing slight increase in his oxygen supplementation will admit started on Zosyn. Discussed with hospitalist orders written Medical Records I reviewed the patient's medical records. Lab Data I reviewed the patient's lab results. 12/08/24 10:41 12/08/24 11:15 Radiology Impressions Chest X-Ray 12/08/24 10:21 IMPRESSION: 1. Interstitial and airspace infiltrate noted throughout the RIGHT lung as well as the mid and lower LEFT lung. Findings consistent with bilateral pneumonia. Laboratory Results WBC 10.45 10^3/uL (3.29-11.43) 12/08/24 10:41 RBC 4.31 10^6/uL (3.85-5.65) 12/08/24 10:41 Hgb 12.70 g/dL (11.27-16.99) 12/08/24 10:41 Hct 39.4 % (37-53) 12/08/24 10:41 MCV 91.4 fl (82-101) 12/08/24 10:41 MCH 29.5 pg (27-33) 12/08/24 10:41 MCHC 32.2 g/dL (30-55) 12/08/24 10:41 RDW 12.9 % (12.1-15.1) 12/08/24 10:41 Plt Count 136 10^3/cmm (157-399) L 12/08/24 10:41 MPV 11.9 fL (7.4-10.4) H 12/08/24 10:41 Neut % (Auto) 84.1 % 12/08/24 10:41 Lymph % (Auto) 10.0 % 12/08/24 10:41 [place] % (Auto) 4.9 % 12/08/24 10:41 Eos % (Auto) 0.3 % 12/08/24 10:41 Baso % (Auto) 0.3 % 12/08/24 10:41 Neut # (Auto) 8.80 10^3/uL (1.8-7.7) H 12/08/24 10:41 Lymph # (Auto) 1.0 10^3/uL (0.8-4.8) 12/08/24 10:41 [place] # (Auto) 0.5 10^3/uL (0.2-0.9) 12/08/24 10:41 Eos # (Auto) 0.0 10^3/uL (0.0-0.8) 12/08/24 10:41 Baso # (Auto) 0.0 10^3/uL (0.0-0.1) 12/08/24 10:41 Nucleated RBC % (auto) 0 % 12/08/24 10:41 Nucleated RBCs # 0.0 /100WBC 12/08/24 10:41 Specimen Type Arterial 12/08/24 10:33 Sample Site Brachial, right 12/08/24 10:33 ABG pH 7.44 (7.35-7.45) 12/08/24 10:33 ABG pCO2 37.5 mmHg (35-45) 12/08/24 10:33 ABG pO2 72.7 mmHg (80.0-100.0) L 12/08/24 10:33 ABG PO2/FiO2 Ratio 227 12/08/24 10:33 ABG HCO3 25.7 mmol/L (22-26) 12/08/24 10:33 ABG O2 Saturation 96.1 12/08/24 10:33 ABG Base Excess 1.7 mmol/L (-2.0-2.0) 12/08/24 10:33 Alexey Test N/a 12/08/24 10:33 A-a O2 Gradient 14.2 mmHg (5-10) H 12/08/24 10:33 Hematocrit 41.3 % (42-52) L 12/08/24 10:33 Hgb O2 Saturation 94.0 % (95-100) L 12/08/24 10:33 Carboxyhemoglobin 1.2 %THgb (0.4-20.1) 12/08/24 10:33 Methemoglobin 1.0 % (0.4-1.5) 12/08/24 10:33 Total Hemoglobin 13.5 g/dL (14-18) L 12/08/24 10:33 Sodium 139.0 mmol/L (131-143) 12/08/24 10:33 Potassium 3.7 mmol/L (3.5-5.0) 12/08/24 10:33 Glucose 135.0 mg/dL (70-115) H 12/08/24 10:33 Ionized Calcium 1.2 mmol/L (1.1-1.4) 12/08/24 10:33 O2 Delivery Device Nc 12/08/24 10:33 O2 Liters/Min 3.0 % 12/08/24 10:33 FiO2 32.0 % 12/08/24 10:33 Tellers Supervisor ID Amh 12/08/24 10:33 Sodium 138 mmol/L (136-145) 12/08/24 11:15 Potassium 4.0 mmol/L (3.5-5.1) 12/08/24 11:15 Chloride 101 mmol/L (98-107) 12/08/24 11:15 Carbon Dioxide 26 mmol/L (22-29) 12/08/24 11:15 Anion Gap 15.0 (5-19) 12/08/24 11:15 BUN 16 mg/dL (8-23) 12/08/24 11:15 Creatinine 1.1 mg/dL (0.7-1.2) 12/08/24 11:15 GFR Calculation 67.0 mL/min (90-130) L 12/08/24 11:15 Glucose 115 mg/dL (65-115) 12/08/24 11:15 Calculated Osmolality 288 mOsm/kg (285-295) 12/08/24 11:15 Lactic Acid 1.7 mmol/L (0.5-2.2) 12/08/24 11:15 Calcium 9.1 mg/dL (8.5-10.5) 12/08/24 11:15 Total Bilirubin 0.5 mg/dL (0.15-1.2) 12/08/24 11:15 AST 13 U/L (0-40) 12/08/24 11:15 ALT 14 U/L (0-41) 12/08/24 11:15 Alkaline Phosphatase 75 U/L (40-130) 12/08/24 11:15 Troponin T Baseline < 6 ng/L (0-15) 12/08/24 11:15 Total Protein 6.6 g/dL (6.6-8.7) 12/08/24 11:15 Albumin 3.7 g/dL (3.5-5.2) 12/08/24 11:15 Globulin 2.9 g/dL (1.3-4.6) 12/08/24 11:15 All radiology interpretation(s) finalized by discharge Discharge Plan Discharge Admit Provider: Ubaldo Hunter Condition: Stable Coding Level of Care Code ED Tear Down Man for Sal Cornell
[2024-12-08 10:44] LABS: ABG PCO2 37.5 mmHg (35-45); ABG PH Result 7.44 (7.35-7.45); Alveolar-Arterial Oxygen Gradi 14.2 mmHg (5-10); Arterial Blood Gas Hematocrit 41.3 % (42-52); Blood Gas LPM 3.0 %; Blood Gas Operator Identificat AMH; Blood Gas Sample Site Brachial, right; Blood Gas Sample Type Arterial; Carboxyhemoglobin 1.2 %THgb (0.4-20.1); Glucose Level-ABG 135.0 mg/dL (70-115); HCO3 ABG 25.7 mmol/L (22-26); Ionized Calcium Level - ABG 1.2 mmol/L (1.1-1.4); Methemoglobin 1.0 % (0.4-1.5); Oxygen Saturation ABG 96.1; PO2 ABG 72.7 mmHg (80.0-100.0); PO2 FiO2 Ratio Arterial Blood 227; Potassium Level - ABG 3.7 mmol/L (3.5-5.0); Sodium Level - ABG 139.0 mmol/L (131-143)
[2024-12-08 10:57] LABS: Hematocrit 39.4 % (37-53); Hemoglobin 12.70 g/dL (11.27-16.99); Mean Corpuscular HGB Conc 32.2 g/dL (30-55); Mean Corpuscular Hemoglobin 29.5 pg (27-33); Mean Corpuscular Volume 91.4 fl (82-101); Nucleated Red Blood Cells % 0 %; Platelet Count 136 10^3/cmm (157-399); Red Blood Count 4.31 10^6/uL (3.85-5.65); White Blood Count 10.45 10^3/uL (3.29-11.43)
[2024-12-08 11:32] LABS: Slide Review Slide Review Perform
[2024-12-08 11:44] LABS: Lactic Sepsis W/Reflex 1.7 mmol/L (0.5-2.2); Troponin(5th) Baseline < 6 ng/L (0-15)
[2024-12-08 11:49] LABS: Alanine Aminotransferase 14 U/L (0-41); Albumin Level 3.7 g/dL (3.5-5.2); Alkaline Phosphatase 75 U/L (40-130); Anion Gap 15.0 (5-19); Aspartate Amino Transferase 13 U/L (0-40); Blood Urea Nitrogen 16 mg/dL (8-23); Calcium 9.1 mg/dL (8.5-10.5); Carbon Dioxide 26 mmol/L (22-29); Chloride 101 mmol/L (98-107); Creatinine Clr Calc Pharmacy 74.2848; Globulin 2.9 g/dL (1.3-4.6); Glucose 115 mg/dL (65-115); Osmolality Calculated 288 mOsm/kg (285-295); Potassium 4.0 mmol/L (3.5-5.1); Sodium 138 mmol/L (136-145); Total Protein 6.6 g/dL (6.6-8.7)
[2024-12-08] MEDS: methylPREDNISolone sod succ 125 mg/2 mL INJ IVP (13:21)
[2024-12-08] MEDS: piperacillin-tazobactam 3.375 GM in sodium chloride 0.9% (plus) 50 ML IV (13:21)
[2024-12-08 13:42] LABS: Troponin 5 2HR < 6.0 ng/L (0-15); Troponin 5 2HR Delta 0 ABS# (0-10)
--- NOTE | 2024-12-08 15:48 | ECG_ITS ---
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 Measurements Intervals [place] Rate: 81 P: 60 MO: 159 QRS: 36 QRSD: 98 T: 27 QT: 374 QTc: 436 Interpretive Statements SINUS RHYTHM Compared to ECG 12/08/2024 13:32:05 T-wave abnormality no longer present Electronically Signed On 12-08-2024 17:17:40 CDT by Daniel Galan M.D. [email or web address] [id number]
--- NOTE | 2024-12-08 16:22 | ECG_ITS ---
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 Measurements Intervals [place] Rate: 78 P: 37 HI: 190 QRS: 35 QRSD: 98 T: 16 QT: 368 QTc: 420 Interpretive Statements SINUS RHYTHM NONSPECIFIC T-WAVE ABNORMALITY Compared to ECG 12/08/2024 10:10:53 Sinus tachycardia no longer present T-wave abnormality still present Electronically Signed On 12-08-2024 17:18:11 CDT by Daniel Galan M.D. [email or web address] [id number]
[2024-12-08 16:23] LABS: Respiratory Syncytial Virus Ce NEGATIVE (Negative); SARS-CoV-2 PCR NEGATIVE (Negative)
--- NOTE | 2024-12-08 16:24 | PM.HP ---
Providers/Chief Complaint Admitting Physician: Ubaldo Hunter MD Primary Care Provider: Reji Garza MD Chief Complaint: SOB, on 3LPM, fever, cough History of Present Illness Dalton Olivas is a 64 year old male history of intellectual delay residing at [facility] assisted long term comes in with temperature 101.5, chills cough shortness of breath and disorientation this morning. He had recent hospitalization for similar problem in July. Patient was noted to have a large paraesophageal hernia and air-fluid levels in the esophagus suggestive of poor peristalsis or reflux. Patient's caregiver Isidro is present at bedside and tells me that the patient's guardian was not in favor of the patient having hiatal hernia repair. Patient does not seem to be choking while eating but does eat fast. They do try to agile coach him to eat slower but he states he has always ate that way. Patient was treated with amoxicillin/clavulanate and prednisone at the time of last discharge Review of Systems Narrative: General positive for fevers chills cough Cardiovascular no chest pain or leg swelling Respiratory positive for cough shortness of breath. Patient is being worked up for snoring with a sleep study that is planned but not yet done. GI no nausea vomiting diarrhea constipation he does have a large hiatal hernia no dysuria hematuria Neuro no seizures or strokes Hematologic denies history of clots in legs or clots in the lungs Malignancy history negative for cancer Medications/Allergies Home Medications ?Medication ?Instructions ?Recorded ?Confirmed ?Last Taken ?Type ceramides 1,3,6-II (CeraVe topical See Rx Instructions .Route 11/20/21 12/08/24 08/15/22 Rx cream) .COMPLEX #453 grams carbamide peroxide 6.5 % ear drops See Rx Instructions .Route 12/19/21 12/08/24 08/15/22 Rx (Ear Wax Removal Drops) .COMPLEX #15 mL dextromethorphan-guaifenesin 10 10 ml PO Q4H PRN Cough 07/12/22 12/08/24 07/20/24 History mg-100 mg/5 mL oral syrup fluticasone propionate 50 2 spray intranasal DAILY@08 07/12/22 12/08/24 12/08/24 08:00 History mcg/actuation nasal spray,suspension hydrocortisone 1 % topical cream 1 applic [place] QID PRN Hemorrhoids 07/12/22 12/08/24 08/15/22 History (Proctocort) loratadine 10 mg tablet (Claritin) 10 mg PO DAILY@07 07/12/22 12/08/24 12/08/24 07:00 History trazodone 150 mg tablet 150 mg PO BEDTIME@20 07/12/22 12/08/24 12/07/24 20:00 History simethicone 80 mg chewable tablet 80 mg PO QID 08/13/22 12/08/24 12/08/24 07:00 History fluticasone 100 mcg-salmeterol 50 1 inh inhalation BID #60 ea 09/03/22 12/08/24 12/08/24 Rx mcg/dose blistr powdr for inhalation (Advair Diskus) albuterol sulfate 90 mcg/actuation 1 inh inhalation Q6H PRN shortness 03/18/23 12/08/24 Unknown Rx aerosol inhaler of breath or wheezing #8.5 grams albuterol sulfate 2.5 mg/3 mL 2.5 mg (3 mL) inhalation Q6H PRN 01/31/24 12/08/24 07/20/24 Rx (0.083 %) solution for nebulization Shortness Of Breath #90 mL aluminum-mag hydroxide-simethicone 30 ml PO QID PRN upset stomach 07/21/24 12/08/24 Unknown History 200 mg-200 mg-20 mg/5 mL oral susp docusate sodium 100 mg capsule 100 mg PO DAILY PRN Constipation 07/21/24 12/08/24 12/08/24 History ferrous gluconate 324 mg (37.5 mg 324 mg PO DAILY 07/21/24 12/08/24 12/08/24 History iron) tablet hydrocortisone 2.5 % topical cream 1 applic topical TID PRN 07/21/24 12/08/24 Unknown History irritation on buttocks and groin ketoconazole 2 % shampoo See Rx Instructions .Route .COMPLEX 07/21/24 12/08/24 12/07/24 History magnesium hydroxide 400 mg/5 mL 5 ml PO QID PRN Constipation 07/21/24 12/08/24 Unknown History oral suspension (Milk of Magnesia) dufebyog-duqm-ubbfb acid 400 1 tab PO DAILY 07/21/24 12/08/24 12/08/24 History mcg-lycopene 600 mcg-ginkgo 120 mg tablet (One Daily Men's 50 Plus Memory Support) polyethylene glycol 3350 17 17 g PO DAILY PRN constipation 07/21/24 12/08/24 Unknown History gram/dose oral powder (Miralax) ropinirole 0.5 mg tablet 0.5 mg PO BEDTIME 07/21/24 12/08/24 12/07/24 20:00 History sucralfate 1 gram tablet 1 g PO TID 07/21/24 12/08/24 12/08/24 07:00 History quetiapine 200 mg tablet See Rx Instructions .Route 11/03/24 12/08/24 12/08/24 Rx .COMPLEX #60 tabs galantamine 4 mg tablet 4 mg PO BID 90 days #180 tabs 11/24/24 12/08/24 12/08/24 Rx oxcarbazepine 300 mg tablet 300 mg PO BID 90 days #180 tabs 11/24/24 12/08/24 12/08/24 Rx venlafaxine 150 mg See Rx Instructions .Route 11/25/24 12/08/24 12/08/24 Rx capsule,extended release 24 hr .COMPLEX #30 caps venlafaxine 75 mg capsule,extended See Rx Instructions .Route 11/25/24 12/08/24 12/08/24 Rx release 24 hr .COMPLEX #30 caps pantoprazole 40 mg tablet,delayed 40 mg PO QAM 12/08/24 12/08/24 12/08/24 History release Allergies Allergy/AdvReac Type Severity Reaction Status Date / Time No Known Allergies Allergy Verified 12/08/24 10:15 PFSH Acute PFSH: Medical History (Updated 12/08/24 @ 16:41 by Ubaldo Hunter MD) Aspiration pneumonia Intellectual disability Lymphadenopathy, hilar Hiatal hernia At risk for aspiration Bipolar disease, manic Negative colon, negative guaics. Tardive dyskinesia Dupuytren's contracture of left hand Iron deficiency anemia Surgical History History of carpal tunnel release History of cataract extraction History of colonoscopy Social History (Updated 12/08/24 @ 16:38 by Ubaldo Hunter MD) Smoking and tobacco/nicotine status: never used tobacco/nicotine Alcohol intake: never Substance/Drug Use: never Additional social history: Patient states that he lives with his roommate. Caregiver clarifies this is at [facility] assisted living. Patient tells me he wants full CODE STATUS as confirmed on 12/08/2024 with Ubaldo Hunter MD in the presence of his caregiver Isidro as well as his nurse Judi Biological mom and father are both his brother who is younger than him lives in [place] but not in close contact Previous occupational history: 25 years at [employer] in [place] Vitals/I&O/Wt Last Vital Signs Temp 98.4 F 12/08/24 10:05 Pulse 85 12/08/24 16:00 Resp 24 H 12/08/24 15:15 BP 133/82 12/08/24 16:00 Pulse Ox 96 12/08/24 16:00 O2 Del Method Nasal Cannula 12/08/24 16:00 O2 Flow Rate 3 12/08/24 16:00 12/08/24 12/08/24 12/08/24 06:59 14:59 22:59 Intake Total 1050 / 1050 Balance 1050 / 1050 Weight last 48 hrs Weight 96.162 kg Physical Exam Narrative: General well-developed well-nourished male in no acute cardiopulmonary stress Oropharynx edentulous Mallampati 1 CV regular rate and rhythm Lungs has mild prolonged x-ray phase coarse breath sounds right lower lung crackles heard in the left lower lung Abdomen positive bowel tones soft nontender Calves no tenderness cords pretrip edema Mood and affect normal Data 12/08/24 10:41 12/08/24 11:15 Micro: Microbiology 12/08/24 11:15 Blood Culture - Preliminary Blood SPECIMEN COLLECTED 12/08/24 10:41 Blood Culture - Preliminary Blood SPECIMEN COLLECTED A&P Assessment and plan 1. Aspiration pneumonia: Patient is admitted and started on Zosyn plus nebulizers. Will consider adding steroids if not rapidly improving 2. Acute respiratory failure: Oxygen up to 3 L/min right now at 96% sat with respiratory rate of 24. 3. Intellectual disability: Patient is able to understand his medical condition and give consent to treatment today. Patient is verbally communicating well PDMP PDMP Reviewed: Not Reviewed Attestations Medical Necessity Statement*: Patient will require greater than 2 midnights in hospital for treatment of pneumonia Coding Level of Care Code Acute Code for Chg Fwd Diagnoses Aspiration pneumonia J69.0 Acute respiratory failure J96.00 Intellectual disability F79 Time Spent (min) 70
[2024-12-08 17:39] LABS: Troponin 5 6HR < 6.0 ng/L (0-15); Troponin 5 6HR Delta 0 ng/L (0-12)
[2024-12-08] MEDS: D5-NS 0.45% + KCL 20 mEq 20 MEQ/1,000 ML BAG 100 MEQ IV (18:02)
[2024-12-08 20:12] LABS: Glucose Urine UA Negative (Normal); Nitrate Urine Negative (Negative); Specific Gravity, Urine 1.013 (1.005-1.030)
[2024-12-08 20:14] LABS: Add Urine Microscopic? YES
[2024-12-09] VITALS (13 sets, daily range): BP systolic 103–133; BP diastolic 63–82; PULSE 72–100; RESP 16–20; TEMP 36.3–37; O2SAT 90–96
[2024-12-09 03:46] LABS: Hematocrit 38.9 % (37-53); Hemoglobin 12.40 g/dL (11.27-16.99); Mean Corpuscular HGB Conc 31.9 g/dL (30-55); Mean Corpuscular Hemoglobin 30.0 pg (27-33); Mean Corpuscular Volume 94.2 fl (82-101); Nucleated Red Blood Cells % 0 %; Platelet Count 166 10^3/cmm (157-399); Red Blood Count 4.13 10^6/uL (3.85-5.65); White Blood Count 8.26 10^3/uL (3.29-11.43)
[2024-12-09] MEDS: D5-NS 0.45% + KCL 20 mEq 20 MEQ/1,000 ML BAG 100 MEQ IV (03:52)
[2024-12-09 04:12] LABS: Blood Urea Nitrogen 15 mg/dL (8-23); Calcium 9.1 mg/dL (8.5-10.5); Carbon Dioxide 23 mmol/L (22-29); Chloride 105 mmol/L (98-107); Creatinine Clr Calc Pharmacy 104.0527; Glucose 142 mg/dL (65-115); Osmolality Calculated 293 mOsm/kg (285-295); Sodium 140 mmol/L (136-145)
[2024-12-09 04:14] LABS: Anion Gap 16.1 (5-19); Potassium 4.1 mmol/L (3.5-5.1)
[2024-12-09] MEDS: venlafaxine ER (24HR) 75 mg Capsule 225 MG PO (08:21)
[2024-12-09] MEDS: fluticasone nasal spray 16gm Btl 2 SPRAY INTRANASAL (08:23)
--- NOTE | 2024-12-09 14:56 | PM.DCS ---
Discharge Providers Date of Admission: 12/08/24 12:19 Date of Discharge: December 09, 2024 Attending Provider at Admission: Ubaldo Hunter MD Attending Provider at Discharge: Ubaldo Hunter MD Primary Care Provider: Reji Garza MD Diagnoses at Discharge Discharge Diagnosis 1. Aspiration pneumonia: Details from hospital stay: Patient was treated with Zosyn in the emergency department nebulizers and incentive spirometry. He was also seen by the speech therapist and retrained on chin tuck method and placed on a dysphagia diet 2. Acute respiratory failure: Details from hospital stay: Resolved. Patient weaning on oxygen and did not need steroid 3. Intellectual disability: Details from hospital stay: Patient has worked 25 years and is cooperative and a reasonably good historian with reasonably good insight. I think he will do well at his assisted living taking oral antibiotics Reason for Visit Reason for Visit: SOB, on 3LPM, fever, cough Brief History: Dalton Olivas is a 64 year old male history of intellectual delay residing at [facility] assisted retirement comes in with temperature 101.5, chills cough shortness of breath and disorientation this morning. He had recent hospitalization for similar problem in July. Patient was noted to have a large paraesophageal hernia and air-fluid levels in the esophagus suggestive of poor peristalsis or reflux. Patient's caregiver Isidro is present at bedside and tells me that the patient's guardian was not in favor of the patient having hiatal hernia repair. Patient does not seem to be choking while eating but does eat fast. They do try to transformation coach him to eat slower but he states he has always ate that way. Hospital Course Hospital Course Dalton received Zosyn nebulizers and incentive spirometry and some speech therapy and rapidly improved. He wants to go home and appears quite safe to do so. He actually was weaned off oxygen this morning and will do ambulatory oxygen testing to see if he needs it still Physical Exam Narrative: General well-developed well-nourished male in no acute cardiopulmonary stress CV regular rate and rhythm Lungs few coarse rhonchi in the right lower lungs air movement is otherwise good Discharge Data Studies Completed and Pending Completed Studies During Hospitalization Category Date Time Status XR chest 1V portable [id number] Stat Exams 12/08/24 10:21 Completed Pending at discharge Category Date Time Status Blood Culture Stat Lab 12/08/24 11:15 Results Radiology Impressions Chest X-Ray 12/08/24 10:21 IMPRESSION: 1. Interstitial and airspace infiltrate noted throughout the RIGHT lung as well as the mid and lower LEFT lung. Findings consistent with bilateral pneumonia. Laboratory Results WBC 8.26 10^3/uL (3.29-11.43) 12/09/24 03:16 RBC 4.13 10^6/uL (3.85-5.65) 12/09/24 03:16 Hgb 12.40 g/dL (11.27-16.99) 12/09/24 03:16 Hct 38.9 % (37-53) 12/09/24 03:16 MCV 94.2 fl (82-101) 12/09/24 03:16 MCH 30.0 pg (27-33) 12/09/24 03:16 MCHC 31.9 g/dL (30-55) 12/09/24 03:16 RDW 12.9 % (12.1-15.1) 12/09/24 03:16 Plt Count 166 10^3/cmm (157-399) 12/09/24 03:16 MPV 10.4 fL (7.4-10.4) 12/09/24 03:16 Neut % (Auto) 88.7 % 12/09/24 03:16 Lymph % (Auto) 6.9 % 12/09/24 03:16 [place] % (Auto) 4.0 % 12/09/24 03:16 Eos % (Auto) 0.0 % 12/09/24 03:16 Baso % (Auto) 0.0 % 12/09/24 03:16 Neut # (Auto) 7.33 10^3/uL (1.8-7.7) 12/09/24 03:16 Lymph # (Auto) 0.6 10^3/uL (0.8-4.8) L 12/09/24 03:16 [place] # (Auto) 0.3 10^3/uL (0.2-0.9) 12/09/24 03:16 Eos # (Auto) 0.0 10^3/uL (0.0-0.8) 12/09/24 03:16 Baso # (Auto) 0.0 10^3/uL (0.0-0.1) 12/09/24 03:16 Nucleated RBC % (auto) 0 % 12/09/24 03:16 Nucleated RBCs # 0.0 /100WBC 12/09/24 03:16 Specimen Type Arterial 12/08/24 10:33 Sample Site Brachial, right 12/08/24 10:33 ABG pH 7.44 (7.35-7.45) 12/08/24 10:33 ABG pCO2 37.5 mmHg (35-45) 12/08/24 10:33 ABG pO2 72.7 mmHg (80.0-100.0) L 12/08/24 10:33 ABG PO2/FiO2 Ratio 227 12/08/24 10:33 ABG HCO3 25.7 mmol/L (22-26) 12/08/24 10:33 ABG O2 Saturation 96.1 12/08/24 10:33 ABG Base Excess 1.7 mmol/L (-2.0-2.0) 12/08/24 10:33 Alexey Test N/a 12/08/24 10:33 A-a O2 Gradient 14.2 mmHg (5-10) H 12/08/24 10:33 Hematocrit 41.3 % (42-52) L 12/08/24 10:33 Hgb O2 Saturation 94.0 % (95-100) L 12/08/24 10:33 Carboxyhemoglobin 1.2 %THgb (0.4-20.1) 12/08/24 10:33 Methemoglobin 1.0 % (0.4-1.5) 12/08/24 10:33 Total Hemoglobin 13.5 g/dL (14-18) L 12/08/24 10:33 Sodium 139.0 mmol/L (131-143) 12/08/24 10:33 Potassium 3.7 mmol/L (3.5-5.0) 12/08/24 10:33 Glucose 135.0 mg/dL (70-115) H 12/08/24 10:33 Ionized Calcium 1.2 mmol/L (1.1-1.4) 12/08/24 10:33 O2 Delivery Device Nc 12/08/24 10:33 O2 Liters/Min 3.0 % 12/08/24 10:33 FiO2 32.0 % 12/08/24 10:33 [place] Truck Driver ID Amh 12/08/24 10:33 Sodium 140 mmol/L (136-145) 12/09/24 03:16 Potassium 4.1 mmol/L (3.5-5.1) 12/09/24 03:16 Chloride 105 mmol/L (98-107) 12/09/24 03:16 Carbon Dioxide 23 mmol/L (22-29) 12/09/24 03:16 Anion Gap 16.1 (5-19) 12/09/24 03:16 BUN 15 mg/dL (8-23) 12/09/24 03:16 Creatinine 0.7 mg/dL (0.7-1.2) 12/09/24 03:16 GFR Calculation 112.8 mL/min (90-130) 12/09/24 03:16 Glucose 142 mg/dL (65-115) H 12/09/24 03:16 Calculated Osmolality 293 mOsm/kg (285-295) 12/09/24 03:16 Lactic Acid 1.7 mmol/L (0.5-2.2) 12/08/24 11:15 Calcium 9.1 mg/dL (8.5-10.5) 12/09/24 03:16 Total Bilirubin 0.5 mg/dL (0.15-1.2) 12/08/24 11:15 AST 13 U/L (0-40) 12/08/24 11:15 ALT 14 U/L (0-41) 12/08/24 11:15 Alkaline Phosphatase 75 U/L (40-130) 12/08/24 11:15 Troponin T Baseline < 6 ng/L (0-15) 12/08/24 11:15 Troponin T 120 Minute < 6.0 ng/L (0-15) 12/08/24 13:08 Delta Troponin T 0 ABS# (0-10) 12/08/24 13:08 Troponin T Hi Sens 6Hr < 6.0 ng/L (0-15) 12/08/24 16:57 Troponin T Hi Sens 6Hr Delta 0 ng/L (0-12) 12/08/24 16:57 Total Protein 6.6 g/dL (6.6-8.7) 12/08/24 11:15 Albumin 3.7 g/dL (3.5-5.2) 12/08/24 11:15 Globulin 2.9 g/dL (1.3-4.6) 12/08/24 11:15 Urine Color Yellow (Yellow) 12/08/24 17:27 Urine Appearance Clear (CLEAR) 12/08/24 17:27 Urine pH 7.0 (5-7) 12/08/24 17:27 Ur Specific [place] 1.013 (1.005-1.030) 12/08/24 17:27 Urine Protein Negative (Negative) 12/08/24 17:27 Urine Glucose (UA) Negative (Normal) 12/08/24 17:27 Urine Ketones Negative (Negative) 12/08/24 17:27 Urine Blood Negative (Negative) 12/08/24 17:27 Urine Nitrate Negative (Negative) 12/08/24 17:27 Urine Bilirubin Negative (Negative) 12/08/24 17:27 Urine Urobilinogen 1.0 mg/dL (Negative) 12/08/24 17:27 Ur Leukocyte Esterase Negative (Negative) 12/08/24 17:27 Urine RBC 0-2 /hpf (0-2) 12/08/24 17:27 Urine WBC 0-5 /hpf (0-5) 12/08/24 17:27 Ur Squamous Epith Cells 0-5 /hpf (0-5) 12/08/24 17:27 Amorphous Sediment Not Reportable 12/08/24 17:27 Urine Bacteria None seen /hpf (NONE) 12/08/24 17:27 Hyaline Casts 4.11 /lpf 12/08/24 17:27 Influenza A (PCR) Negative (Negative) 12/08/24 13:29 Influenza Type B (PCR) Negative (Negative) 12/08/24 13:29 RSV (PCR) Negative (Negative) 12/08/24 13:29 SARS-CoV-2 (PCR) Negative (Negative) 12/08/24 13:29 Vitals Last Vital Signs Temp 97.3 F L 12/09/24 11:23 Pulse 100 12/09/24 11:23 Resp 18 12/09/24 11:23 BP 103/63 12/09/24 11:23 Pulse Ox 95 12/09/24 11:23 O2 Del Method Room Air 12/09/24 11:23 O2 Flow Rate 1 12/09/24 11:18 Discharge Plan Discharge Patient Disposition: Home Condition: Stable Prescriptions: New amoxicillin-pot clavulanate 875-125 mg tablet 1 tab PO BID Qty: 14 0RF Continued albuterol sulfate 90 mcg/actuation HFA aerosol inhaler 1 inh inhalation Q6H PRN (Reason: shortness of breath or wheezing) Qty: 8.5 3RF oxcarbazepine 300 mg tablet 300 mg PO BID 90 Days Qty: 180 3RF galantamine 4 mg tablet 4 mg PO BID 90 Days Qty: 180 3RF Rx Instructions: administer with AM and PM meals CeraVe Cream See Rx Instructions .ROUTE .COMPLEX Qty: 453 5RF Dose Instruction: APPLY TO THE AFFECTED AREA(S) OF LEGS TWICE DAILY FOR SKIN MOISTURIZER Rx Instructions: APPLY TO THE AFFECTED AREA(S) OF LEGS TWICE DAILY FOR SKIN MOISTURIZER AT 07:00 & 19:00 Ear Wax Removal Drops 6.5 % drops See Rx Instructions .ROUTE .COMPLEX Qty: 15 5RF Dose Instruction: instill SIX drops in BOTH ears TWICE DAILY FOR FOUR DAYS each MONTH THEN IRRIGATE Rx Instructions: instill SIX drops in BOTH ears TWICE DAILY FOR FOUR DAYS each MONTH THEN IRRIGATE quetiapine 200 mg tablet See Rx Instructions .ROUTE .COMPLEX Qty: 60 3RF Dose Instruction: TAKE ONE TABLET BY MOUTH TWICE DAILY FOR bipolar Rx Instructions: TAKE ONE TABLET BY MOUTH TWICE DAILY FOR bipolar venlafaxine 75 mg capsule,extended release 24hr See Rx Instructions .ROUTE .COMPLEX Qty: 30 4RF Dose Instruction: TAKE ONE CAPSULE BY MOUTH daily with 150mg bc=318pd Rx Instructions: TAKE ONE CAPSULE BY MOUTH daily with 150mg [id number] venlafaxine 150 mg capsule,extended release 24hr See Rx Instructions .ROUTE .COMPLEX Qty: 30 5RF Dose Instruction: TAKE ONE CAPSULE BY MOUTH EVERY DAY FOR BIPOLAR Rx Instructions: TAKE ONE CAPSULE BY MOUTH EVERY DAY FOR BIPOLAR Take with the 75mg dextromethorphan-guaifenesin 10-100 mg/5 mL Syrup 10 ml PO Q4H PRN (Reason: Cough) hydrocortisone [Proctocort] 1 % Cream 1 applic GA QID PRN (Reason: Hemorrhoids) trazodone 150 mg tablet 150 mg PO BEDTIME@20 fluticasone propionate 50 mcg/actuation spray,suspension 2 spray INTRANASAL DAILY@08 Rx Instructions: administer into each nostril loratadine [Claritin] 10 mg tablet 10 mg PO DAILY@07 simethicone 80 mg tablet,chewable 80 mg PO QID Rx Instructions: @07:00,12:00,16:00,20:00 albuterol sulfate 2.5 mg /3 mL (0.083 %) Solution For Nebulization 2.5 mg INHALATION Q6H PRN (Reason: Shortness Of Breath) Qty: 90 0RF fluticasone propion-salmeterol [Advair Diskus] 100-50 mcg/dose blister with device 1 inh inhalation BID Qty: 60 0RF One Daily Men's 50 Plus Memory 400-600-120 mcg-mcg-mg Tablet 1 tab PO DAILY ketoconazole 2 % shampoo See Rx Instructions .ROUTE .COMPLEX Rx Instructions: Lather onto Scalp and brennan three times weekly as needed ,allow to sit for 5 minutes before rinsing . sucralfate 1 gram tablet 1 g PO TID magnesium hydroxide [Milk of Magnesia] 400 mg/5 mL Suspension 5 ml PO QID PRN (Reason: Constipation) Rx Instructions: Take 5ml by mouth four times daily as needed on fourth day if no bowel movement in 3 days.Must wait 4 hours betweeen doeses Not to exceed 5days. hydrocortisone 2.5 % cream 1 applic TOPICAL TID PRN (Reason: irritation on buttocks and groin) Rx Instructions: use no more that 2 weeks a month alum-mag hydroxide-simeth 200-200-20 mg/5 mL Suspension 30 ml PO QID PRN (Reason: upset stomach) Rx Instructions: administer between meals and at bedtime ropinirole 0.5 mg tablet 0.5 mg PO BEDTIME Rx Instructions: Take at bedtime polyethylene glycol 3350 [Miralax] 17 gram/dose powder 17 g PO DAILY PRN (Reason: constipation ) Rx Instructions: Dissolve 1 scoop every day as needed for no bowel movement in 48 hours docusate sodium 100 mg Capsule 100 mg PO DAILY PRN (Reason: Constipation) ferrous gluconate 324 mg (37.5 mg iron) Tablet 324 mg PO DAILY pantoprazole 40 mg tablet,delayed release (DR/EC) 40 mg PO QAM Discharge Order = DC NOW: Discharge Order (Routine); Ordered 12/09/24 Ordered By: Ubaldo Hunter Referrals: Reji Garza MD [Primary Care Provider, Family Practice] Discharge Diet: As Directed Patient Instructions: Amoxicillin/Clavulanate Potassium (By mouth) (Augmentin, Augmentin..., Community Acquired Pneumonia (DC), Opioid Safety, Patient Portal & Bo Instructions Activity Restrictions/Additional Instructions: Continue dysphagia level 4 diet with extremely thick and pur?ed as per the speech therapy Liquid is to be moderate thick liquidized Follow-up with outpatient speech therapy Finish 7 more days of antibiotics in the form of Augmentin twice a day Wean oxygen as able if oxygen saturation greater than 92% Incentive spirometer 10 times an hour while awake Discharge Attestations Time Spent in Discharge Care*: greater than 30 min Time Spent in Smoking Cessation: Not a smoker Status at Discharge: Cognitive status at discharge: mildly impaired cognition, Behavioral status at discharge: cooperative, Quality Metrics Clinical Quality Measures [ No reported AMI, CVA or VTE this stay] Coding Level of Care Code 57045 Diagnoses Aspiration pneumonia J69.0 Acute respiratory failure J96.00 Intellectual disability F79 Time Spent (min) 31
--- NOTE | 2024-12-09 15:00 | PC.NURSE ---
Patient's home oxygen evaluation is completed at this time. Patient does not qualify or any increase in oxygen.
== END 2024-12-09 16:20 | disposition home or self-care (01) | DRG 177 ==
LOC: ER 11:05 → ER IP 12:19 → MEDSURG 14:45
PROVIDERS: Admitting Provider Internal Medicine; Emergency Provider Family Medicine; PCP Family Medicine; Visit Provider Internal Medicine
DX: J69.0 Pneumonitis due to inhalation of food and vomit (principal); J96.00 Acute respiratory failure, unspecified whether with hypoxia or hypercapnia; F79 Unspecified intellectual disabilities; K44.9 Diaphragmatic hernia without obstruction or gangrene; F31.9 Bipolar disorder, unspecified; D50.9 Iron deficiency anemia, unspecified
CPT/HCPCS: 36415; 36600; 71045; 80048; 80051; 80053; 81001; 82330; 82805; 83605; 84484; 85025; 87040; 87637; 92523; 92526; 92610; 93005; 94640; 94664; 94760; 96365; 96372; 96375; 99285; J1650; J2543; J2919; J7030; J7613; J7626; J9999

== ENCOUNTER → 2024-12-11 10:33 | Outpatient (BNVA) | payer MEDICARE, MEDICAID, SELFPAY | PROVIDERS: PCP Family Medicine; Visit Provider Nurse Practitioner Family | DX: L21.8 Other seborrheic dermatitis (principal); L30.8 Other specified dermatitis | CPT/HCPCS: 99214 ==

== ENCOUNTER 2025-01-20 20:44 | Outpatient (CLI) | payer MEDICARE, MEDICAID, SELFPAY | END 2025-01-20 20:45 | disposition home or self-care (01) | LOC: SLEEP 20:46 | PROVIDERS: PCP Family Medicine; Visit Provider Internal Medicine Pulmonary Disease | DX: G47.33 Obstructive sleep apnea (adult) (pediatric) (principal); G47.36 Sleep related hypoventilation in conditions classified elsewhere | CPT/HCPCS: 95810 ==

== ENCOUNTER 2025-03-03 00:10 | Emergency (ER) | payer MEDICARE, MEDICAID, SELFPAY ==
--- OUTSIDE RECORDS SUMMARY | 2024-02-10 03:20 | XMS_ITS ---
Author Organization [facility] Address [address] [place] [address] Care Team Providers Care Elevator Inspector Name Role Phone Scott Oakes Primary Care Provider REASON FOR VISIT F/U FROM PNEUMONIA Encounters Encounter Location Date Provider Diagnosis [facility] [address] [place] [phone] 02/10/2024 Scott Oakes Plan Of Treatment No Information Progress Notes * Norma OLIVAShDOB:[birth year] (65 yo M)Acc No.[id number]:02/10/2024 Progress Notes Patient: Dalton Tucker Provider: Myrtle Oakes MD :1960 A ge:63 Y S ex:Male Date:02/10/2024 Address:[address] [place], [place] [id number] Subjective: * Chief Complaints: * F /U FROM PNEUMONIA Care Plan Details* * Electronic signature of Tariq Oakes MD on 03/03/2025 at 12:22 AM CDT Sign off status: Pending * Provider: Myrtle Oakes MD Date: 0 02/10/2024 Generated for Rafi obrien/Hannah/Yulissaitting on: 12:22 AM CDT
--- OUTSIDE RECORDS SUMMARY | 2025-03-03 00:22 | XMS_ITS | Clinical Summary ---
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
--- OUTSIDE RECORDS SUMMARY | 2025-03-03 00:22 | XMS_ITS | Clinical Summary ---
Author Organization [facility] Address [address] [place] [address] Phone Care Team Providers Care Research Compliance Specialist Name Role Phone Unavailable Primary Care Provider Unavailabl e Allergies No known active allergies Medications OXcarbazepine (TRILEPTAL) 600 mg tablet 7 Active QUEtiapine (SEROquel) 200 mg tablet 7 Active traZODone (DESYREL) 150 mg tablet 7 Active omeprazole (PriLOSEC) 20 mg Capsule, Delayed Release(E.C.) 7 Active LORazepam (ATIVAN) 1 mg tablet 7 Active fluticasone (FLONASE) 50 mcg/spray [place], Suspension 7 Active venlafaxine (EFFEXOR XR) 150 [...] to affected area. 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
--- OUTSIDE RECORDS SUMMARY | 2025-03-03 00:22 | XMS_ITS | Encounter Summary ---
Author Organization [facility] Address [address] [place] [address] Care Team Providers Care Pleat Patternmaker Name Role Phone Unavailable Primary Care Provider Unavailabl e Encounter Details Date Type Department Care Team (Latest Contact Info) Description 06/16/2003 Outpatient Historical [facility] Family Medicine [place] [address] [facility] [facility] [address] [place] [id number] Cass Peralta MD NO ADDRESS ON FILE VOMITING ALONE (Primary Dx); MENTAL RETARDATION NOS Social History Tobacco Use Types Packs/Day Years Used Date Smoking Tobacco: Never Assessed Sex and Gender Information Value Date Recorded Sex Assigned at Not on file 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
[2025-03-03 00:23] VITALS: BP 103/67; PULSE 83; RESP 18; TEMP 36.5; O2SAT 94; BMI 33.4
--- OUTSIDE RECORDS SUMMARY | 2025-03-03 00:23 | XMS_ITS | Encounter Summary ---
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 Name Role Phone Unavailable Primary Care Provider Unavailabl e Encounter Details Date Type Department Care Team (Latest Contact Info) Description 09/27/2004 Outpatient Historical [facility] [place] [address] [place] [id number] Dereck Brewster PA NO ADDRESS ON FILE HEAD INJURY UNSPECIFIED (Primary Dx); MENTAL RETARDATION NOS; CONDUCT DISTURBANCE NOS; URINARY FREQUENCY Social History Tobacco Use Types Packs/Day Years Used Date Smoking Tobacco: Never Assessed Sex and Gender Information Value Date Recorded Sex Assigned at Not on file Legal Sex Male 3:32 AM [employer] Gender Identity Not on file Sexual Orientation Not on file documented as of this encounter Plan of Treatment Not on file documented as of this encounter Visit Diagnoses Diagnosis Head injury, unspecified- Primary Unspecified intellectual disabilities Unspecified disturbance of conduct Urinary frequency documented in this encounter
--- OUTSIDE RECORDS SUMMARY | 2025-03-03 00:23 | XMS_ITS | Data Portability ---
Author Organization JEFFREY Moustapha Velázquez [facility], [facility] Address [address] [facility] [address] [place] [address] Care Team Providers Care Communications Billing Analyst Name Role Phone DANAY GONZALEZ Primary Care Provider Assessment Encounter Date Assessment Date Assessment LastModified by Organization Details LastModified Time 12/01/2024 12/01/2024 he is excessively sleepy during the day and follows positional therapy already. [email or web address] Not available 12/01/2024 11:11:30 Plan of Treatment Reminders Order Date Submit Date Provider Last Modified By Organization Details Last Modified Time Details Appointments OFFICE VISIT YARA 2024 10:00A M Reji Garza MD Not available Not available Not available Lab CMP, serum or plasma 2024 025 JLAEN [facility], [address] [facility], [facility] [address], [place], [address], 02/19/2025 13:52:06 CBC w/ auto diff [email or web address] [place] [address] Lab, [address] [facility], [facility] [address], [place], [address], 02/26/2025 08:19:20 Referral None recorded. Procedures polysomno graphy (PROC) 2024 025 [facility], [address] [facility], [address], [place], [address], 12/16/2024 11:05:40 Surgeries None recorded. Imaging None recorded. Medication Orders ondansetr on HCl 8 mg tablet 2024 025 [facility], [address] [place] [address], [address], 02/28/2025 05:01:10 prednison e 20 mg tablet 2024 025 [facility] #[id number], [address], [facility] [address], [place], [address], 01/17/2025 05:01:31 doxycycli ne hyclate 100 mg capsule 2024 025 [facility] #[id number], [address], [facility], [place], [address], 01/19/2025 05:02:15 Patient TargetsNo targets recorded. Patient InstructionsNo instructions recorded. Reason for Referral None Reported. Results Created Date Observation Date Name Description Value Unit Range Abnormal Flag Note LastModifiedBy Organization Detail LastModifiedTime 02/20/2002/19/2025 CBC WBC 8.2 x10 4.5-10 .5 Not Available [facility] [address] [facility], [place], [address], 02/19/2025 13:30:59 02/20/20 25 02/19/2025 CBC RBC 4.99 x10 4.30-5 .90 Not Available [facility] [address] [facility], [place], [address], 02/19/2025 13:30:59 02/20/20 25 02/19/2025 CBC HGB 15.1 g/dL 13.5-1 8.0 Not Available [facility] [address] [facility], [place], [address], 02/19/2025 13:30:59 02/20/20 25 02/19/2025 CBC HCT 46.2 % 35.0-6 0.0 Not Available [facility] [address] [facility], [place], [address], 02/19/2025 13:30:59 02/20/20 25 02/19/2025 CBC MCV 92.6 fL 80.0-9 9.9 Not Available [facility] [address] [facility], [place], [address], 02/19/2025 13:30:59 02/20/20 25 02/19/2025 CBC MCH 30.3 pg 27.0-3 2.0 Not Available [facility] [address] [facility], [place], [address], 02/19/2025 13:30:59 02/20/20 25 02/19/2025 CBC MCHC 32.7 g/dL 32.0-3 6.0 Not Available [facility] [address] [facility], [place], [address], 02/19/2025 13:30:59 02/20/20 25 02/19/2025 CBC RDW 14.1 % 11.5-1 4.5 Not Available [facility] [address] [facility] 1, [place], [address], 02/19/2025 13:30:59 02/20/20 25 02/19/2025 CBC plt 127.1 x10 150.0- 451.0 low Not Available [facility] [address] [facility], [place], [address], 02/19/2025 13:30:59 02/20/20 25 02/19/2025 CBC lymphocytes % 7.3 % 20.0-5 0.0 low Not Available [facility] [address] [facility] [address], [place], [address], 02/19/2025 13:30:59 02/20/20 25 02/19/2025 CBC granulcytes % 84.2 % 30.0-7 0.0 high Not Available [facility] [address] [address], [place], [address], 02/19/2025 13:30:59 02/20/20 25 02/19/2025 CBC monocytes % 7.7 % 2.0-16 .0 Not Available [facility] [address] [address], [place], [address], 02/19/2025 13:30:59 02/20/20 25 02/19/2025 CBC granulcytes# 6.9 x10 Not Hanna ilable [facility] [address] [address], [place], [address], 02/19/2025 13:30:59 02/20/20 25 02/19/2025 CBC lymphocytes # 0.6 x10 Not Available [facility] [address] [address], [place], [address], 02/19/2025 13:30:59 02/20/20 25 02/19/2025 CBC monocytes # 0.6 x10 Not Avai lable [facility] [address] [address], [place], [address], 02/19/2025 13:30:59 02/20/2002/19/2025 CMP (FEMA LE) glucose 125.0 mg/dL 60.0-9 9.0 high Not Available [facility] [address] [address], [place], [address], 02/19/2025 13:52:06 02/20/20 25 02/19/2025 CMP (FEMA LE) BUN (blood urea nitrogen) 20.0 mg/dL 10.0-2 6.0 Not Available [facility] [address] [address], [place], [address], 02/19/2025 13:52:06 02/20/20 25 02/19/2025 CMP (FEMA LE) creatinine (serum) 0.8 mg/dL 0.4-1. 5 Not Available [facility] [address] [facility] [address], [place], [address], 02/19/2025 13:52:06 02/20/20 25 02/19/2025 CMP (FEMA LE) BUN/creatini ne ratio 25.00 ratio Not Available [facility] [address] [facility] [address], [place], [address], 02/19/2025 13:52:06 02/20/2002/19/2025 CMP (FEMA LE) eGFR calculated 102.5 Not Available [facility] [address] [facility] [address], [place], [address], 02/19/2025 13:52:06 02/20/20 25 02/19/2025 CMP (FEMA LE) total protein 7.6 g/dL 6.0-8. 5 Not Available [facility] [address] [facility] [address], [place], [address], 02/19/2025 13:52:06 02/20/20 25 02/19/2025 CMP (FEMA LE) total bilirubin 0.7 mg/dL 0.2-1. 3 Not Available [facility] [address] [address], [place], [address], 02/19/2025 13:52:06 02/20/2002/19/2025 CMP (FEMA LE) albumin 4.4 g/dL 3.5-5. 5 Not Available [facility] [address] [facility] [address], [place], [address], 02/19/2025 13:52:06 02/20/20 25 02/19/2025 CMP (FEMA LE) globulin 3.2 calc Not Available [facility] [address] [facility] [address], [place], [address], 02/19/2025 13:52:06 02/20/20 25 02/19/2025 CMP (FEMA LE) AST (SGOT) 29.0 U/L 0.0-46 .0 Not Available [facility] [address] [facility] [address], [place], [address], 02/19/2025 13:52:06 02/20/20 25 02/19/2025 CMP (FEMA LE) altv (SGPT) 31.0 U/L 13.0-6 9.0 normal Not Available [facility] [address] [facility] [address], [place], [address], 02/19/2025 13:52:06 02/20/20 25 02/19/2025 CMP (FEMA LE) A/G ratio 1.4 ratio Not Available [facility] [address] [facility] [address], [place], [address], 02/19/2025 13:52:06 02/20/20 25 02/19/2025 CMP (FEMA LE) ALP phos 78.0 U/L 30.0-1 40.0 normal Not Available [facility] [address] [facility] [address], [place], [address], 02/19/2025 13:52:06 02/20/20 25 02/19/2025 CMP (FEMA LE) calcium 8.9 mg/dL 8.4-10 .5 Not Available [facility] [address] [facility] [address], [place], [address], 02/19/2025 13:52:06 02/20/20 25 02/19/2025 CMP (FEMA LE) sodium 137.0 mmol/ L 136.0- 145.0 Not Available [facility] [address], [place], [address], 02/19/2025 13:52:06 02/20/20 25 02/19/2025 CMP (FEMA LE) potassium 4.2 mmol/ L 3.5-5. 1 Not Available [facility] [address] [facility], [place], [address], 02/19/2025 13:52:06 02/20/20 25 02/19/2025 CMP (FEMA LE) chloride 106.0 mmol/ L 98.0-1 10.0 normal Not Available [facility] [address] [facility], [place], [address], 02/19/2025 13:52:06 02/20/20 25 02/19/2025 CMP (FEMA LE) C02 21.0 mmol/ L 22.0-3 1.0 low Not Available [facility] [address] [facility], [place], [address], 02/19/2025 13:52:06 02/20/2002/19/2025 CMP (FEMA LE) anion gap 10.0 calc Not Available [facility] [address] [facility] [address], [place], [address], 02/19/2025 13:52:06 02/20/20 25 02/19/2025 CMP (FEMA LE) osmolality 286.9 calc Not Available [facility] [address] [facility], [place], [address], 02/19/2025 13:52:06 11/19/19 25 11/17/2024 CT, chest , w/o contr ast No observ ation record ed. [email or web address] [facility] [address] [facility] [address], [place], [address], 11/20/2024 10:16:16 01/26/20 25 01/20/2025 polys omnog aisha (PROC ) No observ ation record ed. [email or web address] [facility], [facility] [address], [place], [address], 01/27/2025 09:38:22 Result Notes None recorded. 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 5 09:29:13 Mental retardat ion Active 2021 Julissa banks [facility] 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 5 13:41:26 Bipolar disorder 55336636 Active 2021 Julissa banks [facility] 5 13:40:30 Dermatop hytosis 62897908 Completed 202207/30/2024 Julissa banks [facility] 5 13:40:54 Constipa tion 81719679 Active 2023 Julissa banks [facility] 5 13:40:40 Zenker's divertic ulum 337129764 Active 2023 Julissa banks [facility] 5 13:41:45 Orophary ngeal dysphagi a 60785740 Active 2023 Julissa Ramírez null, [facility] 5 13:41:14 Recurren t aspirati on pneumoni a 971705472 Active 2023 Julissa banks, [facility] 5 13:41:33 Obesity 859682620 Active 2023 Julissa Ramírez null, [facility] 5 13:41:10 Aspirati on pneumoni a 550722242 Completed 202307/30/2024 Julissa banks, [facility] 5 13:40:27 Hiatal hernia 33807551 Active 2024 Julissa Ramírez null, [facility] 5 13:41:00 Acute bacteria l bronchit is 972496472 Completed 202407/30/2024 Julissa Ramírez null, [facility] 5 13:40:14 Chronic hypoxemi c respirat ory failure 805458751 Active 2024 HYACINTH EUGENE null, [facility] 5 10:21:36 At increase d risk for aspirati on 384020209 Active 2024 Octavia Brennan null, [facility] 5 12:25:24 Acute aspirati on pneumoni a 37618616943 100 Active 2024 Octavia Brennan null, [facility] 5 16:46:24 Fibrosis of lung 64587992 Active 2024 HYACINTH EUGENE darren [facility] 5 11:47:55 Obstruct pita sleep apnea syndrome 73152130 Active 2024 HYACINTH JABIER [facility]ren [facility] 5 09:39:31 Hemateme sis 8047396 Active 2024 Reji Garza MD [address] [place] [address], [address] [place] [address] , [facility] 5 12:51:52 Acute gastroen teritis 77316795 Active 2024 Reji Garza MD [address] [place] [address], [address] [place] [address] , [facility] 5 12:51:53 Problem Notes None recorded. Procedures Surgical History Date Name Laterality Status Provider Name and Address Organization Details Recorded Time 2023 esophagogastroduodenoscopy completed KAYDENARVIN EUGENE [facility] 5 13:14:20 procedure on brain completed MICHAEL Marlon EUGENE [facility] 5 09:30:20 arthroscopy of knee completed KAYDEN EGUENE [facility] 5 09:30:33 Imaging Results None recorded. Procedure Notes None recorded. Medical Equipment None Reported. Allergies No known drug allergies Medications Name Sig Start Date Stop Date Status Note LastModified by Organization Details LastModified Time promethaz ine-DM 6.25 mg-15 mg/5 mL oral syrup every six hours, as needed 02/12 completed Not Available Not Available Not Available venlafaxi ne ER 75 mg capsule,e xtended release 24 hr TAKE ONE CAPSULE BY MOUTH EVERY DAY with 150mg no=[id number] ; FOR ANXIETY 2024 active Not Available Not Available Not Avai lable doxycycli ne hyclate 100 mg capsule Take 1 capsule twice a day by oral route for 7 days. 01/19 completed Not Available Not Available Not Available ropinirol e 1 mg tablet 02/12 completed Not Available Not Available Not Available ketoconaz ole 2 % shampoo lather onto scalp and brennan three times weekly active Not Available Not Available No t Available clindamyc in HCl 300 mg capsule TAKE 1 CAPSULE BY MOUTH THREE TIMES DAILY FOR 10 DAYS 08/06 completed Not Available Not Available Not Available albuterol sulfate 2.5 mg/3 mL (0.083 %) solution for nebulizat ion inhale THE contents of one vial via NEBULIZE R EVERY 4 HOURS NEEDED FOR COUGH/TR OUBLE BREATHIN G OR IF OXYGEN BELOW 95% 2024 active Not Available Not Available Not Avai lable azithromy sonido 250 mg tablet TAKE 2 TABLETS BY MOUTH ONCE DAILY FOR 1 DAY THEN 1 TABLET ONCE DAILY FOR 4 DAYS 11/05 completed Not Available Not Available Not Available ibuprofen 800 mg tablet TAKE ONE TABLET BY MOUTH EVERY 6 HOURS NEEDED FOR pain/fev er >100F 08/06 completed Not Available Not Available Not Available benzonata te 200 mg capsule every eight hours, as needed 02/05 completed Not Available Not Available Not Available Thick-It oral powder USE DIRECTED TO THICKEN LIQUIDS FOR thickeni ng TO honey consiste ncy. DOCUMENT PER SHIFT 2024 active Not Available Not Available Not Avai lable ondansetr on HCl 8 mg tablet Take 1 tablet every 8 hours by oral route for 2 days, for prn nausea. 02/28 completed Not Available Not Available Not Available sucralfat e 1 gram tablet TAKE ONE TABLET BY MOUTH THREE TIMES DAILY with meals FOR ULCERS 2024 active Not Available Not Available Not Avai lable prednison e 20 mg tablet Take 1 tablet every day by oral route in the morning for 5 days. 01/17 completed Not Available Not Available Not Available Proctocor t 1 % topical cream APPLY A THIN LAYER TO THE AFFECTED AREA(S) BY TOPICAL ROUTE 2 TIMES PER DAY active Not Available Not Available No t Available quetiapin e 200 mg tablet two times daily active Not Available Not Available No t Available Milk of Magnesia 400 mg/5 mL oral suspensio n TAKE 5 ML BY MOUTH FOUR TIMES DAILY NEEDED ON FOURTH DAY IF NO BOWEL MOVEMENT IN 3 DAYS. must wait AT least 4 hours between doses. NOT TO EXCEED 5 DAYS 2024 active Not Available Not Available Not Avai lable galantami ne 4 mg tablet Take 1 tablet twice a day by oral route for 30 days. active Not Available Not Available No t Available clobetaso l 0.05 % topical cream 02/12 completed Not Available Not Available Not Available venlafaxi ne ER 150 mg capsule,e xtended release 24 hr TAKE ONE CAPSULE BY MOUTH EVERY DAY FOR bipolar (TAKE WITH 75MG = 225MG) 2024 active Not Available Not Available Not Avai lable Advair Diskus 100 mcg-50 mcg/dose powder for inhalatio n USE 1 INHALATI ON TWICE DAILY FOR CONGESTI ON 2024 active Not Available Not Available Not Avai lable oxcarbaze pine 300 mg tablet TAKE 1 TABLET BY MOUTH TWICE DAILY FOR bipolar disorder 2024 active Not Available Not Available Not Avai lable triamcino lone acetonide 0.1 % topical cream apply twice dAILY TO RASH ON buttocks FOR two WEEKS THEN USE NEEDED if hydrocor tisone is ineffect pita 2024 active Not Available Not Available Not Avai lable acetamino phen ER 650 mg tablet,ex tended release Take 1 tablet every 8 hours by oral route as needed, for pain or fever > 100. 2024 active Not Available Not Available Not Avai lable amoxicill in 875 mg tablet two times daily 01/24 completed VO AT/tg; Recorded 06/04/19 23 2:52PM by Leslye Gonzalez Historic al Summary; Refill Quantity : 0; Not Available Not Available Not Available Triple Antibioti c 3.5 mg-400 unit-5,00 0 unit/gram topical ointment APPLY TOPICALL Y TO OPEN AREAS NEEDED FOR CUTS AND ABRASION S 2024 active Not Available Not Available Not Avai lable Ear Wax Removal Drops 6.5 % instill SIX drops PER ear TWICE DAILY FOR 4 DAYS TWO TIMES PER MONTH *IRRIGAT E NEEDED* FOR EAR WAX REMOVAL 2024 active Not Available Not Available Not Avai lable pantopraz ole 40 mg tablet,de layed release Take 1 tablet every day by oral route. 2024 active Not Available Not Available Not Avai lable trazodone 150 mg tablet TAKE 1 TABLET BY MOUTH EVERY NIGHT AT BEDTIME FOR insomnia 2024 active Not Available Not Available Not Avai lable triamcino lone acetonide 0.1 % topical ointment APPLY A THIN LAYER TO THE AFFECTED AREA(S) BY TOPICAL ROUTE 2 TIMES PER DAY 07/16 completed Not Available Not Available Not Available ropinirol e 0.5 mg tablet Take 1 tablet every day by oral route at bedtime for 30 days. active Not Available Not Available No t Available docusate sodium 100 mg capsule TAKE ONE CAPSULE BY MOUTH EVERY DAY FOR CONSTIPA TION 2024 active Not Available Not Available Not Avai lable omeprazol e 20 mg capsule,d elayed release TAKE ONE CAPSULE BY MOUTH TWICE DAILY FOR reflux 08/06 completed Not Available Not Available Not Available oxcarbaze pine 600 mg tablet TAKE ONE TABLET BY MOUTH TWICE DAILY FOR bipolar DISORDER 06/17 completed Not Available Not Available Not Available hydrocort isone 2.5 % topical cream APPLY TOPICALL Y TWICE DAILY TO BUTTOCKS UNTIL CLEAR. FOR RASH ON BUTTOCKS and APPLY TOPICALL Y TWICE ZAPATA NEEDED FOR RASH. USE SATURDAY- SATURDAY (OFF WEEKENDS ) 2024 active Not Available Not Available Not Avai lable Gas Relief 80 (simethic one) 80 mg chewable tablet CHEW ONE TABLET BY MOUTH FOUR TIMES DAILY FOR GAS RELIEF 2024 active Not Available Not Available Not Avai lable Mylanta 200 mg-200 mg-20 mg/5 mL oral suspensio n 30 ml every 4 hours as needed active Not Available Not Available No t Available albuterol sulfate HFA 90 mcg/actua tion aerosol inhaler inhale one PUFF BY MOUTH EVERY 6 HOURS NEEDED FOR SHORTNES S OF BREATH OR wheezing 2024 active Not Available Not Available Not Avai lable ketoconaz ole 2 % topical cream 02/12 completed Not Available Not Available Not Available fluticaso ne propionat e 50 mcg/actua tion nasal spray,balbir pension USE TWO SPRAYS IN EACH NOSTRIL EVERY DAY FOR ALLERGIE S 2024 active Not Available Not Available Not Avai labrebecca clotrimaz ole 1 % topical cream APPLY TO THE AFFECTED AND SURROUND ING AREAS OF SKIN BY TOPICAL ROUTE 2 TIMES PER DAY IN THE MORNING AND EVENING 02/12 completed Not Available Not Available Not Available loratadin e 10 mg tablet TAKE 1 TABLET BY MOUTH EVERY MORNING FOR seasonal allergie s 2024 active Not Available Not Available Not Avai labrebecca amoxicill in 875 mg-potass ium clavulana te 125 mg tablet TAKE ONE TABLET BY MOUTH TWICE DAILY 01/04 completed Not Available Not Available Not Available Topamax 100 mg tablet two times daily 02/12 completed Not Available Not Available Not Available Augmentin XR 1,000 mg-62.5 mg tablet,ex tended release Take 2 tablets every 12 hours by oral route for 10 days. 10/28 completed Not Available Not Available Not Available aspirin daily 01/24 completed 0; Recorded 11/14/19 22 3:42PM by Shayy Mujica, Office Visit; Not Available Not Available Not Available Lamisil two times daily 02/12 completed Not Available Not Available Not Available Mylanta Maximum Strength 30 ml every 4 hrs prn upset stomach 08/26 completed Not Available Not Available Not Available Trazodone daily 02/12 completed Not Available Not Available Not Available CeraVe lotion two times daily active Not Available Not Available No t Available ferrous gluconate 324 mg (38 mg iron) tablet TAKE ONE TABLET BY MOUTH EVERY DAY FOR ANEMIA 2024 active Not Available Not Available Not Avai lable pantopraz ole DR 40 mg granules delayed-r elease for susp in packet USE 1 PACKET EVERY DAY DIRECTED . Sprinkle granules ON applesau ce OR mix with apple JUICE. Stir, drink, and RINSE cup with JUICE. 2024 active Not Available Not Available Not Avai labrebecca Robitussi n DM Max 10 mg-200 mg/5 mL oral liquid Take 10 mL every 4 hours by oral route as needed. active Not Available Not Available No t Available ClearLax 17 gram/dose oral powder DISSOLVE 1 CAP FULL (17gm) EVERY DAY NEEDED FOR NO BOWEL MOVEMENT IN 48 HOURS 2024 active Not Available Not Available Not Avai lable OptiChamb er Jennifer [facility] with Medium Mask USE DIRECTED 2024 active Not Available Not Available Not Avai labrebecca Sierra-Tuss in 100 mg/5 mL oral liquid TAKE 200 MG (10 ML) BY MOUTH EVERY 4 HOURS NEEDED cough 2024 active Not Available Not Available Not Avai lable Thick-It oral powder packet Take 1 packet as needed by oral route as directed , for thickeni ng liquids to honey consiste ncy. 2023 active Not Available Not Available Not Avai lable Men's 50 Plus Multivita min 400 mcg-20 mcg-370 mcg tablet TAKE 1 TABLET BY MOUTH EVERY DAY FOR suppleme nt 2024 active Not Available Not Available Not Avai melanie Vitals Date Recorded Body height Body mass index (BMI) Body weight Body temperature Heart rate Oxygen saturation Oxygen saturation in Arterial blood by Pulse oximetry Inhaled oxygen flow rate Respiratory rate Systolic And Diastolic Provider Name and Address Organization Details Last Updated DateTime 5 172.72 cm 32.8 kg/m2 13096.9 5 g 96.9 [degF] 104 /min 97 % 97 % 3 L/min 19 /min 140/78 mm[Hg] UNRULY MARTINEZ [facility] 5 10:25:57 Date Recorded Body height Body mass index (BMI) Body weight Body temperature Heart rate Oxygen saturation Oxygen saturation in Arterial blood by Pulse oximetry Inhaled oxygen flow rate Systolic And Diastolic Provider Name and Address Organization Details Last Updated DateTime 5 172.72 cm 32.5 kg/m2 09472.7 7 g 98 [degF] 62 /min 97 % 97 % 3 L/min 118/62 mm[Hg] HYACINTH EUGENE [facility] 5 14:53:15 Date Recorded Body height Body mass index (BMI) Body weight Oxygen saturation Oxygen saturation in Arterial blood by Pulse oximetry Inhaled oxygen flow rate Heart rate Body temperature Systolic And Diastolic Provider Name and Address Organization Details Last Updated DateTime 5 172.72 cm 33.2 kg/m2 73842.5 4 g 95 % 95 % 3 L/min 115 /min 98.3 [degF] 122/78 mm[Hg] Namrata Barclay [facility] 10:37:21 Date Recorded Body height Body mass index (BMI) Body weight Oxygen saturation Oxygen saturation in Arterial blood by Pulse oximetry Inhaled oxygen flow rate Heart rate Body temperature Respiratory rate Systolic And Diastolic Provider Name and Address Organization Details Last Updated DateTime 172.72 cm 33.2 kg/m2 91817.2 4 g 95 % 95 % 3 L/min 85 /min 97.7 [degF] 17 /min 120/80 mm[Hg] UNRULY MARTINEZ [facility] 17:56:20 Date Recorded Body height Body mass index (BMI) Body weight Body temperature Heart rate Oxygen saturation Oxygen saturation in Arterial blood by Pulse oximetry Inhaled oxygen flow rate Systolic And Diastolic Provider Name and Address Organization Details Last Updated DateTime 172.72 cm 33 kg/m2 73332.5 4 g 100 [degF] 113 /min 96 % 96 % 3 L/min 108/60 mm[Hg] HYACINTH EUGENE [facility] 12:37:59 Social History Question Answer Notes LastModified by Emissary Details LastModified Time Tobacco Smoking Status Never [facility]oker [facility] 10:50:27 Where Do You Live? Tamika Kim'jacqui [email or web address] Information not available 08/06/2024 What Was The Date Of Your Most Recent Tobacco Screening? 01/04/2025 [email or web address] Information not available 01/04/2025 Sex: Unknown Functional Status Question Answer Note LastModified by Emissary Details LastModified Time Do you use any illicit or recreational drugs? No Information not available 02/06/2024 Do you or have you ever used any other forms of tobacco or nicotine? No [email or web address] Information not available 08/06/2024 What is your level of alcohol consumption? None Information not available 02/06/2024 Are you able to care for yourself independently? No [email or web address] Information not available 08/06/2024 Do you or have you ever used any nicotine-free cigarettes, vape, or chewing tobacco? No [email or web address] Information not available 08/06/2024 Mental Status None recorded. Family History Nothing Reported. Medical History No medical history recorded. Immunizations Vaccine Type Date Status Note Provider Nam e and Address Organization Details Recorded Time zoster recombinant 5 completed Reji Garza MD [address] [place] [address], [id number], [facility] 09/16/2024 14:46:42 Influenza, MDCK, quadrivalent, PF 2 completed Maru [facility] 02/06/2024 10:49:16 COVID-19, mRNA, LNP-S, PF, 100 mcg/0.5mL dose or 50 mcg/0.25mL dose 1 completed Maruaranza [facility] 02/06/2024 10:49:16 COVID-19, mRNA, LNP-S, PF, 100 mcg/0.5mL dose or 50 mcg/0.25mL dose 1 completed Maruaranza [facility] 02/06/2024 10:49:16 COVID-19, mRNA, LNP-S, PF, 100 mcg/0.5mL dose or 50 mcg/0.25mL dose 2 completed [place] [facility] 02/06/2024 10:49:16 COVID-19, mRNA, LNP-S, bivalent, PF, 50 mcg/0.5 mL or 25mcg/0.25 mL dose 2 completed Maru [facility] 02/06/2024 10:49:16 Influenza, split virus, trivalent, preservative 3 completed Maru banks, [facility] 02/06/2024 10:49:16 Influenza, split virus, trivalent, PF 4 completed Maru banks, [facility] 02/06/2024 10:49:16 Influenza, split virus, trivalent, PF 5 completed Maru banks, [facility] 02/06/2024 10:49:16 Td (adult), 2 Lf tetanus toxoid, preservative free, adsorbed 4 completed [facility] 02/06/2024 10:49:16 Hep B, adult 5 completed [facility] 02/06/2024 10:49:17 Hep B, adult 6 completed [facility] 02/06/2024 10:49:17 Hep B, adult 4 completed [facility] 02/06/2024 10:49:17 Influenza, split virus, quadrivalent, PF 1 completed Maru banks, [facility] 02/06/2024 10:49:17 Influenza, MDCK, quadrivalent, preservative 3 completed Maru banks, [facility] 02/18/2024 15:15:35 Tdap 4 completed [facility] 02/18/2024 15:15:36 COVID-19, mRNA, LNP-S, PF, 50 mcg/0.5 mL 5 completed HYACINTH banks, [facility] 08/26/2024 10:19:44 Influenza, MDCK, trivalent, preservative 4 completed HYACINTH EUGENE null, [facility] 08/26/2024 10:19:45 Pneumococcal conjugate PCV20, polysaccharide [id number] conjugate, adjuvant, PF 5 completed Julissa banks, [facility] 06/17/2024 12:12:19 zoster recombinant 5 completed Julissa Ramírez darren, [facility] 06/17/2024 12:12:42 Influenza, split virus, trivalent, preservative 6 completed Not Available [facility] 12/29/2022 02:32:31 Past Encounters Encounter ID Performer Location Encounter Start Date Encounter Closed Date Diagnosis/Indication Diagnosis SNOMED-CT Code Diagnosis ICD10 Code Diagnosis IMO Codes Diagnosis Note [id number] Veto Whitney MD [facility] ([facility]) [address] [place] [id number] 5 01/24/2023 09:25:03 01/24/2023 18:32:52 Dermatophytosis 16183489 B35.9 Concerned about fungal infection. Start clotrimazo le twice daily for 2 weeks. Follow-up if it does not improve. [id number] MARIA M MEREDITH [facility] ([facility]) [address] [place] [id number] 5 01/31/2024 16:19:26 01/31/2024 17:19:34 [id number] Veto Whitney MD [facility] ([facility]) [address] [place] [id number] 5 02/06/2024 10:39:53 02/06/2024 15:27:00 Cough 84825933 R05.9 COVID was negative Pneumonia 858502626 J18. 9 Complete entire course of antibiotic s. Discussed deep breathing exercises he should do multiple times daily. Continue to use as needed nebulizer treatments . Maintain follow-up with Dr. Oakes next week. [id number] Danay Gonzalez DO [facility] ([facility]) [address] [place] [address] [id number] 5 02/13/2024 09:42:08 02/13/2024 12:37:20 Constipation 49994959 K59.00 Intermitte nt sometimes severe. Has been seen multiple times lately. We will continue his Senokot, prune juice, stool softener. Will add MiraLAX as needed with no bowel movement in 48 hours. Counseled. Zenker's diverticulum 39 2399028 K22.5 pharyngeal pouch, DX 2023, causing recurrent aspiration pneumonia, has appt with [facility] surgeon for repair mar 26 2024. Pneumonitis 241577955 J1 8.9 Appears secondary to aspiration from Zenker's diverticul um. Patient has appoint with surgeon for evaluation for surgical treatment. We will continue as needed albuterol per neb. This is for shortness of breath severe cough or oxygen saturation below 95%. [id number] MARIA M POWER [facility] ([facility]) [address] [place] [address] [id number] 5 03/06/2024 10:28:57 03/06/2024 11:05:37 Acute bronchitis 78543677 J20.9 [id number] Danay Gonzalez DO [facility] ([facility]) [address] [place] [address] [id number] 5 03/12/2024 11:48:06 03/16/2024 12:04:51 Acute bronchitis 06548578 J20.9 Pneumonitis 288472163 J1 8.9 Appears secondary to aspiration from Zenker's diverticul um. Patient has appointmen t with surgeon for evaluation for surgical treatment. Cognitive disorder 04651 5004 F09 Oropharyng eal dysphagia 08684470 R13.12 Recurrent aspiration pneumonia 856346688 J69.0 continue pureed foods and thinner for drinks. will start straw. counseled Obesity 205934499 E66.9 loosing weight too fast with low carb diet, will go back to regular diet, decrease portions. counseled [id number] MARIA M MEREDITH [facility] ([facility]) [address] [place] [id number] 5 03/27/2024 17:19:15 03/27/2024 17:48:43 Acute upper respiratory infection 97741111 J06.9 95% here. No signs of resp distress. Will have pt take some prednisone for a couple days. Return if you develop fever or worsening s/s [id number] Danay Gonzalez DO [facility] ([facility]) [address] [place] [address] [id number] 5 04/16/2024 09:53:19 04/16/2024 13:14:28 Aspiration pneumonia 585902428 J69.0 Concern for early. with risk factors. will start abx. monitor for decreasing 02 and worsening s/s. Return to office with no improvemen t or any problems. Go to ER with severe worsening or severe problems. [id number] MARIA M MEREDITH [facility] ([facility]) [address] [place] [address] [id number] 5 04/17/2024 11:15:45 04/17/2024 15:11:23 Health condition feared but not present 0320255751 24731 Z71.1 No current symptoms. Pt was started on antibiotic s yesterday for aspiration pneumonia. Continue this medication as prescribed . [id number] Danay Gonzalez DO [facility] ([facility]) [address] [place] [address] [id number] 5 05/19/2024 15:06:00 05/25/2024 09:03:29 Aspiration pneumonia 584616181 J69.0 Concern for early. with risk factors. will start abx. monitor for decreasing 02 and worsening s/s. Return to office with no improvemen t or any problems. Go to ER with severe worsening or severe problems. Bipolar disorder 0005444 4 F31.9 05/19/24- mood deteriorat ing, pt easily agitated, fast mood swings, counseled will decrease Oxcarbazap ine from 600mg to 300mg twice daily. [id number] Danay Gonzalez DO [facility] ([facility]) [address] [place] [address] [id number] 5 06/17/2024 10:09:07 06/18/2024 12:51:09 Bipolar disorder 79290053 F31.9 06/17/14- tolerating lower dose Oxcarbazap ine, continue current tx. 4- mood deteriorat ing, pt easily agitated, fast mood swings, counseled will decrease Oxcarbazap ine from 600mg to 300mg twice daily. Dysuria 64600330 R30.0 UA negative for infection today. Counseled push fluids. Increased frequency of urination 417806292 R35.0 Active or passive immunization 361643837 Z23 Pneumonia and Shingles Vax. Explained we do not offer Covid vaccine at this facility. Hiatal hernia 39285641 K 44.[address] Larios, Theresa irene, neftali tavares surgery. [id number] Danay Gonzalez DO [facility] ([facility]) [address] [place] [address] [id number] 5 07/08/2024 08:30:37 07/10/2024 07:30:13 Pneumonitis 226786087 J18.9 Appears secondary to aspiration from Zenker's diverticul um. Patient has appointmen t with surgeon for evaluation for surgical treatment. Aspiration pneumonia 422 005341 J69.0 Concern for early. with risk factors. will start abx. monitor for decreasing 02 and worsening s/s. Return to office with no improvemen t or any problems. Go to ER with severe worsening or severe problems. [id number] Veto Whitney MD [facility] ([facility]) [address] [place] [address] [id number] 5 07/16/2024 11:31:08 07/23/2024 07:09:00 Acute bacterial bronchitis 511049221 J20.9 Treat with antibiotic s and steroids given duration of symptoms and current exam. Continue with supportive care with over-the-c ounter medication to help with symptoms. [id number] Veto Whitney MD [facility] ([facility]) [address] [place] [address] [id number] 5 07/30/2024 13:24:34 08/04/2024 07:02:01 Recurrent aspiration pneumonia 547842949 J69.0 No crackles heard on exam today. Overall the patient looked well and appeared to be doing okay on 3 L of oxygen. No concerning symptoms noted on today's examinatio n. Recommend continue to monitor at this time. Follow-up with PCP for hospital follow-up. 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 larios and we will request those records. Recurrent aspiration pneumonia 141121313 J69.0 [id number] MARIA M WATTS [facility] ([facility]) [address] [place], [place] [id number] 08/18/2024 09:01:04 08/19/2024 14:29:53 Dyspnea at rest 122813806 R06.00 RTC with any new or worsening symptoms. [id number] Reji Garza MD [facility] ([facility]) [address] [place], [place] [id number] 08/26/2024 10:09:16 09/03/2024 16:50:39 Chronic hypoxemic respiratory failure 544600963 J96.11 following aspiration event At [facility] risk for aspiration 993921087 Z91.89 [id number] Reji Garza MD [facility] ([facility]) [address] [place] [address] [id number] 5 09/07/2024 11:27:23 09/07/2024 13:13:45 Chronic hypoxemic respiratory failure 801633217 J96.11 following aspiration event recurrent and chronic and [facility].kelly ble continious oxygen orders sent Organic pe rsonality disorder 88433475 F07.0 Oropharyng eal dysphagia 84614951 R13.12 Recurrent aspiration pneumonia 559703372 J69.0 [id number] Reji Garza MD [facility] ([facility]) [address] [place] [address] [id number] 5 09/14/2024 10:48:22 09/14/2024 13:16:06 Herpes zoster vaccination given 8924361409 73688 Z23 [id number] Reji Garza MD [facility] ([facility]) [address] [place] [address] 10/28/2024 12:31:39 10/29/2024 11:00:31 Acute aspiration pneumonia 7251273520 9100 J69.0 [id number] [id number] Reji Garza MD [facility] ([facility]) [address] [place] [address] [id number] 5 11/05/2024 11:37:12 11/11/2024 08:40:33 [id number] Reji Garza MD [facility] ([facility]) [address] [place] [address] [id number] 5 11/16/2024 11:44:06 11/16/2024 16:11:57 Recurrent aspiration pneumonitis 6314195523 J69.0 0901052401 Hiatal hernia 69587107 K 44.[id number] larios and we will request those records. I recommend he see him again. It was 6 months ago. the aspiration continues to be a big problem despite following precaution s to the best of his ability. [id number] Reji Garza MD [facility] ([facility]) [address] [place] [address] [id number] 5 12/01/2024 10:19:03 12/01/2024 13:09:33 Daytime somnolence 8834875071 00 G47.19 [id number] Reji Garza MD [facility] ([facility]) [address] [place] [address] [id number] 5 12/14/2024 14:38:21 12/16/2024 08:29:30 Aspiration pneumonitis 497494776 J69.0 2756 Pulmonary aspiration 680 31298 T17.908D [id number] we have maximized preventive measures.s ee previous history for extensive measures and evaluation s and discussion regarding surgery.co ntinue aspiration precaution scomplete augmentin script [id number] MARIA M WATTS [facility] ([facility]) [address] [place] [address] [id number] 5 01/04/2025 10:29:39 01/04/2025 13:09:07 Blood pressure above reference range 90881883 R03.0 759045 Normal VS at time of exam with no prior interventi ons. Monitor VS and return with any new or worsening symptoms. [id number] MARIA M WATTS [facility] ([facility]) [address] [place] [address] [id number] 5 01/05/2025 17:48:46 01/12/2025 11:14:04 Bronchitis 77131504 J40 90008 Increase po fluids. Complete antibiotic course. Return to clinic with any new or worsening symptoms. [id number] Reji Garza MD [facility] ([facility]) [address] [place] [address] [id number] 5 02/19/2025 12:34:21 02/19/2025 13:06:28 Hematemesis 9723316 K92.0 98006450 Acute gastroenteritis 69 956296 K52.9 8743 Health Concerns Section Related Observation LastModified by Organization Detai ls LastModified Time None Recorded Concern Status LastModified by Organization Details LastModified Time None Recorded Advance Directives Directive None Recorded Payers Insurance Date Sequence Insurance Name Policy Number Policy Gore Covered Member ID Gore Member ID Guarantor Name 02/19/2025 2 [place] Dalton Olivas [id number] Adam Armstrong 02/19/2025 1 [place]: [facility] Dalton Olivas [id number] Adam Armstrong 02/19/2025 [place] - [facility] (MEDICARE) Dalton Olivas [id number] Adam Armstrong 02/19/2025 [place] [facility] Dalton Olivas [id number] Adam Armstrong Notes Date Note Type Note Provider Name and Address Organization Details Recorded Time 12/01/2024 text/html Patient is interested in getting a referral for a sleep study. He reports trouble sleeping off and on. Patient is a mouth breather. He's on oxygen continuously but is unable to get a concentrator for at night without a sleep study. He can only use his portable and it shuts off throughout the night. Reji Garza MD [address] [place] [address], [phone], [facility] [place]. 12/01/2024 11:12:10 12/14/2024 text/html ROS as noted in the [facility] hospital f/u: Patient was hospitalized for aspiration pneumonia. Patient went to the ER for low oxygen levels. Upon discharge from the hospital, pt was told that he didn't have to wear his oxygen if it wasn't below 92%. He was also getting nebulizer treatments every 4 hours while in the hospital. Pt reports that he is still currently coughing. Patient will currently argue with the staff about putting his oxygen on. When it drops below 92%, he is supposed to wear it for at least one hour. Reji Garza MD [address] [place], [phone], [facility], [facility]. 12/14/2024 15:16:45 01/04/2025 text/html ROS as noted in the [facility] walk inx2 days cough, temp 100.8, BP 140/102 this am. Hx aspiration pneumonia. Patient denies any unusual cough or shortness of breath. MARIA M WATTS [address] [place], [address], [facility]. 01/04/2025 12:41:39 01/05/2025 text/html ROS as noted in the [facility] walk-in; PCP Dr. Garza Patient c/o fever, cough and wheezing. Patient states that today his cough is productive. Fever as high as 102.4 temporal scan. Taking Tylenol but fever comes back. Was seen yesterday with normal exam and normal vitals at time of visit. Normal temp today at visit. MARIA M WATTS [address] [place], [address], [facility], [facility]. 01/05/2025 18:18:14 02/19/2025 text/html VomitingReported by PatientHPI:For associated symptoms, patient reportsabdominal pain,fever,decreased appetite,nausea, anddiarrhea. For duration, patient reportsacuteand1 days.Patient reports that when he vomited this morning there was a lot of black in his vomit. Nurse reports that the patient had had mylanta previously. There was no witness to the black in the vomit. After the patient had vomited a second time, the caregiver did see black specks in the vomit. He had had his pantoprazole before this. he had diarrhea 5 or 6 times yesterday. none so fart today 100.8 fever at home 100 here. he has been able to keep down at least 12 ounces of water. he tolerated a serving of yogurt just recently there was one episode of vomiting last night. the room mates are also having gi symptomsROS as noted in the HPI Reji Garza MD [address] [place] [address], [phone], [facility] 02/19/2025 12:59:02
--- OUTSIDE RECORDS SUMMARY | 2025-03-03 00:23 | XMS_ITS | Patient Health Record ---
Author Organization [facility] Address [address] [place] [address] Care Team Providers Care Environmental Compliance Manager Name Role Phone Scott Oakes Primary Care Provider Allergies No Known Allergies Reason For Referral No Information Medications Medication SIG (Take, Route, Frequency, Duration) Notes Start Date End Date Status Albuterol Sulfate (2.5 MG/3ML) 0.083% Nebulization Solution 3 mL as needed Inhalation every 6 hrs; Duration: 30 days Active Fluticasone Propionate 50 MCG/ACT Suspension USE TWO SPRAYS IN EACH NOSTRIL EVERY DAY; Duration: 30 Active Sierra-Tussin 100 MG/5ML Liquid TAKE 200 MG (10 ML) BY MOUTH EVERY 4 HOURS NEEDED FOR cough; Duration: 4 Active GNP Earwax Removal Drops 6.5 % Solution instill SIX drops PER ear TWICE DAILY FOR 4 DAYS TWO TIMES PER MONTH *IRRIGATE NEEDED*; Duration: 30 Active Omeprazole 20 mg Capsule Delayed Release TAKE ONE CAPSULE BY MOUTH TWICE DAILY FOR reflux; Duration: 30 Active traZODone HCl 150 mg Tablet TAKE ONE TAB LET BY MOUTH EVERY DAY; Duration: 30 Active Venlafaxine HCl ER 150 mg Capsule Extended Release 24 Hour TAKE ONE CAPSULE BY MOUTH EVERY DAY FOR BIPOLAR; Duration: 30 Active OXcarbazepine 600 mg Tablet TAKE ONE TAB LET BY MOUTH TWICE DAILY FOR bipolar disorder; Duration: 30 Active Effexor XR 75 MG Capsule Extended Release 24 Hour 1 capsule with food Orally Once a day Unknown Ferrous Gluconate 324 (38 Fe) MG Tablet TAKE ONE TABLET BY MOUTH EVERY DAY; Duration: 90 Active Sucralfate 1 GM Tablet TAKE ONE TABLET B Y MOUTH THREE TIMES DAILY FOR 4 WEEKS. take with meals.; Duration: 28 Active Venlafaxine HCl ER 75 mg Capsule Extended Release 24 Hour TAKE ONE CAPSULE BY MOUTH EVERY DAY FOR BIPOLAR. TAKE WITH 150mg =225mg; Duration: 30 Active Albuterol Sulfate HFA 108 (90 Base) MCG/ACT Aerosol Solution 1 puff as needed Inhalation every 4 hrs; Duration: 30 days Unknown Thick-It - Powder USE DIRECTED TO thicken liquids; Duration: 30 Active Promethazine-DM 6.25-15 MG/5ML Syrup 5 mL as needed Orally every 6 hrs Unknown Ibuprofen 800 mg Tablet TAKE ONE TABLET BY MOUTH EVERY 6 HOURS NEEDED FOR pain/fever greater THAN 100; Duration: 15 Active SEROquel 200 MG Tablet 1 tablet at bedti me Orally twice daily Unknown Advair Diskus 100-50 MCG/ACT Aerosol Powder Breath Activated USE 1 INHALATION TWICE DAILY FOR CONGESTION; Duration: 30 Active Effexor XR 150 MG Capsule Extended Release 24 Hour 1 capsule with food Orally Once a day Unknown Loratadine 10 mg Tablet TAKE ONE TABLET BY MOUTH EVERY DAY; Duration: 90 Active Ear Drops 6.5 % Solution instill SIX amanuel ps in BOTH ears TWICE DAILY FOR FOUR DAYS each MONTH THEN IRRIGATE; Duration: 30 Active GNP Gas Relief 80 mg Tablet Chewable CHEW ONE TABLET BY MOUTH FOUR TIMES DAILY; Duration: 25 Active Social History Tobacco Use: Social History Observation Description Date Details (start date - stop date) Never Smoker NA - NA Social History Drugs/Alcohol: Social Info Question Answer Notes Alcohol Screen (Audit-C) Did you have a drink containing alcohol in the past year? No Points 0 Interpretation Negative Drugs Have you used drugs other than those for medical reasons in the past 12 months? No Tobacco Use: Social Info Question Answer Notes xTobacco Use/Smoking Are you a nonsmoker Problems Problem Type SNOMED Code ICD Code Onset Dates Problem Status W/U Status Risk Notes Problem Impacted cerumen (36492463) Impacted cerumen of left ear (H61.22) Active confirmed Problem Developmental delay (322774200) Development delay (R62.50) Active confirmed Problem Snoring (65569476) Loud snoring (R06.83) Active confirmed Problem Recurrent major depression in full remission (11548218) Recurrent major depressive disorder, in full remission (F33.42) Active confirmed Problem Aspiration into airway, subsequent encounter (T17.908D) Active confirmed Problem Pneumonia (126925453) Community acquired pneumonia of right lower lobe of lung (J18.9) Active confirmed Problem Loss of all teeth (disorder) (889683200) Edentulism (K08.109) Active confirmed Encounters Encounter Location Date Provider Diagnosis [facility] [address] [address] 03/25/2024 Scott Oakes Plan Of Treatment No Information Insurance Providers Payer Name Payer Address Payer Phone Subscriber Number Group Number Insured Name Patient Relationship to Insured Coverage Start Date Coverage End Date [place] [address] [place] [address] [id number] Dalton Olivas Self - patient is the insured [place] Medicaid [address] [place] [address] [id number] Dalton Olivas Self - patient is the [...]
--- OUTSIDE RECORDS SUMMARY | 2025-03-03 00:23 | XMS_ITS | Encounter Summary ---
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 Gender Identity Not on file Sexual Orientation [...] COM Kennedi l Result Performing Organization Address City/[facility] de Phone Number INTERFACE SYSTEM Refer to clinic/hospital department * VITAMIN B12 AND FOLATE (09/28/2004 9:29 AM CDT) VITAMIN B12 844 200 - 925 ng/dL INTERFACE SYSTEM FOLATE, SERUM >20.00 2.76 - 20.00 ng/dL INTERFACE SYSTEM 09/28/2004 9:29 AM CDT Dereck BAILEY CHEMISTRY ORDERABLES Final Re sult Performing Organization Address [facility] Phone Number INTERFACE SYSTEM Refer to clinic/hospital department documented in this encounter Visit Diagnoses Not on filedocumented in this encounter
--- NOTE | 2025-03-03 01:03 | CTR_ITS ---
PROCEDURE INFORMATION: Exam: CT Chest Without Contrast; Diagnostic Exam date and time: 03/03/2025 1:15 AM Age: 65 years old Clinical indication: Shortness of breath; Additional info: HX of multifocal pneumonia, hypoxia, fever TECHNIQUE: Imaging protocol: Diagnostic computed tomography of the chest without contrast. Radiation optimization: All CT scans at this facility use at least one of these dose optimization techniques: automated exposure control; mA and/or kV adjustment per patient size (includes targeted exams where dose is matched to clinical indication); or iterative reconstruction. COMPARISON: CT chest wo con [id number] 11/17/2024 3:10 PM RADIATION DOSE METRICS: Total DLP (mGy-cm): 622.27 FINDINGS: Lungs: Substantial interval increase in diffuse, right lung predominant consolidations and ground-glass nodularity in a bronchovascular distribution. Pleural spaces: Unremarkable. No pneumothorax. No pleural effusion. Heart: The heart is mildly enlarged. Lymph nodes: No axillary lymphadenopathy is noted. No supraclavicular lymphadenopathy is noted. Borderline mediastinal lymph nodes measuring up to 1.4 cm short axis (series 3, image 26). No hilar lymphadenopathy is noted. Vasculature: Mild atherosclerotic changes of the thoracic aorta and its major branch vessels is noted. Diaphragm: Ill-defined 1.4 cm A large hiatal hernia is present without gastric outlet obstruction. Associated basilar atelectasis is seen. Bones/joints: Degenerative joint and disc disease is seen in the imaged spine. Soft tissues: Unremarkable. Other findings: hypoattenuating observation is indeterminate by attenuation. CT/CT chest wo con [id number] IMPRESSION: 1. Interval worsening of right lung predominant, multifocal, pneumonia with comparison to prior CT dated 11/17/2024. Organizing pneumonia could be considered in the differential. 2. Borderline mediastinal lymph node enlargement, likely reactive. 3. Mild cardiomegaly. 4. Large hiatal hernia without evidence of gastric outlet obstruction. 5. Indeterminate hepatic observations as above, favored to represent a benign entity such as hemangioma or cyst in the absence of hepatic parenchymal pathology. Definitive characterization with contrast-enhanced CT/MRI could be obtained if clinically indicated.
[2025-03-03 01:36] VITALS: BP 103/67; PULSE 83; O2SAT 94
[2025-03-03 01:52] LABS: Respiratory Syncytial Virus Ce NEGATIVE (Negative); SARS-CoV-2 PCR NEGATIVE (Negative)
--- NOTE | 2025-03-03 02:12 | ED_ITS ---
HPI - General Adult General: Chief complaint: General Medical Stated complaint: Low O2 on 3L, Fever Time Seen by Provider: 03/03/25 00:15 History of Present Illness: 65 yo M with Hx of recurrent pneumonia i ncluding aspiration and developmental delays presents for evaluation of hypoxia. Caregiver reports a very low home oxygen reading earlier today (exact value unclear) and fever this morning around 8:30. Pt normally uses 3 L O2 while sleeping and is checked twice daily; awake threshold for concern is SpO2 <=2. Cough is typically present but more wet today. Pt desires to return home if safe. Related Data Home Medications ?Medication ?Instructions ?Recorded ?Confirmed dextromethorphan-guaifenesin 10 10 ml PO Q4H PRN Cough 07/12/22 12/08/24 mg-100 mg/5 mL oral syrup fluticasone propionate 50 2 spray intranasal DAILY@08 07/12/22 12/08/24 mcg/actuation nasal spray,suspension hydrocortisone 1 % topical cream 1 applic NC QID PRN H emorrhoids 07/12/22 12/08/24 (Proctocort) loratadine 10 mg tablet (Claritin) 10 mg PO DAILY@07 0 07/12/22 12/08/24 trazodone 150 mg tablet 150 mg PO BEDTIME@20 3 12/08/24 simethicone 80 mg chewable tablet 80 mg PO QID 3 12/08/24 aluminum-mag hydroxide-simethicone 30 ml PO QID PRN up set stomach 07/21/24 12/08/24 200 mg-200 mg-20 mg/5 mL oral susp docusate sodium 100 mg capsule 100 mg PO DAILY PRN Con stipation 07/21/24 12/08/24 ferrous gluconate 324 mg (37.5 mg 324 mg PO DAILY 07/0412/08/24 iron) tablet hydrocortisone 2.5 % topical cream 1 applic topical TI D PRN 07/21/24 12/08/24 irritation on buttocks and groin ketoconazole 2 % shampoo See Rx Instructions .Route . COMPLEX 07/21/24 12/08/24 magnesium hydroxide 400 mg/5 mL 5 ml PO QID PRN Consti pation 07/21/24 12/08/24 oral suspension (Milk of Magnesia) uszuqzzd-rwgb-efyae acid 400 1 tab PO DAILY 07/21/24 0 12/08/24 mcg-lycopene 600 mcg-ginkgo 120 mg tablet (One Daily Men's 50 Plus Memory Support) polyethylene glycol 3350 17 17 g PO DAILY PRN constipa tion 07/21/24 12/08/24 gram/dose oral powder (Miralax) ropinirole 0.5 mg tablet 0.5 mg PO BEDTIME 07/21/24 0 12/08/24 sucralfate 1 gram tablet 1 g PO TID 07/21/24 12/08/24 pantoprazole 40 mg tablet,delayed 40 mg PO QAM 5 12/08/24 release Previous Rx's ?Medication ?Instructions ?Recorded ceramides 1,3,6-II (CeraVe topical See Rx Instructions .Route 11/20/21 cream) .COMPLEX #453 grams carbamide peroxide 6.5 % ear drops See Rx Instructions .Route 12/19/21 (Ear Wax Removal Drops) .COMPLEX #15 mL fluticasone 100 mcg-salmeterol 50 1 inh inhalation BID #60 ea 09/03/22 mcg/dose blistr powdr for inhalation (Advair Diskus) albuterol sulfate 90 mcg/actuation 1 inh inhalation Q6 H PRN shortness 03/18/23 aerosol inhaler of breath or wheezing #8.5 g daly albuterol sulfate 2.5 mg/3 mL 2.5 mg (3 mL) inhalation Q6H PRN 01/31/24 (0.083 %) solution for nebulization Shortness Of Breat h #90 mL quetiapine 200 mg tablet See Rx Instructions .Route 0 11/03/24 .COMPLEX #60 tabs galantamine 4 mg tablet 4 mg PO BID 90 days #180 tab s 11/24/24 oxcarbazepine 300 mg tablet 300 mg PO BID 90 days #180 tabs 11/24/24 venlafaxine 150 mg See Rx Instructions .Route 0 11/25/24 capsule,extended release 24 hr .COMPLEX #30 caps venlafaxine 75 mg capsule,extended See Rx Instructions .Route 11/25/24 release 24 hr .COMPLEX #30 caps amoxicillin 875 mg-potassium 1 tab PO Q12H 10 days #20 tabs 03/03/25 clavulanate 125 mg tablet azithromycin 250 mg tablet 250 mg PO DAILY 4 days #4 t abs 03/03/25 Allergies Allergy/AdvReac Type Severity Reaction Status Date / Time No Known Allergies Allergy Verified 03/03/25 00:28 [facility] PFSH: Medical History (Updated 03/03/25 @ 01:[address] MD) Aspiration pneumonia Intellectual disability Lymphadenopathy, hilar Hiatal hernia At risk for aspiration Bipolar disease, manic Negative colon, negative guaics. Tardive dyskinesia Dupuytren's contracture of left hand Iron deficiency anemia Surgical History History of carpal tunnel release History of cataract extraction History of colonoscopy Social History (Updated 12/08/24 @ 16:38 by Ubaldo Hunter MD) Smoking and tobacco/nicotine status: never used tobacco/nicotine Alcohol intake: never Substance/Drug Use: never Additional social history: Patient states that he lives with his roommate. Caregiver clarifies this is at [facility] assisted living. Patient tells me he wants full CODE STATUS as confirmed on 12/08/2024 with Ubaldo Hunter MD in the presence of his caregiver Isidro as well as his nurse Judi Biological mom and father are both his brother who is younger than him lives in [place] but not in close contact Previous occupational history: 25 years at [employer] in [place] Physical Exam Const: COMMON NORMALS: no acute distress, patient oriented x3 and alert HENMT: COMMON NORMALS: normocephalic and atraumatic HEAD & SCALP: normocephalic and atraumatic Eye: COMMON NORMALS: Equal, round and reactive pupils present, EOMs intact bilaterally and no scleral icterus PUPIL: Yes Equal, round and reactive pupils present Resp: OTHER: Mild wheezes in all lung mcrae, no respiratory distress, decreased breath sounds on the right compared with the left lung. Cardio: COMMON NORMALS: regular rate, regular rhythm and No murmurs present (Cardio) RATE: regular rate RHYTHM: regular rhythm GI: COMMON NORMALS: Normal to inspection, nondistended, normoactive bowel sounds present, Soft to palpation and non-tender PALPATION: Yes Soft to palpation Neuro: COMMON NORMALS: patient oriented x3 SENSORIUM/ORIENTATION: Yes alert Skin: COMMON NORMALS: no rashes or lesions noted GENERAL SKIN EXAM: no rashes or lesions noted Course Vital Signs: Vital signs: Vital Signs Temperature 97.7 F 03/03/25 00:23 Pulse Rate 83 03/03/25 01:36 Respiratory Rate 18 03/03/25 00:23 Blood Pressure 103/67 03/03/25 01:36 Pulse Oximetry 94 03/03/25 01:36 Oxygen Delivery Me thod Room Air 03/03/25 00:23 MDM - General Adult Medical Decision Making 65 yo M with Hx of recurrent aspiration pneumonia and developmental delays presents for hypoxia; caregiver notes very low home SpO2 earlier and fever this morning, with wet cough. Pt uses 3 L O2 at night and is monitored twice daily. SpO2 is 92% on 3 L. PE shows mild wheezes in all lung mcrae, no respiratory distress, and no leg edema. DDx includes pneumonia (including aspiration, possibly multifocal) versus no acute cardiopulmonary process per provider discussion. Patient remained afebrile and hemodynamically stable throughout ED course. On his normal 3 L he is saturating 93% at rest. CT of the chest shows what appears to be worsening multifocal pneumonia for which she will be given Augmentin and azithromycin. I do not feel he will benefit from inpatient care at this time. 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 Interval worsening of right lung predominant, multifocal, pneumonia with comparison to prior CT dated 11/17/2024. Organizing pneumonia could be considered in the differential. 2. Borderline mediastinal lymph node enlargement, likely reactive. 3. Mild cardiomegaly. 4. Large hiatal hernia without evidence of gastric outlet obstruction. 5. Indeterminate hepatic observations as above, favored to represent a benign entity such as hemangioma or cyst in the absence of hepatic parenchymal pathology. Definitive characterization with contrast-enhanced CT/MRI could be obtained if clinically indicated. Laboratory Results Influenza A (PCR) Negative (Negative) 03/03/25 01:09 Influenza Type B (PCR) Negative (Negative) 03/03/25 01:09 RSV (PCR) Negative (Negative) 03/03/25 01:09 SARS-CoV-2 (PCR) Negative (Negative) 03/03/25 01:09 All radiology interpretation(s) finalized by discharge Discharge Plan Discharge Patient Disposition: Home Clinical Impression: Pneumonia involving right lung Condition: Stable Prescriptions: New amoxicillin-pot clavulanate 875-125 mg tablet 1 tab PO Q12H 10 Days Qty: 20 0RF azithromycin 250 mg tablet 250 mg PO DAILY 4 Days Qty: 4 0RF Rx Instructions: first dose given in ED Discontinued amoxicillin-pot clavulanate 875-125 mg tablet 1 tab PO BID Qty: 14 0RF No Action albuterol sulfate 90 mcg/actuation HFA aerosol inhaler 1 inh inhalation Q6H PRN (Reason: shortness of breath or wheezing) Qty: 8.5 3RF oxcarbazepine 300 mg tablet 300 mg PO BID 90 Days Qty: 180 3RF galantamine 4 mg tablet 4 mg PO BID 90 Days Qty: 180 3RF Rx Instructions: administer with AM and PM meals CeraVe Cream See Rx Instructions .ROUTE .COMPLEX Qty: 453 5RF Dose Instruction: APPLY TO THE AFFECTED AREA(S) OF LEGS TWICE DAILY FOR SKIN MOISTURIZER Rx Instructions: APPLY TO THE AFFECTED AREA(S) OF LEGS TWICE DAILY FOR SKIN MOISTURIZER AT 07:00 & 19:00 Ear Wax Removal Drops 6.5 % drops See Rx Instructions .ROUTE .COMPLEX Qty: 15 5RF Dose Instruction: instill SIX drops in BOTH ears TWICE DAILY FOR FOUR DAYS each MONTH THEN I RRIGATE Rx Instructions: instill SIX drops in BOTH ears TWICE DAILY FOR FOUR DAYS each MONTH THEN IRRIGATE quetiapine 200 mg tablet See Rx Instructions .ROUTE .COMPLEX Qty: 60 3RF Dose Instruction: TAKE ONE TABLET BY MOUTH TWICE DAILY FOR bipolar Rx Instructions: TAKE ONE TABLET BY MOUTH TWICE DAILY FOR bipolar venlafaxine 75 mg capsule,extended release 24hr See Rx Instructions .ROUTE .COMPLEX Qty: 30 4RF Dose Instruction: TAKE ONE CAPSULE BY MOUTH daily with 150mg [id number] Rx Instructions: TAKE ONE CAPSULE BY MOUTH daily with 150mg [id number] venlafaxine 150 mg capsule,extended release 24hr See Rx Instructions .ROUTE .COMPLEX Qty: 30 5RF Dose Instruction: TAKE ONE CAPSULE BY MOUTH EVERY DAY FOR BIPOLAR Rx Instructions: TAKE ONE CAPSULE BY MOUTH EVERY DAY FOR BIPOLAR Take with the 75mg dextromethorphan-guaifenesin 10-100 mg/5 mL Syrup 10 ml PO Q4H PRN (Reason: Cough) hydrocortisone [Proctocort] 1 % Cream 1 applic NC QID PRN (Reason: Hemorrhoids) trazodone 150 mg tablet 150 mg PO BEDTIME@20 fluticasone propionate 50 mcg/actuation spray,suspension 2 spray INTRANASAL DAILY@08 Rx Instructions: administer into each nostril loratadine [Claritin] 10 mg tablet 10 mg PO DAILY@07 simethicone 80 mg tablet,chewable 80 mg PO QID Rx Instructions: @07:00,12:00,16:00,20:00 albuterol sulfate 2.5 mg /3 mL (0.083 %) Solution For Nebulization 2.5 mg INHALATION Q6H PRN (Reason: Shortness Of Breath) Qty: 90 0RF fluticasone propion-salmeterol [Advair Diskus] 100-50 mcg/dose blister with device 1 inh inhalation BID Qty: 60 0RF One Daily Men's 50 Plus Memory 400-600-120 mcg-mcg-mg Tablet 1 tab PO DAILY ketoconazole 2 % shampoo See Rx Instructions .ROUTE .COMPLEX Rx Instructions: Lather onto Scalp and brennan three times weekly as needed ,allow to sit for 5 minutes before rinsing . sucralfate 1 gram tablet 1 g PO TID magnesium hydroxide [Milk of Magnesia] 400 mg/5 mL Suspension 5 ml PO QID PRN (Reason: Constipation) Rx Instructions: Take 5ml by mouth four times daily as needed on fourth day if no bowel movement in 3 days.Must wait 4 hours betweeen doeses Not to exceed 5days. hydrocortisone 2.5 % cream 1 applic TOPICAL TID PRN (Reason: irritation on buttocks and groin) Rx Instructions: use no more that 2 weeks a month alum-mag hydroxide-simeth 200-200-20 mg/5 mL Suspension 30 ml PO QID PRN (Reason: upset stomach) Rx Instructions: administer between meals and at bedtime ropinirole 0.5 mg tablet 0.5 mg PO BEDTIME Rx Instructions: Take at bedtime polyethylene glycol 3350 [Miralax] 17 gram/dose powder 17 g PO DAILY PRN (Reason: constipation ) Rx Instructions: Dissolve 1 scoop every day as needed for no bowel movement in 48 hours docusate sodium 100 mg Capsule 100 mg PO DAILY PRN (Reason: Constipation) ferrous gluconate 324 mg (37.5 mg iron) Tablet 324 mg PO DAILY pantoprazole 40 mg tablet,delayed release (DR/EC) 40 mg PO QAM Discharge Orders: Discharge ED (Routine); Ordered 03/03/25 Ordered By: Stephen Lane Referrals: Reji Garza MD [Primary Care Provider, [facility]] Patient Instructions: Pneumonia (ED), Patient Portal & Bo Instructions Activity Restrictions/Additional Instructions: CT scan confirms pneumonia of the right lung. Please take all prescribed antibiotics and ibuprofen and Tylenol as needed for fever. If symptoms get worse and not better over the next few days please return to the emergency department as you may require IV antibiotics. Otherwise, these antibiotics should treat your pneumonia adequately Print Language: Albanian Coding Level of Care Code ED Emu Farmer for Sal Cornell
--- NOTE | 2025-03-03 02:32 | PC.NURSE ---
Update provided to guardian upon discharge.
[2025-03-03 02:33] VITALS: BP 141/84; PULSE 103; TEMP 36.3; O2SAT 93
== END 2025-03-03 02:34 | disposition home or self-care (01) ==
PROVIDERS: Emergency Provider Student in an Organized Health Care Education/Training Program; PCP Family Medicine
DX: J18.9 Pneumonia, unspecified organism (principal); Z11.52 Encounter for screening for COVID-19
CPT/HCPCS: 71250; 87637; 99284; J9999; Q0144

== ENCOUNTER 2025-03-03 10:16 | Inpatient (IN) | payer MEDICARE, MEDICAID, SELFPAY ==
[2025-03-03] VITALS (86 sets, daily range): BP systolic 81–148; BP diastolic 55–95; PULSE 67–98; RESP 15–27; TEMP 36.6–37.4; O2SAT 92–100; BMI 33.3; BMI 34.5
--- NOTE | 2025-03-03 10:22 | ECG_ITS ---
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 Measurements Intervals [place] Rate: 97 P: 68 KS: 175 QRS: 50 QRSD: 96 T: -2 QT: 337 QTc: 429 Interpretive Statements SINUS RHYTHM NONSPECIFIC ST & T-WAVE ABNORMALITY Compared to ECG 12/08/2024 15:48:25 T-wave abnormality now present Electronically Signed On 03-04-2025 08:37:01 CDT by Checo Hernandez M.D. [email or web address]
--- NOTE | 2025-03-03 10:22 | XRR_ITS ---
PROCEDURE INFORMATION: Exam: XR Chest Exam date and time: 03/03/2025 10:23 AM Age: 65 years old Clinical indication: Shortness of breath; Additional info: SOB TECHNIQUE: Imaging protocol: Radiologic exam of the chest. Views: 1 view. COMPARISON: CT chest wo con [id number] 03/03/2025 1:15 AM FINDINGS: Lungs: There are mild diffuse airspace opacities throughout the right lung, similar to the prior CT. Pleural spaces: No pleural effusion or pneumothorax Heart/Mediastinum: A hiatal hernia is noted Bones/joints: Degenerative changes of the thoracic spine. XR/XR chest 1V portable [id number] IMPRESSION: Mild diffuse right lung infiltrates, suspicious for pneumonia
--- OUTSIDE RECORDS SUMMARY | 2025-03-03 10:22 | XMS_ITS | Clinical Summary ---
Author Organization [facility] Address [address] [place] [address] Phone Care Team Providers Care Layaway Clerk Name Role Phone Unavailable Primary Care Provider Unavailabl e Allergies No known active allergies Medications OXcarbazepine (TRILEPTAL) 600 mg tablet 7 Active QUEtiapine (SEROquel) 200 mg tablet 7 Active traZODone (DESYREL) 150 mg tablet 7 Active omeprazole (PriLOSEC) 20 mg Capsule, Delayed Release(E.C.) 7 Active LORazepam (ATIVAN) 1 mg tablet 7 Active fluticasone (FLONASE) 50 mcg/spray [place], Suspension 7 Active venlafaxine (EFFEXOR XR) 150 [...] to affected area. 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 Gender Identity Not on file Sexual Orientation Not on file Last Filed Vital Signs Vital Sign Reading Time Taken Comments Blood Pressure 110/65 08/05/2017 3:23 PM PENETRATION TESTER Pulse 88 08/05/2017 3:23 PM PENETRATION TESTER Temperature - - Respiratory Rate - - Oxygen Saturation - - Inhaled Oxygen Concentration - - Weight 91.2 kg (201 lb) 08/05/2017 3:23 PM PENETRATION TESTER Height 172.7 cm (5' 8 ) 08/05/2017 3:23 PM PENETRATION TESTER Body Mass Index 30.56 08/05/2017 3:23 PM PENETRATION TESTER Plan of Treatment Health Maintenance Due Date [...] Insurance MEDICARE PART A AND B MEDICAID [id number]
--- OUTSIDE RECORDS SUMMARY | 2025-03-03 10:22 | XMS_ITS | Encounter Summary ---
Author Organization [facility] Address [address] [place] [address] Care Team Providers Care Terminal Press Operator Name Role Phone Unavailable Primary Care Provider Unavailabl e Encounter Details Date Type Department Care Team (Latest Contact Info) Description 06/16/2003 Outpatient Historical [facility] [place] [address] [facility] [address] [place] [address] Cass Peralta MD NO ADDRESS ON FILE VOMITING ALONE (Primary Dx); MENTAL RETARDATION NOS Social History Tobacco Use Types Packs/Day Years Used Date Smoking Tobacco: Never Assessed Sex and Gender Information Value Date Recorded Sex Assigned at Not on file 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
--- OUTSIDE RECORDS SUMMARY | 2025-03-03 10:22 | XMS_ITS | Clinical Summary ---
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
--- OUTSIDE RECORDS SUMMARY | 2025-03-03 10:23 | XMS_ITS | Encounter Summary ---
Author Organization [facility] Address [address] [place] [address] Care Team Providers Care Patternmaker Name Role Phone Unavailable Primary Care Provider Unavailabl e Encounter Details Date Type Department Care Team (Latest Contact Info) Description 09/27/2004 Outpatient Historical [facility] Medicine [place] [address] [place] [id number] Dereck Brewster PA NO ADDRESS ON FILE HEAD INJURY UNSPECIFIED (Primary Dx); MENTAL RETARDATION NOS; CONDUCT DISTURBANCE NOS; URINARY FREQUENCY Social History Tobacco Use Types Packs/Day Years Used Date Smoking Tobacco: Never Assessed Sex and Gender Information Value Date Recorded Sex Assigned at Not on file 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
--- OUTSIDE RECORDS SUMMARY | 2025-03-03 10:23 | XMS_ITS | Encounter Summary ---
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 [facility] has changed the methodology for PSA, but the reference range of 0-4 ng/ml has remained the same. 09/28/2004 9:29 AM CDT Dereck BAILEY CHEMISTRY ORDERABLES COM Kennedi l Result Performing Organization Address City/[facility] de Phone Number INTERFACE SYSTEM Refer to clinic/hospital department * VITAMIN B12 AND FOLATE (09/28/2004 9:29 AM CDT) VITAMIN B12 844 200 - 925 ng/dL INTERFACE SYSTEM FOLATE, SERUM >20.00 2.76 - 20.00 ng/dL INTERFACE SYSTEM 09/28/2004 9:29 AM CDT Dereck BAILEY CHEMISTRY ORDERABLES Final Re sult Performing Organization Address [facility] Phone Number INTERFACE SYSTEM Refer to clinic/hospital department documented in this encounter Visit Diagnoses Not on filedocumented in this encounter
[2025-03-03 10:45] LABS: Hematocrit 37.9 % (37-53); Hemoglobin 12.60 g/dL (11.27-16.99); Mean Corpuscular HGB Conc 33.2 g/dL (30-55); Mean Corpuscular Hemoglobin 29.8 pg (27-33); Mean Corpuscular Volume 89.6 fl (82-101); Nucleated Red Blood Cells % 0 %; Platelet Count 148 10^3/cmm (157-399); Red Blood Count 4.23 10^6/uL (3.85-5.65); White Blood Count 13.66 10^3/uL (3.29-11.43)
[2025-03-03] MEDS: cefTRIAXone 1,000 mg SDV 1000 MG IVP (10:55)
[2025-03-03] MEDS: SODIUM CHLORIDE 0.9% 2980.11 ML IV (10:56)
[2025-03-03 11:04] LABS: Lactic Sepsis W/Reflex 3.0 mmol/L (0.5-2.2)
[2025-03-03 11:13] LABS: Alanine Aminotransferase 16 U/L (0-41); Albumin Level 3.5 g/dL (3.5-5.2); Alkaline Phosphatase 65 U/L (40-130); Anion Gap 14.6 (5-19); Aspartate Amino Transferase 15 U/L (0-40); Blood Urea Nitrogen 15 mg/dL (8-23); Calcium 8.6 mg/dL (8.5-10.5); Carbon Dioxide 23 mmol/L (22-29); Chloride 104 mmol/L (98-107); Creatinine Clr Calc Pharmacy 74.4515; Globulin 3.1 g/dL (1.3-4.6); Glucose 159 mg/dL (65-115); NT Pro B Type Natriuretic Pept 128 pg/mL (0-125); Osmolality Calculated 290 mOsm/kg (285-295); Potassium 3.6 mmol/L (3.5-5.1); Sodium 138 mmol/L (136-145); Total Protein 6.6 g/dL (6.6-8.7)
--- NOTE | 2025-03-03 11:15 | ED_ITS ---
HPI - General Adult 2 General: Chief complaint: General Medical Stated complaint: low O2 Time Seen by Provider: 03/03/25 10:18 Source: patient Mode of arrival: ambulatory Limitations: no limitations History of Present Illness: 65-year-old male is here from [facility] home has a history intellectual disability patient was seen last night and was diagnosed with pneumonia and states he had increasing shortness of breath today. Has had some low blood pressures as well. Patient only wears oxygen as needed and caregiver states that today has had to be on 3 L. He has had cough and increasing shortness of breath. Patient denies any pain. Associated symptoms: Reports dyspnea Related Data Home Medications ?Medication ?Instructions ?Recorded ?Confirmed dextromethorphan-guaifenesin 10 10 ml PO Q4H PRN Cough 07/12/22 12/08/24 mg-100 mg/5 mL oral syrup fluticasone propionate 50 2 spray intranasal DAILY@08 07/12/22 12/08/24 mcg/actuation nasal spray,suspension hydrocortisone 1 % topical cream 1 applic WA QID PRN H emorrhoids 07/12/22 12/08/24 (Proctocort) loratadine 10 mg tablet (Claritin) 10 mg PO DAILY@07 0 07/12/22 12/08/24 trazodone 150 mg tablet 150 mg PO BEDTIME@20 3 12/08/24 simethicone 80 mg chewable tablet 80 mg PO QID 3 12/08/24 aluminum-mag hydroxide-simethicone 30 ml PO QID PRN up set stomach 07/21/24 12/08/24 200 mg-200 mg-20 mg/5 mL oral susp docusate sodium 100 mg capsule 100 mg PO DAILY PRN Con stipation 07/21/24 12/08/24 ferrous gluconate 324 mg (37.5 mg 324 mg PO DAILY 07/0412/08/24 iron) tablet hydrocortisone 2.5 % topical cream 1 applic topical TI D PRN 07/21/24 12/08/24 irritation on buttocks and groin ketoconazole 2 % shampoo See Rx Instructions .Route . COMPLEX 07/21/24 12/08/24 magnesium hydroxide 400 mg/5 mL 5 ml PO QID PRN Consti pation 07/21/24 12/08/24 oral suspension (Milk of Magnesia) xtyjazvd-mrlj-aorpj acid 400 1 tab PO DAILY 07/21/24 0 12/08/24 mcg-lycopene 600 mcg-ginkgo 120 mg tablet (One Daily Men's 50 Plus Memory Support) polyethylene glycol 3350 17 17 g PO DAILY PRN constipa tion 07/21/24 12/08/24 gram/dose oral powder (Miralax) ropinirole 0.5 mg tablet 0.5 mg PO BEDTIME 07/21/24 0 12/08/24 sucralfate 1 gram tablet 1 g PO TID 07/21/24 12/08/24 pantoprazole 40 mg tablet,delayed 40 mg PO QAM 5 12/08/24 release Previous Rx's ?Medication ?Instructions ?Recorded ceramides 1,3,6-II (CeraVe topical See Rx Instructions .Route 11/20/21 cream) .COMPLEX #453 grams carbamide peroxide 6.5 % ear drops See Rx Instructions .Route 12/19/21 (Ear Wax Removal Drops) .COMPLEX #15 mL fluticasone 100 mcg-salmeterol 50 1 inh inhalation BID #60 ea 09/03/22 mcg/dose blistr powdr for inhalation (Advair Diskus) albuterol sulfate 90 mcg/actuation 1 inh inhalation Q6 H PRN shortness 03/18/23 aerosol inhaler of breath or wheezing #8.5 g daly albuterol sulfate 2.5 mg/3 mL 2.5 mg (3 mL) inhalation Q6H PRN 01/31/24 (0.083 %) solution for nebulization Shortness Of Breat h #90 mL quetiapine 200 mg tablet See Rx Instructions .Route 0 11/03/24 .COMPLEX #60 tabs galantamine 4 mg tablet 4 mg PO BID 90 days #180 tab s 11/24/24 oxcarbazepine 300 mg tablet 300 mg PO BID 90 days #180 tabs 11/24/24 venlafaxine 150 mg See Rx Instructions .Route 0 11/25/24 capsule,extended release 24 hr .COMPLEX #30 caps venlafaxine 75 mg capsule,extended See Rx Instructions .Route 11/25/24 release 24 hr .COMPLEX #30 caps amoxicillin 875 mg-potassium 1 tab PO Q12H 10 days #20 tabs 03/03/25 clavulanate 125 mg tablet azithromycin 250 mg tablet 250 mg PO DAILY 4 days #4 t abs 03/03/25 Allergies Allergy/AdvReac Type Severity Reaction Status Date / Time No Known Allergies Allergy Verified 03/03/25 00:28 Review of Systems 2 Resp: Reports: dyspnea and productive cough PFSH ED 2 PFSH: Medical History Aspiration pneumonia Intellectual disability Lymphadenopathy, hilar Hiatal hernia At risk for aspiration Bipolar disease, manic Negative colon, negative guaics. Tardive dyskinesia Dupuytren's contracture of left hand Iron deficiency anemia Surgical History History of carpal tunnel release History of cataract extraction History of colonoscopy Social History Smoking and tobacco/nicotine status: never used tobacco/nicotine Alcohol intake: never Substance/Drug Use: never Additional social history: Patient states that he lives with his roommate. Caregiver clarifies this is at [facility] assisted living. Patient tells me he wants full CODE STATUS as confirmed on 12/08/2024 with Ubaldo Hunter MD in the presence of his caregiver Isidro as well as his nurse Judi Biological mom and father are both his brother who is younger than him lives in [place] but not in close contact Previous occupational history: 25 years at [employer] in [place] Physical Exam 2 Const: COMMON NORMALS: patient oriented x3 and healthy appearing HENMT: COMMON NORMALS: normocephalic and atraumatic HEAD & SCALP: n ormocephalic and atraumatic Eye: COMMON NORMALS: Equal, round and reactive pupils present and EOMs intact bilaterally PUPIL: Yes Equal, round and reactive pupils present Neck/C-Spine: COMMON NORMALS: full ROM and supple Chest: COMMONS NORMALS: normal inspection of the chest Resp: COMMON NORMALS: normal respiratory effort, No retractions and No use of accessory muscles AUSCULTATION: rales on the right Cardio: COMMON NORMALS: regular rate, regular rhythm and No murmurs present (Cardio) RATE: regular rate RHYTHM: regular rhythm GI: COMMON NORMALS: Normal to inspection, nondistended, normoactive bowel sounds present, Soft to palpation, non-tender and no masses PALPATION: Yes Soft to palpation Extremity: COMMON NORMALS: normal to inspection and full ROM Neuro: COMMON NORMALS: patient oriented x3, moves all extremities and no focal motor deficits Psych: COMMON NORMALS: mental status grossly normal, Normal thought process present and cooperative THOUGHT PROCESS: Normal thought process present Skin: COMMON NORMALS: no rashes or lesions noted and no wounds GENERAL SKIN EXAM: no rashes or lesions noted Course 2 Vital Signs: Vital signs: Vital Signs Temperature 98.0 F 03/03/25 12:25 Pulse Rate 89 03/03/25 12:25 Respiratory Rate 15 03/03/25 12:25 Blood Pressure 90/58 03/03/25 12: Pulse Oximetry 95 03/03/25 12:25 Oxygen Delivery Me thod Nasal Cannula 03/03/25 12:25 Oxygen Flow Rate 3 03/03/25 12:25 MDM - General Adult Medical Decision Making Patient presents here with cough and increasing shortness of breath patient is seen last night I did review his CT that showed a multifocal pneumonia. Differential diagnoses include congestive heart failure pneumonia sepsis along with pulm embolism. Patient had a CT last night showed no signs of pulmonary embolism. He has had increasing dyspnea requiring more oxygen currently on 3 L oxygen here. Patient did have hypotension here along with white count and elevated lactate concerns of sepsis. He has no signs of endorgan damage she did have sepsis bolus his blood pressures improved to 96/62. Blood cultures were drawn and IV antibiotics Rocephin and azithromycin were administered. Patient has been stable while in the ER EKG showed no acute findings chest x-ray does show multifocal pneumonia as well did spoke to hospitalist Dr. Sanchez and will admit to the ICU at this time. Did review with patient and caregiver they understand agree to plan patient does have multiple comorbidities including history of aspiration along with intellectual disability and lives at a residential Medical Records I reviewed the patient's medical records. Lab Data I reviewed the patient's lab results. 03/03/25 10:35 03/03/25 10:35 Radiology Impressions Chest X-Ray 03/03/25 10:22 IMPRESSION: Mild diffuse right lung infiltrates, suspicious for pneumonia Laboratory Results WBC 13.66 10^3/uL (3.29-11.43) H 03/03/25 10:35 RBC 4.23 10^6/uL (3.85-5.65) 03/03/25 10:35 Hgb 12.60 g/dL (11.27-16.99) 03/03/25 10:35 Hct 37.9 % (37-53) 03/03/25 10:35 MCV 89.6 fl (82-101) 03/03/25 10:35 MCH 29.8 pg (27-33) 03/03/25 10:35 MCHC 33.2 g/dL (30-55) 03/03/25 10:35 RDW 13.6 % (12.1-15.1) 03/03/25 10:35 Plt Count 148 10^3/cmm (157-399) L 03/03/25 10:35 MPV 10.9 fL (7.4-10.4) H 03/03/25 10:35 Neut % (Auto) 90.8 % 03/03/25 10:35 Lymph % (Auto) 5.3 % 03/03/25 10:35 [place] % (Auto) 3.0 % 03/03/25 10:35 Eos % (Auto) 0.0 % 03/03/25 10:35 Baso % (Auto) 0.1 % 03/03/25 10:35 Neut # (Auto) 12.39 10^3/uL (1.8-7.7) H 03/03/25 10:35 Lymph # (Auto) 0.7 10^3/uL (0.8-4.8) L 03/03/25 10:35 [place] # (Auto) 0.4 10^3/uL (0.2-0.9) 03/03/25 10:35 Eos # (Auto) 0.0 10^3/uL (0.0-0.8) 03/03/25 10:35 Baso # (Auto) 0.0 10^3/uL (0.0-0.1) 03/03/25 10:35 Nucleated RBC % (auto) 0 % 03/03/25 10:35 Nucleated RBCs # 0.0 /100WBC 03/03/25 10:35 Sodium 138 mmol/L (136-145) 03/03/25 10:35 Potassium 3.6 mmol/L (3.5-5.1) 03/03/25 10:35 Chloride 104 mmol/L (98-107) 03/03/25 10:35 Carbon Dioxide 23 mmol/L (22-29) 03/03/25 10:35 Anion Gap 14.6 (5-19) 03/03/25 10:35 BUN 15 mg/dL (8-23) 03/03/25 10:35 Creatinine 1.1 mg/dL (0.7-1.2) 03/03/25 10:35 GFR Calculation 66.8 mL/min (90-130) L 03/03/25 10:35 Glucose 159 mg/dL (65-115) H 03/03/25 10:35 Calculated Osmolality 290 mOsm/kg (285-295) 03/03/25 10:35 Lactic Acid 3.0 mmol/L (0.5-2.2) H 03/03/25 10:35 Calcium 8.6 mg/dL (8.5-10.5) 03/03/25 10:35 Total Bilirubin 0.5 mg/dL (0.15-1.2) 03/03/25 10:35 AST 15 U/L (0-40) 03/03/25 10:35 ALT 16 U/L (0-41) 03/03/25 10:35 Alkaline Phosphatase 65 U/L (40-130) 03/03/25 10:35 NT-Pro-B Natriuret Pep 128 pg/mL (0-125) H 03/03/25 10:35 Total Protein 6.6 g/dL (6.6-8.7) 03/03/25 10:35 Albumin 3.5 g/dL (3.5-5.2) 03/03/25 10:35 Globulin 3.1 g/dL (1.3-4.6) 03/03/25 10:35 All radiology interpretation(s) finalized by discharge EKG Data EKG 1: I personally reviewed and interpreted this EKG as follows: EKG interpretation date: 03/03/25 EKG interpretation time: 11:17 Interpretation: nsr hr [address] elevation qrs 96 qtc 391 Computer generated interpretation: Chest X-Ray 03/03/25 10:22 IMPRESSION: Mild diffuse right lung infiltrates, suspicious for pneumonia Critical Care Time 2 Critical Care Time: Critical Care Time: Yes Total Critical Care Time: 45 Attestation: The high probability of a clinically significant, sudden or life threatening deterioration of the patient's respsystem(s) required my full and direct attention, intervention and personal management. The critical care time is as shown. This time is in addition to time spent performing any reported procedures but includes the following: [x] Data and vital sign review and interpretation [x] Patient assessment, examination and intervention [x] Documentation [x] Medication orders and management Discharge Plan Discharge Patient Disposition: Admitted As Inpatient Admit Provider: Gayathri Dougherty Clinical Impression: Sepsis, Multifocal pneumonia Condition: Stable Coding Level of Care Code ED Invasive Physician for Sal Cornell
--- NOTE | 2025-03-03 12:18 | PM.HP ---
Providers/Chief Complaint Admitting Physician: Gayathri Dougherty MD Primary Care Provider: Reji Garza MD Chief Complaint: low O2 History of Present Illness Dalton Olivas is a 65 year old male with medical history significant for Lewy body dementia, chronic bronchitis with noted chronic cough with history of laryngeal reflux disease at risk for aspiration pneumonia. Patient presented yesterday with shortness of breath CTA was done was negative for PE patient was then given antibiotics orally to take at home. Today patient came back to the emergency room because of worsening shortness of breath this time hypoxemic usually patient does not wear oxygen at daytime at home but only at nighttime. Patient out of the emergency room was requiring 3 L of oxygen at the time on presentation. Patient also was hypotensive in the 80s and had to be given sepsis fluid pancultured from blood and urine. Initiated with antibiotics IV with ceftriaxone and azithromycin given in the emergency room. Dr. Martinez had called me for consultation to follow through with evaluating this patient for admission. I have seen and evaluated patient and admitted to ICU at least for overnight monitoring prior to downgrading if need be. Review of Systems Narrative: Patient had shortness of breath and much improved at this time for the current care system review were significant for cardiac/pulmonary. Medications/Allergies Home Medications ?Medication ?Instructions ?Recorded ?Confirmed ?Last Taken ?Type carbamide peroxide 6.5 % ear drops See Rx Instructions .Route 12/19/21 03/03/25 08/15/22 Rx (Ear Wax Removal Drops) .COMPLEX #15 mL dextromethorphan-guaifenesin 10 10 ml PO Q4H PRN Cough 07/12/22 03/03/25 07/20/24 History mg-100 mg/5 mL oral syrup fluticasone propionate 50 2 spray intranasal DAILY@07/12/22 03/03/25 03/03/25 History mcg/actuation nasal spray,suspension hydrocortisone 1 % topical cream 1 applic LA QID PRN Hemorrhoids 07/12/22 03/03/25 08/15/22 History (Proctocort) loratadine 10 mg tablet (Claritin) 10 mg PO DAILY@07 07/12/22 03/03/25 03/03/25 History trazodone 150 mg tablet 150 mg PO BEDTIME@07/12/22 03/03/25 03/02/25 History simethicone 80 mg chewable tablet 80 mg PO QID 08/13/22 03/03/25 03/03/25 History fluticasone 100 mcg-salmeterol 50 1 inh inhalation BID #60 ea 09/03/22 03/03/25 03/03/25 Rx mcg/dose blistr powdr for inhalation (Advair Diskus) albuterol sulfate 90 mcg/actuation 1 inh inhalation Q6H PRN shortness 03/18/23 03/03/25 Unknown Rx aerosol inhaler of breath or wheezing #8.5 grams albuterol sulfate 2.5 mg/3 mL 2.5 mg (3 mL) inhalation Q6H PRN 01/31/24 03/03/25 07/20/24 Rx (0.083 %) solution for nebulization Shortness Of Breath #90 mL aluminum-mag hydroxide-simethicone 30 ml PO QID PRN upset stomach 07/21/24 03/03/25 Unknown History 200 mg-200 mg-20 mg/5 mL oral susp docusate sodium 100 mg capsule 100 mg PO DAILY Constipation 07/21/24 03/03/25 03/03/25 History ferrous gluconate 324 mg (37.5 mg 324 mg PO DAILY 07/21/24 03/03/25 03/03/25 History iron) tablet hydrocortisone 2.5 % topical cream 1 applic topical BID PRN rash 07/21/24 03/03/25 Unknown History Mon-Fri ketoconazole 2 % shampoo See Rx Instructions .Route .COMPLEX 07/21/24 03/03/25 12/07/24 History magnesium hydroxide 400 mg/5 mL See Rx Instructions .Route 07/21/24 03/03/25 Unknown History oral suspension (Milk of Magnesia) .COMPLEX PRN Constipation fjgvxqlm-csod-vahzq acid 400 1 tab PO DAILY 07/21/24 03/03/25 03/03/25 History mcg-lycopene 600 mcg-ginkgo 120 mg tablet (One Daily Men's 50 Plus Memory Support) polyethylene glycol 3350 17 17 g PO DAILY PRN constipation 07/21/24 03/03/25 Unknown History gram/dose oral powder (Miralax) ropinirole 0.5 mg tablet 0.5 mg PO BEDTIME 07/21/24 03/03/25 03/02/25 History sucralfate 1 gram tablet 1 g PO TID 07/21/24 03/03/25 03/03/25 History galantamine 4 mg tablet 4 mg PO BID 90 days #180 tabs 11/24/24 03/03/25 03/03/25 Rx oxcarbazepine 300 mg tablet 300 mg PO BID 90 days #180 tabs 11/24/24 03/03/25 03/03/25 Rx pantoprazole 40 mg tablet,delayed 40 mg PO QAM 12/08/24 03/03/25 03/03/25 History release acetaminophen 650 mg 650 mg PO Q8H PRN pain/fever>100 03/03/25 03/03/25 Unknown History tablet,extended release amoxicillin 875 mg-potassium 1 tab PO Q12H 10 days #20 tabs 03/03/25 03/03/25 Unknown Rx clavulanate 125 mg tablet azithromycin 250 mg tablet 250 mg PO DAILY 4 days #4 tabs 03/03/25 03/03/25 Unknown Rx benzoyl peroxide 5 % topical See Rx Instructions .Route .COMPLEX 03/03/25 03/03/25 Unknown History cleanser miconazole nitrate 2 % topical 1 applic topical BEDTIME 03/03/25 03/03/25 03/02/25 History powder mometasone 0.1 % topical solution See Rx Instructions .Route .COMPLEX 03/03/25 03/03/25 Unknown History neomycin-bacitracn Zn-polymyx 3.5 1 applic topical DAILY PRN 03/03/25 03/03/25 Unknown History mg-400 unit-5,000 unit/gram top cuts/abrasions oint (Triple Antibiotic) polyethylene glycol 3350 17 17 g PO DAILY PRN Constipation 03/03/25 03/03/25 Unknown History gram/dose oral powder (Miralax) quetiapine 200 mg tablet 200 mg PO BID 03/03/25 03/03/25 03/03/25 History starch (thickening) (Thick-It oral See Rx Instructions .Route .COMPLEX 03/03/25 03/03/25 03/03/25 History powder) triamcinolone acetonide 0.1 % See Rx Instructions .Route .COMPLEX 03/03/25 03/03/25 Unknown History topical cream triamcinolone acetonide 0.1 % 1 applic topical BID PRN 03/03/25 03/03/25 Unknown History topical ointment redness/rash venlafaxine 150 mg 150 mg PO DAILY 03/03/25 03/03/25 03/03/25 History capsule,extended release 24 hr venlafaxine 75 mg capsule,extended 75 mg PO DAILY 03/03/25 03/03/25 03/03/25 History release 24 hr zinc oxide 16 % topical ointment 1 applic topical TID PRN Skin 03/03/25 03/03/25 Unknown History (Boudreauxs Butt Paste) Irritation Allergies Allergy/AdvReac Type Severity Reaction Status Date / Time No Known Allergies Allergy Verified 03/03/25 00:28 PFSH Acute PFSH: Medical History Aspiration pneumonia Intellectual disability Lymphadenopathy, hilar Hiatal hernia At risk for aspiration Bipolar disease, manic Negative colon, negative guaics. Tardive dyskinesia Dupuytren's contracture of left hand Iron deficiency anemia Surgical History History of carpal tunnel release History of cataract extraction History of colonoscopy Social History Smoking and tobacco/nicotine status: never used tobacco/nicotine Alcohol intake: never Substance/Drug Use: never Additional social history: Patient states that he lives with his roommate. Caregiver clarifies this is at [facility] assisted living. Patient tells me he wants full CODE STATUS as confirmed on 12/08/2024 with Ubaldo Hunter MD in the presence of his caregiver Isidro as well as his nurse Judi Biological mom and father are both his brother who is younger than him lives in [place] but not in close contact Previous occupational history: 25 years at [employer] in [place] Vitals/I&O/Wt Last Vital Signs Temp 98.8 F 03/03/25 10:24 Pulse 98 03/03/25 10:24 Resp 16 03/03/25 10:24 BP 90/58 03/03/25 11:40 Pulse Ox 95 03/03/25 11:40 O2 Del Method Nasal Cannula 03/03/25 10:24 O2 Flow Rate 2 03/03/25 10:24 03/02/25 03/03/25 03/03/25 22:59 06:59 14:59 Intake Total 2980.11 / 2980.11 Balance 2980.11 / 2980.11 Weight last 48 hrs Weight 99.337 kg Physical Exam Narrative: Patient generally is in bed doing okay relax after having an initial care of nebulizing treatment IV fluid antibiotics of ceftriaxone and azithromycin. HEENT normocephalic atraumatic neck neck is supple cardiovascular heart rate is regular lungs are pretty much clear abdomen soft nontender nondistended unremarkable extremities are intact no edema has good pulses neurology has no focality lab studies lab studies reviewed and noted. Data 03/03/25 10:35 03/03/25 10:35 Micro: Microbiology 03/03/25 10:35 Blood Culture - Preliminary Blood SPECIMEN COLLECTED A&P Assessment and plan 1. Pneumonia involving right lun. Hypoxemia: 3. Dehydration: Plan: Diffuse right-sided pneumonia significant - Admit to ICU because of the burden of hypoxemia in the 80s of pulse oximetry in the ED - Continue antibiotics with ceftriaxone and azithromycin for community-acquired pneumonia versus aspiration pneumonia - Continue nebulizing treatment - Gentle hydration with fluid normal saline - Continue supplemental oxygen at 3 L at this time patient is pulse oxing at 96% - Patient is with chronic home oxygen use only at bedtime never during the day, this has changed. - No much bronchospasm - Will not use steroid at this time Hypoxemia during the day Pulse oximetry has improved in mid 90s at 3 L of oxygen Continue to treat and optimize Dehydration - Continue with gentle hydration - Patient is feeling much better GI and DVT prophylaxis in place PDMP PDMP Reviewed: Not Reviewed Attestations Medical Necessity Statement*: Patient is with profound right-sided pneumonia will need at least 2 midnights for care. Coding Level of Care Code 10035 Diagnoses Pneumonia involving right lung J18.9 Hypoxemia R09.02 Dehydration E86.0 Time Spent (min) 60
--- NOTE | 2025-03-03 12:27 | PC.PHAR ---
Pt is in [facility] [phone]-manager athletics is nirmalaCursogram list 12:30pm 03/03/25
[2025-03-03 12:28] LABS: Reflex Lactate Order REFLEX LACTIC ORDERD
[2025-03-03] MEDS: heparin 5,000 unit/mL INJ 1 mL 5000 UNIT SUBCUT (13:04)
[2025-03-03 13:55] LABS: Lactic Acid level (Lactate) 1.8 mmol/L (0.5-2.2)
[2025-03-03 14:54] LABS: Glucose Urine UA Negative (Normal); Nitrate Urine Negative (Negative); Specific Gravity, Urine 1.009 (1.005-1.030)
[2025-03-03 15:16] LABS: Add Urine Microscopic? YES
--- NOTE | 2025-03-03 20:40 | PC.NURSE ---
Patient refused 2100 senna stating he has had regular bowel movements without difficulty. Bowel sounds also hyperactive in all 4 quadrants.
[2025-03-04] VITALS (20 sets, daily range): BP systolic 131–160; BP diastolic 75–99; PULSE 69–89; RESP 16–27; TEMP 36.7–36.8; O2SAT 81–97
[2025-03-04] MEDS: heparin 5,000 unit/mL INJ 1 mL 5000 UNIT SUBCUT (00:39)
[2025-03-04 03:43] LABS: Hematocrit 38.2 % (37-53); Hemoglobin 12.30 g/dL (11.27-16.99); Mean Corpuscular HGB Conc 32.2 g/dL (30-55); Mean Corpuscular Hemoglobin 29.5 pg (27-33); Mean Corpuscular Volume 91.6 fl (82-101); Nucleated Red Blood Cells % 0 %; Platelet Count 139 10^3/cmm (157-399); Red Blood Count 4.17 10^6/uL (3.85-5.65); White Blood Count 10.22 10^3/uL (3.29-11.43)
[2025-03-04 04:10] LABS: Alanine Aminotransferase 16 U/L (0-41); Albumin Level 3.4 g/dL (3.5-5.2); Alkaline Phosphatase 74 U/L (40-130); Anion Gap 13.9 (5-19); Aspartate Amino Transferase 15 U/L (0-40); Blood Urea Nitrogen 10 mg/dL (8-23); Calcium 8.4 mg/dL (8.5-10.5); Carbon Dioxide 23 mmol/L (22-29); Chloride 107 mmol/L (98-107); Creatinine Clr Calc Pharmacy 104.2278; Globulin 3.2 g/dL (1.3-4.6); Glucose 114 mg/dL (65-115); Magnesium 2.0 mg/dL (1.7-2.3); Osmolality Calculated 290 mOsm/kg (285-295); Potassium 3.9 mmol/L (3.5-5.1); Sodium 140 mmol/L (136-145); Total Protein 6.6 g/dL (6.6-8.7)
--- NOTE | 2025-03-04 09:43 | PC.NURSE ---
per visitor at bedside patient has puree and honey thick liquids at home provider notified instructions received to have speech evaluate
--- NOTE | 2025-03-04 10:54 | P.DS_ITS ---
Discharge Providers Date of Admission: 03/03/25 11:52 Date of Discharge: March 04, 2025 Attending Provider at Admission: Gayathri Dougherty MD Attending Provider at Discharge: Gayathri Dougherty MD Primary Care Provider: Reji Garza MD Diagnoses at Discharge Discharge Diagnosis 1. Pneumonia involving right lun. Hypoxemia: 3. Dehydration: Reason for Visit Reason for Visit: low O2 Hospital Course Hospital Course Dalton Olivas is a 65 year old male with medical history significant for Lewy body dementia, chronic bronchitis with noted chronic cough with history of laryngeal reflux disease at risk for aspiration pneumonia. Patient presented yesterday with shortness of breath CTA was done was negative for PE patient was then given antibiotics orally to take at home. Today patient came back to the emergency room because of worsening shortness of breath this time hypoxemic usually patient does not wear oxygen at daytime at home but only at nighttime. Patient out of the emergency room was requiring 3 L of oxygen at the time on presentation. Patient also was hypotensive in the 80s and had to be given sepsis fluid pancultured from blood and urine. Initiated with antibiotics IV with ceftriaxone and azithromycin given in the emergency room. Dr. Martinez had called me for consultation to follow through with evaluating this patient for admission. I have seen and evaluated patient and admitted to ICU at least for overnight monitoring prior to downgrading if need be. This morning patient had recovered and improved more than expected. Patient is hemodynamically stable no longer hypotensive patient is doing okay pulse oxing well in the mid 90s and patient really wants to go home back to the skilled nursing staff from the skilled nursing at the bedside while I am seeing the patient and his [place] is patient is cannot be discharged today. I have rounded on the patient I have reviewed the chart and find the patient okay to go home white count of 13,000 yesterday is down to normal at 10. Patient acute renal failure resolved as well from IV hydration and antibiotics. Patient is doing okay and at this time discharged in stable condition Physical Exam Narrative: General the patient is sitting up with cheerful disposition and talking and I complemented him that he looks like he is sitting in his own living room he said yes because he is ready to go home. HEENT normocephalic/atraumatic neck neck is supple cardiovascular heart rate is regular lungs are pretty much clear abdomen soft nontender nondistended unremarkable extremities are intact no edema has good pulses neurology has no focality lab studies lab studies reviewed and noted. Discharge Data Studies Completed and Pending Completed Studies During Hospitalization Category Date Time Status XR chest 1V portable [id number] Stat Exams 03/03/25 10:22 Completed Pending at discharge Category Date Time Status Blood Culture Stat Lab 03/03/25 10:38 Results Radiology Impressions Chest X-Ray 03/03/25 10:22 IMPRESSION: Mild diffuse right lung infiltrates, suspicious for pneumonia Laboratory Results WBC 10.22 10^3/uL (3.29-11.43) 03/04/25 03:13 RBC 4.17 10^6/uL (3.85-5.65) 03/04/25 03:13 Hgb 12.30 g/dL (11.27-16.99) 03/04/25 03:13 Hct 38.2 % (37-53) 03/04/25 03:13 MCV 91.6 fl (82-101) 03/04/25 03:13 MCH 29.5 pg (27-33) 03/04/25 03:13 MCHC 32.2 g/dL (30-55) 03/04/25 03:13 RDW 13.7 % (12.1-15.1) 03/04/25 03:13 Plt Count 139 10^3/cmm (157-399) L 03/04/25 03:13 MPV 11.1 fL (7.4-10.4) H 03/04/25 03:13 Neut % (Auto) 81.3 % 03/04/25 03:13 Lymph % (Auto) 11.2 % 03/04/25 03:13 [place] % (Auto) 5.4 % 03/04/25 03:13 Eos % (Auto) 1.4 % 03/04/25 03:13 Baso % (Auto) 0.4 % 03/04/25 03:13 Neut # (Auto) 8.32 10^3/uL (1.8-7.7) H 03/04/25 03:13 Lymph # (Auto) 1.1 10^3/uL (0.8-4.8) 03/04/25 03:13 [place] # (Auto) 0.6 10^3/uL (0.2-0.9) 03/04/25 03:13 Eos # (Auto) 0.1 10^3/uL (0.0-0.8) 03/04/25 03:13 Baso # (Auto) 0.0 10^3/uL (0.0-0.1) 03/04/25 03:13 Nucleated RBC % (auto) 0 % 03/04/25 03:13 Nucleated RBCs # 0.0 /100WBC 03/04/25 03:13 Sodium 140 mmol/L (136-145) 03/04/25 03:13 Potassium 3.9 mmol/L (3.5-5.1) 03/04/25 03:13 Chloride 107 mmol/L (98-107) 03/04/25 03:13 Carbon Dioxide 23 mmol/L (22-29) 03/04/25 03:13 Anion Gap 13.9 (5-19) 03/04/25 03:13 BUN 10 mg/dL (8-23) 03/04/25 03:13 Creatinine 0.8 mg/dL (0.7-1.2) 03/04/25 03:13 GFR Calculation 96.4 mL/min (90-130) 03/04/25 03:13 Glucose 114 mg/dL (65-115) 03/04/25 03:13 Calculated Osmolality 290 mOsm/kg (285-295) 03/04/25 03:13 Lactic Acid 3.0 mmol/L (0.5-2.2) H 03/03/25 10:35 Lactic Acid (Sepsis) 1.8 mmol/L (0.5-2.2) 03/03/25 13:28 Calcium 8.4 mg/dL (8.5-10.5) L 03/04/25 03:13 Phosphorus 2.4 mg/dL (2.5-4.5) L 03/04/25 03:13 Magnesium 2.0 mg/dL (1.7-2.3) 03/04/25 03:13 Total Bilirubin 0.5 mg/dL (0.15-1.2) 03/04/25 03:13 AST 15 U/L (0-40) 03/04/25 03:13 ALT 16 U/L (0-41) 03/04/25 03:13 Alkaline Phosphatase 74 U/L (40-130) 03/04/25 03:13 NT-Pro-B Natriuret Pep 128 pg/mL (0-125) H 03/03/25 10:35 Total Protein 6.6 g/dL (6.6-8.7) 03/04/25 03:13 Albumin 3.4 g/dL (3.5-5.2) L 03/04/25 03:13 Globulin 3.2 g/dL (1.3-4.6) 03/04/25 03:13 Urine Color Yellow (Yellow) 03/03/25 14:45 Urine Appearance Clear (CLEAR) 03/03/25 14:45 Urine pH 7.0 (5-7) 03/03/25 14:45 Ur Specific [place] 1.009 (1.005-1.030) 03/03/25 14:45 Urine Protein Negative (Negative) 03/03/25 14:45 Urine Glucose (UA) Negative (Normal) 03/03/25 14:45 Urine Ketones Negative (Negative) 03/03/25 14:45 Urine Blood Negative (Negative) 03/03/25 14:45 Urine Nitrate Negative (Negative) 03/03/25 14:45 Urine Bilirubin Negative (Negative) 03/03/25 14:45 Urine Urobilinogen 1.0 mg/dL (Negative) 03/03/25 14:45 Ur Leukocyte Esterase 1+ (Negative) A 03/03/25 14:45 Urine RBC 0-4 /hpf (0-2) H 03/03/25 14:45 Urine WBC 5-10 /hpf (0-5) H 03/03/25 14:45 Ur Squamous Epith Cells None /hpf (0-5) 03/03/25 14:45 Amorphous Sediment Not Reportable 03/03/25 14:45 Urine Bacteria None /hpf (NONE) 03/03/25 14:45 Urine Mucus None /hpf 03/03/25 14:45 Vitals Last Vital Signs Temp 98.2 F 03/04/25 04:00 Pulse 89 03/04/25 08:30 Resp 27 H 03/04/25 08:30 BP 137/88 03/04/25 08:00 Pulse Ox 81 L 03/04/25 08:30 O2 Del Method Room Air 03/04/25 07:57 O2 Flow Rate 3 03/03/25 20:00 Discharge Plan Discharge Patient Disposition: Home Condition: Stable Prescriptions: Continued albuterol sulfate 90 mcg/actuation HFA aerosol inhaler 1 inh inhalation Q6H PRN (Reason: shortness of breath or wheezing) Qty: 8.5 3RF oxcarbazepine 300 mg tablet 300 mg PO BID 90 Days Qty: 180 3RF galantamine 4 mg tablet 4 mg PO BID 90 Days Qty: 180 3RF Ear Wax Removal Drops 6.5 % drops See Rx Instructions .ROUTE .COMPLEX Qty: 15 5RF Dose Instruction: instill SIX drops in BOTH ears TWICE DAILY FOR FOUR DAYS each MONTH THEN IRRIGATE Rx Instructions: Instill SIX drops in BOTH ears TWICE DAILY FOR FOUR DAYS each MONTH THEN IRRIGATE. dextromethorphan-guaifenesin 10-100 mg/5 mL Syrup 10 ml PO Q4H PRN (Reason: Cough) hydrocortisone [Proctocort] 1 % Cream [address] QID PRN (Reason: Hemorrhoids) trazodone 150 mg tablet 150 mg PO BEDTIME@20 fluticasone propionate 50 mcg/actuation spray,suspension 2 spray INTRANASAL DAILY@08 Rx Instructions: administer into each nostril loratadine [Claritin] 10 mg tablet 10 mg PO DAILY@07 simethicone 80 mg tablet,chewable 80 mg PO QID Rx Instructions: @07:00,12:00,16:00,20:00 albuterol sulfate 2.5 mg /3 mL (0.083 %) Solution For Nebulization 2.5 mg INHALATION Q6H PRN (Reason: Shortness Of Breath) Qty: 90 0RF amoxicillin-pot clavulanate 875-125 mg tablet 1 tab PO Q12H 10 Days Qty: 20 0RF fluticasone propion-salmeterol [Advair Diskus] 100-50 mcg/dose blister with device 1 inh inhalation BID Qty: 60 0RF One Daily Men's 50 Plus Memory 400-600-120 mcg-mcg-mg Tablet 1 tab PO DAILY ketoconazole 2 % shampoo See Rx Instructions .ROUTE .COMPLEX Rx Instructions: Lather onto Scalp and [place] three times weekly as needed ,allow to sit for 5 minutes before rinsing . sucralfate 1 gram tablet 1 g PO TID magnesium hydroxide [Milk of Magnesia] 400 mg/5 mL Suspension See Rx Instructions .ROUTE .COMPLEX PRN (Reason: Constipation) Rx Instructions: Take 5ml by mouth four times daily as needed on fourth day if no bowel movement in 3 days. Must wait 4 hours betweeen doeses Not to exceed 5 days. hydrocortisone 2.5 % cream 1 applic TOPICAL BID PRN (Reason: rash Mon-Fri) Rx Instructions: up to 2 weeks monthly alum-mag hydroxide-simeth 200-200-20 mg/5 mL Suspension 30 ml PO QID PRN (Reason: upset stomach) Rx Instructions: administer between meals and at bedtime ropinirole 0.5 mg tablet 0.5 mg PO BEDTIME polyethylene glycol 3350 [Miralax] 17 gram/dose powder 17 g PO DAILY PRN (Reason: constipation ) Rx Instructions: Dissolve 1 scoop every day as needed for no bowel movement in 48 hours docusate sodium 100 mg Capsule 100 mg PO DAILY ferrous gluconate 324 mg (37.5 mg iron) Tablet 324 mg PO DAILY pantoprazole 40 mg tablet,delayed release (DR/EC) 40 mg PO QAM Triple Antibiotic 3.5mg-400 unit- 5,000 unit/gram Ointment 1 applic TOPICAL DAILY PRN (Reason: cuts/abrasions) miconazole nitrate 2 % Powder 1 applic TOPICAL BEDTIME triamcinolone acetonide 0.1 % cream See Rx Instructions .ROUTE .COMPLEX Rx Instructions: Apply twice daily to rash on buttocks for 2 weeks, then use as needed if hydrocortisone is ineffective. acetaminophen 650 mg Tablet Extended Release 650 mg PO Q8H PRN (Reason: pain/fever>100) triamcinolone acetonide 0.1 % ointment 1 applic TOPICAL BID PRN (Reason: redness/rash) Thick-It Powder See Rx Instructions .ROUTE .COMPLEX Rx Instructions: Use to thicken liquids for thickening to honey consistency. benzoyl peroxide 5 % Cleanser See Rx Instructions .ROUTE .COMPLEX Rx Instructions: Use to wash groin and buttocks in shower 3 times per week for rash/redness. polyethylene glycol 3350 [Miralax] 17 gram/dose Powder 17 g PO DAILY PRN (Reason: Constipation) Andie Butt Paste 16 % Ointment 1 applic TOPICAL TID PRN (Reason: Skin Irritation) mometasone 0.1 % Solution See Rx Instructions .ROUTE .COMPLEX Rx Instructions: Apply to itchy areas in [place] twice daily as needed. May use up to 2 weeks monthly. quetiapine 200 mg tablet 200 mg PO BID venlafaxine 75 mg capsule,extended release 24hr 75 mg PO DAILY Rx Instructions: along with 150mg lc=491in total Changed azithromycin 250 mg tablet 500 mg PO DAILY 4 Days Qty: 4 0RF Rx Instructions: first dose given in ED No Action venlafaxine 150 mg capsule,extended release 24hr 150 mg PO DAILY Rx Instructions: along with 75mg [id number] total [employer] Production OK for DC: Hospitalist Discharge Order = DC NOW: Discharge Order (Routine); Ordered 03/04/25 Ordered By: Gayathri Dougherty Referrals: Reji Garza MD [Primary Care Provider, Family Practice] Discharge Diet: Usual diet Discharge Activity: Resume usual activity Patient Instructions: Community Acquired Pneumonia (DC), Shortness of Breath (DC), Opioid Safety, Patient Portal & Bo Instructions Discharge Attestations Time Spent in Discharge Care*: less than 30 min Status at Discharge: Cognitive status at discharge: mildly impaired cognition , Behavioral status at discharge: cooperative , Quality Metrics Clinical Quality Measures [ No reported AMI, CVA or VTE this stay] Coding Level of Care Code 49616 Diagnoses Pneumonia involving right lung J18.9 Hypoxemia R09.02 Dehydration E86.0 Time Spent (min) 30
--- NOTE | 2025-03-04 12:02 | PC.NURSE ---
pt discharged , rx and instructions given to [facility] staff
== END 2025-03-04 12:01 | disposition home or self-care (01) | DRG 194 ==
LOC: ER 11:37 → ICU 11:52
PROVIDERS: Admitting Provider Internal Medicine; Emergency Provider Emergency Medicine; PCP Family Medicine; Visit Provider Internal Medicine
DX: J18.9 Pneumonia, unspecified organism (principal); F31.11 Bipolar disorder, current episode manic without psychotic features, mild; R09.02 Hypoxemia; E86.0 Dehydration; G31.83 Neurocognitive disorder with Lewy bodies; F02.80 Dementia in other diseases classified elsewhere, unspecified severity, without behavioral disturbance, psychotic disturbance, mood disturbance, and anxiety; J42 Unspecified chronic bronchitis; I95.9 Hypotension, unspecified; F79 Unspecified intellectual disabilities; K44.9 Diaphragmatic hernia without obstruction or gangrene; G24.01 Drug induced subacute dyskinesia; M72.0 Palmar fascial fibromatosis [Dupuytren]; D50.9 Iron deficiency anemia, unspecified; Z87.01 Personal history of pneumonia (recurrent)
CPT/HCPCS: 36415; 71045; 80053; 81001; 83605; 83735; 83880; 84100; 85025; 87040; 93005; 94640; 96365; 96372; 96375; 99285; J0456; J0696; J1644; J7030; J7050; J9999

== ENCOUNTER 2025-03-30 19:55 | Outpatient (CLI) | payer MEDICARE, MEDICAID, SELFPAY | END 2025-03-30 19:56 | disposition home or self-care (01) | LOC: SLEEP 19:56 | PROVIDERS: PCP Family Medicine; Referring Provider Family Medicine; Visit Provider Internal Medicine Pulmonary Disease | DX: G47.33 Obstructive sleep apnea (adult) (pediatric) (principal) | CPT/HCPCS: 95810 ==

== ENCOUNTER 2025-05-05 08:09 | Outpatient (CLI) | payer MEDICARE, MEDICAID, SELFPAY | END 2025-05-05 08:10 | disposition home or self-care (01) | PROVIDERS: PCP Family Medicine; Visit Provider Family Medicine | DX: J96.11 Chronic respiratory failure with hypoxia (principal) | CPT/HCPCS: 94618 ==

== ENCOUNTER 2025-05-09 21:53 | Emergency (ER) | payer MEDICARE, MEDICAID, SELFPAY ==
--- OUTSIDE RECORDS SUMMARY | 2025-05-09 21:58 | XMS_ITS | Continuity of Care Document ---
Author Organization JEFFREY Moustapha Velázquez [facility]L.CMacrina, [facility] ([facility]) Address [address] [place] [address] Care Team Providers Care Wardrobe Custodian Name Role Phone DANAY GONZALEZ Primary Care Provider Assessment Encounter Date Assessment Date Assessment LastModified by Organization Details LastModified Time 03/22/2025 03/22/2025 dry skin continue hydrocortisone and barrier creams as you are skin is intact keep pressure off of the sacrum [email or web address] Not available 03/22/2025 11:32:21 Plan of Treatment Reminders Order Date Submit Date Provider Last Modified By Organization Details Last Modified Time Details Appointments OFFICE VISIT YARA 2025 09:00A M Reji Garza MD Not available Not available Not available Lab None recorded. Referral otolaryng ologist referral 2024 025 [email or web address] Ubaldo Cr MD, [address], [place], [address], 03/29/2025 09:26:23 Procedures None recorded. Surgeries None recorded. Imaging None recorded. Medication Orders rosuvasta tin 20 mg tablet 2024 025 JALEN [facility], [address] [place] [address], [address], 05/06/2025 12:45:26 Patient TargetsNo targets recorded. Patient InstructionsNo instructions recorded. Reason for Referral Director Of Health Care Marketing Referral fo r Pure hypercholesterolemia Referring Physician: Reji Garza, Family Medicine, Encounter Date: 03/22/2025 Results Created Date Observation Date Name Description Value Unit Range Abnormal Flag Note LastModifiedBy Organization Detail LastModifiedTime 03/19/2003/19/2025 CBC WBC 5.7 x10 4.5-10 .5 Not Available [facility] [address], [place], [address], 03/19/2025 09:34:06 03/19/2003/19/2025 CBC RBC 4.64 x10 4.30-5 .90 Not Available [facility] [address], [place], [address], 03/19/2025 09:34:06 03/19/2003/19/2025 CBC HGB 14.0 g/dL 13.5-1 8.0 Not Available [facility] [address], [place], [address], 03/19/2025 09:34:06 03/19/2003/19/2025 CBC HCT 43.4 % 35.0-6 0.0 Not Available [facility] [address], [place], [address], 03/19/2025 09:34:06 03/19/2003/19/2025 CBC MCV 93.6 fL 80.0-9 9.9 Not Available [facility] [address], [place], [address], 03/19/2025 09:34:06 03/19/2003/19/2025 CBC MCH 30.1 pg 27.0-3 2.0 Not Available [facility] [address], [place], [address], 03/19/2025 09:34:06 03/19/2003/19/2025 CBC MCHC 32.2 g/dL 32.0-3 6.0 Not Available [facility] [address] [facility] [address], [place], [address], 03/19/2025 09:34:06 03/19/2003/19/2025 CBC RDW 14.4 % 11.5-1 4.5 Not Available [facility] [address] [facility] [address], [place], [address], 03/19/2025 09:34:06 03/19/2003/19/2025 CBC plt 186.4 x10 150.0- 451.0 Not Available [facility] [address] [facility] [address], [place], [address], 03/19/2025 09:34:06 03/19/2003/19/2025 CBC lymphocytes % 24.2 % 20.0-5 0.0 Not Available [facility] [address] [facility] [address], [place], [address], 03/19/2025 09:34:06 03/19/2003/19/2025 CBC granulcytes % 62.2 % 30.0-7 0.0 Not Available [facility] [address] [facility] [address], [place], [address], 03/19/2025 09:34:06 03/19/2003/19/2025 CBC monocytes % 9.4 % 2.0-16 .0 Not Available [facility] [address] [facility] [address], [place], [address], 03/19/2025 09:34:06 03/19/2003/19/2025 CBC granulcytes# 3.5 x10 Not Hanna ilable [facility] [address] [facility] [address], [place], [address], 03/19/2025 09:34:06 03/19/2003/19/2025 CBC lymphocytes # 1.4 x10 Not Available [facility] [address] [facility], [place], [address], 03/19/2025 09:34:06 03/19/2003/19/2025 CBC monocytes # 0.5 x10 Not [facility] [address] [facility] [address], [place], [address], 03/19/2025 09:34:06 03/19/2003/19/2025 CMP (MALE ) glucose 105.0 mg/dL 60.0-9 9.0 high Not Available [facility] [address] [facility], [place], [address], 03/19/2025 09:38:28 03/19/2003/19/2025 CMP (MALE ) BUN (blood urea nitrogen) 15.0 mg/dL 10.0-2 6.0 Not Available [facility] [address] [facility], [place], [address], 03/19/2025 09:38:28 03/19/20 25 03/19/2025 CMP (MALE ) creatinine (serum) 0.8 mg/dL 0.4-1. 5 Not Available [facility] [address] [place] [facility], [place], [address], 03/19/2025 09:38:28 03/19/20 25 03/19/2025 CMP (MALE ) BUN/creatini ne ratio 18.75 ratio Not Available [facility] [address] [place] [facility], [place], [address], 03/19/2025 09:38:28 03/19/20 25 03/19/2025 CMP (MALE ) eGFR calculated 102.5 Not Available [facility] [address] [facility], [place], [address], 03/19/2025 09:38:28 03/19/20 25 03/19/2025 CMP (MALE ) total protein 7.7 g/dL 6.0-8. 5 Not Available [facility] [address] [facility] [address], [place], [address], 03/19/2025 09:38:28 03/19/20 25 03/19/2025 CMP (MALE ) total bilirubin 0.6 mg/dL 0.2-1. 3 Not Available [facility] [address] [facility] [address], [place], [address], 03/19/2025 09:38:28 03/19/2003/19/2025 CMP (MALE ) albumin 4.2 g/dL 3.5-5. 5 Not Available [facility] [address] [facility] [address], [place], [address], 03/19/2025 09:38:28 03/19/2003/19/2025 CMP (MALE ) globulin 3.5 calc Not Available [facility] [address] [facility] [address], [place], [address], 03/19/2025 09:38:28 03/19/20 25 03/19/2025 CMP (MALE ) AST (SGOT) 24.0 U/L 0.0-46 .0 Not Available [facility] [address] [facility] [address], [place], [address], 03/19/2025 09:38:28 03/19/20 25 03/19/2025 CMP (MALE ) altv (SGPT) 21.0 U/L 13.0-6 9.0 normal Not Available [facility] [address] [facility], [place], [address], 03/19/2025 09:38:28 03/19/20 25 03/19/2025 CMP (MALE ) A/G ratio 1.2 ratio Not Available [facility] [address] [facility] [address], [place], [address], 03/19/2025 09:38:28 03/19/2003/19/2025 CMP (MALE ) ALP phos 72.0 U/L 30.0-1 40.0 normal Not Available [facility] [address] [facility] [address], [place], [address], 03/19/2025 09:38:28 03/19/2003/19/2025 CMP (MALE ) calcium 9.4 mg/dL 8.4-10 .5 Not Available [facility] [address] [facility] [address], [place], [address], 03/19/2025 09:38:28 03/19/2003/19/2025 CMP (MALE ) sodium 139.0 mmol/ L 136.0- 145.0 Not Available [facility] [address] [facility] [address], [place], [address], 03/19/2025 09:38:28 03/19/2003/19/2025 CMP (MALE ) potassium 4.0 mmol/ L 3.5-5. 1 Not Available [facility] [address] [facility] [address], [place], [address], 03/19/2025 09:38:28 03/19/2003/19/2025 CMP (MALE ) chloride 105.0 mmol/ L 98.0-1 10.0 normal Not Available [facility] [address] [facility] [address], [place], [address], 03/19/2025 09:38:28 03/19/2003/19/2025 CMP (MALE ) C02 26.0 mmol/ L 22.0-3 1.0 Not Available [facility] [address] [facility] [address], [place], [address], 03/19/2025 09:38:28 03/19/20 25 03/19/2025 CMP (MALE ) anion gap 8.0 calc Not Available [facility] [address] [facility] [address], [place], [address], 03/19/2025 09:38:28 03/19/20 25 03/19/2025 CMP (MALE ) osmolality 288.3 calc Not Available [facility] [address] [facility] [address], [place], [address], 03/19/2025 09:38:28 03/19/2003/19/2025 LIPID PROFI LE (MALE ) cholesterol 217.0 mg/dL 0.0-20 0.0 high Not Available [facility] [address] [facility] [address], [place], [address], 03/19/2025 09:38:31 03/19/20 25 03/19/2025 LIPID PROFI LE (MALE ) trig 68.0 mg/dL 0.0-15 0.0 Not Available [facility] [address] [facility] [address], [place], [address], 03/19/2025 09:38:31 03/19/20 25 03/19/2025 LIPID PROFI LE (MALE ) HDL - direct 43.0 mg/dL >40.0 Not Available [facility] [address] [facility] [address], [place], [address], 03/19/2025 09:38:31 03/19/20 25 03/19/2025 LIPID PROFI LE (MALE ) VLDL - direct 13.6 mg/dL Not Available [facility] [address] [facility] [address], [place], [address], 03/19/2025 09:38:31 03/19/20 25 03/19/2025 LIPID PROFI LE (MALE ) LDL - direct 160.4 mg/dL 0.0-13 0.0 high Not Available [facility] [address], [place], [address], 03/19/2025 09:38:31 04/05/20 25 03/30/2025 polys omnog cass No observ ation record ed. [email or web address] [facility] [address] [facility], [address], [place], [address], 04/08/2025 14:15:13 Result Notes None recorded. 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 5 13:41:26 Bipolar disorder 33575580 Active [address] [facility] 5 13:40:30 Dermatop hytosis 16107870 Completed 202207/30/[address] [facility] 5 13:40:54 Constipa tion 55414382 Active [address] [facility] 5 13:40:40 Zenker's divertic ulum 428830659 Active [address] [facility] 5 13:41:45 Orophary ngeal dysphagi a 59836139 Active 2023 Julissa banks, [facility] 5 13:41:14 Recurren t aspirati on pneumoni a 169076817 Active 2023 Julissa banks, [facility] 5 13:41:33 Obesity 163350266 Active 2023 Julissa banks, [facility] 5 13:41:10 Aspirati on pneumoni a 101737073 Completed 202307/30/2024 Julissa banks, [facility] 5 13:40:27 Hiatal hernia 06904014 Active 2024 Julissa banks, [facility] 5 13:41:00 Acute bacteria l bronchit is 607154157 Completed 202407/30/2024 Julissa banks, [facility] 5 13:40:14 Chronic hypoxemi c respirat ory failure 026406530 Active 2024 HYACINTH banks, [facility] 5 10:21:36 At increase d risk for aspirati on 492804667 Active 2024 Octavia Brennan null, [facility] 5 12:25:24 Fibrosis of lung 61249096 Active 2024 HY[address] banks, [facility] 5 11:47:55 Obstruct pita sleep apnea syndrome 96712882 Active 2024 HY[address] banks, [facility] 09:39:31 Pure hypercho lesterol emia 393576429 Active 2024 HY[address] banks, [facility] 11:19:12 Hypergly cemia 15829290 Active 2024 HY[address] banks, [facility] 11:19:12 Hearing loss 01523961 Active 2024 HY[address] banks, [facility] 09:13:43 Aspirati on pneumoni tis 365069002 Active [address] [facility] 08:49:30 Pulmonar y aspirati on 77589052 Active 2024 HY[address] banks, [facility] 08:49:30 Hemateme sis 8509861 Active 2024 HY[address] banks, [facility] 08:49:44 Acute gastroen teritis 43545036 [facility] 20[facility] 08:49:44 Problem Notes None recorded. Procedures Surgical History Date Name Laterality Status Provider Name and Address Organization Details Recorded Time 2023 esophagogastroduodenoscopy completed [address] EUGENE [facility] 5 13:14:20 procedure on brain completed MICHAEL EUGENE [facility] 5 09:30:20 arthroscopy of knee completed KAYDEN EUGENE [facility] 5 09:30:33 Imaging Results None recorded. Procedure [...] CAPSULE BY MOUTH EVERY DAY with 150mg km=220tj ; FOR ANXIETY 2024 active Not Available [...] lable ondansetr on HCl 8 mg tablet TAKE 1 TABLET BY MOUTH EVERY 8 HOURS NEEDED FOR NAUSEA FOR 2 DAYS active Not Available Not Available No t Available sucralfat e 1 gram tablet TAKE ONE TABLET BY MOUTH THREE TIMES DAILY with meals FOR ULCERS 03/30 completed Not Available Not Available Not Available prednison e 20 mg tablet Take 1 [...] Not Available Not Available Not Avai lable Benadryl Itch Stopping 1 %-0.1 % topical cream Apply by topical route up to qid prn itching 2024 active Not Available Not Available Not Avai lable triamcino lone acetonide 0.1 % topical cream apply twice dAILY TO RASH ON buttocks FOR two WEEKS THEN USE NEEDED if hydrocor tisone is ineffect pita 03/19 completed Not Available Not Available Not Available acetamino phen ER 650 mg tablet,ex tended release Take 1 tablet every 8 hours by oral route as needed, for pain or fever > 100. 2024 active Not Available Not Available Not Avai lable ofloxacin 0.3 % ear drops INSTILL 4 DROPS TO LEFT EAR TWICE DAILY FOR 2 WEEKS active Not Available Not Available No t Available amoxicill in 875 mg tablet two times [...] Not Available Not Available Not Avai lable clotrimaz ole 1 % topical cream APPLY TO THE AFFECTED AND SURROUND ING AREAS OF SKIN BY TOPICAL ROUTE 2 TIMES PER DAY IN THE MORNING AND EVENING 02/12 completed Not Available Not Available Not Available loratadin e 10 mg tablet TAKE ONE TABLET BY MOUTH EVERY MORNING FOR SEASONAL ALLERGIE S 2024 active Not Available Not Available Not Avai lable amoxicill in 875 mg-potass ium clavulana te [...] completed Not Available Not Available Not Available rosuvasta tin 20 mg tablet Take 1 tablet every day by oral route for 90 days. 2024 active Not Available Not Available Not Avai lable aspirin daily 01/24 completed 0; Recorded 11/14/19 [...] Not Available Not Available Not Avai lable Robitussi n DM Max 10 mg-200 mg/5 mL oral liquid Take 10 mL every 4 hours by oral route as needed. active Not Available Not Available No t Available ClearLax 17 gram/dose oral powder DISSOLVE 1 CAP FULL (17gm) EVERY DAY NEEDED FOR NO BOWEL MOVEMENT IN 48 HOURS 2024 active Not Available Not Available Not Avai lable Opti[facility] with Medium Mask USE DIRECTED 2024 active Not Available Not Available Not Avai lable Sierra-Tuss in 100 mg/5 mL oral liquid [...] Multivita min 400 mcg-20 mcg-370 mcg tablet Take 1 tablet every day by oral route, for suppleme nt. 2024 active Not Available Not Available Not Avai lable Vitals Date Recorded Body height Body mass index (BMI) Body weight Body temperature Heart rate Oxygen saturation Inhaled oxygen flow rate Systolic And Diastolic Provider Name and Address Organization Details Last Updated DateTime 5 172.72 cm 32.8 kg/m2 98414.9 5 g 97.6 [degF] 94 /min 95 % 3 L/min 120/72 mm[Hg] Octavia Brennan [facility] 5 11:13:01 Social History Question Answer Notes LastModified by Organizat ion Details LastModified Time Tobacco Smoking Status Never Smoker Maru [facility] 02/06/2024 10:50:27 Where Do You Live? Tamika Kim's [email or web address] Information not available 08/06/2024 What Was The Date Of Your Most Recent Tobacco Screening? 01/04/2025 [email or web address] Information not available 01/04/2025 Sex: Unknown Functional Status Question Answer Note LastModified by Organizat ion Details LastModified Time Do you use any illicit or recreational drugs? No Information not available 02/06/2024 Do you or have you ever used any other forms of tobacco or nicotine? No [email or web address] Information not available 08/06/2024 What is your level of alcohol consumption? None Information not available 02/06/2024 Are you able to care for yourself independently? No [email or web address] Information not available 08/06/2024 Do you or have you ever used any nicotine-free cigarettes, vape, or chewing tobacco? No [email or web address] Information not available 08/06/2024 Mental Status None recorded. Family History Nothing Reported. Medical History No medical history recorded. Immunizations Vaccine Type Date Status Note Provider Nam e and Address Organization Details Recorded Time zoster recombinant 5 completed Reji Garza MD [address] [place] [address], [phone], [facility] 09/16/2024 14:46:42 Influenza, MDCK, quadrivalent, PF [address] [facility] 02/06/2024 10:49:16 COVID-19, mRNA, LNP-S, PF, 100 mcg/0.5mL dose or 50 mcg/0.25mL dose [address] [facility] 02/06/2024 10:49:16 COVID-19, mRNA, LNP-S, PF, 100 mcg/0.5mL dose or 50 mcg/0.25mL dose 1 completed [facility] 02/06/2024 10:49:16 COVID-19, mRNA, LNP-S, PF, 100 mcg/0.5mL dose or 50 mcg/0.25mL dose 2 completed [facility] 02/06/2024 10:49:16 COVID-19, mRNA, LNP-S, bivalent, PF, 50 mcg/0.5 mL or 25mcg/0.25 mL dose 2 completed [facility] 02/06/2024 10:49:16 Influenza, split virus, trivalent, preservative 3 completed [facility] 02/06/2024 10:49:16 Influenza, split virus, trivalent, PF 4 completed [facility] 02/06/2024 10:49:16 Influenza, split virus, trivalent, PF 5 completed [facility] 02/06/2024 10:49:16 Td (adult), 2 Lf tetanus toxoid, preservative free, adsorbed 4 completed [facility] 02/06/2024 10:49:16 Hep B, adult 5 completed [facility] 02/06/2024 10:49:17 Hep B, adult 6 completed [facility] 02/06/2024 10:49:17 Hep B, adult 4 completed [facility]/06/2024 10:49:17 Influenza, split virus, quadrivalent, PF 1 completed [facility] 02/06/2024 10:49:17 Influenza, MDCK, quadrivalent, preservative 3 completed [facility] 02/18/2024 15:15:35 Tdap 4 completed [facility] 02/18/2024 15:15:36 COVID-19, mRNA, LNP-S, PF, 50 mcg/0.5 mL 5 completed [facility] 08/26/2024 10:19:44 Influenza, MDCK, trivalent, preservative 4 completed [facility] 08/26/2024 10:19:45 COVID-19, mRNA, LNP-S, PF, 10 mcg/0.2 mL 5 completed Not Available [facility] 04/27/2025 09:58:20 Influenza, high-dose, trivalent, PF 5 completed Not Available [facility] 04/27/2025 09:58:20 Pneumococcal conjugate PCV20, polysaccharide DIK131 conjugate, adjuvant, PF 5 completed [facility] 06/17/2024 12:12:19 zoster recombinant 5 completed [facility] 06/17/2024 12:12:42 Influenza, split virus, trivalent, preservative 6 completed Not Available [facility] 12/29/2022 02:32:31 Past Encounters Encounter ID Performer Location Encounter Start Date Encounter Closed Date Diagnosis/Indication Diagnosis SNOMED-CT Code Diagnosis ICD10 Code Diagnosis IMO Codes Diagnosis Note [id number] Reji Garza MD [facility] ([facility]) [address] [place] [phone] 03/09/2025 12:01:15 03/09/2025 15:15:29 Aspiration pneumonitis 546684450 J69.0 2756 continue current care plan f/u if not continuing to improve.co mplete augmentin as ordered. Pulmonary aspiration 680 65566 T17.908D 1902329 we have maximized preventive measures.s ee previous history for extensive measures and evaluation s and discussion regarding surgery.co ntinue aspiration precaution scomplete augmentin script see previous noteshospi tiffanie records and cultures have been reviewed.h as been requiring oxygen a little more since discharge than prior to admission. however he is greatly improved and continuing to improve. 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 ed risk for aspiration 119060378 Z91.89 continue aspiration precaution s Chronic hy poxemic respiratory failure 976736978 J96.11 following aspiration event recurrent and chronic and care home.kelly ble continious oxygen orders sent Recurrent aspiration pneumonia 034235602 J69.0 Hiatal hernia 41007643 K 44.[address] larios he was advised against surgery which i agree with. i do not feel the benefit would outweigh the risks Fibrosis of lung 6425357 1 J84.10 3179 due to previous aspiration events Obstructiv e sleep apnea syndrome 88362092 G47.33 789807 titration study this coming week. Hyperglycemia 40852848 R 73.9 2723230 Pure hypercholesterolemia 590479297 E78.00 40123 Health Concerns Section Related Observation LastModified by Organization Detai ls LastModified Time None Recorded Concern Status LastModified by Organization Details LastModified Time None Recorded Payers Encounter Date Sequence Insurance Name Policy Number Policy Gore Covered Member ID Gore Member ID Guarantor Name 03/22/2025 2 [place] Dalton Cosby Brendon [id number] Adam Armstrong 03/22/2025 1 [place] Harjeet Brendon [id number] Adam Armstrong Notes Date Note Type Note Provider Name and Address Organization Details Recorded Time 03/22/2025 text/html Annual WellnessReported by PatientSocial/Behavior al HistoryFor physical activity, patient reportsdoes not exercise on a regular basis. For diet and nutrition, patient reportsdiscussed diet improvement. For additional lifestyle factors, patient reportsno tobacco useandno alcohol intake.Mental Status:For depression risk, patient reportsno history of depression.Functional AbilityFor hearing, patient reportsgetting progressively worse. For vision, patient reportsworse both distance and near (wears glasses).ROS as noted in the HPI Pt is here to go over labs. Pt's nurse would like to have a spot on his right buttock examined. They would also like to discuss getting an ENT referral for hearing aids. Reji Garza MD [address] [place] [address], [phone], [facility] 03/24/2025 09:13:09
--- OUTSIDE RECORDS SUMMARY | 2025-05-09 21:58 | XMS_ITS | Continuity of Care Document ---
Author Organization JEFFREY Velázquez [facility], LMacrinaLJosue, [facility]) Address [address] [place] [address] Care Team Providers Care Car Customizer Name Role Phone DANAY GONZALEZ Primary Care Provider Assessment No assessment recorded. Plan of Treatment Reminders Order Date Submit Date Provider Last Modified By Organization Details Last Modified Time Details Appointments OFFICE VISIT YARA 2025 09:00A M Reji Garza MD Not available Not available Not available Lab CMP, serum or plasma 2024 025 [facility], [address], [facility], [place], [address], 02/19/2025 13:52:06 CBC w/ auto diff [address] [facility], [address] [facility], [facility] 1, [place], [address], 02/26/2025 08:19:20 Referral None recorded. Procedures None recorded. Surgeries None recorded. Imaging None recorded. Medication Orders ondansetr on HCl 8 mg tablet 2024 025 [facility], [address] [place] [address], [id number], 02/28/2025 05:01:10 Patient TargetsNo targets recorded. Patient InstructionsNo instructions recorded. Reason for Referral None Reported. Results Created Date Observation Date Name Description Value Unit Range Abnormal Flag Note LastModifiedBy Organization Detail LastModifiedTime 02/20/2002/1902/19/2025 CBC WBC 8.2 x10 4.5-10 .5 Not Available [facility] [address] [facility] 1, [place], [address], 02/19/2025 13:30:59 02/20/20 25 02/19/2025 CBC RBC 4.99 x10 4.30-5 .90 Not Available [facility] [address] [facility] 1, [place], [address], 02/19/2025 13:30:59 02/20/20 25 02/19/2025 CBC HGB 15.1 g/dL 13.5-1 8.0 Not Available [facility] [address] [facility] 1, [place], [address], 02/19/2025 13:30:59 02/20/20 25 02/19/2025 CBC HCT 46.2 % 35.0-6 0.0 Not Available [facility] [address] [facility] 1, [place], [address], 02/19/2025 13:30:59 02/20/20 25 02/19/2025 CBC MCV 92.6 fL 80.0-9 9.9 Not Available [facility] [address] [facility] 1, [place], [address], 02/19/2025 13:30:59 02/20/20 25 02/19/2025 CBC MCH 30.3 pg 27.0-3 2.0 Not Available [facility] [address] [facility] 1, [place], [address], 02/19/2025 13:30:59 02/20/20 25 02/19/2025 CBC MCHC 32.7 g/dL 32.0-3 6.0 Not Available [facility] [address] [facility] [facility] 1, [place], [address], 02/19/2025 13:30:59 02/20/20 25 02/19/2025 CBC RDW 14.1 % 11.5-1 4.5 Not Available [facility] [address] [facility] 1, [place], [address], 02/19/2025 13:30:59 02/20/20 25 02/19/2025 CBC plt 127.1 x10 150.0- 451.0 low Not Available [facility] [address] [facility] 1, [place], [address], 02/19/2025 13:30:59 02/20/20 25 02/19/2025 CBC lymphocytes % 7.3 % 20.0-5 0.0 low Not Available [facility] [address] [facility] 1, [place], [address], 02/19/2025 13:30:59 02/20/20 25 02/19/2025 CBC granulcytes % 84.2 % 30.0-7 0.0 high Not Available [facility] [address] [facility] 1, [place], [address], 02/19/2025 13:30:59 02/20/20 25 02/19/2025 CBC monocytes % 7.7 % 2.0-16 .0 Not Available [facility] [address] [facility] 1, [place], [address], 02/19/2025 13:30:59 02/20/20 25 02/19/2025 CBC granulcytes# 6.9 x10 Not Hanna ilable [facility] [address] [facility] 1, [place], [address], 02/19/2025 13:30:59 02/20/20 25 02/19/2025 CBC lymphocytes # 0.6 x10 Not Available [facility] [address] [facility] [facility] 1, [place], [address], 02/19/2025 13:30:59 02/20/20 25 02/19/2025 CBC monocytes # 0.6 x10 Not [facility]ai [facility]able [facility] [address] [facility] 1, [place], [address], 02/19/2025 13:30:59 02/20/20 25 02/19/2025 CMP (FEMA LE) glucose 125.0 mg/dL 60.0-9 9.0 high Not Available [facility] [address] [facility], [place], [address], 02/19/2025 13:52:06 02/20/20 25 02/19/2025 CMP (FEMA LE) BUN (blood urea nitrogen) 20.0 mg/dL 10.0-2 6.0 Not Available [facility] [address] [facility], [place], [address], 02/19/2025 13:52:06 02/20/20 25 02/19/2025 CMP (FEMA LE) creatinine (serum) 0.8 mg/dL 0.4-1. 5 Not Available [facility] [address] [facility], [place], [address], 02/19/2025 13:52:06 02/20/20 25 02/19/2025 CMP (FEMA LE) BUN/creatini ne ratio 25.00 ratio Not Available [facility] [address] [facility], [place], [address], 02/19/2025 13:52:06 02/20/20 25 02/19/2025 CMP (FEMA LE) eGFR calculated 102.5 Not Available [facility] [address] [facility] 1, [place], [address], 02/19/2025 13:52:06 02/20/20 25 02/19/2025 CMP (FEMA LE) total protein 7.6 g/dL 6.0-8. 5 Not Available [facility] [address] [facility] 1, [place], [address], 02/19/2025 13:52:06 02/20/20 25 02/19/2025 CMP (FEMA LE) total bilirubin 0.7 mg/dL 0.2-1. 3 Not Available [facility] [address] [facility] 1, [place], [address], 02/19/2025 13:52:06 02/20/2002/19/2025 CMP (FEMA LE) albumin 4.4 g/dL 3.5-5. 5 Not Available [facility] [address] [facility] 1, [place], [address], 02/19/2025 13:52:06 02/20/20 25 02/19/2025 CMP (FEMA LE) globulin 3.2 calc Not Available [facility][1] [place] [facility] [address] [facility], [place], [address], 02/19/2025 13:52:06 02/20/20 25 02/19/2025 CMP (FEMA LE) AST (SGOT) 29.0 U/L 0.0-46 .0 Not Available [facility] [address] [facility], [place], [address], 02/19/2025 13:52:06 02/20/20 25 02/19/2025 CMP (FEMA LE) altv (SGPT) 31.0 U/L 13.0-6 9.0 normal Not Available [facility] [address] [facility] 1, [place], [address], 02/19/2025 13:52:06 02/20/20 25 02/19/2025 CMP (FEMA LE) A/G ratio 1.4 ratio Not Available [facility] [address] [facility] 1, [place], [address], 02/19/2025 13:52:06 02/20/2002/19/2025 CMP (FEMA LE) ALP phos 78.0 U/L 30.0-1 40.0 normal Not Available [facility] [address] [facility] 1, [place], [address], 02/19/2025 13:52:06 02/20/2002/19/2025 CMP (FEMA LE) calcium 8.9 mg/dL 8.4-10 .5 Not Available [facility] [address] [facility] 1, [place], [address], 02/19/2025 13:52:06 02/20/2002/19/2025 CMP (FEMA LE) sodium 137.0 mmol/ L 136.0- 145.0 Not Available [facility] [address] [facility] 1, [place], [address], 02/19/2025 13:52:06 02/20/2002/19/2025 CMP (FEMA LE) potassium 4.2 mmol/ L 3.5-5. 1 Not Available [facility] [address] [facility] 1, [place], [address], 02/19/2025 13:52:06 02/20/2002/19/2025 CMP (FEMA LE) chloride 106.0 mmol/ L 98.0-1 10.0 normal Not Available [facility] [address] [facility] 1, [place], [address], 02/19/2025 13:52:06 02/20/2002/19/2025 CMP (FEMA LE) C02 21.0 mmol/ L 22.0-3 1.0 low Not Available [facility] [address] [facility] 1, [place], [address], 02/19/2025 13:52:06 02/20/20 25 02/19/2025 CMP (FEMA LE) anion gap 10.0 calc Not Available [facility] [address] [facility] [address] [facility], [place], [address], 02/19/2025 13:52:06 02/20/20 25 02/19/2025 CMP (FEMA LE) osmolality 286.9 calc Not Available [facility] [address], [place], [address], 02/19/2025 13:52:06 01/26/20 25 01/20/2025 polys omnog aisha (PROC ) No observ ation record ed. [email or web address] [facility] [place] [address] [facility], [address], [place], [address], 01/27/2025 09:38:22 04/05/2003/30/2025 polys omnog cass No observ ation record ed. [email or web address] [place] [id number] [facility], [address], [place], [address], 04/08/2025 14:15:13 Result Notes None recorded. 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 5 13:41:26 Bipolar disorder 69539857 Active 2021 Julissa Ramírez null, [facility] 5 13:40:30 Dermatop hytosis 79763785 Completed 202207/30/2024 Julissa Ramírez null, [facility] 5 13:40:54 Constipa tion 93378112 Active 2023 Julissa Ramírez null, [facility] 5 13:40:40 Zenker's divertic ulum 640695862 Active 2023 Julissa Ramírez darren, [facility] 5 13:41:45 Orophary ngeal dysphagi a 42656956 Active 2023 Julissanevaeh Gonzaleze null, [facility] 5 13:41:14 Recurren t aspirati on pneumoni a 446772263 Active 2023 Julissanevaeh Gonzaleze null, [facility] 5 13:41:33 Obesity 138864981 Active 2023 Julissa Ramírez null, [facility] 5 13:41:10 Aspirati on pneumoni a 717107788 Completed 202307/30/2024 Julissa Ramírez null, [facility] 5 13:40:27 Hiatal hernia 37888594 Active 2024 Julissa Ramírez null, [facility] 5 13:41:00 Acute bacteria l bronchit is 056622648 Completed 202407/30/2024 Julissa Ramírez null, [facility] 5 13:40:14 Chronic hypoxemi c respirat ory failure 191359393 Active 2024 HYACINTH EUGENE null, [facility] 5 10:21:36 At increase d risk for aspirati on 600104331 Active 2024 Octavia Anu null, [facility] 5 12:25:24 Fibrosis of lung 64620779 Active 2024 HYACINTH EUGENE null, [facility] 11:47:55 Obstruct pita sleep apnea syndrome 11943802 Active 2024 HYACINTH EUGENE null, [facility] 09:39:31 Pure hypercho lesterol emia 592375182 Active 2024 HYACINTH EUGENE null, [facility] 11:19:12 Hypergly cemia 68226869 Active 2024 HYACINTH EUGENE null, [facility] 11:19:12 Hearing loss 47791504 Active 2024 HYACINTH EUGENE null, [facility] 5 09:13:43 Aspirati on pneumoni tis 884736587 Active 2024 HYACINTH EUGENE null, [facility] 08:49:30 Pulmonar y aspirati on 45187801 Active 2024 HYACINTH EUGENE null, [facility] 08:49:30 Hemateme sis 7824654 Active 2024 HYACINTH EUGENE null, [facility] 5 08:49:44 Acute gastroen teritis 86806282 Active 2024 HYACINTH banks [facility], [place] 5 08:49:44 Problem Notes None recorded. Procedures Surgical History Date Name Laterality Status Provider Name and Address Organization Details Recorded Time 2023 esophagogastroduodenoscopy completed KAYDEN EUGENE [facility], [place] 5 13:14:20 procedure on brain completed MICHAEL EUGENE [facility], [place] 5 09:30:20 arthroscopy of knee completed KAYDEN EUGENE [facility], [place] 5 09:30:33 Imaging Results None recorded. Procedure [...] CAPSULE BY MOUTH EVERY DAY with 150mg ll=252hs ; FOR ANXIETY 2024 active Not Available [...] VO AT/tg; Recorded 06/04/19 23 2:52PM by Zoey Xiaoic al Summary; Refill Quantity : 0; Not [...] aspirin daily 01/24 completed 0; Recorded 11/14/19 3:42PM by Shayy Mujica, Office Visit; Not [...] Available Not Avai lable [employer]amb er Jennifer [facility] with Medium Mask USE DIRECTED 2024 [...] Last Updated DateTime 172.72 cm 33 kg/m2 89075.5 4 g 100 [degF] 113 /min 96 % 3 L/min 108/60 mm[Hg] HYACINTH EUGENE [facility] 12:37:59 Social History Question Answer Notes LastModified by [facility] ion Details LastModified Time Tobacco Smoking Status Never Smoker [facility] 02/06/2024 10:50:27 Where Do You Live? [place] Bhagat [email or web address] Information not available 08/06/2024 What Was The Date Of Your Most Recent Tobacco Screening? 01/04/2025 [email or web address] Information not available 01/04/2025 Sex: Unknown Functional Status Question Answer Note LastModified by Organizat ion Details LastModified Time Do you use any illicit or recreational drugs? No Information not available 02/06/2024 Do you or have you ever used any other forms of tobacco or nicotine? No [email or web address] Information not available 08/06/2024 What is your level of alcohol consumption? None Information not available 02/06/2024 Are you able to care for yourself independently? No [email or web address] Information not available 08/06/2024 Do you or have you ever used any nicotine-free cigarettes, vape, or chewing tobacco? No [email or web address] Information not available 08/06/2024 Mental Status None recorded. Family History Nothing Reported. Medical History No medical history recorded. Immunizations Vaccine Type Date Status Note Provider Nam e and Address Organization Details Recorded Time zoster recombinant 5 completed Reji Garza MD [address] [place] [address], [id number], [facility] 09/16/2024 14:46:42 Influenza, MDCK, quadrivalent, PF 2 completed Maruaranza Kruger [facility] 02/06/2024 10:49:16 COVID-19, mRNA, LNP-S, PF, 100 mcg/0.5mL dose or 50 mcg/0.25mL dose 1 completed Stryker Slick [facility] 02/06/2024 10:49:16 COVID-19, mRNA, LNP-S, PF, 100 mcg/0.5mL dose or 50 mcg/0.25mL dose 1 completed Maruaranza Kruger [facility] 02/06/2024 10:49:16 COVID-19, mRNA, LNP-S, PF, 100 mcg/0.5mL dose or 50 mcg/0.25mL dose 2 completed [facility] 02/06/2024 10:49:16 COVID-19, mRNA, LNP-S, bivalent, PF, 50 mcg/0.5 mL or 25mcg/0.25 mL dose 2 completed Stryker Slick [facility] 02/06/2024 10:49:16 Influenza, split virus, trivalent, preservative 3 completed Maru Slick [facility] 02/06/2024 10:49:16 Influenza, split virus, trivalent, PF 4 completed [facility] 02/06/2024 10:49:16 Influenza, split virus, trivalent, PF 5 completed Maru banks, [facility] 02/06/2024 10:49:16 Td (adult), 2 Lf tetanus toxoid, preservative free, adsorbed 4 completed [facility] 02/06/2024 10:49:16 Hep B, adult 5 completed [facility] 02/06/2024 10:49:17 Hep B, adult 6 completed [facility] 02/06/2024 10:49:17 Hep B, adult 4 completed [facility] 02/06/2024 10:49:17 Influenza, split virus, quadrivalent, PF 1 completed [facility] 02/06/2024 10:49:17 Influenza, MDCK, quadrivalent, preservative 3 completed [facility] 02/18/2024 15:15:35 Tdap 4 completed [facility] 02/18/2024 15:15:36 COVID-19, mRNA, LNP-S, PF, 50 mcg/0.5 mL 5 completed HYACINTH banks, [facility] 08/26/2024 10:19:44 Influenza, MDCK, trivalent, preservative 4 completed [facility] 08/26/2024 10:19:45 COVID-19, mRNA, LNP-S, PF, 10 mcg/0.2 mL 5 completed Not Available [facility] 04/27/2025 09:58:20 Influenza, high-dose, trivalent, PF 5 completed Not Available [facility] 04/27/2025 09:58:20 Pneumococcal conjugate PCV20, polysaccharide [id number] conjugate, adjuvant, PF 5 completed Julissa banks [facility] 06/17/2024 12:12:19 zoster recombinant 5 completed Julissa banks [facility] 06/17/2024 12:12:42 Influenza, split virus, trivalent, preservative 6 completed Not Available [facility] 12/29/2022 02:32:31 Past Encounters Encounter ID Performer Location Encounter Start Date Encounter Closed Date Diagnosis/Indication Diagnosis SNOMED-CT Code Diagnosis ICD10 Code Diagnosis IMO Codes Diagnosis Note [id number] Reji Garza MD [facility] ([facility]) [address] [place] [id number] 02/19/2025 12:34:21 02/19/2025 13:06:28 Hematemesis 0955759 K92.0 61551355 Acute gastroenteritis 69 491796 K52.9 8743 Health Concerns Section Related Observation LastModified by Organization Detai ls LastModified Time None Recorded Concern Status LastModified by Organization Details LastModified Time None Recorded Payers Encounter Date Sequence Insurance Name Policy Number Policy Gore Covered Member ID Gore Member ID Guarantor Name 02/19/2025 2 [place] Dalton Olivas [id number] Adam Armstrong 02/19/2025 1 [place] Dalton Olivas [id number] Adam Armstrong Notes Date Note Type Note Provider Name and Address Organization Details Recorded Time 02/19/2025 text/html VomitingReported by PatientHPI:For associated symptoms, [...] noted in the HPI Reji Garza MD [address] [place] [address], [phone], [facility] 02/19/2025 12:59:02
--- OUTSIDE RECORDS SUMMARY | 2025-05-09 21:58 | XMS_ITS | Continuity of Care Document ---
Author Organization JEFFREY Moustapha Velázquez [facility], LMacrinaLJosue, [facility] ([facility]) Address [address] [place] [address] Care Team Providers Care Dermatologist And Dermatopathologist Name Role Phone DANAY GONZALEZ Primary Care Provider Assessment No assessment recorded. Plan of Treatment Reminders Order Date Submit Date Provider Last Modified By Organization Details Last Modified Time Details Appointments OFFICE VISIT YARA 2025 09:00A M Reji Garza MD Not available Not available Not available Lab None recorded . Referral None recorded . Procedures None recorded . Surgeries None recorded . Imaging None recorded . Medication Orders None recorded . Patient TargetsNo targets recorded. Patient InstructionsNo instructions recorded. Reason for Referral None Reported. Results Created Date Observation Date Name Description Value Unit Range Abnormal Flag Note LastModifiedBy Organization Detail LastModifiedTime 02/20/2002/19/2025 CBC WBC 8.2 x10 4.5-10 .5 Not Available [facility] [address] [facility] [address], [place], [address], 02/19/2025 13:30:59 02/20/20 25 02/19/2025 CBC RBC 4.99 x10 4.30-5 .90 Not Available [facility] [address] [facility] [address], [place], [address], 02/19/2025 13:30:59 02/20/20 25 02/19/2025 CBC HGB 15.1 g/dL 13.5-1 8.0 Not Available [facility] [address] [facility], [place], [address], 02/19/2025 13:30:59 02/20/20 25 02/19/2025 CBC HCT 46.2 % 35.0-6 0.0 Not Available [facility] [address] [facility] 1, [place], [address], 02/19/2025 13:30:59 02/20/20 25 02/19/2025 CBC MCV 92.6 fL 80.0-9 9.9 Not Available [facility] [address] [facility] 1, [place], [address], 02/19/2025 13:30:59 02/20/20 25 02/19/2025 CBC MCH 30.3 pg 27.0-3 2.0 Not Available [facility] [address] [facility], [place], [address], 02/19/2025 13:30:59 02/20/20 25 02/19/2025 CBC MCHC 32.7 g/dL 32.0-3 6.0 Not Available [facility] [address] [facility] 1, [place], [address], 02/19/2025 13:30:59 02/20/20 25 02/19/2025 CBC RDW 14.1 % 11.5-1 4.5 Not Available [facility] [address] [facility] 1, [place], [address], 02/19/2025 13:30:59 02/20/20 25 02/19/2025 CBC plt 127.1 x10 150.0- 451.0 low Not Available [facility] [address] [facility] 1, [place], [address], 02/19/2025 13:30:59 02/20/20 25 02/19/2025 CBC lymphocytes % 7.3 % 20.0-5 0.0 low Not Available [facility] [address] [facility], [place], [address], 02/19/2025 13:30:59 02/20/20 25 02/19/2025 CBC granulcytes % 84.2 % 30.0-7 0.0 high Not Available [facility] [address] [facility], [place], [address], 02/19/2025 13:30:59 02/20/20 25 02/19/2025 CBC monocytes % 7.7 % 2.0-16 .0 Not Available [facility] [address] [facility], [place], [address], 02/19/2025 13:30:59 02/20/20 25 02/19/2025 CBC granulcytes# 6.9 x10 Not Hanna ilable [facility] [address] [facility], [place], [address], 02/19/2025 13:30:59 02/20/20 25 02/19/2025 CBC lymphocytes # 0.6 x10 Not Available [facility] [address] [facility], [place], [address], 02/19/2025 13:30:59 02/20/20 25 02/19/2025 CBC monocytes # 0.6 x10 Not Avai lable [facility] [address] [facility], [place], [address], 02/19/2025 13:30:59 02/20/20 25 02/19/2025 CMP (FEMA LE) glucose 125.0 mg/dL 60.0-9 9.0 high Not Available [facility] [address] [facility], [place], [address], 02/19/2025 13:52:06 02/20/20 25 02/19/2025 CMP (FEMA LE) BUN (blood urea nitrogen) 20.0 mg/dL 10.0-2 6.0 Not Available [facility] [address] [facility] 1, [place], [address], 02/19/2025 13:52:06 02/20/20 25 02/19/2025 CMP (FEMA LE) creatinine (serum) 0.8 mg/dL 0.4-1. 5 Not Available [facility] [address] [facility] 1, [place], [address], 02/19/2025 13:52:06 02/20/2002/19/2025 CMP (FEMA LE) BUN/creatini ne ratio 25.00 ratio Not Available [facility] [address] [facility] [address], [place], [address], 02/19/2025 13:52:06 02/20/20 25 02/19/2025 CMP (FEMA LE) eGFR calculated 102.5 Not Available [facility] [address] [facility] 1, [place], [address], 02/19/2025 13:52:06 02/20/20 25 02/19/2025 CMP (FEMA LE) total protein 7.6 g/dL 6.0-8. 5 Not Available [facility] [address] [facility] 1, [place], [address], 02/19/2025 13:52:06 02/20/20 25 02/19/2025 CMP (FEMA LE) total bilirubin 0.7 mg/dL 0.2-1. 3 Not Available [facility] [address] [facility] 1, [place], [address], 02/19/2025 13:52:06 02/20/20 25 02/19/2025 CMP (FEMA LE) albumin 4.4 g/dL 3.5-5. 5 Not Available [facility] [address] [facility], [place], [address], 02/19/2025 13:52:06 02/20/2002/19/2025 CMP (FEMA LE) globulin 3.2 calc Not Available [facility] [address] [facility] 1, [place], [address], 02/19/2025 13:52:06 02/20/20 25 02/19/2025 CMP (FEMA LE) AST (SGOT) 29.0 U/L 0.0-46 .0 Not Available [facility] [address] [facility] 1, [place], [address], 02/19/2025 13:52:06 02/20/20 25 02/19/2025 CMP (FEMA LE) altv (SGPT) 31.0 U/L 13.0-6 9.0 normal Not Available [facility] [address] [facility], [place], [address], 02/19/2025 13:52:06 02/20/20 25 02/19/2025 CMP (FEMA LE) A/G ratio 1.4 ratio Not Available [facility] [address] [facility] 1, [place], [address], 02/19/2025 13:52:06 02/20/20 25 02/19/2025 CMP (FEMA LE) ALP phos 78.0 U/L 30.0-1 40.0 normal Not Available [facility] [address] [facility] 1, [place], [address], 02/19/2025 13:52:06 02/20/20 25 02/19/2025 CMP (FEMA LE) calcium 8.9 mg/dL 8.4-10 .5 Not Available [facility] [address] [facility], [place], [address], 02/19/2025 13:52:06 02/20/20 25 02/19/2025 CMP (FEMA LE) sodium 137.0 mmol/ L 136.0- 145.0 Not Available [facility] [address] [facility], [place], [address], 02/19/2025 13:52:06 02/20/20 25 02/19/2025 CMP (FEMA LE) potassium 4.2 mmol/ L 3.5-5. 1 Not Available [facility] [address] [facility] 1, [place], [address], 02/19/2025 13:52:06 02/20/20 25 02/19/2025 CMP (FEMA LE) chloride 106.0 mmol/ L 98.0-1 10.0 normal Not Available [facility] [address] [facility] 1, [place], [address], 02/19/2025 13:52:06 02/20/20 25 02/19/2025 CMP (FEMA LE) C02 21.0 mmol/ L 22.0-3 1.0 low Not Available [facility] [address] [facility] 1, [place], [address], 02/19/2025 13:52:06 02/20/20 25 02/19/2025 CMP (FEMA LE) anion gap 10.0 calc Not Available [facility] [address] [facility] 1, [place], [address], 02/19/2025 13:52:06 02/20/20 25 02/19/2025 CMP (FEMA LE) osmolality 286.9 calc Not Available [facility] [address] [facility] 1, [place], [address], 02/19/2025 13:52:06 04/05/20 25 03/30/2025 polys omnog cass No observ ation record ed. [email or web address] [facility] [address] [facility], [facility] [address], [place], [address], 04/08/2025 14:15:13 Result Notes None recorded. 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 5 13:41:26 Bipolar disorder 01025115 Active 2021 Julissa banks [facility] 5 13:40:30 Dermatop hytosis 47678645 Completed 202207/30/2024 Julissa banks [facility] 5 13:40:54 Constipa tion 13815218 Active 2023 Julissa banks [facility] 5 13:40:40 Zenker's divertic ulum 723086394 Active 2023 Julissa banks [facility] 5 13:41:45 Orophary ngeal dysphagi a 67938946 Active 2023 Julissa banks [facility] 5 13:41:14 Recurren t aspirati on pneumoni a 788504207 Active 2023 Julissa banks, [facility] 5 13:41:33 Obesity 718273071 Active 2023 Julissa banks, [facility] 5 13:41:10 Aspirati on pneumoni a 039105179 Completed 202307/30/2024 Julissa banks, [facility] 5 13:40:27 Hiatal hernia 05960185 Active 2024 Julissa banks, [facility] 5 13:41:00 Acute bacteria l bronchit is 642730919 Completed 202407/30/2024 Julissa banks, [facility] 5 13:40:14 Chronic hypoxemi c respirat ory failure 643300524 Active 2024 HYACINTH banks, [facility] 5 10:21:36 At increase d risk for aspirati on 837658700 Active 2024 Octavia Brennan null, [facility] 5 12:25:24 Fibrosis of lung 68586803 Active 2024 HYACINTH EUGENE null, [facility] 5 11:47:55 Obstruct pita sleep apnea syndrome 15382953 Active 2024 HYACINTH banks, [facility] 5 09:39:31 Pure hypercho lesterol emia 227925016 Active 2024 HYACINTH banks, [facility] 10/21/202 5 11:19:12 Hypergly cemia 00857365 Active 2024 HYACINTH banks, [facility] 5 11:19:12 Hearing loss 62937657 Active 2024 HYACINTH EUGENE darren, [facility] 5 09:13:43 Aspirati on pneumoni tis 493478567 Active 2024 HYACINTH EUGENE darren, [facility] 5 08:49:30 Pulmonar y aspirati on 44792852 Active 2024 HYACINTH banks, [facility] 08:49:30 Hemateme sis 3053603 Active 2024 HYACINTH banks, [facility] 5 08:49:44 Acute gastroen teritis 13197891 Active 2024 HYACINTH banks, [facility] 08:49:44 Problem Notes None recorded. Procedures Surgical History Date Name Laterality Status Provider Name and Address Organization Details Recorded Time 2023 esophagogastroduodenoscopy completed KAYDEN EUGENE [facility] 5 13:14:20 procedure on brain completed MICHAEL EUGENE [facility] 5 09:30:20 arthroscopy of knee completed KAYDEN EUGENE [facility] 09:30:33 Imaging Results None recorded. Procedure Notes [...] CAPSULE BY MOUTH EVERY DAY with 150mg [id number] ; FOR ANXIETY 2024 active Not Available [...] route in the morning for 5 days. 01/175 completed Not Available Not Available Not Available [...] Not Available Not Available Not Avai melanie pantopraz ole DR 40 mg granules delayed-r [...] Not Available Not Available Not Avai labrebecca OptiChamb er Jennifer [facility] with Medium Mask USE DIRECTED 2024 active [...] Updated DateTime 5 172.72 cm 32.8 kg/m2 90503.9 5 g 98 [degF] 104 /min 96 % 3 L/min 118/66 mm[Hg] HYACINTH EUGENE [facility] 5 12:06:25 Social History Question Answer Notes LastModified by Organizat ion Details LastModified Time Tobacco Smoking Status Never Smoker Maru Pliler null, [facility] 02/06/2024 10:50:27 Where Do You Live? [email or web address] Information not available 08/06/2024 What Was The Date Of Your Most Recent Tobacco Screening? 01/04/2025 [email or web address] Information not available 01/04/2025 Sex: Unknown Functional Status Question Answer Note LastModified by Organizat ion Details LastModified Time Do you use any illicit or recreational drugs? No Information not available 02/06/2024 Do you or have you ever used any other forms of tobacco or nicotine? No [email or web address] Information not available 08/06/2024 What is your level of alcohol consumption? None Information not available 02/06/2024 Are you able to care for yourself independently? No [email or web address] Information not available 08/06/2024 Do you or have you ever used any nicotine-free cigarettes, vape, or chewing tobacco? No [email or web address] Information not available 08/06/2024 Mental Status None recorded. Family History Nothing Reported. Medical History No medical history recorded. Immunizations Vaccine Type Date Status Note Provider Nam e and Address Organization Details Recorded Time zoster recombinant 5 completed Reji Garza MD [address] [place] [address], [id number], [facility]rina 09/16/2024 14:46:42 Influenza, MDCK, quadrivalent, PF 2 completed Maru banks [facility] 02/06/2024 10:49:16 COVID-19, mRNA, LNP-S, PF, 100 mcg/0.5mL dose or 50 mcg/0.25mL dose 1 completed Maru banks [facility] LMacrinaLMacrinaCMacrina 02/06/2024 10:49:16 COVID-19, mRNA, LNP-S, PF, 100 mcg/0.5mL dose or 50 mcg/0.25mL dose 1 completed Maru banks [facility] 02/06/2024 10:49:16 COVID-19, mRNA, LNP-S, PF, 100 mcg/0.5mL dose or 50 mcg/0.25mL dose 2 completed Maru [facility] 02/06/2024 10:49:16 COVID-19, mRNA, LNP-S, bivalent, PF, 50 mcg/0.5 mL or 25mcg/0.25 mL dose 2 completed Maruaranza [facility] 02/06/2024 10:49:16 Influenza, split virus, trivalent, preservative 3 completed Maruaranza [facility] 02/06/2024 10:49:16 Influenza, split virus, trivalent, PF 4 completed Maruaranza [facility] 02/06/2024 10:49:16 Influenza, split virus, trivalent, PF 5 completed Maruaranza [facility] 02/06/2024 10:49:16 Td (adult), 2 Lf tetanus toxoid, preservative free, adsorbed 4 completed Maru [facility] 02/06/2024 10:49:16 Hep B, adult 5 completed Maruaranza [facility] 02/06/2024 10:49:17 Hep B, adult 6 completed Maruaranza [facility] 02/06/2024 10:49:17 Hep B, adult 4 completed Maruaranza [facility] 02/06/2024 10:49:17 Influenza, split virus, quadrivalent, PF 1 completed Maru banks, [facility] 02/06/2024 10:49:17 Influenza, MDCK, quadrivalent, preservative 3 completed Maru banks, [facility] 02/18/2024 15:15:35 Tdap 4 completed Maru banks [facility] 02/18/2024 15:15:36 COVID-19, mRNA, LNP-S, PF, 50 mcg/0.5 mL 5 completed HYACINTH banks, [facility] 08/26/2024 10:19:44 Influenza, MDCK, trivalent, preservative 4 completed HAYCINTH banks [facility] 08/26/2024 10:19:45 COVID-19, mRNA, LNP-S, PF, 10 mcg/0.2 mL 5 completed Not Available [facility] 04/27/2025 09:58:20 Influenza, high-dose, trivalent, PF 5 completed Not Available [facility] 04/27/2025 09:58:20 Pneumococcal conjugate PCV20, polysaccharide [id number] conjugate, adjuvant, PF 5 completed Julissa banks [facility] 06/17/2024 12:12:19 zoster recombinant 5 completed Julissa banks [facility] 06/17/2024 12:12:42 Influenza, split virus, trivalent, preservative 6 completed Not Available [facility] 12/29/2022 02:32:31 Past Encounters Encounter ID Performer Location Encounter Start Date Encounter Closed Date Diagnosis/Indication Diagnosis SNOMED-CT Code Diagnosis ICD10 Code Diagnosis IMO Codes Diagnosis Note [id number] Reji Garza MD [facility] ([facility]) [address] [place] [address] 02/19/2025 12:34:21 02/19/2025 13:06:28 Hematemesis 7582849 K92.0 37726590 Acute gastroenteritis 69 112529 K52.9 8743 [id number] Reji Garza MD [facility] ([facility]) [address] [place] [address] 03/09/2025 12:01:15 03/09/2025 15:15:29 Aspiration pneumonitis 448846074 J69.0 2756 continue current care plan f/u if not continuing to improve.co mplete augmentin as ordered. Pulmonary aspiration 680 22095 T17.908D 5853132 we have maximized preventive measures.s ee previous history for extensive measures and evaluation s and discussion regarding surgery.co ntinue aspiration precaution scomplete augmentin script see previous noteshospi tiffanie records and cultures have been reviewed.h as been requiring oxygen a little more since discharge than prior to admission. however he is greatly improved and continuing to improve. Health Concerns Section Related Observation LastModified by Organization Detai ls LastModified Time None Recorded Concern Status LastModified by Organization Details LastModified Time None Recorded Payers Encounter Date Sequence Insurance Name Policy Number Policy Gore Covered Member ID Gore Member ID Guarantor Name 03/09/2025 2 [place] Dalton Olivas [id number] Adam Armstrong 03/09/2025 1 [place] Dalton Olivas [id number] Adam Armstrong Notes Date Note Type Note Provider Name and Address Organization Details Recorded Time 03/09/2025 text/html ROS as noted in the HPI pneumonia: hospital f/u. Patient has finished his azithromycin, but still has augmentin. The 12th will be his last dose. Patient denies any SOB. He has his oxygen that he wearing intermittently. He will put it on if his O2 is 91% or less. This morning he was down to 90% RA. He does report that he is coughing up mucous and denies any wheezing. Reji Garza MD [address] [place] [address], [id number], [facility] 03/09/2025 12:19:11
--- OUTSIDE RECORDS SUMMARY | 2025-05-09 21:58 | XMS_ITS | Data Portability ---
Author Organization JEFFREY Moustapha Velázquez [facility], [facility] Address [address] [facility] [address] [place] [address] Care Team Providers Care Stock Preparation Supervisor Name Role Phone DANAY GONZALEZ Primary Care Provider Assessment Encounter Date Assessment Date Assessment LastModified by Organization Details LastModified Time 03/22/2025 03/22/2025 dry skin continue hydrocortisone and barrier creams as you are skin is intact keep pressure off of the sacrum [email or web address] Not available 03/22/2025 11:32:21 Plan of Treatment Reminders Order Date Submit Date Provider Last Modified By Organization Details Last Modified Time Details Appointments OFFICE VISIT YARA 2025 09:00A M Reji Garza MD Not available Not available Not available Lab CMP, serum or plasma 2024 025 [facility], [address], [address], [place], [address], 03/19/2025 09:38:28 lipid panel, blood 2024 025 [facility], [address], [address], [place], [address], 03/19/2025 09:38:31 CBC 2024 025 [facility], [address], [address], [place], [address], 03/19/2025 09:34:06 CMP, serum or plasma 2024 025 [facility], [address] [facility], [address], [place], [address], 02/19/2025 13:52:06 CBC w/ auto diff 2024 025 [email or web address] [facility], [address], [address], [place], [address], 02/26/2025 08:19:20 Referral podiatris t referral 2024 025 [email or web address] [facility], [address] [place], [address], 04/30/2025 13:04:46 otolaryng ologist referral 2024 025 [address] MD, [address] , [place], [address], 03/29/2025 09:26:23 Procedures None recorded. Surgeries None recorded. Imaging None recorded. Medication Orders rosuvasta tin 20 mg tablet 2024 025 JALEN [facility], [address] [place] [address], [id number], 05/06/2025 12:45:26 ondansetr on HCl 8 mg tablet 2024 025 JALEN [facility], [address] [place] [address], [id number], 02/28/2025 05:01:10 Patient TargetsNo targets recorded. Patient InstructionsNo instructions recorded. 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 Referral fo r Pure hypercholesterolemia Referring Physician: [facility], Encounter Date: 03/22/2025 Back Closer Referral for Toen ail thickened Referring Physician: [facility]ji [facility], Encounter Date: 04/27/2025 Results Created Date Observation Date Name Description Value Unit Range Abnormal Flag Note LastModifiedBy Organization Detail LastModifiedTime 02/20/20 02/19/2025 CBC WBC 8.2 x10 4.5-10 .5 Not Available [facility] [address] [facility] 1, [place], [address], 02/19/2025 13:30:59 02/20/20 25 02/19/2025 CBC RBC 4.99 x10 4.30-5 .90 Not Available [facility] [address] [facility] 1, [place], [address], 02/19/2025 13:30:59 02/20/20 25 02/19/2025 CBC HGB 15.1 g/dL 13.5-1 8.0 Not Available [facility] [address] [facility] 1, [place], [address], 02/19/2025 13:30:59 02/20/20 25 02/19/2025 CBC HCT 46.2 % 35.0-6 0.0 Not Available [facility] [address] [facility] 1, [place], [address], 02/19/2025 13:30:59 02/20/20 25 02/19/2025 CBC MCV 92.6 fL 80.0-9 9.9 Not Available [facility] [address] [facility] 1, [place], [address], 02/19/2025 13:30:59 02/20/20 25 02/19/2025 CBC MCH 30.3 pg 27.0-3 2.0 Not Available [facility] [address] [facility] [address], [place], [address], 02/19/2025 13:30:59 02/20/20 25 02/19/2025 CBC MCHC 32.7 g/dL 32.0-3 6.0 Not Available [facility] [address] [facility] 1, [place], [address], 02/19/2025 13:30:59 02/20/20 25 02/19/2025 CBC RDW 14.1 % 11.5-1 4.5 Not Available [facility] [address] [facility] 1, [place], [address], 02/19/2025 13:30:59 02/20/20 25 02/19/2025 CBC plt 127.1 x10 150.0- 451.0 low Not Available [facility] [address] [facility], [place], [address], 02/19/2025 13:30:59 02/20/20 25 02/19/2025 CBC lymphocytes % 7.3 % 20.0-5 0.0 low Not Available [facility] [address] [address], [place], [address], 02/19/2025 13:30:59 02/20/20 25 02/19/2025 CBC granulcytes % 84.2 % 30.0-7 0.0 high Not Available [facility] [address] [address], [place], [address], 02/19/2025 13:30:59 02/20/20 25 02/19/2025 CBC monocytes % 7.7 % 2.0-16 .0 Not Available [facility] [address] [facility] 1, [place], [address], 02/19/2025 13:30:59 02/20/20 25 02/19/2025 CBC granulcytes# 6.9 x10 Not Hanna ilable [facility] [address] [address], [place], [address], 02/19/2025 13:30:59 02/20/20 25 02/19/2025 CBC lymphocytes # 0.6 x10 Not Available [facility] [address] [facility], [place], [address], 02/19/2025 13:30:59 02/20/20 25 02/19/2025 CBC monocytes # 0.6 x10 Not Avai lable [facility] [address] [facility] [address] [facility] 1, [place], [address], 02/19/2025 13:30:59 02/20/20 25 02/19/2025 CMP (FEMA LE) glucose 125.0 mg/dL 60.0-9 9.0 high Not Available [facility] [address] [facility], [place], [address], 02/19/2025 13:52:06 02/20/20 25 02/19/2025 CMP (FEMA LE) BUN (blood urea nitrogen) 20.0 mg/dL 10.0-2 6.0 Not Available [facility] [address] [facility], [place], [address], 02/19/2025 13:52:06 02/20/20 25 02/19/2025 CMP (FEMA LE) creatinine (serum) 0.8 mg/dL 0.4-1. 5 Not Available [facility] [address] [facility], [place], [address], 02/19/2025 13:52:06 02/20/20 25 02/19/2025 CMP (FEMA LE) BUN/creatini ne ratio 25.00 ratio Not Available [facility] [address] [facility] Sheila [facility] 1, [place], [address], 02/19/2025 13:52:06 02/20/20 25 02/19/2025 CMP (FEMA LE) eGFR calculated 102.5 Not Available [facility] [address] [facility] 1, [place], [address], 02/19/2025 13:52:06 02/20/20 25 02/19/2025 CMP (FEMA LE) total protein 7.6 g/dL 6.0-8. 5 Not Available [facility] [address] [facility] [address] [facility] 1, [place], [address], 02/19/2025 13:52:06 02/20/20 25 02/19/2025 CMP (FEMA LE) total bilirubin 0.7 mg/dL 0.2-1. 3 Not Available [facility] [address] [facility] 1, [place], [address], 02/19/2025 13:52:06 02/20/20 25 02/19/2025 CMP (FEMA LE) albumin 4.4 g/dL 3.5-5. 5 Not Available [facility] [address] [facility] 1, [place], [address], 02/19/2025 13:52:06 02/20/20 25 02/19/2025 CMP (FEMA LE) globulin 3.2 calc Not Available [facility] [address] [facility], [place], [address], 02/19/2025 13:52:06 02/20/20 25 02/19/2025 CMP (FEMA LE) AST (SGOT) 29.0 U/L 0.0-46 .0 Not Available [facility] [address] [facility], [place], [address], 02/19/2025 13:52:06 02/20/20 25 02/19/2025 CMP (FEMA LE) altv (SGPT) 31.0 U/L 13.0-6 9.0 normal Not Available [facility] [address] [facility] 1, [place], [address], 02/19/2025 13:52:06 02/20/20 25 02/19/2025 CMP (FEMA LE) A/G ratio 1.4 ratio Not Available [facility] [address] [facility] 1, [place], [address], 02/19/2025 13:52:06 02/20/2002/19/2025 CMP (FEMA LE) ALP phos 78.0 U/L 30.0-1 40.0 normal Not Available [facility] [address] [facility], [place], [address], 02/19/2025 13:52:06 02/20/2002/19/2025 CMP (FEMA LE) calcium 8.9 mg/dL 8.4-10 .5 Not Available [facility] [address] [facility], [place], [address], 02/19/2025 13:52:06 02/20/20 25 02/19/2025 CMP (FEMA LE) sodium 137.0 mmol/ L 136.0- 145.0 Not Available [facility] [address] [facility], [place], [address], 02/19/2025 13:52:06 02/20/2002/19/2025 CMP (FEMA LE) potassium 4.2 mmol/ L 3.5-5. 1 Not Available [facility] [address] [facility] 1, [place], [address], 02/19/2025 13:52:06 02/20/2002/19/2025 CMP (FEMA LE) chloride 106.0 mmol/ L 98.0-1 10.0 normal Not Available [facility] [address] [facility], [place], [address], 02/19/2025 13:52:06 02/20/2002/19/2025 CMP (FEMA LE) C02 21.0 mmol/ L 22.0-3 1.0 low Not Available [facility] [address], [place], [address], 02/19/2025 13:52:06 02/20/20 25 02/19/2025 CMP (FEMA LE) anion gap 10.0 calc Not Available [facility] [address], [place], [address], 02/19/2025 13:52:06 02/20/2002/19/2025 CMP (FEMA LE) osmolality 286.9 calc Not Available [facility] [address], [place], [address], 02/19/2025 13:52:06 03/19/2003/19/2025 CBC WBC 5.7 x10 4.5-10 .5 Not Available [facility] [address], [place], [address], 03/19/2025 09:34:06 03/19/2003/19/2025 CBC RBC 4.64 x10 4.30-5 .90 Not Available [facility] [address], [place], [address], 03/19/2025 09:34:06 03/19/2003/19/2025 CBC HGB 14.0 g/dL 13.5-1 8.0 Not Available [facility] [address], [place], [address], 03/19/2025 09:34:06 03/19/2003/19/2025 CBC HCT 43.4 % 35.0-6 0.0 Not Available [facility] [address], [place], [address], 03/19/2025 09:34:06 03/19/2003/19/2025 CBC MCV 93.6 fL 80.0-9 9.9 Not Available [facility] [address] [facility] [facility] 1, [place], [address], 03/19/2025 09:34:06 03/19/2003/19/2025 CBC MCH 30.1 pg 27.0-3 2.0 Not Available [facility] [address] [facility] 1, [place], [address], 03/19/2025 09:34:06 03/19/2003/19/2025 CBC MCHC 32.2 g/dL 32.0-3 6.0 Not Available [facility] [address] [facility] 1, [place], [address], 03/19/2025 09:34:06 03/19/2003/19/2025 CBC RDW 14.4 % 11.5-1 4.5 Not Available [facility] [address] [facility], [place], [address], 03/19/2025 09:34:06 03/19/2003/19/2025 CBC plt 186.4 x10 150.0- 451.0 Not Available [facility] [address] [facility] 1, [place], [address], 03/19/2025 09:34:06 03/19/2003/19/2025 CBC lymphocytes % 24.2 % 20.0-5 0.0 Not Available [facility] [address] [facility] 1, [place], [address], 03/19/2025 09:34:06 03/19/2003/19/2025 CBC granulcytes % 62.2 % 30.0-7 0.0 Not Available [facility] [address] [facility] 1, [place], [address], 03/19/2025 09:34:06 10/17/20 25 03/19/2025 CBC monocytes % 9.4 % 2.0-16 .0 Not Available [facility] [address] [facility] 1, [place], [address], 03/19/2025 09:34:06 03/19/2003/19/2025 CBC granulcytes# 3.5 x10 Not Hanna ilable [facility] [address] [facility] 1, [place], [address], 03/19/2025 09:34:06 03/19/2003/19/2025 CBC lymphocytes # 1.4 x10 Not Available [facility] [address] [address], [place], [address], 03/19/2025 09:34:06 03/19/2003/19/2025 CBC monocytes # 0.5 x10 Not Avai lable [facility] [address] [address], [place], [address], 03/19/2025 09:34:06 03/19/2003/19/2025 CMP (MALE ) glucose 105.0 mg/dL 60.0-9 9.0 high Not Available [facility] [address] [address], [place], [address], 03/19/2025 09:38:28 03/19/2003/19/2025 CMP (MALE ) BUN (blood urea nitrogen) 15.0 mg/dL 10.0-2 6.0 Not Available [facility] [address] [address], [place], [address], 03/19/2025 09:38:28 03/19/2003/19/2025 CMP (MALE ) creatinine (serum) 0.8 mg/dL 0.4-1. 5 Not Available [facility] [address] [address], [place], [address], 03/19/2025 09:38:28 03/19/20 25 03/19/2025 CMP (MALE ) BUN/creatini ne ratio 18.75 ratio Not Available [facility] [address] [facility] 1, [place], [address], 03/19/2025 09:38:28 03/19/20 25 03/19/2025 CMP (MALE ) eGFR calculated 102.5 Not Available [facility] [address] [facility] 1, [place], [address], 03/19/2025 09:38:28 03/19/2003/19/2025 CMP (MALE ) total protein 7.7 g/dL 6.0-8. 5 Not Available [facility] [address] [facility] 1, [place], [address], 03/19/2025 09:38:28 03/19/20 25 03/19/2025 CMP (MALE ) total bilirubin 0.6 mg/dL 0.2-1. 3 Not Available [facility] [address] [facility] 1, [place], [address], 03/19/2025 09:38:28 03/19/20 25 03/19/2025 CMP (MALE ) albumin 4.2 g/dL 3.5-5. 5 Not Available [facility] [address] [facility] 1, [place], [address], 03/19/2025 09:38:28 03/19/20 25 03/19/2025 CMP (MALE ) globulin 3.5 calc Not Available [facility] [address] [facility] 1, [place], [address], 03/19/2025 09:38:28 03/19/20 25 03/19/2025 CMP (MALE ) AST (SGOT) 24.0 U/L 0.0-46 .0 Not Available [facility] [address] [facility] 1, [place], [address], 03/19/2025 09:38:28 03/19/2003/19/2025 CMP (MALE ) altv (SGPT) 21.0 U/L 13.0-6 9.0 normal Not Available [facility] [address] [facility] [address] [facility] 1, [place], [address], 03/19/2025 09:38:28 03/19/2003/19/2025 CMP (MALE ) A/G ratio 1.2 ratio Not Available [facility] [address] [facility] 1, [place], [address], 03/19/2025 09:38:28 03/19/2003/19/2025 CMP (MALE ) ALP phos 72.0 U/L 30.0-1 40.0 normal Not Available [facility] [address] [facility], [place], [address], 03/19/2025 09:38:28 03/19/2003/19/2025 CMP (MALE ) calcium 9.4 mg/dL 8.4-10 .5 Not Available [facility] [address] [facility] [facility] 1, [place], [address], 03/19/2025 09:38:28 03/19/2003/19/2025 CMP (MALE ) sodium 139.0 mmol/ L 136.0- 145.0 Not Available [facility] [address] [facility] 1, [place], [address], 03/19/2025 09:38:28 03/19/20 25 03/19/2025 CMP (MALE ) potassium 4.0 mmol/ L 3.5-5. 1 Not Available [facility] [address] [facility] 1, [place], [address], 03/19/2025 09:38:28 03/19/20 25 03/19/2025 CMP (MALE ) chloride 105.0 mmol/ L 98.0-1 10.0 normal Not Available [facility] [address] [facility] 1, [place], [address], 03/19/2025 09:38:28 03/19/20 25 03/19/2025 CMP (MALE ) C02 26.0 mmol/ L 22.0-3 1.0 Not Available [facility] [address] [facility] 1, [place], [address], 03/19/2025 09:38:28 03/19/2003/19/2025 CMP (MALE ) anion gap 8.0 calc Not Available [facility] [address] [facility], [place], [address], 03/19/2025 09:38:28 03/19/2003/19/2025 CMP (MALE ) osmolality 288.3 calc Not Available [facility] [address] [facility] 1, [place], [address], 03/19/2025 09:38:28 03/19/20 25 03/19/2025 LIPID PROFI LE (MALE ) cholesterol 217.0 mg/dL 0.0-20 0.0 high Not Available [facility] [address] [facility] [address] [facility] 1, [place], [address], 03/19/2025 09:38:31 03/19/20 25 03/19/2025 LIPID PROFI LE (MALE ) trig 68.0 mg/dL 0.0-15 0.0 Not Available [facility] [address] [facility] 1, [place], [address], 03/19/2025 09:38:31 03/19/20 25 03/19/2025 LIPID PROFI LE (MALE ) HDL - direct 43.0 mg/dL >40.0 Not Available [facility] [address] [facility] [address], [place], [address], 03/19/2025 09:38:31 03/19/2003/19/2025 LIPID PROFI LE (MALE ) VLDL - direct 13.6 mg/dL Not Available [facility] [address] [facility] 1, [place], [address], 03/19/2025 09:38:31 03/19/2003/19/2025 LIPID PROFI LE (MALE ) LDL - direct 160.4 mg/dL 0.0-13 0.0 high Not Available [facility] [address] [facility] 1, [place], [address], 03/19/2025 09:38:31 01/26/20 25 01/20/2025 polys omnog aisha (PROC ) No observ ation record ed. [facility] [address] [facility], [address], [place], [address], 01/27/2025 09:38:22 04/05/2003/30/2025 polys omnog cass No observ ation record ed. [email or web address] [id number] [facility], [facility], [place], [address], 04/08/2025 14:15:13 Result Notes None recorded. 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 5 13:41:26 Bipolar disorder 45314174 Active 2021 Julissa banks, [facility] 5 13:40:30 Dermatop hytosis 90905782 Completed 202207/30/2024 Julissa banks, [facility] 5 13:40:54 Constipa tion 21847227 Active 2023 Julissa banks, [facility] 5 13:40:40 Zenker's divertic ulum 085749610 Active 2023 Julissa banks, [facility] 5 13:41:45 Orophary ngeal dysphagi a 24008300 Active 2023 Julissa banks, [facility] 5 13:41:14 Recurren t aspirati on pneumoni a 505991982 Active 2023 Julissa banks, [facility] 5 13:41:33 Obesity 823847683 Active 2023 Julissa banks, [facility] 5 13:41:10 Aspirati on pneumoni a 500878297 Completed 202307/30/2024 Julissa banks, [facility] 5 13:40:27 Hiatal hernia 01889687 Active 2024 Julissa banks, [facility] 5 13:41:00 Acute bacteria l bronchit is 600990489 Completed 202407/30/2024 Julissa Ramírez null, [facility] 5 13:40:14 Chronic hypoxemi c respirat ory failure 341802641 Active 2024 HYACINTH EUGENE null, [facility]CM[facility]rina 5 10:21:36 At increase d risk for aspirati on 129251721 Active 2024 Octavia Anu null, [facility] 5 12:25:24 Fibrosis of lung 17119737 Active 2024 HYACINTH EUGENE null, [facility] 5 11:47:55 Obstruct pita sleep apnea syndrome 82558933 Active 2024 HYACINTH EUGENE null, [facility] 5 09:39:31 Pure hypercho lesterol emia 080227653 Active 2024 HYACINTH EUGENE null, [facility] 5 11:19:12 Hypergly cemia 78618013 Active 2024 HYACINTH EUGENE null, [facility] 11:19:12 Hearing loss 66054908 Active 2024 HYACINTH EUGENE null, [facility] 09:13:43 Aspirati on pneumoni tis 993399045 Active 2024 HYACINTH EUGENE null, [facility] 08:49:30 Pulmonar y aspirati on 56537034 Active 2024 HYACINTH EUGENE null, [facility] 10/28/202 5 08:49:30 Hemateme sis 4803866 Active 2024 [facility]TH [facility] 5 08:49:44 Acute gastroen teritis 08942351 Active 2024 HYACINTH banks [facility] 5 08:49:44 Problem Notes None recorded. Procedures Surgical History Date Name Laterality Status Provider Name and Address Organization Details Recorded Time 2023 esophagogastroduodenoscopy completed KAYDEN URENA JABIER [facility], LNisreen 5 13:14:20 procedure on brain completed MICHAEL Mason JABIER [facility], Gloria 5 09:30:20 arthroscopy of knee completed [facility] 5 09:30:33 Imaging Results None recorded. Procedure [...] CAPSULE BY MOUTH EVERY DAY with 150mg bw=195lo ; FOR ANXIETY 2024 active Not Available [...] 2024 active Not Available Not Available Not Avkenneth labrebecca ondansetr on HCl 8 mg tablet TAKE [...] AT/tg; Recorded 06/04/19 23 2:52PM by Leslye Gonzalez, Historic al Summary; Refill Quantity : 0; [...] FOR NO BOWEL MOVEMENT IN 48 HOURS 08/20/ 2025 active Not Available Not Available Not Avai lable OptiChamb er Jennifer [facility] with Medium Mask USE DIRECTED 2024 [...] Details Last Updated DateTime 5 172.72 cm 33 kg/m2 22797.5 4 g 100 [degF] 113 /min 96 % 3 L/min 108/60 mm[Hg] [facility] 5 12:37:59 Date Recorded Body height Body mass index (BMI) Body weight Body temperature Heart rate Oxygen saturation Inhaled oxygen flow rate Systolic And Diastolic Provider Name and Address Organization Details Last Updated DateTime 5 172.72 cm 32.8 kg/m2 36808.9 5 g 98 [degF] 104 /min 96 % 3 L/min 118/66 mm[Hg] [facility] 5 12:06:25 Date Recorded Body height Body mass index (BMI) Body weight Body temperature Heart rate Oxygen saturation Inhaled oxygen flow rate Systolic And Diastolic Provider Name and Address Organization Details Last Updated DateTime 5 172.72 cm 32.8 kg/m2 08306.9 5 g 97.6 [degF] 94 /min 95 % 3 L/min 120/72 mm[Hg] Octavia Brennan [facility] 5 11:13:01 Date Recorded Body height Body mass index (BMI) Body weight Heart rate Oxygen saturation Inhaled oxygen flow rate Body temperature Systolic And Diastolic Provider Name and Address Organization Details Last Updated DateTime 5 172.72 cm 33.9 kg/m2 421273. 1 g 90 /min 95 % 3 L/min 97.6 [degF] 122/72 mm[Hg] Octavia Greshamoch [facility], L.L[facility]CMacrina 5 10:09:52 Social History Question Answer Notes LastModified by OrganSecond Half [employer] Details LastModified Time Tobacco Smoking Status Never Smoker Maru banks [facility] L.L[facility]CMacrina 02/06/2024 10:50:27 Where Do You Live? [place]ika Kim[facility]jac[facility] [email or web address] Information not available 08/06/2024 What Was The Date Of Your Most Recent Tobacco Screening? 01/04/2025 [email or web address] Information not available 01/04/2025 Sex: Unknown Functional Status Question Answer Note LastModified by Organizat ion Details LastModified Time Do you use any illicit or recreational drugs? No Information not available 02/06/2024 Do you or have you ever used any other forms of tobacco or nicotine? No Information not available 08/06/2024 What is your level of alcohol consumption? None Information not available 02/06/2024 Are you able to care for yourself independently? No [email or web address] Information not available 08/06/2024 Do you or have you ever used any nicotine-free cigarettes, vape, or chewing tobacco? No [email or web address] Information not available 08/06/2024 Mental Status None recorded. Family History Nothing Reported. Medical History No medical history recorded. Immunizations Vaccine Type Date Status Note Provider Nam e and Address Organization Details Recorded Time zoster recombinant 5 completed Reji Garza MD [address] [place] [address], [phone], [facility] 09/16/2024 14:46:42 Influenza, MDCK, quadrivalent, PF 2 completed Maru banks [facility] 02/06/2024 10:49:16 COVID-19, mRNA, LNP-S, PF, 100 mcg/0.5mL dose or 50 mcg/0.25mL dose 1 completed [facility] 02/06/2024 10:49:16 COVID-19, mRNA, LNP-S, PF, 100 mcg/0.5mL dose or 50 mcg/0.25mL dose 1 completed [facility] 02/06/2024 10:49:16 COVID-19, mRNA, LNP-S, PF, 100 mcg/0.5mL dose or 50 mcg/0.25mL dose 2 completed [facility] 02/06/2024 10:49:16 COVID-19, mRNA, LNP-S, bivalent, PF, 50 mcg/0.5 mL or 25mcg/0.25 mL dose 2 completed [facility] 02/06/2024 10:49:16 Influenza, split virus, trivalent, preservative 3 completed [facility] 02/06/2024 10:49:16 Influenza, split virus, trivalent, PF 4 completed [facility] 02/06/2024 10:49:16 Influenza, split virus, trivalent, PF 5 completed [facility] 02/06/2024 10:49:16 Td (adult), 2 Lf tetanus toxoid, preservative free, adsorbed 4 completed [facility] 02/06/2024 10:49:16 Hep B, adult 5 completed Maru Kruger [facility], [facility] 02/06/2024 10:49:17 Hep B, adult 6 completed Maru Kruger null, [facility] 02/06/2024 10:49:17 Hep B, adult 4 completed Maru banks, [facility] 02/06/2024 10:49:17 Influenza, split virus, quadrivalent, PF 1 completed Maru Kruger [facility] 02/06/2024 10:49:17 Influenza, MDCK, quadrivalent, preservative 3 [facility] 02/18/2024 15:15:35 Tdap 4 completed Maru Kruger [facility] 02/18/2024 15:15:36 COVID-19, mRNA, LNP-S, PF, 50 mcg/0.5 mL 5 completed HYACINTH EUGENE [facility] 08/26/2024 10:19:44 Influenza, MDCK, trivalent, preservative 4 completed HYACINTH EUGENE [facility] 08/26/2024 10:19:45 COVID-19, mRNA, LNP-S, PF, 10 mcg/0.2 mL 5 completed Not Available [facility] 04/27/2025 09:58:20 Influenza, high-dose, trivalent, PF 5 completed Not Available [facility] 04/27/2025 09:58:20 Pneumococcal conjugate PCV20, polysaccharide FLE691 conjugate, adjuvant, PF 5 completed Julissa Ramírez [facility] 06/17/2024 12:12:19 zoster recombinant 5 completed Julissa banks [facility], [place] 06/17/2024 12:12:42 Influenza, split virus, trivalent, preservative 6 completed Not Available [facility] 12/29/2022 02:32:31 Past Encounters Encounter ID Performer Location Encounter Start Date Encounter Closed Date Diagnosis/Indication Diagnosis SNOMED-CT Code Diagnosis ICD10 Code Diagnosis IMO Codes Diagnosis Note [id number] Veto Whitney MD [facility] ([facility]) [address] [place] [id number] 5 01/24/2023 09:25:03 01/24/2023 18:32:52 Dermatophytosis 91128426 B35.9 Concerned about fungal infection. Start clotrimazo le twice daily for 2 weeks. Follow-up if it does not improve. [id number] MARIA M MEREDITH [facility] ([facility]) [address] [place] [id number] 5 01/31/2024 16:19:26 01/31/2024 17:19:34 [id number] Veto Whitney MD [facility] ([facility]) [address] [place] [id number] 5 02/06/2024 10:39:53 02/06/2024 15:27:00 Cough 80883563 R05.9 COVID was negative Pneumonia 821371359 J18. 9 Complete entire course of antibiotic s. Discussed deep breathing exercises he should do multiple times daily. Continue to use as needed nebulizer treatments . Maintain follow-up with Dr. Oakes next week. [id number] Danay Gonzalez DO [facility] ([facility]) [address] [place] [id number] 5 02/13/2024 09:42:08 02/13/2024 12:37:20 Constipation 36582845 K59.00 Intermitte nt sometimes severe. Has been seen multiple times lately. We will continue his Senokot, prune juice, stool softener. Will add MiraLAX as needed with no bowel movement in 48 hours. Counseled. 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 Pneumonitis 776096206 J1 8.9 Appears secondary to aspiration from Zenker's diverticul um. Patient has appoint with surgeon for evaluation for surgical treatment. We will continue as needed albuterol per neb. This is for shortness of breath severe cough or oxygen saturation below 95%. [id number] MARIA M POWER [facility] ([facility]) [address] [place], [place] [address]65[address] 5 03/06/2024 10:28:57 03/06/2024 11:05:37 Acute bronchitis 18567364 J20.9 [id number] Danay Gonzalez DO [facility]) [address] [place] [id number] 5 03/12/2024 11:48:06 03/16/2024 12:04:51 Acute bronchitis 37247843 J20.9 Pneumonitis 943625749 J1 8.9 Appears secondary to aspiration from Zenker's diverticul um. Patient has appointmen t with surgeon for evaluation for surgical treatment. Cognitive disorder 06432 5004 F09 Oropharyng eal dysphagia 19644951 R13.12 Recurrent aspiration pneumonia 294667736 J69.0 continue pureed foods and thinner for drinks. will start straw. counseled Obesity 128603204 E66.9 loosing weight too fast with low carb diet, will go back to regular diet, decrease portions. counseled [id number] MARIA M MEREDITH [facility] ([facility]) [address] [place] [id number] 5 03/27/2024 17:19:15 03/27/2024 17:48:43 Acute upper respiratory infection 72438490 J06.9 95% here. No signs of resp distress. Will have pt take some prednisone for a couple days. Return if you develop fever or worsening s/s [id number] Danay Gonzalez DO [facility] ([facility]) [address] [place] [id number] 5 04/16/2024 09:53:19 04/16/2024 13:14:28 Aspiration pneumonia 603610817 J69.0 Concern for early. with risk factors. will start abx. monitor for decreasing 02 and worsening s/s. Return to office with no improvemen t or any problems. Go to ER with severe worsening or severe problems. [id number] MARIA M MEREDITH [facility] ([facility]) [address] [place] [id number] 5 04/17/2024 11:15:45 04/17/2024 15:11:23 Health condition feared but not present 2900460749 89868 Z71.1 No current symptoms. Pt was started on antibiotic s yesterday for aspiration pneumonia. Continue this medication as prescribed . [id number] Danay Gonzalez DO [facility] ([facility]) [address] [place] [id number] 5 05/19/2024 15:06:00 05/25/2024 09:03:29 Aspiration pneumonia 713148973 J69.0 Concern for early. with risk factors. will start abx. monitor for decreasing 02 and worsening s/s. Return to office with no improvemen t or any problems. Go to ER with severe worsening or severe problems. Bipolar disorder 8725880 4 F31.9 05/19/24- mood deteriorat ing, pt easily agitated, fast mood swings, counseled will decrease Oxcarbazap ine from 600mg to 300mg twice daily. [id number] Danay Gonzalez DO [facility] ([facility]) [address] [place] [address] [id number] 5 06/17/2024 10:09:07 06/18/2024 12:51:09 Bipolar disorder 96480671 F31.9 06/17/14- tolerating lower dose Oxcarbazap ine, continue current tx. 4- mood deteriorat ing, pt easily agitated, fast mood swings, counseled will decrease Oxcarbazap ine from 600mg to 300mg twice daily. Dysuria 17464841 R30.0 UA negative for infection today. Counseled push fluids. Increased frequency of urination 901253288 R35.0 Active or passive immunization 653386137 Z23 Pneumonia and Shingles Vax. Explained we do not offer Covid vaccine at this facility. Hiatal hernia 67103400 K 44.[address] Larios, neftali Lerner surgery. [id number] Danay Gonzalez DO [facility] ([facility]) [address] [place] [id number] 5 07/08/2024 08:30:37 07/10/2024 07:30:13 Pneumonitis 731405302 J18.9 Appears secondary to aspiration from Zenker's diverticul um. Patient has appointmen t with surgeon for evaluation for surgical treatment. Aspiration pneumonia 422 922827 J69.0 Concern for early. with risk factors. will start abx. monitor for decreasing 02 and worsening s/s. Return to office with no improvemen t or any problems. Go to ER with severe worsening or severe problems. [id number] Veto Whitney MD [facility] ([facility]) [address] [place] [address] [id number] 5 07/16/2024 11:31:08 07/23/2024 07:09:00 Acute bacterial bronchitis 190203790 J20.9 Treat with antibiotic s and steroids given duration of symptoms and current exam. Continue with supportive care with over-the-c ounter medication to help with symptoms. [id number] Veto Whitney MD [facility] ([facility]) [address] [place] [address] [id number] 5 07/30/2024 13:24:34 08/04/2024 07:02:01 Recurrent aspiration pneumonia 788360984 J69.0 No crackles heard on exam today. Overall the patient looked well and appeared to be doing okay on 3 L of oxygen. No concerning symptoms noted on today's examinatio n. Recommend continue to monitor at this time. Follow-up with PCP for hospital follow-up. 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 larios and we will request those records. Recurrent aspiration pneumonia 057760972 J69.0 [id number] MARIA M WATTS [facility] ([facility]) [address] [place] [address] [id number] 5 08/18/2024 09:01:04 08/19/2024 14:29:53 Dyspnea at rest 168307116 R06.00 RTC with any new or worsening symptoms. [id number] Reji Garza MD [facility] ([facility]) [address] [place] [address] [id number] 5 08/26/2024 10:09:16 09/03/2024 16:50:39 Chronic hypoxemic respiratory failure 568074587 J96.11 following aspiration event At [facility] risk for aspiration 262051055 Z91.89 [id number] Reji Garza MD [facility] ([facility]) [address] [place] [address] [id number] 5 09/07/2024 11:27:23 09/07/2024 13:13:45 Chronic hypoxemic respiratory failure 763064442 J96.11 following aspiration event 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 sent Organic pe rsonality disorder 97812771 F07.0 Oropharyng eal dysphagia 77674735 R13.12 Recurrent aspiration pneumonia 435949205 J69.0 [id number] Reji Garza MD [facility] ([facility]) [address] [place] [address] [id number] 5 09/14/2024 10:48:22 09/14/2024 13:16:06 Herpes zoster vaccination given 3188825033 58016 Z23 [id number] Reji Garza MD [facility] ([facility]) [address] [place] [address] [id number] 5 10/28/2024 12:31:39 10/29/2024 11:00:31 Acute aspiration pneumonia 9095984261 9100 J69.0 29042096 [id number] Reji Garza MD [facility] ([facility]) [address] [place] [address] [id number] 5 11/05/2024 11:37:12 11/11/2024 08:40:33 [id number] Reji Garza MD [facility] ([facility]) [address] [place] [address] [id number] 5 11/16/2024 11:44:06 11/16/2024 16:11:57 Recurrent aspiration pneumonitis 1762362319 J69.0 7178078436 Hiatal hernia 24267047 K 44.[id number] larios and we will request those records. I recommend he see him again. It was 6 months ago. the aspiration continues to be a big problem despite following precaution s to the best of his ability. [id number] Reji Garza MD [facility] ([facility]) [address] [place] [address] [id number] 5 12/01/2024 10:19:03 12/01/2024 13:09:33 Daytime somnolence 3998705817 00 G47.19 [id number] Reji Garza MD [facility] ([facility]) [address] [place] [address] 06890-708 5 12/14/2024 14:38:21 12/16/2024 08:29:30 Aspiration pneumonitis 781025548 J69.0 2756 Pulmonary aspiration 680 08865 T17.908D [id number] we have maximized preventive measures.s ee previous history for extensive measures and evaluation s and discussion regarding surgery.co ntinue aspiration precaution scomplete augmentin script [id number] MARIA M WATTS [facility] ([facility]) [address] [place] [address] [id number] 5 01/04/2025 10:29:39 01/04/2025 13:09:07 Blood pressure above reference range 06521075 R03.0 [id number] Normal VS at time of exam with no prior interventi ons. Monitor VS and return with any new or worsening symptoms. [id number] MARIA M WATTS [facility] ([facility]) [address] [place] [address] [id number] 5 01/05/2025 17:48:46 01/12/2025 11:14:04 Bronchitis 16589622 J40 98801 Increase po fluids. Complete antibiotic course. Return to clinic with any new or worsening symptoms. [id number] Reji Garza MD [facility] ([facility]) [address] [place] [address] [id number] 5 02/19/2025 12:34:21 02/19/2025 13:06:28 Hematemesis 6312889 K92.0 [id number] Acute gastroenteritis 69 793050 K52.9 8743 [id number] Reji Garza MD [facility] ([facility]) [address] [place] [address] [id number] 5 03/09/2025 12:01:15 03/09/2025 15:15:29 Aspiration pneumonitis 855712658 J69.0 2756 continue current care plan f/u if not continuing to improve.co mplete augmentin as ordered. Pulmonary aspiration 680 36394 T17.908D [id number] we have maximized preventive measures.s ee previous history for extensive measures and evaluation s and discussion regarding surgery.co ntinue aspiration precaution scomplete augmentin script see previous noteshospi tiffanie records and cultures have been reviewed.h as been requiring oxygen a little more since discharge than prior to admission. however he is greatly improved and continuing to improve. [id number] Reji Garza MD [facility] ([facility]) [address] [place] [address] [id number] 5 03/19/2025 08:54:23 03/22/2025 09:59:08 Hematemesis 3344901 K92.0 04902324 [id number] Reji Garza MD [facility] ([facility]) [address] [place] [address] 77260-109 5 03/22/2025 11:02:59 03/24/2025 11:54:23 Organic personality disorder 70588034 F07.0 Bipolar disorder 2974723 4 F31.9 Zenker's diverticulum 39 7286404 K22.5 Cognitive disorder 00813 5004 F09 At [facility] risk for aspiration 875250816 Z91.89 continue aspiration precaution s Chronic hy poxemic respiratory failure 103064557 J96.11 following aspiration event recurrent and chronic and alf.kelly ble continious oxygen orders sent Recurrent aspiration pneumonia 215519662 J69.0 Hiatal hernia 02116043 K 44.[address] larios he was advised against surgery which i agree with. 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 Hyperglycemia 22546882 R 73.9 2765089 Pure hypercholesterolemia 130032447 E78.00 [id number] Reji Garza MD [facility] ([facility]) [address] [place] [address] [id number] 5 04/27/2025 09:58:04 04/28/2025 10:38:06 Toenail thickened 032232897 L60.2 82541872 Health Concerns Section Related Observation LastModified by Organization Detai ls LastModified Time None Recorded Concern Status LastModified by Organization Details LastModified Time None Recorded Advance Directives Directive None Recorded Payers Insurance Date Sequence Insurance Name Policy Number Policy Gore Covered Member ID Gore Member ID Guarantor Name 04/24/2025 2 [place] Olivas [id number] Adam Armstrong 04/24/2025 1 [place]: [facility] Dalton Olivas [id number] Adam Armstrong 04/24/2025 [place] - [facility] (MEDICARE) Dalton Olivas [id number] Adam Armstrong 05/04/2025 [place] [facility] [place] Dalton Olivas [id number] Adam Armstrong Notes Date Note Type Note [...] noted in the HPI Reji Garza MD [address] [place] [address], [phone], [facility] 02/19/2025 12:59:02 03/09/2025 text/html ROS as noted in the [...] and denies any wheezing. Reji Garza MD [address] [place] [address], [phone], [facility] 03/09/2025 12:19:11 03/22/2025 text/html Annual WellnessReported by PatientSocial/Behavior al [...] referral for hearing aids. Reji Garza MD [address] [place] [address], [phone], [facility] 03/24/2025 09:13:09 04/27/2025 text/html Pt is here today to have the second toenail on his left foot examined. This toenail is thicker than the rest and it is hard for them to trim. It is not causing him any pain at the moment, but it is longer than his other toenails due to inability to trim. Reji Garza MD [address] [place] [address], [phone], [facility], [place] 04/27/2025 10:28:39
--- OUTSIDE RECORDS SUMMARY | 2025-05-09 21:58 | XMS_ITS | Encounter Summary ---
Author Organization [facility] Address [address] [place] [address] Care Team Providers Care Netbackup Admin Name Role Phone Unavailable Primary Care Provider Unavailabl e Encounter Details Date Type Department Care Team (Latest Contact Info) Description 06/16/[address] 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
--- OUTSIDE RECORDS SUMMARY | 2025-05-09 21:58 | XMS_ITS | Continuity of Care Document ---
Author Organization JEFFREY Moustapha Suggs [facility], L[facility]rinaLJosue, [facility] ([facility]) Address [address] [address] Care Team Providers Care Needle Process Felt Goods Supervisor Name Role Phone DANAY GONZALEZ Primary Care Provider Assessment No assessment recorded. Plan of Treatment Reminders Order Date Submit Date Provider Last Modified By Organization Details Last Modified Time Details Appointments OFFICE VISIT YARA 2025 09:00A M Reji Garza MD Not available Not available Not available Lab None recorded. Referral podiatris t referral [address] [facility], [address] [place] [address], [address], 04/30/2025 13:04:46 Procedures None recorded. Surgeries None recorded. Imaging None recorded. Medication Orders None recorded. Patient TargetsNo targets recorded. Patient InstructionsNo instructions recorded. Reason for Referral [employer] Referral for Toen ail thickened Referring Physician: Reji Garza, Family Medicine, Encounter Date: 04/27/2025 Results Created Date Observation Date Name Description Value Unit Range Abnormal Flag Note LastModifiedBy Organization Detail LastModifiedTime 04/05/2003/30/2025 polys omnog cass No observ ation record ed. [address] [facility] [address] [facility], [facility], [place], [address], 04/08/2025 14:15:13 Result Notes None recorded. 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 5 09:29:13 Organic personal ity disorder 48386987 Active 2021 Julissa banks [facility] 5 13:41:26 Bipolar disorder 16640528 Active 2021 Julissa banks [facility] 5 13:40:30 Dermatop hytosis 55644362 Completed 202207/30/2024 Julissa banks, [facility] 5 13:40:54 Constipa tion 33330950 Active 2023 Julissa banks, [facility] 5 13:40:40 Zenker's divertic ulum 042984014 Active 2023 Julissa banks [facility] 5 13:41:45 Orophary ngeal dysphagi a 41290277 Active 2023 Julissa banks [facility] 5 13:41:14 Recurren t aspirati on pneumoni a 955564959 Active 2023 Julissa banks [facility] 5 13:41:33 Obesity 210136633 Active 2023 Julissa banks [facility] 5 13:41:10 Aspirati on pneumoni a 526177415 Completed 202307/30/2024 Julissa Ramírez null, [facility] 5 13:40:27 Hiatal hernia 75526350 Active 2024 Julissa Ramírez null, [facility] 5 13:41:00 Acute bacteria l bronchit is 231909797 Completed 202407/30/2024 Julissa banks, [facility] 5 13:40:14 Chronic hypoxemi c respirat ory failure 686401196 Active 2024 HYACINTH EUGENE null, [facility] 5 10:21:36 At increase d risk for aspirati on 650751679 Active 2024 Octavia Brennan null, [facility] 5 12:25:24 Fibrosis of lung 76498866 Active 2024 HYACINTH EUGENE null, [facility] 5 11:47:55 Obstruct pita sleep apnea syndrome 21163108 Active 2024 HYACINTH EUGENE null, [facility] 5 09:39:31 Pure hypercho lesterol emia 183252071 Active 2024 HYACINTH banks, [facility] 5 11:19:12 Hypergly cemia 08467513 Active 2024 HYACINTH EUGENE null, [facility] 5 11:19:12 Hearing loss 85097749 Active 2024 HYACINTH EUGENE darren, [facility] 5 09:13:43 Aspirati on pneumoni tis 856781993 Active 2024 HYACINTHMarlon EUGENE darren, [facility] 5 08:49:30 Pulmonar y aspirati on 80749108 Active 2024 HYACINTH EUGENE darren, [facility] 5 08:49:30 Hemateme sis 2335092 Active 2024 HYACINTHMarlon EUGENE darren, [facility] 5 08:49:44 Acute gastroen teritis 52803344 Active 2024 HYACINTHMarlon EUGENE darren, [facility] 5 08:49:44 Problem Notes None recorded. Procedures Surgical History Date Name Laterality Status Provider Name and Address Organization Details Recorded Time 2023 esophagogastroduodenoscopy completed KAYDEN AYANNA EUGENE [facility] 5 13:14:20 procedure on brain completed MICHAEL Mason JABIER [facility] 5 09:30:20 arthroscopy of knee completed KAYDEN AYANNA EUGENE [facility] 5 09:30:33 Imaging Results None recorded. [...] CAPSULE BY MOUTH EVERY DAY with 150mg pa=390ix ; FOR ANXIETY 2024 active Not Available [...] Not Available Not Avai lable OptiChamb er [facility] with Medium Mask USE DIRECTED 2024 [...] Not Available Not Available Not Avai labrebecca Men's 50 Plus Multivita min 400 mcg-20 mcg-370 mcg tablet Take 1 tablet every day by oral route, for suppleme nt. 2024 active Not Available Not Available Not Avai labrebecca Vitals Date Recorded Body height Body mass index (BMI) Body weight Heart rate Oxygen saturation Inhaled oxygen flow rate Body temperature Systolic And Diastolic Provider Name and Address Organization Details Last Updated DateTime 5 172.72 cm 33.9 kg/m2 236262. 1 g 90 /min 95 % 3 L/min 97.6 [degF] 122/72 mm[Hg] Octavia Brennan [facility] 10:09:52 Social History Question Answer Notes LastModified by Organizat ion Details LastModified Time Tobacco Smoking Status Never Smoker Maru banks [facility] 02/06/2024 10:50:27 Where Do You Live? Other Kim's [email or web address] Information not available 08/06/2024 What Was The Date Of Your Most Recent Tobacco Screening? 01/04/2025 [email or web address] Information not available 01/04/2025 Sex: Unknown Functional Status Question Answer Note LastModified by Organizat ion Details LastModified Time Do you use any illicit or recreational drugs? No Information not available 02/06/2024 Do you or have you ever used any other forms of tobacco or nicotine? No [email or web address] Information not available 08/06/2024 What is your level of alcohol consumption? None Information not available 02/06/2024 Are you able to care for yourself independently? No [email or web address] Information not available 08/06/2024 Do you or have you ever used any nicotine-free cigarettes, vape, or chewing tobacco? No [email or web address] Information not available 08/06/2024 Mental Status None recorded. Family History Nothing Reported. Medical History No medical history recorded. Immunizations Vaccine Type Date Status Note Provider Nam e and Address Organization Details Recorded Time zoster recombinant 5 completed Reji Garza MD [address] [place] [address], [phone], [facility] 09/16/2024 14:46:42 Influenza, MDCK, quadrivalent, PF 2 completed Maru banks [facility] 02/06/2024 10:49:16 COVID-19, mRNA, LNP-S, PF, 100 mcg/0.5mL dose or 50 mcg/0.25mL dose 1 completed Maru banks [facility] 02/06/2024 10:49:16 COVID-19, mRNA, LNP-S, PF, 100 mcg/0.5mL dose or 50 mcg/0.25mL dose 1 completed Maru banks [facility] 02/06/2024 10:49:16 COVID-19, mRNA, LNP-S, PF, 100 mcg/0.5mL dose or 50 mcg/0.25mL dose 2 completed Maru banks [facility] 02/06/2024 10:49:16 COVID-19, mRNA, LNP-S, bivalent, PF, 50 mcg/0.5 mL or 25mcg/0.25 mL dose 2 [facility] 02/06/2024 10:49:16 Influenza, split virus, trivalent, preservative 3 completed Maru [facility] 02/06/2024 10:49:16 Influenza, split virus, trivalent, PF 4 [facility] 02/06/2024 10:49:16 Influenza, split virus, trivalent, PF 5 completed Maruaranza [facility] 02/06/2024 10:49:16 Td (adult), 2 Lf tetanus toxoid, preservative free, adsorbed 4 completed Maruaranza [facility] 02/06/2024 10:49:16 Hep B, adult 5 completed Maru [facility] 02/06/2024 10:49:17 Hep B, adult 6 completed Maru [facility] 02/06/2024 10:49:17 Hep B, adult 4 completed Maruaranza [facility] 02/06/2024 10:49:17 Influenza, split virus, quadrivalent, PF 1 completed Maru [facility] 02/06/2024 10:49:17 Influenza, MDCK, quadrivalent, preservative 3 completed [facility] 02/18/2024 15:15:35 Tdap 4 completed Maru banks, [facility] 02/18/2024 15:15:36 COVID-19, mRNA, LNP-S, PF, 50 mcg/0.5 mL 5 completed HYACINTH banks, [facility] 08/26/2024 10:19:44 Influenza, MDCK, trivalent, preservative 4 completed HYACINTH banks, [facility] 08/26/2024 10:19:45 COVID-19, mRNA, LNP-S, PF, 10 mcg/0.2 mL 5 completed Not Available [facility] 04/27/2025 09:58:20 Influenza, high-dose, trivalent, PF 5 completed Not Available [facility] 04/27/2025 09:58:20 Pneumococcal conjugate PCV20, polysaccharide KAL933 conjugate, adjuvant, PF 5 completed Julissa banks, [facility] 06/17/2024 12:12:19 zoster recombinant 5 completed Julissa banks [facility] 06/17/2024 12:12:42 Influenza, split virus, trivalent, preservative 6 completed Not Available [facility] 12/29/2022 02:32:31 Past Encounters Encounter ID Performer Location Encounter Start Date Encounter Closed Date Diagnosis/Indication Diagnosis SNOMED-CT Code Diagnosis ICD10 Code Diagnosis IMO Codes Diagnosis Note [id number] Reji Garza MD [facility] ([facility]) [address] [place] [phone] 04/27/2025 09:58:04 04/28/2025 10:38:06 Toenail thickened 146941108 L60.2 38132079 Health Concerns Section Related Observation LastModified by Organization Detai ls LastModified Time None Recorded Concern Status LastModified by Organization Details LastModified Time None Recorded Payers Encounter Date Sequence Insurance Name Policy Number Policy Gore Covered Member ID Gore Member ID Guarantor Name 04/27/2025 2 [place] Dalton Olivas [id number] Adam Armstrong 04/27/2025 1 [place] Dalton Olivas [id number] Adam Armstrong Notes Date Note Type Note Provider Name and Address Organization Details Recorded Time 04/27/2025 text/html Pt is here today to have the second toenail on his left foot examined. This toenail is thicker than the rest and it is hard for them to trim. It is not causing him any pain at the moment, but it is longer than his other toenails due to inability to trim. Reji Garza MD [address] [place] [address], [phone], [facility] 04/27/2025 10:28:39
--- OUTSIDE RECORDS SUMMARY | 2025-05-09 21:58 | XMS_ITS | Encounter Summary ---
Author Organization [facility] Address [address] [place] [address] Care Team Providers Care Waxing Machine Operator Helper Name Role Phone Unavailable Primary Care Provider Unavailabl e Encounter Details Date Type Department Care Team (Latest Contact Info) Description 09/27/2004 Outpatient Historical [facility] [place] [address] [place] [address] Dereck Brewster PA NO ADDRESS ON FILE HEAD INJURY UNSPECIFIED (Primary Dx); MENTAL RETARDATION NOS; CONDUCT DISTURBANCE NOS; URINARY FREQUENCY Social History Tobacco Use Types Packs/Day Years Used Date Smoking Tobacco: Never Assessed Sex and Gender Information Value Date Recorded Sex Assigned at Not on file 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
--- OUTSIDE RECORDS SUMMARY | 2025-05-09 21:58 | XMS_ITS | Clinical Summary ---
Author Organization [facility] Address [address] 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
--- OUTSIDE RECORDS SUMMARY | 2025-05-09 21:58 | XMS_ITS | Clinical Summary ---
Author Organization [facility] Address [address] [place] [address] Phone Care Team Providers Care Plush Brusher Name Role Phone Unavailable Primary Care Provider Unavailabl e Allergies No known active allergies Medications OXcarbazepine (TRILEPTAL) 600 mg tablet 7 Active QUEtiapine (SEROquel) 200 mg tablet 7 Active traZODone (DESYREL) 150 mg tablet 7 Active omeprazole (PriLOSEC) 20 mg Capsule, Delayed Release(E.C.) 7 Active LORazepam (ATIVAN) 1 mg tablet 7 Active fluticasone (FLONASE) 50 mcg/spray [place], Suspension 7 Active venlafaxine (EFFEXOR XR) 150 [...] to affected area. 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 Gender Identity Not on file Sexual Orientation Not on file Last Filed Vital Signs Vital Sign Reading Time Taken Comments Blood Pressure 110/65 08/05/2017 3:23 PM SEC[employer] COOK AND BAKER Pulse 88 08/05/2017 3:23 PM SEC[employer] COOK [employer] BAKER Temperature - - Respiratory Rate - - Oxygen Saturation - - Inhaled Oxygen Concentration - - Weight 91.2 kg (201 lb) 08/05/2017 3:23 PM SEC[employer] COOK [employer] BAKER Height 172.7 cm (5' 8 ) 08/05/2017 3:23 PM SEC[employer]OOK [employer] BAKER Body Mass Index 30.56 08/05/2017 3:23 PM SECOND COOK AND BAKER Plan of Treatment Health Maintenance Due Date [...] Insurance MEDICARE PART A AND B MEDICAID [place]
--- OUTSIDE RECORDS SUMMARY | 2025-05-09 21:58 | XMS_ITS | Encounter Summary ---
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 [facility] has changed the methodology for PSA, but the reference range of 0-4 ng/ml has remained the same. 09/28/2004 9:29 AM CDT Dereck BAILEY CHEMISTRY ORDERABLES COM Kennedi l Result Performing Organization Address [facility] de Phone Number INTERFACE SYSTEM Refer to clinic/hospital department * VITAMIN B12 AND FOLATE (09/28/2004 9:29 AM CDT) VITAMIN B12 844 200 - 925 ng/dL INTERFACE SYSTEM FOLATE, SERUM >20.00 2.76 - 20.00 ng/dL INTERFACE SYSTEM 09/28/2004 9:29 AM CDT Dereck BAILEY CHEMISTRY ORDERABLES Final Re sult Performing Organization Address [facility] Phone Number INTERFACE SYSTEM Refer to clinic/hospital department documented in this encounter Visit Diagnoses Not on filedocumented in this encounter
--- OUTSIDE RECORDS SUMMARY | 2025-05-09 21:58 | XMS_ITS | Continuity of Care Document ---
Author Organization JEFFREY Velázquez [facility], LMacrinaLJosue, [facility]) Address [address] [place] [address] Care Team Providers Care Desk Assistant Name Role Phone DANAY GONZALEZ Primary Care Provider Assessment No assessment recorded. Plan of Treatment Reminders Order Date Submit Date Provider Last Modified By Organization Details Last Modified Time Details Appointments OFFICE VISIT YARA 2025 09:00A M Reji Garza MD Not available Not available Not available Lab CMP, serum or plasma 2024 025 [facility], [address] [facility], [address], [place], [address], 03/19/2025 09:38:28 lipid panel, blood 2024 025 [facility], [address] [facility], [address], [place], [address], 03/19/2025 09:38:31 CBC 2024 025 [facility], [address] [facility] [place], [address], [place], [address], 03/19/2025 09:34:06 Referral None recorded . Procedures None recorded . Surgeries None recorded . Imaging None recorded . Medication Orders None recorded . Patient TargetsNo targets recorded. Patient InstructionsNo instructions recorded. Reason for Referral None Reported. Results Created Date Observation Date Name Description Value Unit Range Abnormal Flag Note LastModifiedBy Organization Detail LastModifiedTime 02/20/20 25 02/19/2025 CBC WBC 8.2 x10 4.5-10 .5 Not Available [facility] [address] [facility] [[email or web address] 1, [place], [address], 02/19/2025 13:30:59 02/20/20 25 02/19/2025 CBC RBC 4.99 x10 4.30-5 .90 Not Available [facility] [address] [facility] [[email or web address] 1, [place], [address], 02/19/2025 13:30:59 02/20/20 25 02/19/2025 CBC HGB 15.1 g/dL 13.5-1 8.0 Not Available [facility] [address] [facility] [[email or web address] 1, [place], [address], 02/19/2025 13:30:59 02/20/20 25 02/19/2025 CBC HCT 46.2 % 35.0-6 0.0 Not Available [facility] [address] [facility] [[email or web address]] 1, [place], [address], 02/19/2025 13:30:59 02/20/20 25 02/19/2025 CBC MCV 92.6 fL 80.0-9 9.9 Not Available [facility] [address] [facility] [[email or web address] 1, [place], [address], 02/19/2025 13:30:59 02/20/20 25 02/19/2025 CBC MCH 30.3 pg 27.0-3 2.0 Not Available [facility] [address] [facility] [address], [place], [address], 02/19/2025 13:30:59 02/20/20 25 02/19/2025 CBC MCHC 32.7 g/dL 32.0-3 6.0 Not Available [facility] [address] [facility] [[email or web address] 1, [place], [address], 02/19/2025 13:30:59 02/20/20 25 02/19/2025 CBC RDW 14.1 % 11.5-1 4.5 Not Available [facility] [address] [facility] [[email or web address] 1, [place], [address], 02/19/2025 13:30:59 02/20/20 25 02/19/2025 CBC plt 127.1 x10 150.0- 451.0 low Not Available [facility] [address] [facility] [[email or web address] 1, [place], [address], 02/19/2025 13:30:59 02/20/20 25 02/19/2025 CBC lymphocytes % 7.3 % 20.0-5 0.0 low Not Available [facility] [address] [facility], [place], [address], 02/19/2025 13:30:59 02/20/20 25 02/19/2025 CBC granulcytes % 84.2 % 30.0-7 0.0 high Not Available [facility] [address] [facility] 1, [place], [address], 02/19/2025 13:30:59 02/20/20 25 02/19/2025 CBC monocytes % 7.7 % 2.0-16 .0 Not Available [facility] [address] [facility] [[email or web address] 1, [place], [address], 02/19/2025 13:30:59 02/20/20 25 02/19/2025 CBC granulcytes# 6.9 x10 Not Hanna ilable [facility] [address] [facility] [[email or web address] 1, [place], [address], 02/19/2025 13:30:59 02/20/20 25 02/19/2025 CBC lymphocytes # 0.6 x10 Not Available [facility] [address] [facility] [[email or web address] 1, [place], [address], 02/19/2025 13:30:59 02/20/20 25 02/19/2025 CBC monocytes # 0.6 x10 Not Avai lable [facility] [address] [facility] [[email or web address] 1, [place], [address], 02/19/2025 13:30:59 02/20/20 25 02/19/2025 CMP (FEMA LE) glucose 125.0 mg/dL 60.0-9 9.0 high Not Available [facility] [address] [facility] [[email or web address] 1, [place], [address], 02/19/2025 13:52:06 02/20/20 25 02/19/2025 CMP (FEMA LE) BUN (blood urea nitrogen) 20.0 mg/dL 10.0-2 6.0 Not Available [facility] [address] [facility], [place], [address], 02/19/2025 13:52:06 02/20/20 25 02/19/2025 CMP (FEMA LE) creatinine (serum) 0.8 mg/dL 0.4-1. 5 Not Available [facility] [address] [facility], [place], [address], 02/19/2025 13:52:06 02/20/20 25 02/19/2025 CMP (FEMA LE) BUN/creatini ne ratio 25.00 ratio Not Available [facility] [address] [facility] [[email or web address] 1, [place], [address], 02/19/2025 13:52:06 02/20/20 25 02/19/2025 CMP (FEMA LE) eGFR calculated 102.5 Not Available [facility] [address] [facility] [[email or web address] 1, [place], [address], 02/19/2025 13:52:06 09/19/02/19/2025 CMP (FEMA LE) total protein 7.6 g/dL 6.0-8. 5 Not Available [facility] [address] [facility] [[email or web address] 1, [place], [address], 02/19/2025 13:52:06 02/20/20 25 02/19/2025 CMP (FEMA LE) total bilirubin 0.7 mg/dL 0.2-1. 3 Not Available [facility] [address] [facility], [place], [address], 02/19/2025 13:52:06 02/20/2002/19/2025 CMP (FEMA LE) albumin 4.4 g/dL 3.5-5. 5 Not Available [facility] [address] [facility], [place], [address], 02/19/2025 13:52:06 02/20/20 25 02/19/2025 CMP (FEMA LE) globulin 3.2 calc Not Available [facility] [address] [facility] 1, [place], [address], 02/19/2025 13:52:06 02/20/2002/19/2025 CMP (FEMA LE) AST (SGOT) 29.0 U/L 0.0-46 .0 Not Available [facility] [address] [facility], [place], [address], 02/19/2025 13:52:06 02/20/2002/19/2025 CMP (FEMA LE) altv (SGPT) 31.0 U/L 13.0-6 9.0 normal Not Available [facility] [address] [facility] [[email or web address] 1, [place], [address], 02/19/2025 13:52:06 02/20/20 25 02/19/2025 CMP (FEMA LE) A/G ratio 1.4 ratio Not Available [facility] [address] [facility] [[email or web address] 1, [place], [address], 02/19/2025 13:52:06 02/20/2002/19/2025 CMP (FEMA LE) ALP phos 78.0 U/L 30.0-1 40.0 normal Not Available [facility] [address] [facility], [place], [address], 02/19/2025 13:52:06 02/20/2002/19/2025 CMP (FEMA LE) calcium 8.9 mg/dL 8.4-10 .5 Not Available [facility] [address] [facility], [place], [address], 02/19/2025 13:52:06 02/20/20 25 02/19/2025 CMP (FEMA LE) sodium 137.0 mmol/ L 136.0- 145.0 Not Available [facility] [address] [facility], [place], [address], 02/19/2025 13:52:06 02/20/2002/19/2025 CMP (FEMA LE) potassium 4.2 mmol/ L 3.5-5. 1 Not Available [facility] [address] [facility] 1, [place], [address], 02/19/2025 13:52:06 02/20/2002/19/2025 CMP (FEMA LE) chloride 106.0 mmol/ L 98.0-1 10.0 normal Not Available [facility] [address] [facility], [place], [address], 02/19/2025 13:52:06 02/20/2002/19/2025 CMP (FEMA LE) C02 21.0 mmol/ L 22.0-3 1.0 low Not Available [facility] [address], [place], [address], 02/19/2025 13:52:06 02/20/20 25 02/19/2025 CMP (FEMA LE) anion gap 10.0 calc Not Available [facility] [address], [place], [address], 02/19/2025 13:52:06 02/20/20 25 02/19/2025 CMP (FEMA LE) osmolality 286.9 calc Not Available [facility] [address], [place], [address], 02/19/2025 13:52:06 03/19/2003/19/2025 CBC WBC 5.7 x10 4.5-10 .5 Not Available [facility] [address], [place], [address], 03/19/2025 09:34:06 03/19/2003/19/2025 CBC RBC 4.64 x10 4.30-5 .90 Not Available [facility] [address], [place], [address], 03/19/2025 09:34:06 03/19/2003/19/2025 CBC HGB 14.0 g/dL 13.5-1 8.0 Not Available [facility] [address], [place], [address], 03/19/2025 09:34:06 03/19/2003/19/2025 CBC HCT 43.4 % 35.0-6 0.0 Not Available [facility] [address], [place], [address], 03/19/2025 09:34:06 03/19/2003/19/2025 CBC MCV 93.6 fL 80.0-9 9.9 Not Available [facility] [address] [facility] [[email or web address] 1, [place], [address], 03/19/2025 09:34:06 03/19/2003/19/2025 CBC MCH 30.1 pg 27.0-3 2.0 Not Available [facility] [address] [facility] [[email or web address] 1, [place], [address], 03/19/2025 09:34:06 03/19/2003/19/2025 CBC MCHC 32.2 g/dL 32.0-3 6.0 Not Available [facility] [address] [facility] [[email or web address] 1, [place], [address], 03/19/2025 09:34:06 03/19/2003/19/2025 CBC RDW 14.4 % 11.5-1 4.5 Not Available [facility] [address] [facility] [[email or web address] 1, [place], [address], 03/19/2025 09:34:06 03/19/2003/19/2025 CBC plt 186.4 x10 150.0- 451.0 Not Available [facility] [address] [facility] [[email or web address] 1, [place], [address], 03/19/2025 09:34:06 03/19/2003/19/2025 CBC lymphocytes % 24.2 % 20.0-5 0.0 Not Available [facility] [address] [facility] [[email or web address] 1, [place], [address], 03/19/2025 09:34:06 03/19/2003/19/2025 CBC granulcytes % 62.2 % 30.0-7 0.0 Not Available [facility] [address] [facility] [[email or web address] 1, [place], [address], 03/19/2025 09:34:06 03/19/2003/19/2025 CBC monocytes % 9.4 % 2.0-16 .0 Not Available [facility] [address] [facility] 1, [place], [address], 03/19/2025 09:34:06 03/19/2003/19/2025 CBC granulcytes# 3.5 x10 Not Hanna ilable [facility] [address] [facility] 1, [place], [address], 03/19/2025 09:34:06 03/19/2003/19/2025 CBC lymphocytes # 1.4 x10 Not Available [facility] [address] [address], [place], [address], 03/19/2025 09:34:06 03/19/2003/19/2025 CBC monocytes # 0.5 x10 Not Avai lable [facility] [address] [address], [place], [address], 03/19/2025 09:34:06 03/19/2003/19/2025 CMP (MALE ) glucose 105.0 mg/dL 60.0-9 9.0 high Not Available [facility] [address] [facility] 1, [place], [address], 03/19/2025 09:38:28 03/19/2003/19/2025 CMP (MALE ) BUN (blood urea nitrogen) 15.0 mg/dL 10.0-2 6.0 Not Available [facility] [address] [facility] 1, [place], [address], 03/19/2025 09:38:28 03/19/2003/19/2025 CMP (MALE ) creatinine (serum) 0.8 mg/dL 0.4-1. 5 Not Available [facility] [address] [facility] 1, [place], [address], 03/19/2025 09:38:28 03/19/20 25 03/19/2025 CMP (MALE ) BUN/creatini ne ratio 18.75 ratio Not Available [facility] [address] [facility] [[email or web address]] 1, [place], [address], 03/19/2025 09:38:28 03/19/20 25 03/19/2025 CMP (MALE ) eGFR calculated 102.5 Not Available [facility] [address] [facility] [[email or web address] 1, [place], [address], 03/19/2025 09:38:28 03/19/2003/19/2025 CMP (MALE ) total protein 7.7 g/dL 6.0-8. 5 Not Available [facility] [address] [facility], [place], [address], 03/19/2025 09:38:28 03/19/20 25 03/19/2025 CMP (MALE ) total bilirubin 0.6 mg/dL 0.2-1. 3 Not Available [facility] [address] [facility], [place], [address], 03/19/2025 09:38:28 03/19/20 25 03/19/2025 CMP (MALE ) albumin 4.2 g/dL 3.5-5. 5 Not Available [facility] [address] [facility] [[email or web address]] 1, [place], [address], 03/19/2025 09:38:28 03/19/20 25 03/19/2025 CMP (MALE ) globulin 3.5 calc Not Available [facility] [address] [facility], [place], [address], 03/19/2025 09:38:28 03/19/20 25 03/19/2025 CMP (MALE ) AST (SGOT) 24.0 U/L 0.0-46 .0 Not Available [facility] [address] [facility] [[email or web address] 1, [place], [address], 03/19/2025 09:38:28 03/19/2003/19/2025 CMP (MALE ) altv (SGPT) 21.0 U/L 13.0-6 9.0 normal Not Available [facility] [address] [facility] [[email or web address] 1, [place], [address], 03/19/2025 09:38:28 03/19/2003/19/2025 CMP (MALE ) A/G ratio 1.2 ratio Not Available [facility] [address] [facility] [[email or web address] 1, [place], [address], 03/19/2025 09:38:28 03/19/2003/19/2025 CMP (MALE ) ALP phos 72.0 U/L 30.0-1 40.0 normal Not Available [facility] [address] [facility] [[email or web address] 1, [place], [address], 03/19/2025 09:38:28 03/19/2003/19/2025 CMP (MALE ) calcium 9.4 mg/dL 8.4-10 .5 Not Available [facility] [address] [facility] [[email or web address] 1, [place], [address], 03/19/2025 09:38:28 03/19/2003/19/2025 CMP (MALE ) sodium 139.0 mmol/ L 136.0- 145.0 Not Available [facility] [address] [facility] [[email or web address] 1, [place], [address], 03/19/2025 09:38:28 03/19/2003/19/2025 CMP (MALE ) potassium 4.0 mmol/ L 3.5-5. 1 Not Available [facility] [address] [facility] [[email or web address] 1, [place], [address], 03/19/2025 09:38:28 03/19/20 25 03/19/2025 CMP (MALE ) chloride 105.0 mmol/ L 98.0-1 10.0 normal Not Available [facility] [address] [facility] [address] [facility] [[email or web address]] 1, [place], [address], 03/19/2025 09:38:28 03/19/20 25 03/19/2025 CMP (MALE ) C02 26.0 mmol/ L 22.0-3 1.0 Not Available [facility] [address] [facility] [[email or web address] 1, [place], [address], 03/19/2025 09:38:28 03/19/2003/19/2025 CMP (MALE ) anion gap 8.0 calc Not Available [facility] [address] [facility] [[email or web address] 1, [place], [address], 03/19/2025 09:38:28 03/19/2003/19/2025 CMP (MALE ) osmolality 288.3 calc Not Available [facility] [address] [facility] [[email or web address] 1, [place], [address], 03/19/2025 09:38:28 03/19/2003/19/2025 LIPID PROFI LE (MALE ) cholesterol 217.0 mg/dL 0.0-20 0.0 high Not Available [facility] [address] [facility] [[email or web address] 1, [place], [address], 03/19/2025 09:38:31 03/19/2003/19/2025 LIPID PROFI LE (MALE ) trig 68.0 mg/dL 0.0-15 0.0 Not Available [facility] [address] [facility] [[email or web address] 1, [place], [address], 03/19/2025 09:38:31 03/19/20 25 03/19/2025 LIPID PROFI LE (MALE ) HDL - direct 43.0 mg/dL >40.0 Not Available [facility] [address] [facility] [address], [place], [address], 03/19/2025 09:38:31 03/19/2003/19/2025 LIPID PROFI LE (MALE ) VLDL - direct 13.6 mg/dL Not Available [facility] [address] [facility] [address], [place], [address], 03/19/2025 09:38:31 03/19/2003/19/2025 LIPID PROFI LE (MALE ) LDL - direct 160.4 mg/dL 0.0-13 0.0 high Not Available [facility] [address] [facility] [address], [place], [address], 03/19/2025 09:38:31 04/05/2003/30/2025 polys omnog cass No observ ation record ed. [address] [facility] [address] [facility], [address], [place], [address], 04/08/2025 14:15:13 Result Notes None recorded. 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 5 13:41:26 Bipolar disorder 82413095 Active 2021 Julissa banks [facility] 5 13:40:30 Dermatop hytosis 62921475 Completed 202207/30/2024 Julissa Darrell darren, [facility] 5 13:40:54 Constipa tion 51440370 Active 2023 Julissa banks, [facility] 5 13:40:40 Zenker's divertic ulum 824986326 Active 2023 Julissa banks, [facility] 5 13:41:45 Orophary ngeal dysphagi a 88723560 Active 2023 Julissa banks, [facility] 5 13:41:14 Recurren t aspirati on pneumoni a 999653912 Active 2023 Julissa banks, [facility] 5 13:41:33 Obesity 929418945 Active 2023 Julissa banks, [facility] 5 13:41:10 Aspirati on pneumoni a 096880026 Completed 202307/30/2024 Julissa banks, [facility] 5 13:40:27 Hiatal hernia 34704148 Active 2024 Julissa banks, [facility] 5 13:41:00 Acute bacteria l bronchit is 502241866 Completed 202407/30/2024 Julissa banks, [facility] 5 13:40:14 Chronic hypoxemi c respirat ory failure 591706326 Active 2024 HYACINTH EUGENE null, [facility] 5 10:21:36 At increase d risk for aspirati on 818156872 Active 2024 Octavia Maldonadoobloch null, [facility] 12:25:24 Fibrosis of lung 00026069 Active 2024 HYACINTH EUGENE null, [facility] 11:47:55 Obstruct pita sleep apnea syndrome 43403995 Active 2024 HYACINTH EUGENE null, [facility] 09:39:31 Pure hypercho lesterol emia 993146642 Active 2024 HYACINTH EUGENE null, [facility] 11:19:12 Hypergly cemia 04796268 Active 2024 HYACINTH EUGENE null, [facility] 11:19:12 Hearing loss 57425797 Active 2024 HYACINTH EUGENE null, [facility] 09:13:43 Aspirati on pneumoni tis 675355096 Active 2024 HYACINTH EUGENE null, [facility] 08:49:30 Pulmonar y aspirati on 61895816 Active 2024 HYACINTH EUGENE null, [facility] 08:49:30 Hemateme sis 5115390 Active 2024 HYACINTH EUGENE null, [facility] 08:49:44 Acute gastroen teritis 76905538 Active 2024 HYACINTH EUGENE null, [facility] 5 08:49:44 Problem Notes None recorded. Procedures Surgical History Date Name Laterality Status Provider Name and Address Organization Details Recorded Time 2023 esophagogastroduodenoscopy completed KAYDEN URENA JABIER [facility], [place] 5 13:14:20 procedure on brain completed [facility]EL Mason [facility] 09:30:20 arthroscopy of knee completed [facility]RE[facility] 09:30:33 Imaging Results None recorded. Procedure [...] CAPSULE BY MOUTH EVERY DAY with 150mg [id number] ; FOR ANXIETY 2024 active Not Available [...] Available Not Avai lable OptiChamb er Jennifer [facility] with Medium Mask USE DIRECTED [...] Available Not Available Not Avai lable Vitals None Recorded Social History Question Answer Notes LastModified by [employer] Details LastModified Time Tobacco Smoking Status Never Smoker Maru banks [facility] 02/06/2024 10:50:27 Where Do You Live? Other Kim's [email or web address] Information not available 08/06/2024 What Was The Date Of Your Most Recent Tobacco Screening? 01/04/2025 [email or web address] Information not available 01/04/2025 Sex: Unknown Functional Status Question Answer Note LastModified by Organizat ion Details LastModified Time Do you use any illicit or recreational drugs? No Information not available 02/06/2024 Do you or have you ever used any other forms of tobacco or nicotine? No [email or web address] Information not available 08/06/2024 What is your level of alcohol consumption? None Information not available 02/06/2024 Are you able to care for yourself independently? No [email or web address] Information not available 08/06/2024 Do you or have you ever used any nicotine-free cigarettes, vape, or chewing tobacco? No [email or web address] Information not available 08/06/2024 Mental Status None recorded. Family History Nothing Reported. Medical History No medical history recorded. Immunizations Vaccine Type Date Status Note Provider Nam e and Address Organization Details Recorded Time zoster recombinant 5 completed Reji Garza MD [address] [place] [address], [id number], [facility] 09/16/2024 14:46:42 Influenza, MDCK, quadrivalent, PF 2 completed Maru banks [facility] 02/06/2024 10:49:16 COVID-19, mRNA, LNP-S, PF, 100 mcg/0.5mL dose or 50 mcg/0.25mL dose 1 completed Maru Slick [facility] 02/06/2024 10:49:16 COVID-19, mRNA, LNP-S, PF, 100 mcg/0.5mL dose or 50 mcg/0.25mL dose 1 [facility] 02/06/2024 10:49:16 COVID-19, mRNA, LNP-S, PF, 100 mcg/0.5mL dose or 50 mcg/0.25mL dose 2 completed [facility] 02/06/2024 10:49:16 COVID-19, mRNA, LNP-S, bivalent, PF, 50 mcg/0.5 mL or 25mcg/0.25 mL dose 2 completed [facility] 02/06/2024 10:49:16 Influenza, split virus, trivalent, preservative 3 completed [facility] 02/06/2024 10:49:16 Influenza, split virus, trivalent, PF 4 completed [facility] 02/06/2024 10:49:16 Influenza, split virus, trivalent, PF 5 completed [facility] 02/06/2024 10:49:16 Td (adult), 2 Lf tetanus toxoid, preservative free, adsorbed 4 [facility]/06/2024 10:49:16 Hep B, adult 5 completed [facility] 02/06/2024 10:49:17 Hep B, adult 6 completed Maru banks, [facility] 02/06/2024 10:49:17 Hep B, adult 4 completed Maru banks, [facility] 02/06/2024 10:49:17 Influenza, split virus, quadrivalent, PF 1 completed Maru Kurger null, [facility] 02/06/2024 10:49:17 Influenza, MDCK, quadrivalent, preservative 3 completed Maru banks, [facility] 02/18/2024 15:15:35 [facility]ap [facility]/18/2024 15:15:36 COVID-19, mRNA, LNP-S, PF, 50 mcg/0.5 mL 5 completed [facility] 08/26/2024 10:19:44 Influenza, MDCK, trivalent, preservative 4 completed [facility] 08/26/2024 10:19:45 COVID-19, mRNA, LNP-S, PF, 10 mcg/0.2 mL 5 completed Not Available [facility] 04/27/2025 09:58:20 Influenza, high-dose, trivalent, PF 5 completed [facility] Available [facility] 04/27/2025 09:58:20 Pneumococcal conjugate PCV20, polysaccharide [id number] conjugate, adjuvant, PF 5 completed [facility] 06/17/2024 12:12:19 zoster recombinant 5 completed Julissa banks, [facility] 06/17/2024 12:12:42 Influenza, split virus, trivalent, preservative 6 completed [facility] 12/29/2022 02:32:31 Past Encounters Encounter ID Performer Location Encounter Start Date Encounter Closed Date Diagnosis/Indication Diagnosis SNOMED-CT Code Diagnosis ICD10 Code Diagnosis IMO Codes Diagnosis Note [id number] Reji Garza MD [facility] ([facility]) [address] [place] [address] [id number] 02/19/2025 12:34:21 02/19/2025 13:06:28 Hematemesis 5021284 K92.0 [id number] Acute gastroenteritis 69 223104 K52.9 [id number] Reji Garza MD [facility] ([facility]) [address] [place] [address] [phone] 03/09/2025 12:01:15 03/09/2025 15:15:29 Aspiration pneumonitis [id number] J69.0 2756 continue current care plan f/u if not continuing to improve.co mplete augmentin as ordered. Pulmonary aspiration 680 [id number] T17.908D [id number] we have maximized preventive measures.s ee previous history for extensive measures and evaluation s and discussion regarding surgery.co ntinue aspiration precaution scomplete augmentin script see previous noteshospi tiffanie records and cultures have been reviewed.h as been requiring oxygen a little more since discharge than prior to admission. however he is greatly improved and continuing to improve. [id number] Reji Garza MD [facility] ([facility]) [address] [place] [address] [id number] 03/19/2025 08:54:23 03/22/2025 09:59:08 Hematemesis 0624699 K92.0 [id number] Health Concerns Section Related Observation LastModified by Organization Detai ls LastModified Time None Recorded Concern Status LastModified by Organization Details LastModified Time None Recorded Payers Encounter Date Sequence Insurance Name Policy Number Policy Gore Covered Member ID Gore Member ID Guarantor Name 03/19/2025 2 [place] Dalton Olivas [id number] Adam Armstrong 03/19/2025 1 [place] TEJ Olivas [id number] Adam Armstrong
[2025-05-09 22:03] VITALS: BP 103/62; PULSE 100; RESP 18; TEMP 36.7; O2SAT 95; BMI 35.7
--- NOTE | 2025-05-09 22:17 | XRR_ITS ---
PROCEDURE INFORMATION: Exam: XR Chest Exam date and time: 05/09/2025 10:25 PM Age: 65 years old Clinical indication: Shortness of breath TECHNIQUE: Imaging protocol: Radiologic exam of the chest. Views: 1 view. COMPARISON: CR XR chest 1V portable [id number] 03/03/2025 10:23 AM FINDINGS: Lungs: Mild consolidation in the lateral aspect of the left lung, concerning for pneumonia. Pleural spaces: Unremarkable. No pleural effusion. No pneumothorax. Heart/Mediastinum: Mild cardiomegaly. Bones/joints: Unremarkable. XR/XR chest 1V portable [id number] IMPRESSION: Mild consolidation in the lateral aspect of the left lung, concerning for pneumonia.
[2025-05-09 22:30] VITALS: BP 108/76; PULSE 93; O2SAT 94
--- NOTE | 2025-05-09 22:38 | W.ED.RECABL ---
HPI - Recheck/Abnormal Lab/Rx General: Chief Complaint: Recheck/Abnormal Lab/Rx Stated Complaint: Low Oxygen & BP Time Seen by Provider: 05/09/25 21:58 History of Present Illness: Patient is a 65-year-old male presenting with hypoxemia and cough. Per report, patient's oxygen saturation has been fluctuating, with readings of 91%, 90%, and most recently stabilizing at 89%. Patient requires supplemental oxygen when saturation falls below 92%. Patient reports a mild cough without productive sputum. There was mention of a possible fever with one reading of 103.8?F, though this was questioned, with subsequent readings around 100?F. Patient denies feeling ill, stating he feels 'fine.' He denies shortness of breath, vomiting, or diarrhea. Patient appears to be using ear drops (Ofloxacin) that were recently prescribed for a short duration (3-4 days), though this medication is currently on hold. Related Data Home Medications ?Medication ?Instructions ?Recorded ?Confirmed dextromethorphan-guaifenesin 10 10 ml PO Q4H PRN Cough 07/12/22 03/03/25 mg-100 mg/5 mL oral syrup fluticasone propionate 50 2 spray intranasal DAILY@08 07/12/22 03/03/25 mcg/actuation nasal spray,suspension hydrocortisone 1 % topical cream 1 applic MD QID PRN Hemorrhoids 07/12/22 03/03/25 (Proctocort) loratadine 10 mg tablet (Claritin) 10 mg PO DAILY@07 07/12/22 03/03/25 trazodone 150 mg tablet 150 mg PO BEDTIME@20 07/12/22 03/03/25 simethicone 80 mg chewable tablet 80 mg PO QID 08/13/22 03/03/25 aluminum-mag hydroxide-simethicone 30 ml PO QID PRN upset stomach 07/21/24 03/03/25 200 mg-200 mg-20 mg/5 mL oral susp docusate sodium 100 mg capsule 100 mg PO DAILY Constipation 07/21/24 03/03/25 ferrous gluconate 324 mg (37.5 mg 324 mg PO DAILY 07/21/24 03/03/25 iron) tablet hydrocortisone 2.5 % topical cream 1 applic topical BID PRN rash 07/21/24 03/03/25 Mon-Fri ketoconazole 2 % shampoo See Rx Instructions .Route .COMPLEX 07/21/24 03/03/25 magnesium hydroxide 400 mg/5 mL See Rx Instructions .Route 07/21/24 03/03/25 oral suspension (Milk of Magnesia) .COMPLEX PRN Constipation pjuzzeou-kico-ejhtn acid 400 1 tab PO DAILY 07/21/24 03/03/25 mcg-lycopene 600 mcg-ginkgo 120 mg tablet (One Daily Men's 50 Plus Memory Support) polyethylene glycol 3350 17 17 g PO DAILY PRN constipation 07/21/24 03/03/25 gram/dose oral powder (Miralax) ropinirole 0.5 mg tablet 0.5 mg PO BEDTIME 07/21/24 03/03/25 sucralfate 1 gram tablet 1 g PO TID 07/21/24 03/03/25 pantoprazole 40 mg tablet,delayed 40 mg PO QAM 12/08/24 03/03/25 release acetaminophen 650 mg 650 mg PO Q8H PRN pain/fever>100 03/03/25 03/03/25 tablet,extended release benzoyl peroxide 5 % topical See Rx Instructions .Route .COMPLEX 03/03/25 03/03/25 cleanser miconazole nitrate 2 % topical 1 applic topical BEDTIME 03/03/25 03/03/25 powder mometasone 0.1 % topical solution See Rx Instructions .Route .COMPLEX 03/03/25 03/03/25 neomycin-bacitracn Zn-polymyx 3.5 1 applic topical DAILY PRN 03/03/25 03/03/25 mg-400 unit-5,000 unit/gram top cuts/abrasions oint (Triple Antibiotic) polyethylene glycol 3350 17 17 g PO DAILY PRN Constipation 03/03/25 03/03/25 gram/dose oral powder (Miralax) starch (thickening) (Thick-It oral See Rx Instructions .Route .COMPLEX 03/03/25 03/03/25 powder) triamcinolone acetonide 0.1 % See Rx Instructions .Route .COMPLEX 03/03/25 03/03/25 topical cream triamcinolone acetonide 0.1 % 1 applic topical BID PRN 03/03/25 03/03/25 topical ointment redness/rash venlafaxine 150 mg 150 mg PO DAILY 03/03/25 03/03/25 capsule,extended release 24 hr venlafaxine 75 mg capsule,extended 75 mg PO DAILY 03/03/25 03/03/25 release 24 hr zinc oxide 16 % topical ointment 1 applic topical TID PRN Skin 03/03/25 03/03/25 (Boudreauxs Butt Paste) Irritation Previous Rx's ?Medication ?Instructions ?Recorded carbamide peroxide 6.5 % ear drops See Rx Instructions .Route 12/19/21 (Ear Wax Removal Drops) .COMPLEX #15 mL fluticasone 100 mcg-salmeterol 50 1 inh inhalation BID #60 ea 09/03/22 mcg/dose blistr powdr for inhalation (Advair Diskus) albuterol sulfate 90 mcg/actuation 1 inh inhalation Q6H PRN shortness 03/18/23 aerosol inhaler of breath or wheezing #8.5 grams albuterol sulfate 2.5 mg/3 mL 2.5 mg (3 mL) inhalation Q6H PRN 01/31/24 (0.083 %) solution for nebulization Shortness Of Breath #90 mL galantamine 4 mg tablet 4 mg PO BID 90 days #180 tabs 11/24/24 oxcarbazepine 300 mg tablet 300 mg PO BID 90 days #180 tabs 11/24/24 quetiapine 200 mg tablet See Rx Instructions .Route 03/09/25 .COMPLEX #60 tabs levofloxacin 750 mg tablet 750 mg PO DAILY 7 days #7 tabs 05/09/25 Allergies Allergy/AdvReac Type Severity Reaction Status Date / Time No Known Allergies Allergy Verified 05/09/25 22:06 [facility] ED PFS: Medical History Aspiration pneumonia Intellectual disability Lymphadenopathy, hilar Hiatal hernia At risk for aspiration Bipolar disease, manic Negative colon, negative guaics. Tardive dyskinesia Dupuytren's contracture of left hand Iron deficiency anemia Surgical History History of carpal tunnel release History of cataract extraction History of colonoscopy Social History Smoking and tobacco/nicotine status: never used tobacco/nicotine Alcohol intake: never Substance/Drug Use: never Additional social history: Patient states that he lives with his roommate. Caregiver clarifies this is at [facility] assisted living. Patient tells me he wants full CODE STATUS as confirmed on 12/08/2024 with Ubaldo Hunter MD in the presence of his caregiver Isidro as well as his nurse Judi Biological mom and father are both his brother who is younger than him lives in [place] but not in close contact Previous occupational history: 25 years at [employer] in [place] Physical Exam Const: COMMON NORMALS: no acute distress GENERAL APPEARANCE: cooperative; not ill appearing and not frail appearing HENMT: COMMON NORMALS: normocephalic, atraumatic and Normal external nose present HEAD & SCALP: normocephalic and atraumatic FACE & SINUS: normal facial exam and face symmetric NOSE: Normal external nose present Eye: COMMON NORMALS: Equal, round and reactive pupils present and EOMs intact bilaterally PUPIL: Yes Equal, round and reactive pupils present Neck/C-Spine: GENERAL: Yes trachea midline Chest: CHEST: Yes Symmetrical chest wall rise Resp: COMMON NORMALS: normal respiratory effort, No retractions, No use of accessory muscles and clear to auscultation bilaterally AUSCULTATION: clear to auscultation bilaterally Cardio: COMMON NORMALS: regular rate and regular rhythm RATE: regular rate RHYTHM: regular rhythm GI: COMMON NORMALS: Normal to inspection, nondistended, normoactive bowel sounds present Extremity: COMMON NORMALS: no pedal edema Neuro: MICHELLE COMA SCALE: document GCS findings Michelle coma scale eye opening: Spontaneous Michelle coma scale verbal response: [place]ated [place] coma scale motor response: Obey commands Michelle coma scale total score: 15 SENSORY EXAM: Yes extremities (intact) Psych: COMMON NORMALS: speech normal SPEECH: Yes normal speech Skin: COMMON NORMALS: no rashes or lesions noted GENERAL SKIN EXAM: no rashes or lesions noted Course Vital Signs: Vital signs: Vital Signs Temperature 98.1 F 05/09/25 22:03 Pulse Rate 84 05/10/25 00:07 Respiratory Rate 18 05/09/25 22:03 Blood Pressure 114/73 05/10/25 00:07 Pulse Oximetry 96 05/10/25 00:07 Oxygen Delivery Me thod Nasal Cannula 05/09/25 23:00 Oxygen Flow Rate 3 05/09/25 22:03 MDM - Recheck/Abnormal Lab/Rx Medical Decision Making Vitals are stable here. He is wearing 3 L currently, satting above 95%. He usually wears 2-3 at home at times. His CBC is normal. BMP is normal. Chest x-ray shows a consolidation in the lateral aspect of the left lung. Flu COVID and RSV are negative. CRP is mildly elevated at 31. He will be treated for pneumonia. Increased oxygen usage. Scheduled breathing treatments. Lab Data 05/09/25 22:23 05/09/25 22:23 Radiology Impressions Chest X-Ray 05/09/25 22:17 IMPRESSION: Mild consolidation in the lateral aspect of the left lung, concerning for pneumonia. Laboratory Results WBC 11.41 10^3/uL (3.29-11.43) 05/09/25 22: RBC 4.42 10^6/uL (3.85-5.65) 05/09/25 22:23 Hgb 13.60 g/dL (11.27-16.99) 05/09/25 22: Hct 40.0 % (37-53) 05/09/25 22:23 MCV 90.5 fl (82-101) 05/09/25 22:23 MCH 30.8 pg (27-33) 05/09/25 22: MCHC 34.0 g/dL (30-55) 05/09/25 22: RDW 13.5 % (12.1-15.1) 05/09/25 22:23 Plt Count 179 10^3/cmm (157-399) 05/09/25 22: MPV 10.6 fL (7.4-10.4) H 05/09/25 22:23 Neut % (Auto) 84.0 % 05/09/25 22: Lymph % (Auto) 6.9 % 05/09/25 22: [place] % (Auto) 8.0 % 05/09/25 22: Eos % (Auto) 0.2 % 05/09/25: Baso % (Auto) 0.4 % 05/09/25 22: Neut # (Auto) 9.59 10^3/uL (1.8-7.7) H 05/09/25 22:23 Lymph # (Auto) 0.8 10^3/uL (0.8-4.8) 05/09/25 22:23 [place]ac # (Auto) 0.9 10^3/uL (0.2-0.9) 05/09/25 22:23 Eos # (Auto) 0.0 10^3/uL (0.0-0.8) 05/09/25 22:23 Baso # (Auto) 0.0 10^3/uL (0.0-0.1) 05/09/25 22:23 Nucleated RBC % (auto) 0 % 05/09/25 22:23 Nucleated RBCs # 0.0 /100WBC 05/09/25 22:23 Sodium 136 mmol/L (136-145) 05/09/25 22:23 Potassium 4.3 mmol/L (3.5-5.1) 05/09/25 22:23 Chloride 103 mmol/L (98-107) 05/09/25 22:23 Carbon Dioxide 24 mmol/L (22-29) 05/09/25 22:23 Anion Gap 13.3 (5-19) 05/09/25 22:23 BUN 20 mg/dL (8-23) 05/09/25 22:23 Creatinine 0.8 mg/dL (0.7-1.2) 05/09/25 22:23 GFR Calculation 96.4 mL/min (90-130) 05/09/25 22:23 Glucose 126 mg/dL (65-115) H 05/09/25 22:23 Calculated Osmolality 286 mOsm/kg (285-295) 05/09/25 22:23 Lactic Acid 1.0 mmol/L (0.5-2.2) 05/09/25 22:23 Calcium 9.1 mg/dL (8.5-10.5) 05/09/25 22:23 Total Bilirubin 0.3 mg/dL (0.15-1.2) 05/09/25 22:23 AST 23 U/L (0-40) 05/09/25 22:23 ALT 19 U/L (0-41) 05/09/25 22:23 Alkaline Phosphatase 76 U/L (40-130) 05/09/25 22:23 C-Reactive Protein 31.3 mg/L (0.0-4.9) H 05/09/25 22:23 NT-Pro-B Natriuret Pep 86 pg/mL (0-125) 05/09/25 22:23 Total Protein 6.7 g/dL (6.6-8.7) 05/09/25 22:23 Albumin 3.8 g/dL (3.5-5.2) 05/09/25 22:23 Globulin 2.9 g/dL (1.3-4.6) 05/09/25 22:23 Influenza A (PCR) Negative (Negative) 05/09/25 22:35 Influenza Type B (PCR) Negative (Negative) 05/09/25 22:35 RSV (PCR) Negative (Negative) 05/09/25 22:35 SARS-CoV-2 (PCR) Negative (Negative) 05/09/25 22:35 All radiology interpretation(s) finalized by discharge Discharge Plan Discharge Patient Disposition: Home Clinical Impression: Pneumonia Qualifiers: Laterality: left Condition: Stable Prescriptions: New levofloxacin 750 mg tablet 750 mg PO DAILY 7 Days Qty: 7 0RF No Action albuterol sulfate 90 mcg/actuation HFA aerosol inhaler 1 inh inhalation Q6H PRN (Reason: shortness of breath or wheezing) Qty: 8.5 3RF oxcarbazepine 300 mg tablet 300 mg PO BID 90 Days Qty: 180 3RF galantamine 4 mg tablet 4 mg PO BID 90 Days Qty: 180 3RF Ear Wax Removal Drops 6.5 % drops See Rx Instructions .ROUTE .COMPLEX Qty: 15 5RF Dose Instruction: instill SIX drops in BOTH ears TWICE DAILY FOR FOUR DAYS each MONTH THEN IRRIGATE Rx Instructions: Instill SIX drops in BOTH ears TWICE DAILY FOR FOUR DAYS each MONTH THEN IRRIGATE. quetiapine 200 mg tablet See Rx Instructions .ROUTE .COMPLEX Qty: 60 3RF Dose Instruction: TAKE 1 TABLET BY MOUTH TWICE DAILY FOR bipolar Rx Instructions: TAKE 1 TABLET BY MOUTH TWICE DAILY FOR bipolar dextromethorphan-guaifenesin 10-100 mg/5 mL Syrup 10 ml PO Q4H PRN (Reason: Cough) hydrocortisone [Proctocort] 1 % Cream 1 applic MD QID PRN (Reason: Hemorrhoids) trazodone 150 mg tablet 150 mg PO BEDTIME@20 fluticasone propionate 50 mcg/actuation spray,suspension 2 spray INTRANASAL DAILY@08 Rx Instructions: administer into each nostril loratadine [Claritin] 10 mg tablet 10 mg PO DAILY@07 simethicone 80 mg tablet,chewable 80 mg PO QID Rx Instructions: @07:00,12:00,16:00,20:00 albuterol sulfate 2.5 mg /3 mL (0.083 %) Solution For Nebulization 2.5 mg INHALATION Q6H PRN (Reason: Shortness Of Breath) Qty: 90 0RF fluticasone propion-salmeterol [Advair Diskus] 100-50 mcg/dose blister with device 1 inh inhalation BID Qty: 60 0RF One Daily Men's 50 Plus Memory 400-600-120 mcg-mcg-mg Tablet 1 tab PO DAILY ketoconazole 2 % shampoo See Rx Instructions .ROUTE .COMPLEX Rx Instructions: Lather onto Scalp and brennan three times weekly as needed ,allow to sit for 5 minutes before rinsing . sucralfate 1 gram tablet 1 g PO TID magnesium hydroxide [Milk of Magnesia] 400 mg/5 mL Suspension See Rx Instructions .ROUTE .COMPLEX PRN (Reason: Constipation) Rx Instructions: Take 5ml by mouth four times daily as needed on fourth day if no bowel movement in 3 days. Must wait 4 hours betweeen doeses Not to exceed 5 days. hydrocortisone 2.5 % cream 1 applic TOPICAL BID PRN (Reason: rash Mon-Fri) Rx Instructions: up to 2 weeks monthly alum-mag hydroxide-simeth 200-200-20 mg/5 mL Suspension 30 ml PO QID PRN (Reason: upset stomach) Rx Instructions: administer between meals and at bedtime ropinirole 0.5 mg tablet 0.5 mg PO BEDTIME polyethylene glycol 3350 [Miralax] 17 gram/dose powder 17 g PO DAILY PRN (Reason: constipation ) Rx Instructions: Dissolve 1 scoop every day as needed for no bowel movement in 48 hours docusate sodium 100 mg Capsule 100 mg PO DAILY ferrous gluconate 324 mg (37.5 mg iron) Tablet 324 mg PO DAILY pantoprazole 40 mg tablet,delayed release (DR/EC) 40 mg PO QAM Triple Antibiotic 3.5mg-400 unit- 5,000 unit/gram Ointment 1 applic TOPICAL DAILY PRN (Reason: cuts/abrasions) miconazole nitrate 2 % Powder 1 applic TOPICAL BEDTIME triamcinolone acetonide 0.1 % cream See Rx Instructions .ROUTE .COMPLEX Rx Instructions: Apply twice daily to rash on buttocks for 2 weeks, then use as needed if hydrocortisone is ineffective. acetaminophen 650 mg Tablet Extended Release 650 mg PO Q8H PRN (Reason: pain/fever>100) triamcinolone acetonide 0.1 % ointment 1 applic TOPICAL BID PRN (Reason: redness/rash) Thick-It Powder See Rx Instructions .ROUTE .COMPLEX Rx Instructions: Use to thicken liquids for thickening to honey consistency. benzoyl peroxide 5 % Cleanser See Rx Instructions .ROUTE .COMPLEX Rx Instructions: Use to wash groin and buttocks in shower 3 times per week for rash/redness. polyethylene glycol 3350 [Miralax] 17 gram/dose Powder 17 g PO DAILY PRN (Reason: Constipation) Boudreauxs Butt Paste 16 % Ointment 1 applic TOPICAL TID PRN (Reason: Skin Irritation) mometasone 0.1 % Solution See Rx Instructions .ROUTE .COMPLEX Rx Instructions: Apply to itchy areas in brennan twice daily as needed. May use up to 2 weeks monthly. venlafaxine 150 mg capsule,extended release 24hr 150 mg PO DAILY Rx Instructions: along with 75mg [id number] total venlafaxine 75 mg capsule,extended release 24hr 75 mg PO DAILY Rx Instructions: along with 150mg [id number] total Discharge Orders: Discharge ED (Routine); Ordered 05/09/25 Ordered By: Christos Mcgraw Referrals: Reji Garza MD [Primary Care Provider, Family Practice] - 4-7 days Patient Instructions: Pneumonia (ED), Opioid Safety, Pain Management, Patient Portal & Bo Instructions Activity Restrictions/Additional Instructions: Increase albuterol breathing treatments to 4 times daily scheduled for the next 2 days, then as needed following that. Antibiotics as directed. He will require oxygen 24 hours daily at least for the next 48 hours, then as needed as usual. Return for any problems. Call your doctor tomorrow for an outpatient follow-up appointment. Print Language: Emirati Coding Level of Care Code ED Ancillary Specialist for [facility]
[2025-05-09 22:49] LABS: Hematocrit 40.0 % (37-53); Hemoglobin 13.60 g/dL (11.27-16.99); Mean Corpuscular HGB Conc 34.0 g/dL (30-55); Mean Corpuscular Hemoglobin 30.8 pg (27-33); Mean Corpuscular Volume 90.5 fl (82-101); Nucleated Red Blood Cells % 0 %; Platelet Count 179 10^3/cmm (157-399); Red Blood Count 4.42 10^6/uL (3.85-5.65); White Blood Count 11.41 10^3/uL (3.29-11.43)
[2025-05-09 23:00] VITALS: BP 109/61; PULSE 86; O2SAT 95
[2025-05-09 23:07] LABS: Lactic Sepsis W/Reflex 1.0 mmol/L (0.5-2.2)
[2025-05-09 23:15] LABS: Respiratory Syncytial Virus Ce NEGATIVE (Negative); SARS-CoV-2 PCR NEGATIVE (Negative)
[2025-05-09 23:17] LABS: Alanine Aminotransferase 19 U/L (0-41); Albumin Level 3.8 g/dL (3.5-5.2); Alkaline Phosphatase 76 U/L (40-130); Anion Gap 13.3 (5-19); Aspartate Amino Transferase 23 U/L (0-40); Blood Urea Nitrogen 20 mg/dL (8-23); Calcium 9.1 mg/dL (8.5-10.5); Carbon Dioxide 24 mmol/L (22-29); Chloride 103 mmol/L (98-107); Globulin 2.9 g/dL (1.3-4.6); Glucose 126 mg/dL (65-115); NT Pro B Type Natriuretic Pept 86 pg/mL (0-125); Osmolality Calculated 286 mOsm/kg (285-295); Potassium 4.3 mmol/L (3.5-5.1); Sodium 136 mmol/L (136-145); Total Protein 6.7 g/dL (6.6-8.7)
[2025-05-10 00:07] VITALS: BP 114/73; PULSE 84; O2SAT 96
== END 2025-05-10 00:09 | disposition home or self-care (01) ==
PROVIDERS: Emergency Provider Emergency Medicine; PCP Family Medicine
DX: J18.9 Pneumonia, unspecified organism (principal); Z11.52 Encounter for screening for COVID-19
CPT/HCPCS: 36415; 71045; 80053; 83605; 83880; 85025; 86140; 87637; 99284; J7030; J9999

== ENCOUNTER → 2025-05-18 09:31 | Outpatient (BNVA) | payer MEDICARE, MEDICAID, SELFPAY | PROVIDERS: PCP Family Medicine; Visit Provider Podiatrist Foot & Ankle Surgery | DX: I73.9 Peripheral vascular disease, unspecified (principal); L60.3 Nail dystrophy | CPT/HCPCS: 11721; 99203 ==